=== PATIENT | female | born 1940 | race Caucasian/White ===

== ENCOUNTER → 2018-03-21 15:43 | Outpatient (CLI) | payer MEDICARE, OTHER, SELFPAY | PROVIDERS: Family Provider Internal Medicine; PCP Internal Medicine; Visit Provider Internal Medicine Gastroenterology | DX: K31.89 Other diseases of stomach and duodenum (principal) | CPT/HCPCS: 36415; 86677 ==

== ENCOUNTER → 2018-04-03 16:04 | Outpatient (CLI) | payer OTHER, MEDICARE, SELFPAY ==
[2018-04-03 16:40] LABS: Add Manual Diff / Slide Review NO; Basophils Percent Auto 0.5 % (0-2); Eosinophils Percent Auto 0.4 % (2-4); Hematocrit 34.9 % (36-46); Hemoglobin 11.8 g/dL (12.0-16.0); Lymphocytes Percent Auto 10.4 % (25-40); Mean Corpuscular HGB Conc 33.8 % (30-36); Mean Corpuscular Hemoglobin 31.4 PG (26-34); Monocytes Percent Auto 7.4 % (3-14); Neutrophils Absolute Auto 6000 /uL (3000-5900); Neutrophils Percent Auto 81.3 % (50-75); Platelet Count 219 X10^3/uL (150-400); Red Blood Cell Count 3.75 X10^6/uL (4.0-5.2); Red Cell Distribution Width 13.6 % (11.6-14.8); White Blood Cell Count 7.3 X10^3/uL (4.5-11.0)
[2018-04-03 17:42] LABS: Alanine Aminotransferase 23 IU/L (9-52); Albumin 3.6 g/dL (3.5-5.0); Albumin Globulin Ratio 0.9 (1.0-2.8); Alkaline Phosphatase 203 U/L (38-126); Aspartate Aminotransferase 36 IU/L (14-36); BUN Creatinine Ratio 15.7 (6-22); Bilirubin Total 0.3 mg/dL (0.2-1.3); Blood Urea Nitrogen 11 mg/dL (7-17); Calcium 8.5 mg/dL (8.4-10.2); Carbon Dioxide 31 mmol/L (22-32); Chloride 93 mmol/L (98-107); Estimated Glomerular Filt Rate > 60.0 mL/min (>60); Globulin 3.9 g/dL (1.7-4.1); Glucose 97 mg/dL (80-110); HEMOLYSIS < 15 (0-50); Potassium 4.7 mmol/L (3.4-5.1); Sodium 130 mmol/L (137-145); Total Protein 7.5 g/dL (6.3-8.2)
== END ==
PROVIDERS: Family Provider Internal Medicine; Visit Provider Internal Medicine Rheumatology
DX: M32.10 Systemic lupus erythematosus, organ or system involvement unspecified (principal); Z79.899 Other long term (current) drug therapy
CPT/HCPCS: 80053; 85025

== ENCOUNTER → 2018-04-26 15:05 | Outpatient (CLI) | payer MEDICARE, OTHER, SELFPAY ==
[2018-04-26 16:01] LABS: Add Manual Diff / Slide Review NO; Basophils Percent Auto 0.8 % (0-2); Eosinophils Percent Auto 0.7 % (2-4); Hematocrit 37.6 % (36-46); Hemoglobin 12.6 g/dL (12.0-16.0); Lymphocytes Percent Auto 15.5 % (25-40); Mean Corpuscular HGB Conc 33.6 % (30-36); Mean Corpuscular Hemoglobin 31.1 PG (26-34); Mean Corpuscular Volume 92.5 fL (80-100); Monocytes Percent Auto 7.9 % (3-14); Neutrophils Absolute Auto 4300 /uL (3000-5900); Neutrophils Percent Auto 75.1 % (50-75); Platelet Count 191 X10^3/uL (150-400); Red Blood Cell Count 4.06 X10^6/uL (4.0-5.2); White Blood Cell Count 5.7 X10^3/uL (4.5-11.0)
[2018-04-26 16:38] LABS: Alanine Aminotransferase 30 IU/L (9-52); Albumin 3.8 g/dL (3.5-5.0); Albumin Globulin Ratio 0.9 (1.0-2.8); Alkaline Phosphatase 172 U/L (38-126); Aspartate Aminotransferase 46 IU/L (14-36); BUN Creatinine Ratio 18.3 (6-22); Bilirubin Total 0.5 mg/dL (0.2-1.3); Blood Urea Nitrogen 11 mg/dL (7-17); Carbon Dioxide 28 mmol/L (22-32); Chloride 93 mmol/L (98-107); Estimated Glomerular Filt Rate > 60.0 mL/min (>60); Globulin 4.3 g/dL (1.7-4.1); Glucose 94 mg/dL (80-110); HEMOLYSIS < 15 (0-50); Potassium 4.6 mmol/L (3.4-5.1); Sodium 130 mmol/L (137-145); Total Protein 8.1 g/dL (6.3-8.2)
== END ==
PROVIDERS: PCP Internal Medicine; Visit Provider Internal Medicine Rheumatology
DX: M32.10 Systemic lupus erythematosus, organ or system involvement unspecified (principal); Z79.899 Other long term (current) drug therapy
CPT/HCPCS: 36415; 80053; 85025

== ENCOUNTER → 2018-05-14 15:45 | Outpatient (CLI) | payer MEDICARE, OTHER, SELFPAY | PROVIDERS: Family Provider Internal Medicine; PCP Family Medicine; Visit Provider Internal Medicine Gastroenterology | DX: A04.8 Other specified bacterial intestinal infections (principal) | CPT/HCPCS: 83013; 86677 ==

== ENCOUNTER → 2018-05-31 14:51 | Outpatient (CLI) | payer MEDICARE, OTHER, SELFPAY ==
[2018-05-31 16:14] LABS: Add Manual Diff / Slide Review NO; Basophils Percent Auto 0.4 % (0-2); Eosinophils Percent Auto 0.7 % (2-4); Hematocrit 39.1 % (36-46); Hemoglobin 12.9 g/dL (12.0-16.0); Lymphocytes Percent Auto 11.8 % (25-40); Mean Corpuscular HGB Conc 32.9 % (30-36); Mean Corpuscular Hemoglobin 30.4 PG (26-34); Mean Corpuscular Volume 92.6 fL (80-100); Monocytes Percent Auto 6.3 % (3-14); Neutrophils Absolute Auto 5400 /uL (3000-5900); Neutrophils Percent Auto 80.8 % (50-75); Platelet Count 194 X10^3/uL (150-400); Red Blood Cell Count 4.22 X10^6/uL (4.0-5.2); Red Cell Distribution Width 14.5 % (11.6-14.8); White Blood Cell Count 6.7 X10^3/uL (4.5-11.0)
[2018-05-31 16:55] LABS: Alanine Aminotransferase 22 IU/L (9-52); Albumin 3.9 g/dL (3.5-5.0); Alkaline Phosphatase 175 U/L (38-126); Aspartate Aminotransferase 38 IU/L (14-36); BUN Creatinine Ratio 16.7 (6-22); Bilirubin Total 0.4 mg/dL (0.2-1.3); Blood Urea Nitrogen 10 mg/dL (7-17); Calcium 8.8 mg/dL (8.4-10.2); Carbon Dioxide 26 mmol/L (22-32); Chloride 97 mmol/L (98-107); Estimated Glomerular Filt Rate > 60.0 mL/min (>60); Glucose 85 mg/dL (80-110); HEMOLYSIS < 15 (0-50); Potassium 4.9 mmol/L (3.4-5.1); Sodium 133 mmol/L (137-145); Total Protein 7.9 g/dL (6.3-8.2)
== END ==
PROVIDERS: Family Provider Internal Medicine; PCP Family Medicine; Visit Provider Internal Medicine Rheumatology
DX: Z79.899 Other long term (current) drug therapy (principal)
CPT/HCPCS: 36415; 80053; 85025

== ENCOUNTER 2018-06-11 14:13 | Emergency (ER) | payer MEDICARE, OTHER, SELFPAY ==
--- NOTE | 2018-06-11 14:22 | PC.NURSE ---
1400 not in wr when called
[2018-06-11 14:34] VITALS: TEMP 36.9
--- NOTE | 2018-06-11 17:09 | ED.LOWEXIN ---
HPI - Extremity Injury (Lower) <VIRAJ Vázquez - Last Filed: 06/11/18 22:27> General Chief Complaint: Extremity Injury, Lower Stated Complaint: RT LEG HURTS Time Seen by Provider: 06/11/18 17:09 Source: patient Mode of arrival: ambulatory Limitations: no limitations History of Present Illness HPI Narrative: 78-year-old female here for complaint of wound to her posterior right ankle. She reports 2 weeks ago that she received a skin tear to the area after she was accidentally collided with a shopping cart. She was seen twice once by primary care and once by walk-in clinic for the same issues. They have been doing dressings to the area along with bacitracin. She denies any new trauma to the area. She states that it has not healed as of yet. She denies any drainage from the area. No fevers no chills. She is ambulatory into the emergency room. Related Data Home Medications Medication Instructions Recorded Confirmed nadolol 20 mg PO QDAY #0 08/04/17 06/11/18 mycophenolate mofetil 1,000 mg PO BID 03/19/18 06/11/18 lactulose 10 gram/15 mL oral 10 gram PO DAILY PRN 04/25/18 06/11/18 solution trazodone 50 mg tablet 25 mg PO DAILY PRN 04/25/18 06/11/18 prednisone 1 mg tablet 3 mg PO QDAY #0 tab 05/24/18 06/11/18 Bifidobacterium infantis [Align] 1 cap PO DAILY PRN 06/11/18 06/11/18 bismuth subcit [id number] 3 cap PO ACHS 06/11/18 06/11/18 [Pylera] denosumab [Prolia] 1 dose SUB-Q [id number] 06/11/18 06/11/18 ferrous sulfate [Iron (ferrous 325 mg PO BID 06/11/18 06/11/18 sulfate)] fesoterodine [Toviaz] 4 mg PO BEDTIME 06/11/18 06/11/18 omeprazole 20 mg PO BID 06/11/18 06/11/18 oxycodone 5 mg PO Q6HP PRN 06/11/18 06/11/18 ranitidine HCl 150 mg PO DAILY 06/11/18 06/11/18 Previous Rx's Medication Instructions Recorded estradiol [Estrace] 0.01 % VAGINAL SEE INSTRUCTIONS 06/15/17 #45 gm potassium chloride 2 cap PO BID #180 cap 10/20/17 clonazepam 1 mg tablet 1 mg PO QIDP PRN #120 tab 04/03/18 duloxetine 60 mg capsule,delayed 60 mg PO DAILY #30 cap 04/03/18 release folic acid 1 mg tablet 1 mg PO BID #60 tab 04/18/18 levothyroxine 88 mcg tablet 88 mcg PO QAM #30 tab 05/15/18 Allergies Allergy/AdvReac Type Severity Reaction Status Date / Time codeine [CODEINE] Allergy Mild intolerant, Verified 06/05/18 11:16 headaches,n ightmares dicloxacillin [DICLOXACILLIN] Allergy Mild Verified 06/05/18 11:16 levofloxacin [LEVOFLOXACIN] Allergy Mild Verified 06/05/18 11:16 lorazepam [LORAZEPAM] Allergy Mild intolerant Verified 06/05/18 11:16 av thornton ciprofloxacin [CIPROFLOXACIN] Allergy Unknown Verified 06/05/18 11:16 hydroxychloroquine AdvReac Mild visual Verified 06/05/18 11:16 [From Plaquenil] disturbances Review of Systems <VIRAJ Vázquez - Last Filed: 06/11/18 22:27> Constitutional Denies chills, Denies fever(s), Denies lethargy and Denies weakness Eyes Denies change in vision, Denies eye discharge, Denies irritation and Denies loss of vision ENT Ears, Nose, Mouth, and Throat: Denies change in voice, Denies neck pain and Denies sore throat Cardiovascular Denies chest pain, Denies irregular heart rhythm, Denies lightheadedness, Denies palpitations, Denies dyspnea, Denies dyspnea on exertion and Denies orthopnea Respiratory Denies cough, Denies dyspnea, Denies dyspnea on exertion and Denies wheezing Gastrointestinal Gastrointestinal: Denies abdominal pain, Denies change in bowel habits, Denies diarrhea, Denies nausea and Denies vomiting Genitourinary Denies hematuria, Denies flank pain, Denies urinary incontinence and Denies urinary urgency Musculoskeletal Denies neck pain Integumentary/Breasts Denies pruritus, Denies erythema, Denies rash and Denies wounds Neurologic Denies confusion, Denies loss of vision and Denies weakness Psychiatric Denies anxiety, Denies confusion, Denies depression, Denies homicidal ideation and Denies suicidal ideation Endocrine Denies palpitations Hematologic/Lymphatic Denies easy bruising Allergic/Immunologic Denies wheezing Exam <VIRAJ Vázquez - Last Filed: 06/11/18 22:27> Initial Vital Signs Initial Vital Signs: Vital Signs Temperature 98.4 F 06/11/18 14:34 Const General: cooperative and well developed Nutritional Appearance: well nourished Orientation: alert, awake, oriented x3 and not confused [facility] Mouth: oral mucosae normal and moist mucous membranes Eyes Conjunctivae: conjunctivae normal Sclera: sclerae normal Pupils: PERRL EOM: EOM intact bilaterally Resp Effort & Inspection: normal respiratory effort, able to speak in complete sentences, no respiratory distress and no use of accessory muscles Auscultation: clear to auscultation bilaterally, no rales, no rhonchi and no wheezes Cardio Rate: regular rate Rhythm: regular rhythm Heart Sounds: no click, no gallops, no murmurs and no rubs Pulses: normal peripheral pulses Skin General: no rashes or lesions noted, No jaundice and No petechiae Neuro General: alert, oriented x3, gait normal and no focal motor deficits Speech: speech normal Extrem Other: Area of skin tear to the posterior right ankle over the Achilles tendon area appears to be healing well by secondary intention. No signs of infection. Distal sensation is intact. Distal pulses are intact. Distal range of motion is intact. <Natalee Alvares DO - Last Filed: 06/12/18 03:57> Initial Vital Signs Initial Vital Signs: Vital Signs Temperature 98.4 F 06/11/18 14:34 Course <VIRAJ Vázquez - Last Filed: 06/11/18 22:27> Vital Signs - 8 hr 06/11/18 14:34 06/11/18 17:18 Temperature 98.4 F Pulse Rate 68 Pulse Rate [Right Dorsalis Pedis] 68 Respiratory Rate 14 Blood Pressure [Left Arm] 157/88 H Pulse Oximetry 99 <Natalee Alvares DO - Last Filed: 06/12/18 03:57> Vital Signs - 8 hr 06/11/18 14:34 06/11/18 17:18 Temperature 98.4 F Pulse Rate 68 Pulse Rate [Right Dorsalis Pedis] 68 Respiratory Rate 14 Blood Pressure [Left Arm] 157/88 H Pulse Oximetry [address] [facility] - Extremity Injury (Lower) <VIRAJ Vázquez - Last Filed: 06/11/18 22:27> [facility] Narrative Medical decision making narrative: Wound appears to be healing well by secondary intention. Dressing applied to area with bacitracin. Follow up with primary care provider in the next few days for re-evaluation. Keep wound area clean and dry. For any worsening symptoms return to the emergency room. Discharge Plan Departure Patient Disposition: Home, Self-Care Clinical Impression: Skin tear of right lower leg without complication Discharge Date/Time: 06/11/18 18:33 Interventions: ED Discharge Assessment Last Done: 06/11/18 18:33 Instructions: Skin Wound Activity Restrictions/Additional Instructions: Wound area appears to be healing well by secondary intention no signs of infection at this time. Wound was dressed today in the emergency room. Keep dressing on clean and dry follow up with primary care provider in the next few days for re-evaluation. For any worsening symptoms return to the emergency room. Prescriptions: No Action estradiol [Estrace] 0.01 % cream 0.01 % Vaginal SEE INSTRUCTIONS Qty: 45 RF: 11 nadolol 20 MG tablet 20 mg PO QDAY Qty: 0 RF: 0 potassium chloride 8 MEQ capsule, extended release 2 cap PO BID Qty: 180 RF: 6 clonazepam 1 mg tablet 1 mg PO QIDP PRN (Reason: anxiety) Qty: 120 RF: 1 duloxetine 60 mg capsule,delayed release(DR/EC) 60 mg PO DAILY Qty: 30 RF: 5 folic acid 1 mg tablet 1 mg PO BID Qty: 60 RF: 4 levothyroxine 88 mcg tablet 88 mcg PO QAM Qty: 30 RF: 11 prednisone 1 mg tablet 3 mg PO QDAY Qty: 0 RF: 0 trazodone 50 mg tablet 25 mg PO DAILY PRN (Reason: antidepressant) RF: 0 lactulose 10 gram/15 mL solution 10 gram PO DAILY PRN (Reason: Laxative Effect) RF: 0 mycophenolate mofetil 500 mg Tablet 1,000 mg PO BID RF: 0 omeprazole 20 mg capsule,delayed release(DR/EC) 20 mg PO BID RF: 0 bismuth subcit [id number] [Pylera] 140-125-125 mg capsule 3 cap PO ACHS RF: 0 Bifidobacterium infantis [Align] 4 mg Capsule 1 cap PO DAILY PRN (Reason: Diarrhea) RF: 0 ferrous sulfate [Iron (ferrous sulfate)] 325 MG tablet 325 mg PO BID RF: 0 ranitidine HCl 150 MG tablet 150 mg PO DAILY RF: 0 oxycodone 5 MG tablet 5 mg PO Q6HP PRN (Reason: Pain, Severe) RF: 0 fesoterodine [Toviaz] 4 MG tablet extended release 24 hr 4 mg PO BEDTIME RF: 0 denosumab [Prolia] 60 mg/mL Syringe 1 dose Sub-Q [id number] RF: 0 Referrals: Rosalina Hylton DO [Primary Care Provider] - <Natalee Alvares DO - Last Filed: 06/12/18 03:57> Cosign ED Attending Donaldature Attestation: I was immediately available in the department for consultation. Documentation has been reviewed. I agree with assessment and plan.
[2018-06-11 17:18] VITALS: BP 157/88; PULSE 68; RESP 14; O2SAT 99
== END 2018-06-11 18:33 | disposition home or self-care (01) ==
PROVIDERS: Emergency Provider Nurse Practitioner Family; PCP Family Medicine
DX: S81.811A Laceration without foreign body, right lower leg, initial encounter (principal); W22.09XA Striking against other stationary object, initial encounter
CPT/HCPCS: 99282

== ENCOUNTER 2018-06-15 14:30 | Outpatient (RCR) | payer MEDICARE, OTHER, SELFPAY ==
--- NOTE | 2018-04-02 12:25 | OT.OP.EVAL ---
Visit Care Team Role Provider Type Michael Mcmahan MD Primary Care Provider Physician Specialty: Family Practice Address: [address] [place] [address], [id number] Email: [email or web address] Joe Gupta MD Family Provider Physician Specialty: Internal Medicine Address: [address] [place] [address], [id number] Email: Nery Bowers MD Attending Provider Non-Staff Specialty: Rheumatology Address: [address] [place] [address], [id number] Email: Occupational Therapy Initial Evaluation OT Outpatient Adult Evaluation Start: 03/30/18 13:43 Freq: Status: Active Protocol: Document 03/30/18 13:52 AMS (Rec: 03/30/18 14:34 AMS [id number]) General Information Referral Referring Physician Nery Bowers MD Reason for Referral [facility] OA; Lupus: may need splinting, hot wax, gentle strength, help w/ AE Visit Information Visit Number [id number] Plan of Care Dates 03/30/18-06/22/18 Insurance Information Medicare; g-codes required Identification Identification Confirmed Yes: Name/ match with paper chart Patient Patient Concerns Pain/discomfort; Maintaining functional independence Medical Information Medical History Systemic lupus--arthritis, pos [place]field, dsdna, h/o low platelets , one time w/ (+) IgG ACLs, repeat IgG ACLs in Nov 2013 mildly (+). Failed AZA due to low cell counts. Intolerant to HCQ due to macular degeneration. Started Cellcept late February 2016. Autoimmune hepatitis diagnosed in 2001. Hypothyroidism. Mild depression controlled on meds. Cirrhosis. Portal HTN. Banding of esophageal varices. Previous Therapy Previous Therapy/Therapies Yes History of Therapy h/o treatment for bilateral hand pain. (+) wearing of over -the-counter B splints w/ support of thumbs (CMC wrap). Current Therapy/Therapies Physical therapy at [facility] Therapy Pain Assessment Pain When Pain Assessed Pre Pain Present Pain Present Pain Reported Location Left Hand Intensity 2 Scale Used Numeric (1 - 10) Pain Behaviors Facial Grimacing Guarding Holding Area Pain Management Techniques Apply Heat Right Hand Scale Used Range 1-7 numeric Pain Behaviors Facial Grimacing Guarding Holding Area Pain Management Techniques Apply Heat Patient Questionnaires Quick Dash- Upper Extremity Quick Dash UE Score 59.1 Quick Dash UE Impairment 40 to 59% Impaired (Score 40- 59) ADLs Overall Ability Comments Impaired - difficulty dependent upon task being completed Feeding Skill Level Impaired Comments Intermittent need for assistance w/ cutting, using knife Dressing Upper Body Dressing Ability Dependent w/ managing buttons Able to manage jewelry - however, becoming increasingly difficult Skill Level Impaired Skill Level WFL Footware Type Tie shoe laces Skill Level WFL Oral Care Skill Level WFL Bathing Skill Level WFL Grooming Skill Level WFL Toileting Skill Level WFL IADLs Sleep Sleep Description Pt denied difficulties related to sleep due to B hand pain Meal Preparation Skill Level Impaired Comments Assistance w/ meal preparation required Local Truck Driver Skill Level Impaired Comments Assistance w/ house hold chores Energy conservation required Driving Skill Level WFL Comments Complains of pain w/ gripping steering wheel w/ R hand Vocation Vocational Ability Retired. 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 Meaningful Activities Meaningful Abilities Able to complete written tasks w/ increased time/for short periods of time Skill Level Impaired Comments As indicated on QuickDASH UE Outcome Measure Vision Vision Comments Impaired Observations Appearance/Deformities Appearance/Deformities Yes: Digits of B hands Joint Protection Joint Protection Fair Comments Decreased use and understanding of joint protection principles Prosthetic Management Type [id number] bilateral thumb splints Provided By Therapist Wearing Schedule Daily [place] Independent Signs of Skin Breakdown No Protective Posturing No Swelling Swelling Location Right thumb Severity Mild Observations Observations At time of eval, resistant to more rigid bilateral hand splints due to concerns re: loss of fxn as a result of previous experiences w/ other custom-made splints. Decreased overall understanding re: use of more rigid splints. Range of Motion Wrist Left Comments 0-70 degrees active wrist extension fingers open 0-60 degrees active wrist flexion 0-30 degrees active wrist UD 0-[address] * Pain-free AROM measurements taken in sitting Right Comments 0-70 degrees active wrist extension fingers open 0-55 degrees active wrist flexion 0-30 degrees active wrist UD 0-[address] * Pain-free AROM measurements taken in sitting Thumb Left Thumb ROM WFL No Comments 80 degrees R MCPJ flexion at rest 55 degrees L IPJ hyperextension at rest 0-20 degrees active L Thumb Abduction ROM measurements taken in sitting Right Thumb ROM WFL No MCP Flex AROM (degrees) 68 MCP Ext AROM (degrees) 0 IP Flex AROM (degrees) 70 IP Ext AROM (degrees) 0 Comments 30 degrees IPJ Radial Deviation at rest 0-30 degrees active R Thumb Abduction ROM measurements taken in sitting Muscle Testing Computer Systems Technology Instructor/Hand Strength Left Computer Systems Technology Instructor Dynamometer II averaged 23.3# of force Right Computer Systems Technology Instructor Dynamometer II averaged 8.0# of force Fine Motor Handedness Hand Preference Right Assessment/Plan Assessment Patient Response Fair Rehabilitation Potential Fair Impairments Identified ADLs Body Mechanics Coordination/Dexterity Flexibility Functional Activities Motor Function Pain Weakness Range of Motion Recreational Activities Meaningful Activities Stiffness Swelling Motor Planning Additional Impairments Identified Decreased joint protection; may benefit from different splints Treatment Assessment 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 Doctor requested therapist consider splinting options, hot wax, gentle strength, and adaptive equipment options. Evaluation findings included bilateral hand pain (R > L), decreasing functional independence, joint deformities of digits of bilateral hands, decreased joint protection awareness, and bilateral nifi-iqq-[id number] wrist/hand splints with limited thumb support. Evaluation also found pt resistant to more rigid bilateral hand splints due to concerns re: loss of fxn as a result of previous experiences w/ other custom-made splints. Outpatient OT recommended to address these impairments and maximize patient's daily functional independence, as well as to minimize/prevent further malformation of joints and/or use of hands w/ joints in positions of deformity. Home Exercise Program Reviewed use of heat and joint protection principles. Reviewed with Patient Goals Patient Understanding Good Plan Comment 8 weeks Treatment Frequency Once a Week Therapeutic Contents Active Range of Motion Adaptive Equipment Education Client Education Functional Activities Home Exercise Program Joint Protection Manual Therapy Education Self-Care Stretching/Flexibility Activities Therapeutic Activities Therapeutic Exercises Modalities Modalities As Needed As Described Additional Types of Modalities Paraffin, Ice Massage, Heat, Ultrasound, Contrast bath Patient Instruction Home Exercise Program Plan of Care Questions/Concerns Suggested Referrals Other Other Suggested Referrals Certified hand therapist for custom made splints Please Sign and Return: I have reviewed this Plan of Care and certify that the skilled therapy services above are required to meet the patient?s needs. Physician Signature Date Printed Name and Credentials Clinical Instructor Signature Printed Name and Credentials
--- NOTE | 2018-04-06 13:33 | OT.OP.TRT ---
Visit Care Team Role Provider Type Michael Mcmahan MD Primary Care Provider Physician Specialty: Family Practice Address: [address] [place] [address], [id number] Email: [email or web address] Joe Gupta MD Family Provider Physician Specialty: Internal Medicine Address: [address] [place] [address], [id number] Email: Nery Bowers MD Attending Provider Non-Staff Specialty: Rheumatology Address: [address] [place] [address], [address] Email: Occupational Therapy Treatment Note OT Outpatient Treatment Note - Adult Start: 04/05/18 15:28 Freq: Status: Active Protocol: Document 04/05/18 15:28 AMS (Rec: 04/05/18 15:30 AMS [email or web address]) OT Outpatient Adult Treatment Note Session Time Visit Start Time 02:35 Visit Stop Time 03:20 Total Visit Minutes 45 Visit Information Visit Number 12/09 Plan of Care Dates 03/30/18-06/22/18 Insurance Information Medicare; g-codes required Setting Treatment Setting Outpatient Care Visit Type Note Type Treatment Note General Information General Information Megan is a 77 year-old female referred to 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 Doctor requested therapist consider splinting options, hot wax, gentle strengthening and adaptive equipment options . - Subjective Identification Type Name Identification Reconciled With Medical Record Chief Complaint(s) Restricts Patient/Caregiver Compliance with Home Fair Exercise Program - Objective Objective Measurements Please see below in re: progress towards meeting short term and detention goals. MMT (04/05/18): 3/5 R thumb abd 3/5 R thumb add 3/5 L thumb abd 3/5 L thumb abd 3+/5 R thumb flex (MCPJ) 3+/5 R thumb flex (MCPJ) 4-/5 L thumb flex (MCPJ) 4-/5 L thumb ext (MCPJ) AROM (04/05/18) 0-68 degrees active L thumb IPJ flexion 0-97 degrees active L MCPJ flexion Short Term Goals 1. Patient will be modified independent with joint protections principles utilizing provided written and visual instructions from therapist. 04/05/18= 25% met. Shelter Goals 1. Patient will be modified independent with gentle hand strengthening home exercise program utilizing provided written and visual instructions from therapist. = 25% met. 2. Patient will be able to verbalize 100% understanding of available adaptive equipment options that will likely help maintain and/or improve upon her functional independence in the home setting. 04/05/18= 25% met. - Treatment 2 Descriptor Education re: joint protection principles Visual Cues Max Cues Verbal Cues Max Cues Tolerance Fair 1 Descriptor Compensatory strategies for functional activities Fine motor object manipulation on TT Visual Cues Max Cues Verbal Cues Max Cues Tolerance Fair Exercises 2 Descriptor Gentle thumb strengthening - Right/Left Stabilization abd/add 1 x 10 each direction B Body Position Sitting 1 Descriptor Active range of motion Right thumb 1 x 10 (functional positioning) Body Position Sitting OT Outpatient Modality Treatment Left Name of Modality paraffin Duration (Minutes) 10 Body Position Sitting Comments Left hand submerged Skin intact pre and post treatment Right Name of Modality paraffin Duration (Minutes) 10 Body Position Sitting Comments Right hand submerged Skin intact pre and post treatment Assessment Patient Response to Treatment Fair Rehab Potential Fair Impairments Identified ADLs Body Mechanics Coordination/Dexterity Flexibility Functional Activities Motor Function Pain Weakness Posture Range of Motion Recreational Activities Meaningful Activities Stiffness Swelling Motor Planning Assessment of Improvement Instructed on compensatory strategies for manipulation of small objects on TT. Recommend reviewing; max verbal and visual cues required to maximize success. Continued presentation of pain /discomfort. Continued apprehension from pt in re: more rigid bilateral splints. (+) response to use of paraffin for pain/discomfort. Recommend repeating. Decreased strength of bilateral thumbs; (+) instability against resistance R worse than left. Home Exercise Program Initiated instruction re: stabilization of right thumb to support small object manipulation on TT surface. Practiced in session and pt verbalized understanding. Reviewed with Patient/Caregiver Goals Progress Being Made Home Exercise Program Patient/Caregiver Understanding Fair - Plan Therapy Recommendations Continue with Current Program Advance per Rehabilitation Protocol Additional Therapy Recommendations Consult w/ PT; fax physician for referral to [facility] for custom -made splints Please Sign and Return: I have reviewed this Plan of Care and certify that the skilled therapy services above are required to meet the patient?s needs. Physician Signature Date Printed Name and Credentials Clinical Instructor Signature Printed Name and Credentials
--- NOTE | 2018-04-10 14:55 | OT.OP.TRT ---
Visit Care Team Role Provider Type Michael Mcmahan MD Primary Care Provider Physician Specialty: Family Practice Address: [address] [place] [address], [address] Email: [email or web address] Joe Gupta MD Family Provider Physician Specialty: Internal Medicine Address: [address] [place] [address], [phone] Email: Nery Bowers MD Attending Provider Non-Staff Specialty: Rheumatology Address: [address] [place] [address], [phone] Email: Occupational Therapy Treatment Note OT Outpatient Treatment Note - Adult Start: 04/05/18 15:28 Freq: Status: Active Protocol: Document 04/09/18 14:28 AMS (Rec: 04/09/18 14:28 AMS [id number]) OT Outpatient Adult Treatment Note Session Time Visit Start Time 12:40 Visit Stop Time 13:30 Total Visit Minutes 50 Visit Information Visit Number 01/06 Plan of Care Dates 03/30/18-06/22/18 Insurance Information Medicare; g-codes required Setting Treatment Setting Outpatient Care Visit Type Note Type Treatment Note General Information General Information Megan is a 77 year-old female referred to 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 Doctor requested therapist consider splinting options, hot wax, gentle strengthening and adaptive equipment options . - Subjective Identification Type Name Identification Reconciled With Medical Record Observations I never thought about that per Megan in re: tightness of grasp w/ managing items. They are starting me on 3 different antibiotics today or as soon as the pharmacy has the medications. It is for the infection I have in my stomach. Chief Complaint(s) Restricts Patient/Caregiver Compliance with Home Good Exercise Program - Objective Objective Measurements Please see below in re: progress towards meeting short term and detention goals. MMT (04/05/18): 3/5 R thumb abd 3/5 R thumb add 3/5 L thumb abd 3/5 L thumb abd 3+/5 R thumb flex (MCPJ) 3+/5 R thumb flex (MCPJ) 4-/5 L thumb flex (MCPJ) 4-/5 L thumb ext (MCPJ) AROM (04/05/18) 0-68 degrees active L thumb IPJ flexion 0-97 degrees active L MCPJ flexion Short Term Goals 1. Patient will be modified independent with joint protections principles utilizing provided written and visual instructions from therapist. 04/09/18= 50% met. reviewed tightness of grasp for objects/house hold chores Product Lister Goals 1. Patient will be modified independent with gentle hand strengthening home exercise program utilizing provided written and visual instructions from therapist. = 25% met. 2. Patient will be able to verbalize 100% understanding of available adaptive equipment options that will likely help maintain and/or improve upon her functional independence in the home setting. 04/05/18= 25% met. pt reported that she has a button -hook at home - Treatment 2 Descriptor Education re: joint protection principles Tightness of grasp Use of whole body w/ household management tasks Visual Cues Max Cues Verbal Cues Max Cues Tolerance Good Complexity Upgraded 1 Descriptor Compensatory strategies for functional activities Fine motor object manipulation on TT - reviewed Visual Cues Max Cues Verbal Cues Max Cues Tolerance Fair Exercises 3 Descriptor Finger abduction 2 sets of 10 reps Right hand 2nd -> 5th digit Complexity Upgraded 2 Descriptor Gentle thumb strengthening - Right/Left Stabilization abd/add 2 x 10 each direction B Body Position Sitting Complexity Upgraded 1 Descriptor Active range of motion Right thumb 2 x 10 (functional positioning) Body Position Sitting Complexity Upgraded - OT Outpatient Modality Treatment Left Name of Modality paraffin Duration (Minutes) 10 Body Position Sitting Comments Left hand submerged Skin intact pre and post treatment Right Name of Modality paraffin Duration (Minutes) 10 Body Position Sitting Comments Right hand submerged Skin intact pre and post treatment Assessment Patient Response to Treatment Fair Rehab Potential Fair Impairments Identified ADLs Body Mechanics Coordination/Dexterity Flexibility Functional Activities Motor Function Pain Weakness Posture Range of Motion Recreational Activities Meaningful Activities Stiffness Swelling Motor Planning Assessment of Improvement Instructed on compensatory strategies for manipulation of small objects on TT; min v.c. for R. No v.c. required w/ left. Continued presentation of pain/discomfort. Continued apprehension from pt in re: more rigid bilateral splints. (+) response to use of paraffin for pain/discomfort. (+) response to joint protection principles relative to tightness of grasp and modication of household tasks. Recommend reviewing these principles as needed. Pt verbalized that she has a button hook (somewhere at home ); thus, she is aware of one option for AE use with buttoning clothing items. Home Exercise Program Initiated instruction re: joint protection w/ grasping of objects and w/ completion of house hold chores. Recommend reviewing at time of next treatment session. Pt verbalized understanding. Reviewed with Patient/Caregiver Goals Progress Being Made Home Exercise Program Patient/Caregiver Understanding Fair - Plan Therapy Recommendations Continue with Current Program Advance per Rehabilitation Protocol Additional Therapy Recommendations Consult w/ PT; fax physician for referral to [facility] for custom -made splints Please Sign and Return: I have reviewed this Plan of Care and certify that the skilled therapy services above are required to meet the patient?s needs. Physician Signature Date Printed Name and Credentials Clinical Instructor Signature Printed Name and Credentials
--- NOTE | 2018-04-18 10:15 | OT.OP.TRT ---
Visit Care Team Role Provider Type Michael Mcmahan MD Primary Care Provider Physician Specialty: Family Practice Address: [address] [place] [address], [phone] Email: Joe Gupta MD Family Provider Physician Specialty: Internal Medicine Address: [address] [place] [address], [phone] Email: Nery Bowers MD Attending Provider Non-Staff Specialty: Rheumatology Address: [address] [place] [address], [phone] Email: Occupational Therapy Treatment Note OT Outpatient Treatment Note - Adult Start: 04/05/18 15:28 Freq: Status: Active Protocol: Document 04/18/18 10:14 AMS (Rec: 04/18/18 10:15 AMS [id number]) OT Outpatient Adult Treatment Note Visit Type Note Type Administrative Note - Subjective Observations Therapist faxed referring physician re: new Rx for custom-made splints for patient [facility] does not have an outpatient therapist providing custom- made splints at this time. Fax and confirmation of fax received by MD's clinic placed in paper chart. Therapist to follow-up as appropriate. - - - -
--- NOTE | 2018-04-25 08:44 | OT.OP.TRT ---
Visit Care Team Role Provider Type Michael Mcmahan MD Primary Care Provider Physician Specialty: Family Practice Address: [address] [place] [address], [id number] Email: Joe Gupta MD Family Provider Physician Specialty: Internal Medicine Address: [address] [place] [address], [id number] Email: Nery Bowers MD Attending Provider Non-Staff Specialty: Rheumatology Address: [address] [place] [address], [id number] Email: Occupational Therapy Treatment Note OT Outpatient Treatment Note - Adult Start: 04/05/18 15:28 Freq: Status: Active Protocol: Document 04/24/18 14:35 AMS (Rec: 04/25/18 08:43 AMS [id number]) OT Outpatient Adult Treatment Note Session Time Visit Start Time 12:35 Visit Stop Time 13:20 Total Visit Minutes 45 Visit Information Visit Number 4/10 Plan of Care Dates 03/30/18-06/22/18 Insurance Information Medicare; g-codes required Setting Treatment Setting Outpatient Care Visit Type Note Type Treatment Note General Information General Information Megan is a 77 year-old female referred to 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 Doctor requested therapist consider splinting options, hot wax, gentle strengthening and adaptive equipment options . - Subjective Identification Type Name Identification Reconciled With Medical Record Observations I haven't heard from Nery or [facility] per Megan. Patient/Caregiver Compliance with Home Good Exercise Program - Objective Objective Measurements Please see below in re: progress towards meeting goals . MMT (04/05/18): 3/5 R thumb abd 3/5 R thumb add 3/5 L thumb abd 3/5 L thumb abd 3+/5 R thumb flex (MCPJ) 3+/5 R thumb flex (MCPJ) 4-/5 L thumb flex (MCPJ) 4-/5 L thumb ext (MCPJ) AROM (04/05/18) 0-68 degrees active L thumb IPJ flexion 0-97 degrees active L MCPJ flexion Short Term Goals 1. Patient will be modified independent with joint protections principles utilizing provided written and visual instructions from therapist. 04/24/18= 50% met. Snf Goals 1. Patient will be modified independent with gentle hand strengthening home exercise program utilizing provided written and visual instructions from therapist. = 25% met. 2. Patient will be able to verbalize 100% understanding of available adaptive equipment options that will likely help maintain and/or improve upon her functional independence in the home setting. 04/24/18= 25% met. - Treatment 2 Descriptor Education re: joint protection principles Tightness of grasp Visual Cues Max Cues Verbal Cues Max Cues Tolerance Good Complexity No Change 1 Descriptor Compensatory strategies Education re: nail care AE options Need to review Visual Cues Max Cues Verbal Cues Max Cues Tolerance Fair Complexity Upgraded Exercises 4 Descriptor Finger Extension Side Both Body Position Sitting Sets 2 Repetitions 10 Complexity Upgraded 3 Descriptor Finger abd/add Side Both Body Position Sitting Sets 2 Repetitions 10 Resistance Theraband #1 Complexity Upgraded 2 Descriptor Gentle thumb strengthening - Right/Left Stabilization abd/add 1 x 10 each direction B hands (digits 1-5) Body Position Sitting Complexity Upgraded 1 Descriptor Active range of motion Right thumb 2 x 10 (functional positioning) Body Position Sitting Complexity No Change - Assessment Patient Response to Treatment Fair Rehab Potential Fair Impairments Identified ADLs Body Mechanics Coordination/Dexterity Flexibility Functional Activities Motor Function Pain Weakness Posture Range of Motion Recreational Activities Meaningful Activities Stiffness Swelling Motor Planning Assessment of Improvement Continued apprehension from pt in re: more rigid bilateral splints. However, willing to see [facility] to discuss options. (+ ) response to use of paraffin for pain/discomfort. Upgraded gentle strengthening exercises . Initiated theraband #1. Recommend completion in only treatment sessions due to tendency to use compensatory strategies if not supervised/ cued on proper performance. Decreased functional independence. Recommend following-up in re: options for maximizing functional independence w/ nail care. Home Exercise Program Discussion re: obtaining new Rx from referring physician to [facility]/or alt [facility] for bilateral custom-made splints. Therapist to follow-up as appropriate. Reviewed with Patient/Caregiver Goals Progress Being Made Home Exercise Program Patient/Caregiver Understanding Fair - Plan Therapy Recommendations Continue with Current Program Advance per Rehabilitation Protocol Additional Therapy Recommendations Consult w/ PT; requested patient contact PCP re: referral
--- NOTE | 2018-05-01 15:02 | OT.OP.TRT ---
Visit Care Team Role Provider Type Michael Mcmahan MD Primary Care Provider Physician Specialty: Family Practice Address: [address] [place] [address], [id number] Email: Joe Gupta MD Family Provider Physician Specialty: Internal Medicine Address: [address] [place] [address], [id number] Email: Nery Bowers MD Attending Provider Non-Staff Specialty: Rheumatology Address: [address] [place] [address], [id number] Email: Occupational Therapy Treatment Note OT Outpatient Treatment Note - Adult Start: 04/05/18 15:28 Freq: Status: Active Protocol: Document 05/01/18 14:48 AMS (Rec: 05/01/18 15:02 AMS [id number]) OT Outpatient Adult Treatment Note Session Time Visit Start Time 12:35 Visit Stop Time 13:20 Total Visit Minutes 45 Visit Information Visit Number 5/ Plan of Care Dates 03/30/18-06/22/18 Insurance Information Medicare; g-codes required Setting Treatment Setting Outpatient Care Visit Type Note Type Treatment Note General Information General Information Megan is a 77 year-old female referred to 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 Doctor requested therapist consider splinting options, hot wax, gentle strengthening and adaptive equipment options . - Subjective Identification Type Name Identification Reconciled With Medical Record Observations I talked to Nery's nurse this morning about my bloodwork. They decreased my Lupus medication. Both of hands hurt. I went shopping per Megan on Monday. I think they hurt from pushing those big carts. Patient/Caregiver Compliance with Home Good Exercise Program - Objective Objective Measurements Please see below in re: progress towards meeting goals . Increased stiffness of digits 2-5 of right hand w/ MCPJ extension. Increased stiffness of R thumb. Therapist reported decreased stiffness of digits of right hand/thumb following treatment session. Discussed therapist re-faxing request to referring physician on Monday04/27/18. Recommended pt follow-up. MMT (04/05/18): 3/5 R thumb abd 3/5 R thumb add 3/5 L thumb abd 3/5 L thumb abd 3+/5 R thumb flex (MCPJ) 3+/5 R thumb flex (MCPJ) 4-/5 L thumb flex (MCPJ) 4-/5 L thumb ext (MCPJ) AROM (04/05/18) 0-68 degrees active L thumb IPJ flexion 0-97 degrees active L MCPJ flexion Short Term Goals 1. Patient will be modified independent with joint protection principles utilizing provided written and visual instructions from therapist. 05/01/18= 50% met. Snf Goals 1. Patient will be modified independent with gentle hand strengthening home exercise program utilizing provided written and visual instructions from therapist. = 25% met. 2. Patient will be able to verbalize 100% understanding of available adaptive equipment options that will likely help maintain and/or improve upon her functional independence in the home setting. 05/01/18= 25% met. - Treatment 2 Descriptor Education re: joint protection principles Tightness of grasp Visual Cues Max Cues Verbal Cues Max Cues Tolerance Good Complexity No Change 1 Descriptor Compensatory strategies Education re: nail care AE options Need to review Visual Cues Max Cues Verbal Cues Max Cues Tolerance Fair Complexity No Change Exercises 6 Descriptor Wrist PROM Wrist ext/digit ext Complexity Upgraded 5 Descriptor Gentle PROM Digits Joint Mobs Completed by therapist Complexity Upgraded 4 Descriptor Finger Extension Side Both Body Position Sitting Sets 3 Repetitions 10 Complexity No Change 3 Descriptor Finger abd/add Side Both Body Position Sitting Sets 3 Repetitions 10 Resistance Theraband #1 Complexity Upgraded 2 Descriptor Gentle thumb strengthening - Right/Left Extension Abd/Add Opposition Body Position Sitting Sets 2 Repetitions 10 Resistance Theraband #1 Complexity Upgraded 1 Descriptor Active range of motion Right thumb 2 x 10 (functional positioning) Body Position Sitting Complexity No Change - Assessment Patient Response to Treatment Fair Rehab Potential Fair Impairments Identified ADLs Body Mechanics Coordination/Dexterity Flexibility Functional Activities Motor Function Pain Weakness Posture Range of Motion Recreational Activities Meaningful Activities Stiffness Swelling Motor Planning Assessment of Improvement Continued apprehension from pt in re: more rigid bilateral splints. (+) response to use of paraffin for pain/ discomfort. Upgraded gentle strengthening exercises. Recommend continued completion in only treatment sessions due to tendency to use compensatory strategies if not supervised/cued on proper performance. Increased stiffness of both hands; decreased stiffness reported by patient following treatment session primarily of the right hand. Decreased functional independence. Recommend following-up in re: options for maximizing functional independence in daily life and utilizing joint protection principles. Home Exercise Program Discussed therapist re-faxing request to referring physician on Monday04/27/18. Recommended pt follow-up. Reviewed with Patient/Caregiver Goals Progress Being Made Home Exercise Program Patient/Caregiver Understanding Fair - Plan Therapy Recommendations Continue with Current Program Advance per Rehabilitation Protocol Additional Therapy Recommendations Consult w/ PT
--- NOTE | 2018-05-15 11:48 | OT.OP.TRT ---
Visit Care Team Role Provider Type Michael Mcmahan MD Primary Care Provider Physician Specialty: Family Practice Address: [address] [place] [address], [id number] Email: Joe Gupta MD Family Provider Physician Specialty: Internal Medicine Address: [address] [place] [address], [address] Email: Nery Bowers MD Attending Provider Non-Staff Specialty: Rheumatology Address: [address] [place] [address], [id number] Email: Occupational Therapy Treatment Note OT Outpatient Treatment Note - Adult Start: 04/05/18 15:28 Freq: Status: Active Protocol: Document 05/14/18 03:30 AMS (Rec: 05/15/18 11:48 AMS [id number]) OT Outpatient Adult Treatment Note Session Time Visit Start Time 02:35 Visit Stop Time 03:20 Total Visit Minutes 50 Visit Information Visit Number 04/08 Plan of Care Dates 03/30/18-06/22/18 Insurance Information Medicare; g-codes required Setting Treatment Setting Outpatient Care Visit Type Note Type Treatment Note General Information General Information Megan is a 77 year-old female referred to 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 Doctor requested therapist consider splinting options, hot wax, gentle strengthening and adaptive equipment options . - Subjective Identification Type Name Identification Reconciled With Medical Record Observations My hands are hurting from playing with my grandbaby this weekend. My fingers especially of my right hand per Megan. Patient/Caregiver Compliance with Home Good Exercise Program - Objective Objective Measurements Please see below in re: progress towards meeting goals . Increased stiffness of digits 2-5 of right hand w/ MCPJ extension. Focus on decreasing stiffness, swelling , discomfort, and decreased range of motion. Patient complained of stomach discomfort; going to follow-up w/ Lab following treatment session as per recommendation of GI specialist. MMT (04/05/18): 3/5 R thumb abd 3/5 R thumb add 3/5 L thumb abd 3/5 L thumb abd 3+/5 R thumb flex (MCPJ) 3+/5 R thumb flex (MCPJ) 4-/5 L thumb flex (MCPJ) 4-/5 L thumb ext (MCPJ) AROM (04/05/18) 0-68 degrees active L thumb IPJ flexion 0-97 degrees active L MCPJ flexion Short Term Goals 1. Patient will be modified independent with joint protection principles utilizing provided written and visual instructions from therapist. 05/14/18= 50% met. Long-Term Goals 1. Patient will be modified independent with gentle hand strengthening home exercise program utilizing provided written and visual instructions from therapist. = 25% met. 2. Patient will be able to verbalize 100% understanding of available adaptive equipment options that will likely help maintain and/or improve upon her functional independence in the home setting. 05/01/18= 25% met. - Treatment 2 Descriptor Education re: joint protection principles Tightness of grasp Visual Cues Max Cues Verbal Cues Max Cues Tolerance Good Complexity No Change 1 Descriptor Compensatory strategies Review adaptive equipment Visual Cues Max Cues Verbal Cues Max Cues Tolerance Fair Complexity No Change Exercises 6 Descriptor Wrist PROM Wrist ext/digit ext Complexity No Change 5 Descriptor Gentle PROM Digits Joint Mobs Completed by therapist Complexity Upgraded 4 Descriptor Finger Extension Side Both Body Position Sitting Sets 3 Repetitions 10 Complexity No Change 3 Descriptor *Not completed 05/14/18 Finger abd/add Side Both Body Position Sitting Sets 3 Repetitions 10 Resistance Theraband #1 Complexity No Change 2 Descriptor *Not completed 05/14/18 Gentle thumb strengthening - Right/Left Extension Abd/Add Opposition Body Position Sitting Sets 2 Repetitions 10 Resistance Theraband #1 Complexity No Change 1 Descriptor Active range of motion Right thumb 2 x 10 (functional positioning) Body Position Sitting Complexity No Change - Assessment Patient Response to Treatment Fair Rehab Potential Fair Impairments Identified ADLs Body Mechanics Coordination/Dexterity Flexibility Functional Activities Motor Function Pain Weakness Posture Range of Motion Recreational Activities Meaningful Activities Stiffness Swelling Motor Planning Assessment of Improvement Continued apprehension from pt in re: more rigid bilateral splints. (+) response to use of paraffin for pain/ discomfort. Increased stiffness of both hands; decreased stiffness reported by patient following treatment session primarily of the right hand. Decreased functional independence. Strengthening exercises not completed on this date to increased stiffness, increased complaints of discomfort, and limited active ROM of digits predominantly of the right hand likely due to active playing with grand baby over the weekend. Resume gentle strengthening exercises as tolerated. Recommend following -up in re: options for maximizing functional independence in daily life and utilizing joint protection principles. Home Exercise Program No changes to HEP. Reviewed with Patient/Caregiver Goals Progress Being Made Home Exercise Program Patient/Caregiver Understanding Fair - Plan Therapy Recommendations Continue with Current Program Advance per Rehabilitation Protocol Additional Therapy Recommendations Consult w/ PT
--- NOTE | 2018-05-24 15:24 | OT.OP.TRT ---
Visit Care Team Role Provider Type Michael Mcmahan MD Primary Care Provider Physician Specialty: Family Practice Address: [address] [place] [address], [id number] Email: Joe Gupta MD Family Provider Physician Specialty: Internal Medicine Address: [address] [place] [address], [address] Email: Nery Bowers MD Attending Provider Non-Staff Specialty: Rheumatology Address: [address] [place] [address], [phone] Email: Occupational Therapy Treatment Note OT Outpatient Treatment Note - Adult Start: 04/05/18 15:28 Freq: Status: Active Protocol: Document 05/24/18 14:33 AMS (Rec: 05/24/18 15:24 AMS [id number]) OT Outpatient Adult Treatment Note Session Time Visit Start Time 10:38 Visit Stop Time 11:25 Total Visit Minutes 47 Visit Information Visit Number 05/08 Plan of Care Dates 03/30/18-06/22/18 Insurance Information Medicare; g-codes required Setting Treatment Setting Outpatient Care Visit Type Note Type Treatment Note General Information General Information Megan is a 77 year-old female referred to 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 Doctor requested therapist consider splinting options, hot wax, gentle strengthening and adaptive equipment options . - Subjective Identification Type Name Identification Reconciled With Medical Record Observations They still haven't called me per Megan in re: setting up an appt for custom-made splints. Patient/Caregiver Compliance with Home Good Exercise Program - Objective Objective Measurements Please see below in re: progress towards meeting goals . Decreased active use of joint protection principles on daily basis; education re: spring loaded scissors and different options for managing personal garden/pruning of wen. Resumed strengthening as tolerated. Increase as able w/ focus on increasing patient's independence w/ carry-over of HEP. MMT (04/05/18): 3/5 R thumb abd 3/5 R thumb add 3/5 L thumb abd 3/5 L thumb abd 3+/5 R thumb flex (MCPJ) 3+/5 R thumb flex (MCPJ) 4-/5 L thumb flex (MCPJ) 4-/5 L thumb ext (MCPJ) AROM (04/05/18) 0-68 degrees active L thumb IPJ flexion 0-97 degrees active L MCPJ flexion Short Term Goals 1. Patient will be modified independent with joint protection principles utilizing provided written and visual instructions from therapist. 05/24/18= 50% met. Zipper Joiner Goals 1. Patient will be modified independent with gentle hand strengthening home exercise program utilizing provided written and visual instructions from therapist. = 25% met. 2. Patient will be able to verbalize 100% understanding of available adaptive equipment options that will likely help maintain and/or improve upon her functional independence in the home setting. 05/24/18= 25% met. scissors/large mortgage loan computation clerk education - Treatment 2 Descriptor Education re: joint protection principles AE Visual Cues Max Cues Verbal Cues Max Cues Tolerance Good Complexity Upgraded 1 Descriptor Compensatory strategies Reviewed adaptive equipment Visual Cues Max Cues Verbal Cues Max Cues Tolerance Fair Complexity Upgraded Exercises 6 Descriptor Wrist PROM Wrist ext/digit ext By patient By therapist Complexity No Change 5 Descriptor Gentle PROM Digits Complexity Upgraded 4 Descriptor Finger Extension Side Both Body Position Sitting Sets 3 Repetitions 10 Complexity No Change 3 Descriptor Finger abd/add Side Both Body Position Sitting Sets 3 Repetitions 10 Resistance Theraband #1 Complexity No Change 2 Descriptor Gentle thumb strengthening - Right/Left Extension Abd/Add Opposition Body Position Sitting Sets 2 Repetitions 10 Resistance Theraband #1 Complexity No Change 1 Descriptor Active range of motion Right thumb 2 x 10 (functional positioning) Body Position Sitting Complexity No Change - Assessment Patient Response to Treatment Fair Rehab Potential Fair Impairments Identified ADLs Body Mechanics Coordination/Dexterity Flexibility Functional Activities Motor Function Pain Weakness Posture Range of Motion Recreational Activities Meaningful Activities Stiffness Swelling Motor Planning Assessment of Improvement Resumed gentle strengthening exercises. Decreased use of joint protection principles in daily life; decreased awareness of AE relative to gardening and cutting tasks in the home. Denied being contacted by hand specialist or physician in re: rigid splints. Home Exercise Program Discussed joint protection principles and AE options for gardening. Written and visual instructions provided. Patient denied questions. Reviewed with Patient/Caregiver Goals Progress Being Made Home Exercise Program Patient/Caregiver Understanding Fair - Plan Therapy Recommendations Continue with Current Program Advance per Rehabilitation Protocol Additional Therapy Recommendations Consult w/ PT Occupational Therapy Assessment OT Outpatient Modality Start: 03/30/18 13:43 Freq: Status: Active Protocol: Document 05/24/18 14:33 AMS (Rec: 05/24/18 15:24 AMS [email or web address]) OT Outpatient Modality Treatment Left Name of Modality paraffin Duration (Minutes) 10 Body Position Sitting Comments Left hand submerged Skin intact pre and post treatment Right Name of Modality paraffin Duration (Minutes) 10 Body Position Sitting Comments Right hand submerged Skin intact pre and post treatment
--- NOTE | 2018-06-15 16:21 | OT.OP.TRT ---
Visit Care Team Role Provider Type Michael Mcmahan MD Primary Care Provider Physician Specialty: Family Practice Address: [address] [place] [address], [id number] Email: Joe Gupta MD Family Provider Physician Specialty: Internal Medicine Address: [address] [place] [address], [id number] Email: Nery Bowers MD Attending Provider Non-Staff Specialty: Rheumatology Address: [address] [place] [address], [id number] Email: Occupational Therapy Treatment Note OT Outpatient Treatment Note - Adult Start: 04/05/18 15:28 Freq: Status: Active Protocol: Document 06/12/18 15:30 AMS (Rec: 06/15/18 16:10 AMS [email or web address]) OT Outpatient Adult Treatment Note Session Time Visit Start Time 13:30 Visit Stop Time 14:18 Total Visit Minutes 48 Visit Information Visit Number 06/08 Plan of Care Dates 03/30/18-06/22/18 Insurance Information Medicare; g-codes required Setting Treatment Setting Outpatient Care Visit Type Note Type Treatment Note General Information General Information Megan is a 77 year-old female referred to 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 Doctor requested therapist consider splinting options, hot wax, gentle strengthening and adaptive equipment options . - Subjective Identification Type Name Identification Reconciled With Medical Record Observations They were worried my leg was infected so they sent me to the ER per Megan. I had to wait for 3 hours. The doctor said it was fine. This middle finger has been acting up since I pushed the shopping cart per Megan. Chief Complaint(s) Restricts Patient/Caregiver Compliance with Home Good Exercise Program - Objective Objective Measurements Please see below in re: progress towards meeting goals . Decreased active use of joint protection principles on daily basis; decreased spotaneous carry-over of joint protection principles to different types of activities. (+) exacerbation of arthritis symptoms with use of shopping cart. Decreased bilateral wrist strength; please refer to MMT for specific details. Improving bilateral mobile homes repairer strength compared to initial evaluation. MMT (04/05/18): 3/5 R thumb abd 3/5 R thumb add 3/5 L thumb abd 3/5 L thumb abd 3+/5 R thumb flex (MCPJ) 3+/5 R thumb flex (MCPJ) 4-/5 L thumb flex (MCPJ) 4-/5 L thumb ext (MCPJ) AROM (04/05/18) 0-68 degrees active L thumb IPJ flexion 0-97 degrees active L MCPJ flexion Short Term Goals 1. Patient will be modified independent with joint protection principles utilizing provided written and visual instructions from therapist. 05/24/18= 50% met. Mcc Goals 1. Patient will be modified independent with gentle hand strengthening home exercise program utilizing provided written and visual instructions from therapist. = 25% met. 2. Patient will be able to verbalize 100% understanding of available adaptive equipment options that will likely help maintain and/or improve upon her functional independence in the home setting. 05/24/18= 25% met. scissors/large mobile homes repairer education - Treatment 2 Descriptor Education re: joint protection principles Driving Managing large items Education: position of hands/ fingers Visual Cues Max Cues Verbal Cues Max Cues Tolerance Good Complexity Upgraded 1 Descriptor Compensatory strategies Adaptive equipment Visual Cues Max Cues Verbal Cues Max Cues Tolerance Fair Complexity Upgraded Exercises [address]/UD Side Both Body Position Sitting Sets 3 Repetitions 10 Resistance #1 TB Complexity Upgraded 7 Descriptor Wrist ext Wrist flex Side Both Body Position Sitting Sets 3 Repetitions 10 Resistance #1 TB Complexity Upgraded 6 Descriptor Wrist PROM Wrist ext/digit ext By patient By therapist Complexity No Change 5 Descriptor Gentle PROM Digits Complexity Upgraded 4 Descriptor Finger Extension Side Both Body Position Sitting Sets 3 Repetitions 10 Resistance Rubberband Complexity Upgraded 3 Descriptor Finger abd/add Side Both Body Position Sitting Sets 3 Repetitions 10 Resistance Rubberband Complexity No Change 2 Descriptor Gentle thumb strengthening - Right/Left Extension Abd/Add Opposition Body Position Sitting Sets 3 Repetitions 10 Resistance Rubberband Complexity No Change 1 Descriptor Active range of motion Right thumb 2 x 10 (functional positioning) Body Position Sitting Complexity No Change - Assessment Patient Response to Treatment Fair Rehab Potential Fair Impairments Identified ADLs Body Mechanics Coordination/Dexterity Flexibility Functional Activities Motor Function Pain Weakness Posture Range of Motion Recreational Activities Meaningful Activities Stiffness Swelling Motor Planning Assessment of Improvement Decreased active use of joint protection principles on daily basis; decreased spontaneous carry-over of joint protection principles to different types of activities. (+) exacerbation of arthritis symptoms with use of shopping cart primarily of dominant right hand. Decreased bilateral wrist strength; non- dominant left wrist presenting stronger overall compared to right. Improving bilateral mobile homes repairer strength compared to initial evaluation; however, significant difference between strength of right mobile homes repairer versus left mobile homes repairer w/ dynamometer testing. Home Exercise Program Please see above for additional details. Focus on joint protection principles/ positioning of fingers. Reviewed with Patient/Caregiver Goals Progress Being Made Home Exercise Program Patient/Caregiver Understanding Fair - Plan Therapy Recommendations Continue with Current Program Advance per Rehabilitation Protocol Additional Therapy Recommendations Consult w/ PT Occupational Therapy Assessment OT Outpatient Modality Start: 03/30/18 13:43 Freq: Status: Active Protocol: Document 06/12/18 15:30 AMS (Rec: 06/15/18 16:10 AMS [email or web address]) OT Outpatient Modality Treatment Left Name of Modality paraffin Duration (Minutes) 10 Body Position Sitting Comments Left hand submerged Skin intact pre and post treatment Right Name of Modality paraffin Duration (Minutes) 10 Body Position Sitting Comments Right hand submerged Skin intact pre and post treatment Right Thumb Name of Modality Ultrasound Duration (Minutes) 10 Body Position Sitting Parameters 20% duty cycle; 1.8 w/cm2 Comments Pre: Skin intact Post: Skin intact Address swelling Decreased swelling noted s/p completion of treatment Occupational Therapy Assessment OT Outpatient Muscle Testing Start: 06/15/18 16:10 Freq: Status: Active Protocol: Document 06/12/18 15:30 AMS (Rec: 06/15/18 16:11 AMS [email or web address]) Wrist Strength Wrist Manual Muscle Testing Right Flexion (C7) 4 Good Extension (C6) 4 Good Ulnar Deviation 3+ Fair+ Radial Deviation 4- Good- Left Extension (C6) 4 Good Ulnar Deviation 3+ Fair+ Radial Deviation 4- Good- Comments 5-/5 MMT L wrist flex Hot [place]ale Worker/Hand Strength Hot [place] Worker/Hand Strength Left [place] Worker Dynamometer II 37.7 Comments Initial Eval: avg 23.3# of force Right Hot [place] Worker Dynamometer II 15.0 Comments Initial eval: avg 8.0# of force
--- NOTE | 2018-06-15 17:09 | OT.OP.REEVAL ---
Visit Care Team Role Provider Type Michael Mcmahan MD Primary Care Provider Physician Address: [address] [place] [address], [place], [address] Email: Joe Gupta MD Family Provider Physician Address: [address] [place] [address], [id number] Email: Nery Bowers MD Attending Provider Non-Staff Address: [address] [place] [address], [id number] Email: OT Outpatient OT Outpatient Adult Evaluation Start: 03/30/18 13:43 Freq: Status: Active Protocol: Document 03/30/18 13:52 AMS (Rec: 03/30/18 14:34 AMS [email or web address]) General Information Visit Information Visit Number [id number] Plan of Care Dates 03/30/18-06/22/18 Insurance Information Medicare; g-codes required Referral Referring Physician Nery Bowers MD 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 Failed AZA due to low cell counts. Intolerant to HCQ due to macular degeneration. Started Cellcept late February 2016. Autoimmune hepatitis diagnosed in 2001. Hypothyroidism. Mild depression controlled on meds. Cirrhosis. Portal HTN. Banding of esophageal varices. Previous Therapy Previous Therapy/Therapies Yes History of Therapy h/o treatment for bilateral hand pain. (+) wearing of over -the-counter B splints w/ support of thumbs (CMC wrap). Current Therapy/Therapies Physical therapy at [facility] Therapy Pain Assessment Pain When Pain Assessed Pre Pain Present Pain Present Pain Reported Location Left Hand Intensity 2 Scale Used Numeric (1 - 10) Pain Behaviors Facial Grimacing Guarding Holding Area Pain Management Techniques Apply Heat Right Hand Scale Used Range 1-7 numeric Pain Behaviors Facial Grimacing Guarding Holding Area Pain Management Techniques Apply Heat Patient Questionnaires Quick Dash- Upper Extremity Quick Dash UE Score 59.1 Quick Dash UE Impairment 40 to 59% Impaired (Score 40- 59) ADLs Overall Ability Comments Impaired - difficulty dependent upon task being completed Feeding Skill Level Impaired Comments Intermittent need for assistance w/ cutting, using knife Dressing Upper Body Dressing Ability Dependent w/ managing buttons Able to manage jewelry - however, becoming increasingly difficult Skill Level Impaired Skill Level WFL Footware Type Tie shoe laces Skill Level WFL Oral Care Skill Level WFL Bathing Skill Level WFL Grooming Skill Level WFL Toileting Skill Level WFL IADLs Sleep Sleep Description Pt denied difficulties related to sleep due to B hand pain Meal Preparation Skill Level Impaired Comments Assistance w/ 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 Meaningful Activities Meaningful Abilities Able to complete written tasks w/ increased time/for short periods of time Skill Level Impaired Comments As indicated on QuickDASH UE Outcome Measure Vision Vision Comments Impaired Observations Appearance/Deformities Appearance/Deformities Yes: Digits of B hands Joint Protection Joint Protection Fair Comments Decreased use and understanding of joint protection principles Prosthetic Management Type [id number]-[id number] bilateral thumb splints Provided By Therapist Wearing Schedule Daily [place] Independent Signs of Skin Breakdown No Protective Posturing No Swelling Swelling Location Right thumb Severity Mild Observations Observations At time of eval, resistant to more rigid bilateral hand splints due to concerns re: loss of fxn as a result of previous experiences w/ other custom-made splints. Decreased overall understanding re: use of more rigid splints. Range of Motion Wrist Left Comments 0-70 degrees active wrist extension fingers open 0-60 degrees active wrist flexion 0-30 degrees active wrist UD 0-[address] * Pain-free AROM measurements taken in sitting Right Comments 0-70 degrees active wrist extension fingers open 0-55 degrees active wrist flexion 0-30 degrees active wrist UD 0-[address] * Pain-free AROM measurements taken in sitting Thumb Left Thumb ROM WFL No Comments 80 degrees R MCPJ flexion at rest 55 degrees L IPJ hyperextension at rest 0-20 degrees active L Thumb Abduction ROM measurements taken in sitting Right Thumb ROM WFL No MCP Flex AROM (degrees) 68 MCP Ext AROM (degrees) 0 IP Flex AROM (degrees) 70 IP Ext AROM (degrees) 0 Comments 30 degrees IPJ Radial Deviation at rest 0-30 degrees active R Thumb Abduction ROM measurements taken in sitting Muscle Testing Risk Officer/Hand Strength Left Risk Officer Dynamometer II averaged 23.3# of force Right Risk Officer Dynamometer II averaged 8.0# of force Fine Motor Handedness Hand Preference Right Assessment/Plan Assessment Patient Response Fair Rehabilitation Potential Fair Impairments Identified ADLs Body Mechanics Coordination/Dexterity Flexibility Functional Activities Motor Function Pain Weakness Range of Motion Recreational Activities Meaningful Activities Stiffness Swelling Motor Planning Additional Impairments Identified Decreased joint protection; may benefit from different splints Treatment Assessment 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 Doctor requested therapist consider splinting options, hot wax, gentle strength, and adaptive equipment options. Evaluation findings included bilateral hand pain (R > L), decreasing functional independence, joint deformities of digits of bilateral hands, decreased joint protection awareness, and bilateral deyr-lep-abuhbhl wrist/hand splints with limited thumb support. Evaluation also found pt resistant to more rigid bilateral hand splints due to concerns re: loss of fxn as a result of previous experiences w/ other custom-made splints. Outpatient OT recommended to address these impairments and maximize patient's daily functional independence, as well as to minimize/prevent further malformation of joints and/or use of hands w/ joints in positions of deformity. Home Exercise Program Reviewed use of heat and joint protection principles. Reviewed with Patient Goals Patient Understanding Good Plan Comment 8 weeks Treatment Frequency Once a Week Therapeutic Contents Active Range of Motion Adaptive Equipment Education Client Education Functional Activities Home Exercise Program Joint Protection Manual Therapy Education Self-Care Stretching/Flexibility Activities Therapeutic Activities Therapeutic Exercises Modalities Modalities As Needed As Prescribed Additional Types of Modalities Paraffin, Ice Massage, Heat, Ultrasound, Contrast bath Patient Instruction Home Exercise Program Plan of Care Questions/Concerns Suggested Referrals Other Other Suggested Referrals Certified hand therapist for custom made splints Sensory Assessment Sensory Profile2 Functional Wrist/Hand Scan Hand Side OT Outpatient Muscle Testing Start: 06/15/18 16:10 Freq: Status: Active Protocol: Document 06/15/18 16:34 AMS (Rec: 06/15/18 17:06 AMS [email or web address]) Wrist Strength Wrist Manual Muscle Testing Right Flexion (C7) 4 Good Extension (C6) 4 Good Ulnar Deviation 3+ Fair+ Radial Deviation 4- Good- Left Extension (C6) 4 Good Ulnar Deviation 3+ Fair+ Radial Deviation 4- Good- Comments 5-/5 MMT L wrist flex Risk Officer/Hand Strength Risk Officer/Hand Strength Left Risk Officer Dynamometer II 37.7 Comments Initial Eval: avg 23.3# of force Right Risk Officer Dynamometer II 15.0 Comments Initial eval: avg 8.0# of force OT Outpatient Treatment Note - Adult Start: 04/05/18 15:28 Freq: Status: Active Protocol: Document 06/15/18 16:34 AMS (Rec: 06/15/18 17:06 AMS [email or web address]) OT Outpatient Adult Treatment Note Session Time Visit Start Time 14:45 Visit Stop Time 15:30 Total Visit Minutes 45 Visit Information Visit Number [id number] Plan of Care Dates 06/15/18-09/07/18 Insurance Information Medicare; g-codes required Setting Treatment Setting Outpatient Care Visit Type Note Type Re-Evaluation General Information General Information Megan is a 77 year-old female referred to 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 Doctor requested therapist consider splinting options, hot wax, gentle strengthening and adaptive equipment options . - Subjective Identification Type Name Identification Reconciled With Medical Record Observations This middle finger is still bothering me on this hand. I noticed when I was using the shopping cart yesterday. 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 I remembered what you told me not to regional dedicated truck driver too hard. I am still waiting to hear back from my doctor. Chief Complaint(s) Restricts Patient/Caregiver Compliance with Home Good Exercise Program - Objective Objective Measurements Please see below in re: progress towards meeting goals . Decreased active use of joint protection principles on daily basis; decreased spontaneous carry-over of joint protection principles to different types of activities . (+) exacerbation of arthritis symptoms with use of shopping cart. Decreased bilateral wrist strength. QuickDASH Disability/Symptom Score = 31.8 MMT (04/05/18): 3/5 R thumb abd 3/5 R thumb add 3/5 L thumb abd 3/5 L thumb abd 3+/5 R thumb flex (MCPJ) 3+/5 R thumb flex (MCPJ) 4-/5 L thumb flex (MCPJ) 4-/5 L thumb ext (MCPJ) AROM (04/05/18) 0-68 degrees active L thumb IPJ flexion 0-97 degrees active L MCPJ flexion Short Term Goals 1. Patient will be modified independent with joint protection principles utilizing provided written and visual instructions from therapist. 06/15/18= 50% met. [facility] Goals 1. Patient will be modified independent with gentle hand strengthening home exercise program utilizing provided written and visual instructions from therapist. = 50% met. 2. Patient will be able to verbalize 100% understanding of available adaptive equipment options that will likely help maintain and/or improve upon her functional independence in the home setting. 06/15/18= 50% met - Treatment 2 Descriptor Education re: joint protection principles Driving Managing large items Education: position of hands/ fingers Visual Cues Max Cues Verbal Cues Max Cues Tolerance Good Complexity Upgraded 1 Descriptor Compensatory strategies Adaptive equipment Visual Cues Max Cues Verbal Cues Max Cues Tolerance Fair Complexity Upgraded Exercises [address]/UD Side Both Body Position Sitting Sets 3 Repetitions 10 Resistance #1 TB Complexity No Change 7 Descriptor Wrist ext Wrist flex Side Both Body Position Sitting Sets 3 Repetitions 10 Resistance #1 TB Complexity No Change 6 Descriptor Wrist PROM Wrist ext/digit ext By patient By therapist Complexity No Change 5 Descriptor Gentle PROM Digits Complexity No Change 4 Descriptor Finger Extension Side Both Body Position Sitting Sets 3 Repetitions 10 Resistance Rubberband Complexity No Change 3 Descriptor Finger abd/add Side Both Body Position Sitting Sets 3 Repetitions 10 Resistance Rubberband Complexity No Change 2 Descriptor Gentle thumb strengthening - Right/Left Extension Abd/Add Opposition Body Position Sitting Sets 3 Repetitions 10 Resistance Rubberband Complexity No Change 1 Descriptor Active range of motion Right thumb 2 x 10 (functional positioning) Body Position Sitting Complexity No Change - Assessment Patient Response to Treatment Fair Rehab Potential Fair Impairments Identified ADLs Body Mechanics Coordination/Dexterity Flexibility Functional Activities Motor Function Pain Weakness Posture Range of Motion Recreational Activities Meaningful Activities Stiffness Swelling Motor Planning Assessment of Overall Progress Improving Assessment of Improvement Megan has made progress over the last certification period . 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 Megan has also demonstrated improved functional independence given results of QuickDASH UE Outcome Measure. Megan continues to require support for carry-over of joint protection principles, as well as proper execution of light hand strengthening exercises. Therapist has also introduced wrist strengthening exercises given recent increased c/o bilateral wrist weakness and results of MMT. Continued outpt OT is recommended to increase independence w/ HEP without use of compensatory strategies and strengthen wrists/fingers. Home Exercise Program Reviewed joint protection principles. Reviewed positioning of hands at rest; discussed following up and pursuing CHT consult for custom-made bilateral splints. Recommend transitioning to increasing independence w/ home strengthening program as tolerated. Reviewed with Patient/Caregiver Goals Progress Being Made Home Exercise Program Patient/Caregiver Understanding Fair - Plan Therapy Recommendations Continue with Current Program Advance per Rehabilitation Protocol Additional Therapy Recommendations Consult w/ PT Comment 12 weeks Frequency of Treatment Once a Week Therapeutic Contents Active Range of Motion Adaptive Equipment Education Client Education Cognitive Skills Development Functional Activities Home Exercise Program Manual Therapy Education Neuromuscular Re-Education Self-Care Stretching/Flexibility Activities Therapeutic Activities Therapeutic Exercises Modalities Sensory Re-education Modalities As Needed As Prescribed Types of Modalities Contrast Bath Ice Massage Ultrasound Additional Types of Modalities Heat Occupational Therapy Assessment OT Outpatient Muscle Testing Start: 06/15/18 16:10 Freq: Status: Active Protocol: Document 06/15/18 16:34 AMS (Rec: 06/15/18 17:06 AMS [email or web address]) Wrist Strength Wrist Manual Muscle Testing Right Flexion (C7) 4 Good Extension (C6) 4 Good Ulnar Deviation 3+ Fair+ Radial Deviation 4- Good- Left Extension (C6) 4 Good Ulnar Deviation 3+ Fair+ Radial Deviation 4- Good- Comments 5-/5 MMT L wrist flex Risk Officer/Hand Strength Risk Officer/Hand Strength Left Risk Officer Dynamometer II 37.7 Comments Initial Eval: avg 23.3# of force Right Risk Officer Dynamometer II 15.0 Comments Initial eval: avg 8.0# of force Occupational Therapy Assessment OT Outpatient Modality Start: 03/30/18 13:43 Freq: Status: Active Protocol: Document 06/15/18 16:34 AMS (Rec: 06/15/18 17:08 AMS [email or web address]) OT Outpatient Modality Treatment Right Middle Finger Name of Modality Ultrasound Duration (Minutes) 10 Body Position Sitting Parameters 20% duty cycle; 2.0 w/cm2 Comments Pre: Skin intact Post: Skin intact Address swelling Decreased swelling noted s/p completion of treatment distal volar surface of palm Left Name of Modality paraffin Duration (Minutes) 10 Body Position Sitting Comments Left hand submerged Skin intact pre and post treatment Right Name of Modality paraffin Duration (Minutes) 10 Body Position Sitting Comments Right hand submerged Skin intact pre and post treatment
--- NOTE | 2018-09-14 13:21 | OT.OP.DC ---
Visit Care Team Role Provider Type Michael Mcmahan MD Primary Care Provider Physician Address: [address] [place] [address], [place], [address] Email: Joe Gupta MD Family Provider Physician Address: [address] [place] [address], [id number] Email: Nery Bowers MD Attending Provider Non-Staff Address: [address] [place] [address], [id number] Email: OT Outpatient OT Outpatient Adult Evaluation Start: 03/30/18 13:43 Freq: Status: Active Protocol: Document 03/30/18 13:52 AMS (Rec: 03/30/18 14:34 AMS [id number]) General Information Visit Information Visit Number [id number] Plan of Care Dates 03/30/18-06/22/18 Insurance Information Medicare; g-codes required Referral Referring Physician Nery Bowers MD 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 Failed AZA due to low cell counts. Intolerant to HCQ due to macular degeneration. Started Cellcept late February 2016. Autoimmune hepatitis diagnosed in 2001. Hypothyroidism. Mild depression controlled on meds. Cirrhosis. Portal HTN. Banding of esophageal varices. Previous Therapy Previous Therapy/Therapies Yes History of Therapy h/o treatment for bilateral hand pain. (+) wearing of over -the-counter B splints w/ support of thumbs (CMC wrap). Current Therapy/Therapies Physical therapy at [facility] Therapy Pain Assessment Pain When Pain Assessed Pre Pain Present Pain Present Pain Reported Location Left Hand Intensity 2 Scale Used Numeric (1 - 10) Pain Behaviors Facial Grimacing Guarding Holding Area Pain Management Techniques Apply Heat Right Hand Scale Used Range 1-7 numeric Pain Behaviors Facial Grimacing Guarding Holding Area Pain Management Techniques Apply Heat Patient Questionnaires Quick Dash- Upper Extremity Quick Dash UE Score 59.1 Quick Dash UE Impairment 40 to 59% Impaired (Score 40- 59) ADLs Overall Ability Comments Impaired - difficulty dependent upon task being completed Feeding Skill Level Impaired Comments Intermittent need for assistance w/ cutting, using knife Dressing Upper Body Dressing Ability Dependent w/ managing buttons Able to manage jewelry - however, becoming increasingly difficult Skill Level Impaired Skill Level WFL Footware Type Tie shoe laces Skill Level WFL Oral Care Skill Level WFL Bathing Skill Level WFL Grooming Skill Level WFL Toileting Skill Level WFL IADLs Sleep Sleep Description Pt denied difficulties related to sleep due to B hand pain Meal Preparation Skill Level Impaired Comments Assistance w/ meal preparation required Document Analyst Skill Level Impaired Comments Assistance w/ house hold chores Energy conservation required Driving Skill Level WFL Comments Complains of pain w/ gripping steering wheel w/ R hand Vocation Vocational Ability Retired. 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 Meaningful Activities Meaningful Abilities Able to complete written tasks w/ increased time/for short periods of time Skill Level Impaired Comments As indicated on QuickDASH UE Outcome Measure Vision Vision Comments Impaired Observations Appearance/Deformities Appearance/Deformities Yes: Digits of B hands Joint Protection Joint Protection Fair Comments Decreased use and understanding of joint protection principles Prosthetic Management Type Asty-nef-hmdglyw bilateral thumb splints Provided By Therapist Wearing Schedule Daily [place] Independent Signs of Skin Breakdown No Protective Posturing No Swelling Swelling Location Right thumb Severity Mild Observations Observations At time of eval, resistant to more rigid bilateral hand splints due to concerns re: loss of fxn as a result of previous experiences w/ other custom-made splints. Decreased overall understanding re: use of more rigid splints. Range of Motion Wrist Left Comments 0-70 degrees active wrist extension fingers open 0-60 degrees active wrist flexion 0-30 degrees active wrist UD 0-[address] * Pain-free AROM measurements taken in sitting Right Comments 0-70 degrees active wrist extension fingers open 0-55 degrees active wrist flexion 0-30 degrees active wrist UD 0-[address] * Pain-free AROM measurements taken in sitting Thumb Left Thumb ROM WFL No Comments 80 degrees R MCPJ flexion at rest 55 degrees L IPJ hyperextension at rest 0-20 degrees active L Thumb Abduction ROM measurements taken in sitting Right Thumb ROM WFL No MCP Flex AROM (degrees) 68 MCP Ext AROM (degrees) 0 IP Flex AROM (degrees) 70 IP Ext AROM (degrees) 0 Comments 30 degrees IPJ Radial Deviation at rest 0-30 degrees active R Thumb Abduction ROM measurements taken in sitting Muscle Testing Hydramatic Specialist/Hand Strength Left Hydramatic Specialist Dynamometer II averaged 23.3# of force Right Hydramatic Specialist Dynamometer II averaged 8.0# of force Fine Motor Handedness Hand Preference Right Assessment/Plan Assessment Patient Response Fair Rehabilitation Potential Fair Impairments Identified ADLs Body Mechanics Coordination/Dexterity Flexibility Functional Activities Motor Function Pain Weakness Range of Motion Recreational Activities Meaningful Activities Stiffness Swelling Motor Planning Additional Impairments Identified Decreased joint protection; may benefit from different splints Treatment Assessment 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 Doctor requested therapist consider splinting options, hot wax, gentle strength, and adaptive equipment options. Evaluation findings included bilateral hand pain (R > L), decreasing functional independence, joint deformities of digits of bilateral hands, decreased joint protection awareness, and bilateral [id number] wrist/hand splints with limited thumb support. Evaluation also found pt resistant to more rigid bilateral hand splints due to concerns re: loss of fxn as a result of previous experiences w/ other custom-made splints. Outpatient OT recommended to address these impairments and maximize patient's daily functional independence, as well as to minimize/prevent further malformation of joints and/or use of hands w/ joints in positions of deformity. Home Exercise Program Reviewed use of heat and joint protection principles. Reviewed with Patient Goals Patient Understanding Good Plan Comment 8 weeks Treatment Frequency Once a Week Therapeutic Contents Active Range of Motion Adaptive Equipment Education Client Education Functional Activities Home Exercise Program Joint Protection Manual Therapy Education Self-Care Stretching/Flexibility Activities Therapeutic Activities Therapeutic Exercises Modalities Modalities As Needed As Prescribed Additional Types of Modalities Paraffin, Ice Massage, Heat, Ultrasound, Contrast bath Patient Instruction Home Exercise Program Plan of Care Questions/Concerns Suggested Referrals Other Other Suggested Referrals Certified hand therapist for custom made splints Sensory Assessment Sensory Profile2 Functional Wrist/Hand Scan Hand Side OT Outpatient Muscle Testing Start: 06/15/18 16:10 Freq: Status: Active Protocol: Document 06/15/18 16:34 AMS (Rec: 06/15/18 17:06 AMS [email or web address]) Wrist Strength Wrist Manual Muscle Testing Right Flexion (C7) 4 Good Extension (C6) 4 Good Ulnar Deviation 3+ Fair+ Radial Deviation 4- Good- Left Extension (C6) 4 Good Ulnar Deviation 3+ Fair+ Radial Deviation 4- Good- Comments 5-/5 MMT L wrist flex Hydramatic Specialist/Hand Strength Hydramatic Specialist/Hand Strength Left Hydramatic Specialist Dynamometer II 37.7 Comments Initial Eval: avg 23.3# of force Right Hydramatic Specialist Dynamometer II 15.0 Comments Initial eval: avg 8.0# of force OT Outpatient Treatment Note - Adult Start: 04/05/18 15:28 Freq: Status: Active Protocol: Document 06/15/18 16:34 AMS (Rec: 06/15/18 17:06 AMS [email or web address]) OT Outpatient Adult Treatment Note Session Time Visit Start Time 14:45 Visit Stop Time 15:30 Total Visit Minutes 45 Visit Information Visit Number [id number] Plan of Care Dates 06/15/18-09/07/18 Insurance Information Medicare; g-codes required Setting Treatment Setting Outpatient Care Visit Type Note Type Re-Evaluation General Information General Information Megan is a 77 year-old female referred to 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 Doctor requested therapist consider splinting options, hot wax, gentle strengthening and adaptive equipment options . - Subjective Identification Type Name Identification Reconciled With Medical Record Observations This middle finger is still bothering me on this hand. I noticed when I was using the shopping cart yesterday. I did loosen my insulation blower on the steering wheel. I remembered what you told me not to insulation blower too hard. I am still waiting to hear back from my doctor. Chief Complaint(s) Restricts Patient/Caregiver Compliance with Home Good Exercise Program - Objective Objective Measurements Please see below in re: progress towards meeting goals . Decreased active use of joint protection principles on daily basis; decreased spontaneous carry-over of joint protection principles to different types of activities . (+) exacerbation of arthritis symptoms with use of shopping cart. Decreased bilateral wrist strength. QuickDASH Disability/Symptom Score = 31.8 MMT (04/05/18): 3/5 R thumb abd 3/5 R thumb add 3/5 L thumb abd 3/5 L thumb abd 3+/5 R thumb flex (MCPJ) 3+/5 R thumb flex (MCPJ) 4-/5 L thumb flex (MCPJ) 4-/5 L thumb ext (MCPJ) AROM (04/05/18) 0-68 degrees active L thumb IPJ flexion 0-97 degrees active L MCPJ flexion Short Term Goals ALL GOALS DISCHARGED. 1. Patient will be modified independent with joint protection principles utilizing provided written and visual instructions from therapist. 06/15/18= 50% met. Mcc Goals ALL GOALS DISCHARGED. 1. Patient will be modified independent with gentle hand strengthening home exercise program utilizing provided written and visual instructions from therapist. = 50% met. 2. Patient will be able to verbalize 100% understanding of available adaptive equipment options that will likely help maintain and/or improve upon her functional independence in the home setting. 06/15/18= 50% met - Treatment 2 Descriptor Education re: joint protection principles Driving Managing large items Education: position of hands/ fingers Visual Cues Max Cues Verbal Cues Max Cues Tolerance Good Complexity Upgraded 1 Descriptor Compensatory strategies Adaptive equipment Visual Cues Max Cues Verbal Cues Max Cues Tolerance Fair Complexity Upgraded Exercises [address]/UD Side Both Body Position Sitting Sets 3 Repetitions 10 Resistance #1 TB Complexity No Change 7 Descriptor Wrist ext Wrist flex Side Both Body Position Sitting Sets 3 Repetitions 10 Resistance #1 TB Complexity No Change 6 Descriptor Wrist PROM Wrist ext/digit ext By patient By therapist Complexity No Change 5 Descriptor Gentle PROM Digits Complexity No Change 4 Descriptor Finger Extension Side Both Body Position Sitting Sets 3 Repetitions 10 Resistance Rubberband Complexity No Change 3 Descriptor Finger abd/add Side Both Body Position Sitting Sets 3 Repetitions 10 Resistance Rubberband Complexity No Change 2 Descriptor Gentle thumb strengthening - Right/Left Extension Abd/Add Opposition Body Position Sitting Sets 3 Repetitions 10 Resistance Rubberband Complexity No Change 1 Descriptor Active range of motion Right thumb 2 x 10 (functional positioning) Body Position Sitting Complexity No Change - Assessment Patient Response to Treatment Fair Rehab Potential Fair Impairments Identified ADLs Body Mechanics Coordination/Dexterity Flexibility Functional Activities Motor Function Pain Weakness Posture Range of Motion Recreational Activities Meaningful Activities Stiffness Swelling Motor Planning Assessment of Overall Progress Improving Assessment of Improvement Megan has made progress over the last certification period . This is evidenced by improved bilateral insulation blower hand strength (given dynamometer testing results). Megan has also demonstrated improved functional independence given results of QuickDASH UE Outcome Measure. Megan continues to require support for carry-over of joint protection principles, as well as proper execution of light hand strengthening exercises. Therapist has also introduced wrist strengthening exercises given recent increased c/o bilateral wrist weakness and results of MMT. Continued outpt OT is recommended to increase independence w/ HEP without use of compensatory strategies and strengthen wrists/fingers. Recommend discharge from outpt OT given that patient has not been seen since 06/15/2018. Home Exercise Program Reviewed joint protection principles. Reviewed positioning of hands at rest; discussed following up and pursuing CHT consult for custom-made bilateral splints. Recommend transitioning to increasing independence w/ home strengthening program as tolerated. Reviewed with Patient/Caregiver Goals Progress Being Made Home Exercise Program Patient/Caregiver Understanding Fair - Plan Therapy Recommendations Discharge from Occupational Therapy Additional Therapy Recommendations Consult w/ PT
== END 2019-04-25 12:10 | disposition home or self-care (01) ==
LOC: OT 14:30
PROVIDERS: Family Provider Internal Medicine; PCP Family Medicine; Visit Provider Internal Medicine Rheumatology
DX: M32.19 Other organ or system involvement in systemic lupus erythematosus (principal)
CPT/HCPCS: 97018; 97035; 97110; 97165; 97530

== ENCOUNTER 2018-06-22 11:15 | Outpatient (RCR) | payer MEDICARE, OTHER, SELFPAY ==
[2018-03-06 14:16] VITALS: TEMP 36.7
--- NOTE | 2018-03-23 14:44 | PT.OIE ---
Current Diagnoses Spondylosis without myelopathy or radiculopathy, thoracolumbar region (03/23/18) Pain in thoracic spine (03/23/18) Other symptoms and signs involving the musculoskeletal system (03/23/18) Weakness (03/23/18) Other reduced mobility (03/23/18) Past Surgical History History of cataract removal with insertion of prosthetic lens Status post colonoscopy Status post tubal ligation Provider Visit Care Team Role Provider Type Joe Gupta MD Family Provider Physician Specialty: Internal Medicine Address: [address] [place] [address] Email: Michael Mcmahan MD Attending Provider Physician Primary Care Provider Specialty: Family Practice Address: [address] [place] [id number] Email: [email or web address] Physical Therapy Initial Evaluation PT-OP-A Visit Information Start: 03/23/18 10:55 Freq: Status: Active Protocol: Document 03/23/18 11:09 LRN (Rec: 03/23/18 12:46 LRN [id number]) Out-Patient Physical Therapy Visit Information Visit Information Visit Type Initial Evaluation Visit Note 11/08 Visit Start Time 11:20 Visit Stop Time 12:30 Total Visit Minutes 70 Visit Number 1 Number of SUPERVISOR ORCHARD Visits 0 Evaluation Information Evaluation Date 03/23/18 PT-OP-B Current Condition Start: 03/23/18 10:55 Freq: Status: Active Protocol: Document 03/23/18 11:09 LRN (Rec: 03/23/18 12:46 LRN [id number]) Current Condition History of Current Condition Onset Date 8+ years ago History of Current Condition Pt reports ongoing problems with her back and LE weakness since being diagnosed with Lupus, but pt unable to identify the time line, just saying its been a long time. Her back and neck/shoulder rhumatoid arthritis pain has been intermittent with onset when lifting objects, and back pain worse in the evenings ( good during nighttime sleeping ). General weakness has been present for the past 2 years. Prior Treatments and Tests Physical therapy (PT) - 2012 following recent diagnosis of Lupus. PT -02/2014 following fractured pubis from fall. PT - 07/2015 for OA, Lupus, RA , Osteochondropathy, Dorsalgia & R shoulder pain. PT - 02/2016 for fx L/S and pelvis, Cervicalgia. PT - 07/2016 for OA, L ankle sprain. Future Testing and Treatments Planned Monthly Rheumatology Blood Tests. Treatment Goals Patient/Caregiver Goals Pt goal with therapy is to get better. Neck, shoulder, back improved strength so she can walk and shop in 2 stores (20' in each store) without having to stop. Pt would like to have less upper back pain (in the shoulders) in the evening. Pain currently in the evenings is 6/10. Prior Functional Status Baseline Function- ADL's Independent Baseline Function- Mobility Independent Baseline Function- Gait Independent on level and uneven ground Current Functional Impairments (Reported) Functional Limitations- ADL's Independent, except needs help tying shoes if not able to sit because bending over causes low back pain. Functional Limitations- Mobility/Gait Walking: Needs assist with walking on uneven ground. Personal Factors Other Personal Factors That May Effect Co-morbidities (Lupus, Therapy/Recovery Arthritis, CREEK), Age (over 65+ ), fragile skin, needs to be guided through activities, needs HEP with pictures and large print. 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 PT-OP-C Subjective Start: 03/23/18 10:55 Freq: Status: Active Protocol: Document 03/23/18 11:09 LRN (Rec: 03/23/18 12:46 LRN [id number]) OP-PT Subjective Patient Comments Patient Comments Tired. Naps once a day if possible due to fatigue from Lupus. See Pain assessment for pain complaints. Patient Questionnaires Oswestry Low Back Index Oswestry Score 30 Oswestry Impairment 20 to 39% Impaired (Score 20- 39) OP-PT Pain Assessment Location Bilateral Proximal Shoulder Pain Location Details Top of shoulder (R Levator Scapula, L Upper trapezius), Intensity 3 Scale Used Numeric (1 - 10) Description Aching Frequency Constant Pain Aggravating Factors Activity Pain Alleviating Factors Heat Medication Bilateral Lower Back Pain Location Details QL, Lumbar paraspinals Intensity 4 Scale Used Numeric (1 - 10) Description Aching Frequency Constant Pain Aggravating Factors Activity Bending Pain Alleviating Factors Heat Medication Patient Stated Pain Goal 0/10, pain no greater than 3/ 10 in evening. Bilateral Upper Posterior Back Pain Location Details Rhomboids, posterior scapular muscles, Transvers Processes of C/S (C3-C5) Intensity 4 Scale Used Numeric (1 - 10) Description Aching Frequency Constant Pain Aggravating Factors Position Activity Pain Alleviating Factors Heat Medication Patient Stated Pain Goal 0/10, pain no greater than 3/ 10 in evening. PT-OP-D Balance Start: 03/23/18 10:55 Freq: Status: Active Protocol: Document 03/23/18 11:09 LRN (Rec: 03/23/18 12:46 LRN [id number]) OP-PT Balance Assessment Sitting Balance Sitting Balance Comments Normal Standing Balance Device Used None Standing Balance Comments SLS - Unable to do. Baeza Balance Assessment Evaluation Unsupported Stance- Eyes Open Assist to attain, 15 secs Total Score Baeza Total Score (out of 56 points) 1 Matthews Fall Scale Copyright Permission Byron [place], Byron [place], Thomas S[place]. Development of a scale to identify the fall- prone patient. Can J Aging 1989;8;366-7. Lisa Matthews (2009). Preventing patient falls. (2nd ed). [place]: [place]. PT-OP-E Functional Tests Start: 03/23/18 10:55 Freq: Status: Active Protocol: Document 03/23/18 11:09 LRN (Rec: 03/23/18 13:38 LRN [id number]) Functional Tests Five Times Sit to Stand Test Score 15 sec's Comments Norm: Age 70-79 is 12.6 sec's. >12 sec's needs further assess of fall risk Timed Up and Go (TUG) Score 14 sec's Comments No assistive device, no use of hands. TUG Impairment Rating 40 to <60% Impaired (Score 14- 15) PT-OP-F Manual Assessment Start: 03/23/18 10:55 Freq: Status: Active Protocol: Document 03/23/18 11:09 LRN (Rec: 03/23/18 14:32 LRN [id number]) Manual Assessments Soft Tissue Assessment Soft Tissue Mobility Assessment Increased muscle tone: R Levator Scapula & Supraspinatus, L > R Upper trapezius, Bilateral Middle to Lower lumbar paraspinals, R Gluteal muscles. Tenderness: Same locations as muscles above. Bilateral proximal Sacral border. Joint Mobility Assessment Joint Mobility Assessment T5-T8 is in R rotation. PT-OP-G Mobility & Gait Start: 03/23/18 10:55 Freq: Status: Active Protocol: Document 03/23/18 11:09 LRN (Rec: 03/23/18 14:32 LRN [id number]) OP Gait Assessment Assistive Devices Assistive Device None Gait Deviations General Gait Pattern Decreased Stride Length Narrow Based Gait PT-OP-H Neuro Start: 03/23/18 10:55 Freq: Status: Active Protocol: Document 03/23/18 11:09 LRN (Rec: 03/23/18 14:32 LRN [id number]) Deep Tendon Reflex & Clonus Assessment Deep Tendon Reflex Bilateral Achilles Deep Tendon Reflex 0 Absent Bilateral Patellar Deep Tendon Reflex 2+ Normal PT-OP-J Posture/Palpation/Skin Start: 03/23/18 10:55 Freq: Status: Active Protocol: Document 03/23/18 11:09 LRN (Rec: 03/23/18 14:32 LRN [id number]) Posture Evaluation Position Standing Evaluation View Posterior Shoulder Posture (L) Rounded (R) Rounded (L) Elevated Scapula Posture (R) Depressed Pelvis Posture (R) PSIS Inferior (R) ASIS Inferior Weight Distribution Decreased Wt.Bear on (R) Knee Posture (L) Genu Varus (R) Genu Varus Ankle/Foot Posture (L) Forefoot Adducted (R) Forefoot Adducted Comments Posture Comments Sway back posturing. Skin Assessment Other Assessments Skin Assessment Comments Thin, fragile skin UE/LE's. Skin tear on R anterior lower leg that is covered with bandage. Discolored bilateral lower legs. PT-OP-K Range of Motion Start: 03/23/18 10:55 Freq: Status: Active Protocol: Document 03/23/18 11:09 LRN (Rec: 03/23/18 14:32 LRN [id number]) Cervical Spine Range of Motion Cervical Spine Active Testing Position Sitting Extension 38 Rotation Left 45 Rotation Right 45 Lateral Flexion Left 20 Lateral Flexion Right 15 ROM Limitations Pain Comments Flexion is WNL. Lumbar Spine Range of Motion Lumbar Spine Active Testing Position Standing Flexion 80 Extension 15 Rotation Left 10 Rotation Right 15 Lateral Flexion Left 8 Lateral Flexion Right 10 ROM Limitations Soft Tissue Tightness Pain Shoulder Goniometric Range of Motion Shoulder Measured in Degrees Right Active Shoulder ROM WFL Yes Left Active Shoulder ROM WFL Yes Elbow/Forearm Range of Motion Elbow/Forearm Measured in Degrees Right Active Comments WNL Left Active Comments WNL Hip Goniometric Range of Motion Hip ROM Limitations Hip ROM Limitations Soft Tissue Tightness Comments Hip Flexion is WFL but limited . Hip AB is WFL, but limited on the Left. Knee Goniometric Range of Motion Knee Measured in Degrees Right Knee ROM WFL Yes Left Knee ROM WFL Yes PT-OP-M Strength Start: 03/23/18 10:55 Freq: Status: Active Protocol: Document 03/23/18 11:09 LRN (Rec: 03/23/18 14:32 LRN [id number]) Cervical Spine Strength Cervical Spine Manual Muscle Testing Testing Position Sitting Comments Generally 5/5 Trunk Strength Trunk Manual Muscle Testing Testing Position Sitting Flexion 3+ Fair+ Extension 2+ Poor+ Comments Generally 5/5 for SB, Rotation Shoulder Strength Shoulder Manual Muscle Testing Right Reason Not Measured WFL Left Reason Not Measured WFL Elbow/Forearm Strength Elbow and Forearm Manual Muscle Testing Right Reason Not Measured WFL Left Reason Not Measured WFL Hand Plant Attendant Or Assistant Operator/Pinch Strength Hand Dominance Hand Dominance Right Hip Strength Hip Manual Muscle Testing Right External Rotation 4 Good Internal Rotation 4 Good Comments Generally 5/5 except for those listed above. Left Extension (S1) 3 Fair Internal Rotation 3 Fair Comments Generally 5/5 except for those listed above. Knee Strength Knee Manual Muscle Testing Right Comments 5/5 Left Flexion (S2) 5 Normal Extension (L3) 4 Good Ankle/Foot Strength Ankle and Foot Manual Muscle Testing Right Comments Generally 5/5 except for Ankle DF is 3/5. Left Comments Generally 3/5 except for Ankle IV is 4/5. PT-OP-Q Treatments Start: 03/23/18 10:55 Freq: Status: Active Protocol: Document 03/23/18 11:09 LRN (Rec: 03/23/18 14:32 LRN [id number]) Manual Therapy Treatment Soft Tissue Mobilization 2 Body Location Upper back: Rhomboids, T3-T8 paraspinals. Mobilization Type Strumming Intensity/Depth Moderate Body Position Sitting Comments Pt coughing, sitting more comfortable. 1 Body Location R Levator Scapula & Supraspinatus, L Upper Trapezius Mobilization Type Strumming Intensity/Depth Moderate Body Position Sitting Nerve Glides 1 Nerve Sciatic Details Bilateral Body Position Sitting Reps/Duration 1 cycle each Self-Care/Home Management Treatment Education Patient Education Home Exercise Program Other Education Pt I/S in LE neural glide ex in sitting. Reviewed proper sitting posture. PT-OP-R Modalities Start: 03/23/18 10:55 Freq: Status: Active Protocol: Document 03/23/18 11:09 LRN (Rec: 03/23/18 14:32 LRN [id number]) Hot Pack/Cold Pack Treatment Hot Pack Location Back, temporarily at neck Patient Position Hooklying Treatment Duration (minutes) 10 Patient Tolerance Fair Comments Pt removed the Cervical hot pack on own. PT-OP-T Assessment and Plan Start: 03/23/18 10:55 Freq: Status: Active Protocol: Document 03/23/18 11:09 LRN (Rec: 03/23/18 14:32 LRN [id number]) Physical Therapy Assessment Rehab Potential Rehabilitation Potential Good Evaluation Complexity Number of Personal Factors/Comorbidities 1-2 Number of Body Systems Impaired 4 or More Clinical Presentation at Evaluation Evolving Impairments Impairments Activity Tolerance Balance Pain Posture Strength Goals Three Impairment L LE weakness limiting pt's ambulatory ability. Travelift Operator Goal (LTG) Increase L LE strength by 1 grade to 4-5/10 in order to improve pt's tolerance to activities outside her home and to improve balance for safety with gait. Two Impairment Upper back, Low back, bilateral shoulder, left foot pain limiting activity Short Term Goal (STG) Pt will be able to demonstrate improved posturing with verbal cuing, to decrease pain onset. STG Duration 2 weeks. Travelift Operator Goal (LTG) Decrease upper and low back pain to no greater than 3/10 with pt able to tolerate family evening activities ( going out to dinner, etc). LTG Duration 12 weeks. One Impairment Decreased endurance and decreased L LE strength Senior Living Goal (LTG) Improve endurance and strength such that the pt will be able to tolerate 2 shopping visits of 15' duration without fatigue. LTG Duration 8 weeks Assessment Summary Assessment Pt presents with general weakness and neural tension of her L LE, decreased mobility of the neck/hips, back/neck pain due to postural deviations and muscle imbalances, decreased endurance, and L foot pain probably arthritic related. The pt will benefit from skilled physical therapy for strengthening, ROM, aerobic conditioning, postural training, self care instructions and education on home exercises. Physical Therapy Plan Frequency and Duration Frequency of Treatment 2x/Week Duration of Treatment 2-3 months Plan of Care Start Date 03/23/18 Plan of Care End Date 03/26/21 Therapeutic Interventions Therapeutic Interventions Balance Training Home Exercise Program Joint Mobilizations Manual Therapy Neuromuscular Re-education Patient/Caregiver Education Self-Care/Home Management Soft Tissue Mobilization Therapeutic Exercises Modalities Cold Pack/Ice Massage Electric Stimulation Hot Packs Ultrasound Next Visit Focus/Plan Next Visit Plan Aerobic exercise, initiate flexibility HEP of C/S AROM, KTC, ankle DF/IV/EV, LE strengthening (functional sit to stands), STM, end MH/IFES > Back. Please Sign and Return: I have reviewed this Plan of Care and certify that the skilled therapy services above are required to meet the patient???s needs. Physician Signature Date Printed Name and Credentials Clinical Instructor Signature Printed Name and Credentials
--- NOTE | 2018-03-23 14:49 | PT.OIE ---
Current Diagnoses Spondylosis without myelopathy or radiculopathy, thoracolumbar region (03/23/18) Pain in thoracic spine (03/23/18) Other symptoms and signs involving the musculoskeletal system (03/23/18) Weakness (03/23/18) Other reduced mobility (03/23/18) Past Surgical History History of cataract removal with insertion of prosthetic lens Status post colonoscopy Status post tubal ligation Provider Visit Care Team Role Provider Type Joe Gupta MD Family Provider Physician Specialty: Internal Medicine Address: [address] [place] [address] Email: Michael Mcmahan MD Attending Provider Physician Primary Care Provider Specialty: Family Practice Address: [address] [place] [id number] Email: [email or web address] Physical Therapy Initial Evaluation PT-OP-A Visit Information Start: 03/23/18 10:55 Freq: Status: Active Protocol: Document 03/23/18 11:09 LRN (Rec: 03/23/18 12:46 LRN [id number]) Out-Patient Physical Therapy Visit Information Visit Information Visit Type Initial Evaluation Visit Note 11/08 Visit Start Time 11:20 Visit Stop Time 12:30 Total Visit Minutes 70 Visit Number 1 Number of NEWS ASSISTANT Visits 0 Evaluation Information Evaluation Date 03/23/18 PT-OP-B Current Condition Start: 03/23/18 10:55 Freq: Status: Active Protocol: Document 03/23/18 11:09 LRN (Rec: 03/23/18 12:46 LRN [id number]) Current Condition History of Current Condition Onset Date 8+ years ago History of Current Condition Pt reports ongoing problems with her back and LE weakness since being diagnosed with Lupus, but pt unable to identify the time line, just saying its been a long time. Her back and neck/shoulder rhumatoid arthritis pain has been intermittent with onset when lifting objects, and back pain worse in the evenings ( good during nighttime sleeping ). General weakness has been present for the past 2 years. Prior Treatments and Tests Physical therapy (PT) - 2012 following recent diagnosis of Lupus. PT -02/2014 following fractured pubis from fall. PT - 07/2015 for OA, Lupus, RA , Osteochondropathy, Dorsalgia & R shoulder pain. PT - 02/2016 for fx L/S and pelvis, Cervicalgia. PT - 07/2016 for OA, L ankle sprain. Future Testing and Treatments Planned Monthly Rheumatology Blood Tests. Treatment Goals Patient/Caregiver Goals Pt goal with therapy is to get better. Neck, shoulder, back improved strength so she can walk and shop in 2 stores (20' in each store) without having to stop. Pt would like to have less upper back pain (in the shoulders) in the evening. Pain currently in the evenings is 6/10. Prior Functional Status Baseline Function- ADL's Independent Baseline Function- Mobility Independent Baseline Function- Gait Independent on level and uneven ground Current Functional Impairments (Reported) Functional Limitations- ADL's Independent, except needs help tying shoes if not able to sit because bending over causes low back pain. Functional Limitations- Mobility/Gait Walking: Needs assist with walking on uneven ground. Personal Factors Other Personal Factors That May Effect Co-morbidities (Lupus, Therapy/Recovery Arthritis, [place]), Age (over 65+ ), fragile skin, needs to be guided through activities, needs HEP with pictures and large print. 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 PT-OP-C Subjective Start: 03/23/18 10:55 Freq: Status: Active Protocol: Document 03/23/18 11:09 LRN (Rec: 03/23/18 12:46 LRN [id number]) OP-PT Subjective Patient Comments Patient Comments Tired. Naps once a day if possible due to fatigue from Lupus. See Pain assessment for pain complaints. Patient Questionnaires Oswestry Low Back Index Oswestry Score 30 Oswestry Impairment 20 to 39% Impaired (Score 20- 39) OP-PT Pain Assessment Location Bilateral Proximal Shoulder Pain Location Details Top of shoulder (R Levator Scapula, L Upper trapezius), Intensity 3 Scale Used Numeric (1 - 10) Description Aching Frequency Constant Pain Aggravating Factors Activity Pain Alleviating Factors Heat Medication Bilateral Lower Back Pain Location Details QL, Lumbar paraspinals Intensity 4 Scale Used Numeric (1 - 10) Description Aching Frequency Constant Pain Aggravating Factors Activity Bending Pain Alleviating Factors Heat Medication Patient Stated Pain Goal 0/10, pain no greater than 3/ 10 in evening. Bilateral Upper Posterior Back Pain Location Details Rhomboids, posterior scapular muscles, Transvers Processes of C/S (C3-C5) Intensity 4 Scale Used Numeric (1 - 10) Description Aching Frequency Constant Pain Aggravating Factors Position Activity Pain Alleviating Factors Heat Medication Patient Stated Pain Goal 0/10, pain no greater than 3/ 10 in evening. PT-OP-D Balance Start: 03/23/18 10:55 Freq: Status: Active Protocol: Document 03/23/18 11:09 LRN (Rec: 03/23/18 12:46 LRN [id number]) OP-PT Balance Assessment Sitting Balance Sitting Balance Comments Normal Standing Balance Device Used None Standing Balance Comments SLS - Unable to do. Baeza Balance Assessment Evaluation Unsupported Stance- Eyes Open Assist to attain, 15 secs Total Score Baeza Total Score (out of 56 points) 1 Matthews Fall Scale Copyright Permission Byron [place], Byron RM, Thomas SJ. Development of a scale to identify the fall- prone patient. Can J Aging 1989;8;366-7. Lisa Matthews (2009). Preventing patient falls. (2nd ed). [place]: [place]. PT-OP-E Functional Tests Start: 03/23/18 10:55 Freq: Status: Active Protocol: Document 03/23/18 11:09 LRN (Rec: 03/23/18 13:38 LRN [id number]) Functional Tests Five Times Sit to Stand Test Score 15 sec's Comments Norm: Age 70-79 is 12.6 sec's. >12 sec's needs further assess of fall risk Timed Up and Go (TUG) Score 14 sec's Comments No assistive device, no use of hands. TUG Impairment Rating 40 to <60% Impaired (Score 14- 15) PT-OP-F Manual Assessment Start: 03/23/18 10:55 Freq: Status: Active Protocol: Document 03/23/18 11:09 LRN (Rec: 03/23/18 14:32 LRN [id number]) Manual Assessments Soft Tissue Assessment Soft Tissue Mobility Assessment Increased muscle tone: R Levator Scapula & Supraspinatus, L > R Upper trapezius, Bilateral Middle to Lower lumbar paraspinals, R Gluteal muscles. Tenderness: Same locations as muscles above. Bilateral proximal Sacral border. Joint Mobility Assessment Joint Mobility Assessment T5-T8 is in R rotation. PT-OP-G Mobility & Gait Start: 03/23/18 10:55 Freq: Status: Active Protocol: Document 03/23/18 11:09 LRN (Rec: 03/23/18 14:32 LRN [id number]) OP Gait Assessment Assistive Devices Assistive Device None Gait Deviations General Gait Pattern Decreased Stride Length Narrow Based Gait PT-OP-H Neuro Start: 03/23/18 10:55 Freq: Status: Active Protocol: Document 03/23/18 11:09 LRN (Rec: 03/23/18 14:32 LRN [id number]) Deep Tendon Reflex & Clonus Assessment Deep Tendon Reflex Bilateral Achilles Deep Tendon Reflex 0 Absent Bilateral Patellar Deep Tendon Reflex 2+ Normal PT-OP-J Posture/Palpation/Skin Start: 03/23/18 10:55 Freq: Status: Active Protocol: Document 03/23/18 11:09 LRN (Rec: 03/23/18 14:32 LRN [id number]) Posture Evaluation Position Standing Evaluation View Posterior Shoulder Posture (L) Rounded (R) Rounded (L) Elevated Scapula Posture (R) Depressed Pelvis Posture (R) PSIS Inferior (R) ASIS Inferior Weight Distribution Decreased Wt.Bear on (R) Knee Posture (L) Genu Varus (R) Genu Varus Ankle/Foot Posture (L) Forefoot Adducted (R) Forefoot Adducted Comments Posture Comments Sway back posturing. Skin Assessment Other Assessments Skin Assessment Comments Thin, fragile skin UE/LE's. Skin tear on R anterior lower leg that is covered with bandage. Discolored bilateral lower legs. PT-OP-K Range of Motion Start: 03/23/18 10:55 Freq: Status: Active Protocol: Document 03/23/18 11:09 LRN (Rec: 03/23/18 14:32 LRN [id number]) Cervical Spine Range of Motion Cervical Spine Active Testing Position Sitting Extension 38 Rotation Left 45 Rotation Right 45 Lateral Flexion Left 20 Lateral Flexion Right 15 ROM Limitations Pain Comments Flexion is WNL. Lumbar Spine Range of Motion Lumbar Spine Active Testing Position Standing Flexion 80 Extension 15 Rotation Left 10 Rotation Right 15 Lateral Flexion Left 8 Lateral Flexion Right 10 ROM Limitations Soft Tissue Tightness Pain Shoulder Goniometric Range of Motion Shoulder Measured in Degrees Right Active Shoulder ROM WFL Yes Left Active Shoulder ROM WFL Yes Elbow/Forearm Range of Motion Elbow/Forearm Measured in Degrees Right Active Comments WNL Left Active Comments WNL Hip Goniometric Range of Motion Hip ROM Limitations Hip ROM Limitations Soft Tissue Tightness Comments Hip Flexion is WFL but limited . Hip AB is WFL, but limited on the Left. Knee Goniometric Range of Motion Knee Measured in Degrees Right Knee ROM WFL Yes Left Knee ROM WFL Yes PT-OP-M Strength Start: 03/23/18 10:55 Freq: Status: Active Protocol: Document 03/23/18 11:09 LRN (Rec: 03/23/18 14:32 LRN [id number]) Cervical Spine Strength Cervical Spine Manual Muscle Testing Testing Position Sitting Comments Generally 5/5 Trunk Strength Trunk Manual Muscle Testing Testing Position Sitting Flexion 3+ Fair+ Extension 2+ Poor+ Comments Generally 5/5 for SB, Rotation Shoulder Strength Shoulder Manual Muscle Testing Right Reason Not Measured WFL Left Reason Not Measured WFL Elbow/Forearm Strength Elbow and Forearm Manual Muscle Testing Right Reason Not Measured WFL Left Reason Not Measured WFL Hand Yarn Examiner Skeins/Pinch Strength Hand Dominance Hand Dominance Right Hip Strength Hip Manual Muscle Testing Right External Rotation 4 Good Internal Rotation 4 Good Comments Generally 5/5 except for those listed above. Left Extension (S1) 3 Fair Internal Rotation 3 Fair Comments Generally 5/5 except for those listed above. Knee Strength Knee Manual Muscle Testing Right Comments 5/5 Left Flexion (S2) 5 Normal Extension (L3) 4 Good Ankle/Foot Strength Ankle and Foot Manual Muscle Testing Right Comments Generally 5/5 except for Ankle DF is 3/5. Left Comments Generally 3/5 except for Ankle IV is 4/5. PT-OP-Q Treatments Start: 03/23/18 10:55 Freq: Status: Active Protocol: Document 03/23/18 11:09 LRN (Rec: 03/23/18 14:32 LRN [id number]) Manual Therapy Treatment Soft Tissue Mobilization 2 Body Location Upper back: Rhomboids, T3-T8 paraspinals. Mobilization Type Strumming Intensity/Depth Moderate Body Position Sitting Comments Pt coughing, sitting more comfortable. 1 Body Location R Levator Scapula & Supraspinatus, L Upper trapezius Mobilization Type Strumming Intensity/Depth Moderate Body Position Sitting Nerve Glides 1 Nerve Sciatic Details Bilateral Body Position Sitting Reps/Duration 1 cycle each Self-Care/Home Management Treatment Education Patient Education Home Exercise Program Other Education Pt I/S in LE neural glide ex in sitting. Reviewed proper sitting posture. PT-OP-R Modalities Start: 03/23/18 10:55 Freq: Status: Active Protocol: Document 03/23/18 11:09 LRN (Rec: 03/23/18 14:32 LRN [id number]) Hot Pack/Cold Pack Treatment Hot Pack Location Back, temporarily at neck Patient Position Hooklying Treatment Duration (minutes) 10 Patient Tolerance Fair Comments Pt removed the Cervical hot pack on own. PT-OP-T Assessment and Plan Start: 03/23/18 10:55 Freq: Status: Active Protocol: Document 03/23/18 11:09 LRN (Rec: 03/23/18 14:32 LRN [id number]) Physical Therapy Assessment Rehab Potential Rehabilitation Potential Good Evaluation Complexity Number of Personal Factors/Comorbidities 1-2 Number of Body Systems Impaired 4 or More Clinical Presentation at Evaluation Evolving Impairments Impairments Activity Tolerance Balance Pain Posture Strength Goals Three Impairment L LE weakness limiting pt's ambulatory ability. Head Sawyer Goal (LTG) Increase L LE strength by 1 grade to 4-5/10 in order to improve pt's tolerance to activities outside her home and to improve balance for safety with gait. Two Impairment Upper back, Low back, bilateral shoulder, left foot pain limiting activity Short Term Goal (STG) Pt will be able to demonstrate improved posturing with verbal cuing, to decrease pain onset. STG Duration 2 weeks. Head Sawyer Goal (LTG) Decrease upper and low back pain to no greater than 3/10 with pt able to tolerate family evening activities ( going out to dinner, etc). LTG Duration 12 weeks. One Impairment Decreased endurance and decreased L LE strength Half-Way Goal (LTG) Improve endurance and strength such that the pt will be able to tolerate 2 shopping visits of 15' duration without fatigue. LTG Duration 8 weeks Assessment Summary Assessment Pt presents with general weakness and neural tension of her L LE, decreased mobility of the neck/hips, back/neck pain due to postural deviations and muscle imbalances, decreased endurance, and L foot pain probably arthritic related. The pt will benefit from skilled physical therapy for strengthening, ROM, aerobic conditioning, postural training, self care instructions and education on home exercises. Physical Therapy Plan Frequency and Duration Frequency of Treatment 2x/Week Duration of Treatment 2-3 months Plan of Care Start Date 03/23/18 Plan of Care End Date 06/22/18 Therapeutic Interventions Therapeutic Interventions Balance Training Home Exercise Program Joint Mobilizations Manual Therapy Neuromuscular Re-education Patient/Caregiver Education Self-Care/Home Management Soft Tissue Mobilization Therapeutic Exercises Modalities Cold Pack/Ice Massage Electric Stimulation Hot Packs Ultrasound Next Visit Focus/Plan Next Visit Plan Aerobic exercise, initiate flexibility HEP of C/S AROM, KTC, ankle DF/IV/EV, LE strengthening (functional sit to stands), STM, end MH/IFES > Back. Please Sign and Return: I have reviewed this Plan of Care and certify that the skilled therapy services above are required to meet the patient???s needs. Physician Signature Date Printed Name and Credentials Clinical Instructor Signature Printed Name and Credentials
--- NOTE | 2018-03-23 14:50 | PT.OPPOC ---
Current Diagnoses Spondylosis without myelopathy or radiculopathy, thoracolumbar region (03/23/18) Pain in thoracic spine (03/23/18) Other symptoms and signs involving the musculoskeletal system (03/23/18) Weakness (03/23/18) Other reduced mobility (03/23/18) Provider Visit Care Team Role Provider Type Joe Gupta MD Family Provider Physician Specialty: Internal Medicine Address: [address] [place] [address] Email: Michael Mcmahan MD Attending Provider Physician Primary Care Provider Specialty: Family Practice Address: [address] [place] [address], [phone] Email: [email or web address] Plan Of Care PT-OP-T Assessment and Plan Start: 03/23/18 10:55 Freq: Status: Active Protocol: Document 03/23/18 11:09 LRN (Rec: 03/23/18 14:32 LRN [id number]) Physical Therapy Assessment Rehab Potential Rehabilitation Potential Good Evaluation Complexity Number of Personal Factors/Comorbidities 1-2 Number of Body Systems Impaired 4 or More Clinical Presentation at Evaluation Evolving Impairments Impairments Activity Tolerance Balance Pain Posture Strength Goals Three Impairment L LE weakness limiting pt's ambulatory ability. Manager Of Medical Goal (LTG) Increase L LE strength by 1 grade to 4-5/10 in order to improve pt's tolerance to activities outside her home and to improve balance for safety with gait. Two Impairment Upper back, Low back, bilateral shoulder, left foot pain limiting activity Short Term Goal (STG) Pt will be able to demonstrate improved posturing with verbal cuing, to decrease pain onset. STG Duration 2 weeks. Mcfp Goal (LTG) Decrease upper and low back pain to no greater than 3/10 with pt able to tolerate family evening activities ( going out to dinner, etc). LTG Duration 12 weeks. One Impairment Decreased endurance and decreased L LE strength Manager Of Medical Goal (LTG) Improve endurance and strength such that the pt will be able to tolerate 2 shopping visits of 15' duration without fatigue. LTG Duration 8 weeks Assessment Summary Assessment Pt presents with general weakness and neural tension of her L LE, decreased mobility of the neck/hips, back/neck pain due to postural deviations and muscle imbalances, decreased endurance, and L foot pain probably arthritic related. The pt will benefit from skilled physical therapy for strengthening, ROM, aerobic conditioning, postural training, self care instructions and education on home exercises. Physical Therapy Plan Frequency and Duration Frequency of Treatment 2x/Week Duration of Treatment 2-3 months Plan of Care Start Date 03/23/18 Plan of Care End Date 06/22/18 Therapeutic Interventions Therapeutic Interventions Balance Training Home Exercise Program Joint Mobilizations Manual Therapy Neuromuscular Re-education Patient/Caregiver Education Self-Care/Home Management Soft Tissue Mobilization Therapeutic Exercises Modalities Cold Pack/Ice Massage Electric Stimulation Hot Packs Ultrasound Next Visit Focus/Plan Next Visit Plan Aerobic exercise, initiate flexibility HEP of C/S AROM, KTC, ankle DF/IV/EV, LE strengthening (functional sit to stands), STM, end MH/IFES > Back. Plan of Care Dates Plan of Care Start Date 03/23/18 Plan of Care End Date 06/22/18 Please Sign and Return: I have reviewed this Plan of Care and certify that the skilled therapy services above are required to meet the patient???s needs. Physician Signature Date Printed Name and Credentials Clinical Instructor Signature Printed Name and Credentials
--- NOTE | 2018-04-05 15:01 | PT.OTN ---
Current Diagnoses Spondylosis without myelopathy or radiculopathy, thoracolumbar region (04/05/18) Pain in thoracic spine (04/05/18) Weakness (04/05/18) Physical Therapy Treatment Note PT-OP-A Visit Information Start: 03/23/18 10:55 Freq: Status: Active Protocol: Document 04/05/18 13:33 LRN (Rec: 04/05/18 13:54 LRN [id number]) Out-Patient Physical Therapy Visit Information Visit Information Visit Note 12/09 Visit Start Time 13:33 Visit Stop Time 14:20 Total Visit Minutes 47 Visit Number 2 Number of HEALTHCARE RECRUITER Visits 0 Evaluation Information Evaluation Date 03/23/18 PT-OP-B Current Condition Start: 03/23/18 10:55 Freq: Status: Active Protocol: Document 03/23/18 11:09 LRN (Rec: 03/23/18 12:46 LRN [id number]) Current Condition History of Current Condition Onset Date 8+ years ago History of Current Condition Pt reports ongoing problems with her back and LE weakness since being diagnosed with Lupus, but pt unable to identify the time line, just saying its been a long time. Her back and neck/shoulder rhumatoid arthritis pain has been intermittent with onset when lifting objects, and back pain worse in the evenings ( good during nighttime sleeping ). General weakness has been present for the past 2 years. Prior Treatments and Tests Physical therapy (PT) - 2012 following recent diagnosis of Lupus. PT -02/2014 following fractured pubis from fall. PT - 07/2015 for OA, Lupus, RA , Osteochondropathy, Dorsalgia & R shoulder pain. PT - 02/2016 for fx L/S and pelvis, Cervicalgia. PT - 07/2016 for OA, L ankle sprain. Future Testing and Treatments Planned Monthly Rheumatology Blood Tests. Treatment Goals Patient/Caregiver Goals Pt goal with therapy is to get better. Neck, shoulder, back improved strength so she can walk and shop in 2 stores (20' in each store) without having to stop. Pt would like to have less upper back pain (in the shoulders) in the evening. Pain currently in the evenings is 6/10. Prior Functional Status Baseline Function- ADL's Independent Baseline Function- Mobility Independent Baseline Function- Gait Independent on level and uneven ground Current Functional Impairments (Reported) Functional Limitations- ADL's Independent, except needs help tying shoes if not able to sit because bending over causes low back pain. Functional Limitations- Mobility/Gait Walking: Needs assist with walking on uneven ground. Personal Factors Other Personal Factors That May Effect Co-morbidities (Lupus, Therapy/Recovery Arthritis, OMAHA), Age (over 65+ ), fragile skin, needs to be guided through activities, needs HEP with pictures and large print. 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 PT-OP-C Subjective Start: 03/23/18 10:55 Freq: Status: Active Protocol: Document 04/05/18 13:33 LRN (Rec: 04/05/18 13:54 LRN [id number]) OP-PT Subjective Patient Comments Patient Comments Back is worse, overall neck/ back is the worst. Lifted something that was too heavy. PT-OP-D Balance Start: 03/23/18 10:55 Freq: Status: Active Protocol: Document 03/23/18 11:09 LRN (Rec: 03/23/18 12:46 LRN [id number]) OP-PT Balance Assessment Sitting Balance Sitting Balance Comments Normal Standing Balance Device Used None Standing Balance Comments SLS - Unable to do. Baeza Balance Assessment Evaluation Unsupported Stance- Eyes Open Assist to attain, 15 secs Total Score Baeza Total Score (out of 56 points) 1 Matthews Fall Scale Copyright Permission Byron [place], Byron RM, Thomas SJ. Development of a scale to identify the fall- prone patient. Can J Aging 1989;8;366-7. Lisa Matthews (2009). Preventing patient falls. (2nd ed). [place]: [place]. PT-OP-E Functional Tests Start: 03/23/18 10:55 Freq: Status: Active Protocol: Document 03/23/18 11:09 LRN (Rec: 03/23/18 13:38 LRN [id number]) Functional Tests Five Times Sit to Stand Test Score 15 sec's Comments Norm: Age 70-79 is 12.6 sec's. >12 sec's needs further assess of fall risk Timed Up and Go (TUG) Score 14 sec's Comments No assistive device, no use of hands. TUG Impairment Rating 40 to <60% Impaired (Score 14- 15) PT-OP-F Manual Assessment Start: 03/23/18 10:55 Freq: Status: Active Protocol: Document 03/23/18 11:09 LRN (Rec: 03/23/18 14:32 LRN [id number]) Manual Assessments Soft Tissue Assessment Soft Tissue Mobility Assessment Increased muscle tone: R Levator Scapula & Supraspinatus, L > R Upper trapezius, Bilateral Middle to Lower lumbar paraspinals, R Gluteal muscles. Tenderness: Same locations as muscles above. Bilateral proximal Sacral border. Joint Mobility Assessment Joint Mobility Assessment T5-T8 is in R rotation. PT-OP-G Mobility & Gait Start: 03/23/18 10:55 Freq: Status: Active Protocol: Document 03/23/18 11:09 LRN (Rec: 03/23/18 14:32 LRN [id number]) OP Gait Assessment Assistive Devices Assistive Device None Gait Deviations General Gait Pattern Decreased Stride Length Narrow Based Gait PT-OP-H Neuro Start: 03/23/18 10:55 Freq: Status: Active Protocol: Document 03/23/18 11:09 LRN (Rec: 03/23/18 14:32 LRN [id number]) Deep Tendon Reflex & Clonus Assessment Deep Tendon Reflex Bilateral Achilles Deep Tendon Reflex 0 Absent Bilateral Patellar Deep Tendon Reflex 2+ Normal PT-OP-J Posture/Palpation/Skin Start: 03/23/18 10:55 Freq: Status: Active Protocol: Document 03/23/18 11:09 LRN (Rec: 03/23/18 14:32 LRN [id number]) Posture Evaluation Position Standing Evaluation View Posterior Shoulder Posture (L) Rounded (R) Rounded (L) Elevated Scapula Posture (R) Depressed Pelvis Posture (R) PSIS Inferior (R) ASIS Inferior Weight Distribution Decreased Wt.Bear on (R) Knee Posture (L) Genu Varus (R) Genu Varus Ankle/Foot Posture (L) Forefoot Adducted (R) Forefoot Adducted Comments Posture Comments Sway back posturing. Skin Assessment Other Assessments Skin Assessment Comments Thin, fragile skin UE/LE's. Skin tear on R anterior lower leg that is covered with bandage. Discolored bilateral lower legs. PT-OP-K Range of Motion Start: 03/23/18 10:55 Freq: Status: Active Protocol: Document 03/23/18 11:09 LRN (Rec: 03/23/18 14:32 LRN [id number]) Cervical Spine Range of Motion Cervical Spine Active Testing Position Sitting Extension 38 Rotation Left 45 Rotation Right 45 Lateral Flexion Left 20 Lateral Flexion Right 15 ROM Limitations Pain Comments Flexion is WNL. Lumbar Spine Range of Motion Lumbar Spine Active Testing Position Standing Flexion 80 Extension 15 Rotation Left 10 Rotation Right 15 Lateral Flexion Left 8 Lateral Flexion Right 10 ROM Limitations Soft Tissue Tightness Pain Shoulder Goniometric Range of Motion Shoulder Measured in Degrees Right Active Shoulder ROM WFL Yes Left Active Shoulder ROM WFL Yes Elbow/Forearm Range of Motion Elbow/Forearm Measured in Degrees Right Active Comments WNL Left Active Comments WNL Hip Goniometric Range of Motion Hip ROM Limitations Hip ROM Limitations Soft Tissue Tightness Comments Hip Flexion is WFL but limited . Hip AB is WFL, but limited on the Left. Knee Goniometric Range of Motion Knee Measured in Degrees Right Knee ROM WFL Yes Left Knee ROM WFL Yes PT-OP-M Strength Start: 03/23/18 10:55 Freq: Status: Active Protocol: Document 03/23/18 11:09 LRN (Rec: 03/23/18 14:32 LRN [id number]) Cervical Spine Strength Cervical Spine Manual Muscle Testing Testing Position Sitting Comments Generally 5/5 Trunk Strength Trunk Manual Muscle Testing Testing Position Sitting Flexion 3+ Fair+ Extension 2+ Poor+ Comments Generally 5/5 for SB, Rotation Shoulder Strength Shoulder Manual Muscle Testing Right Reason Not Measured WFL Left Reason Not Measured WFL Elbow/Forearm Strength Elbow and Forearm Manual Muscle Testing Right Reason Not Measured WFL Left Reason Not Measured WFL Hand Elevators Inspector/Pinch Strength Hand Dominance Hand Dominance Right Hip Strength Hip Manual Muscle Testing Right External Rotation 4 Good Internal Rotation 4 Good Comments Generally 5/5 except for those listed above. Left Extension (S1) 3 Fair Internal Rotation 3 Fair Comments Generally 5/5 except for those listed above. Knee Strength Knee Manual Muscle Testing Right Comments 5/5 Left Flexion (S2) 5 Normal Extension (L3) 4 Good Ankle/Foot Strength Ankle and Foot Manual Muscle Testing Right Comments Generally 5/5 except for Ankle DF is 3/5. Left Comments Generally 3/5 except for Ankle IV is 4/5. PT-OP-Q Treatments Start: 03/23/18 10:55 Freq: Status: Active Protocol: Document 04/05/18 14:33 LRN (Rec: 04/05/18 14:48 LRN [id number]) Therapeutic Exercises Supine Exercises 2 Supine Exercise Name Single Leg Hip Flexor stretch Side bilateral Reps/Minutes 1'x2 hold each 1 Supine Exercise Name Anterior Pelvic Tilt with Hip flexors Side bilateral Reps/Minutes 3' Comments Extra time needed for training Sitting Exercises 2 Sitting Exercise Name LE neural stretch with pelvis in anterior tilt Reps/Minutes 10 sec hold f/b 10 ankle pumps x 3 1 Sitting Exercise Name Anterior Pelvic Tilt with Hip flexors Side bilateral Reps/Minutes 10x2 Comments Extra time taken for training Standing Exercises 1 Standing Exercise Name Postural training with anterior tilt of pelvis using hip flexors Side bilateral Comments Pt unable to use her hip flexors to initiate anterior tilt of the pelvis Manual Therapy Treatment Soft Tissue Mobilization 2 Body Location Upper back: Rhomboids, T3-T8. Mobilization Type Strumming Intensity/Depth Moderate Body Position Prone 1 Body Location R Levator Scapula and L Upper trapzius Mobilization Type Strumming Intensity/Depth Moderate Body Position Prone Self-Care/Home Management Treatment Education Other Education I/S pt in proper hip hinge for lifting objects low or off the floor. PT-OP-R Modalities Start: 03/23/18 10:55 Freq: Status: Active Protocol: Document 03/23/18 11:09 LRN (Rec: 03/23/18 14:32 LRN [id number]) Hot Pack/Cold Pack Treatment Hot Pack Location Back, temporarily at neck Patient Position Hooklying Treatment Duration (minutes) 10 Patient Tolerance Fair Comments Pt removed the Cervical hot pack on own. PT-OP-T Assessment and Plan Start: 03/23/18 10:55 Freq: Status: Active Protocol: Document 04/05/18 14:33 LRN (Rec: 04/05/18 14:48 LRN [id number]) Physical Therapy Assessment Goals Three Impairment L LE weakness limiting pt's ambulatory ability. Real Estate Assessor Goal (LTG) Increase L LE strength by 1 grade to 4-5/10 in order to improve pt's tolerance to activities outside her home and to improve balance for safety with gait. Two Impairment Upper back, Low back, bilateral shoulder, left foot pain limiting activity Short Term Goal (STG) Pt will be able to demonstrate improved posturing with verbal cuing, to decrease pain onset. STG Duration 2 weeks. Real Estate Assessor Goal (LTG) Decrease upper and low back pain to no greater than 3/10 with pt able to tolerate family evening activities ( going out to dinner, etc). LTG Duration 12 weeks. One Impairment Decreased endurance and decreased L LE strength Real Estate Assessor Goal (LTG) Improve endurance and strength such that the pt will be able to tolerate 2 shopping visits of 15' duration without fatigue. LTG Duration 8 weeks Assessment Summary Assessment Relief of pain on L upper back after therapy. Pt still uncomfortable and tight at the R Levator Scapula. Primary pain complaints was in the low back and neck/shoulders. Pt demonstrates hip weakness in stabilization of the core, especially with hip flexors. Physical Therapy Plan Frequency and Duration Frequency of Treatment 2x/Week Duration of Treatment 2-3 months Plan of Care Start Date 03/23/18 Plan of Care End Date 06/22/18 Next Visit Focus/Plan Next Visit Plan Aerobic exercise for hip flexion strengthening, flexibility HEP of C/S AROM, KTC, ankle DF/IV/EV, LE strengthening (functional sit to stands), STM, end MH/IFES > Back. Please Sign and Return: I have reviewed this Plan of Care and certify that the skilled therapy services above are required to meet the patient?s needs. Physician Signature Date Printed Name and Credentials Clinical Instructor Signature Printed Name and Credentials
--- NOTE | 2018-04-20 14:53 | PT.OTN ---
Current Diagnoses Spondylosis without myelopathy or radiculopathy, thoracolumbar region (04/20/18) Pain in thoracic spine (04/20/18) Weakness (04/20/18) Physical Therapy Treatment Note PT-OP-A Visit Information Start: 03/23/18 10:55 Freq: Status: Active Protocol: Document 04/20/18 13:40 LRN (Rec: 04/20/18 14:22 LRN [id number]) Out-Patient Physical Therapy Visit Information Visit Information Visit Note 01/06 Visit Start Time 13:40 Visit Stop Time 14:20 Total Visit Minutes 40 Visit Number 3 Number of THRESHING OPERATOR Visits 0 Evaluation Information Evaluation Date 03/23/18 PT-OP-B Current Condition Start: 03/23/18 10:55 Freq: Status: Active Protocol: Document 03/23/18 11:09 LRN (Rec: 03/23/18 12:46 LRN [id number]) Current Condition History of Current Condition Onset Date 8+ years ago History of Current Condition Pt reports ongoing problems with her back and LE weakness since being diagnosed with Lupus, but pt unable to identify the time line, just saying its been a long time. Her back and neck/shoulder rhumatoid arthritis pain has been intermittent with onset when lifting objects, and back pain worse in the evenings ( good during nighttime sleeping ). General weakness has been present for the past 2 years. Prior Treatments and Tests Physical therapy (PT) - 2012 following recent diagnosis of Lupus. PT -02/2014 following fractured pubis from fall. PT - 07/2015 for OA, Lupus, RA , Osteochondropathy, Dorsalgia & R shoulder pain. PT - 02/2016 for fx L/S and pelvis, Cervicalgia. PT - 07/2016 for OA, L ankle sprain. Future Testing and Treatments Planned Monthly Rheumatology Blood Tests. Treatment Goals Patient/Caregiver Goals Pt goal with therapy is to get better. Neck, shoulder, back improved strength so she can walk and shop in 2 stores (20' in each store) without having to stop. Pt would like to have less upper back pain (in the shoulders) in the evening. Pain currently in the evenings is 6/10. Prior Functional Status Baseline Function- ADL's Independent Baseline Function- Mobility Independent Baseline Function- Gait Independent on level and uneven ground Current Functional Impairments (Reported) Functional Limitations- ADL's Independent, except needs help tying shoes if not able to sit because bending over causes low back pain. Functional Limitations- Mobility/Gait Walking: Needs assist with walking on uneven ground. Personal Factors Other Personal Factors That May Effect Co-morbidities (Lupus, Therapy/Recovery Arthritis, [place]), Age (over 65+ ), fragile skin, needs to be guided through activities, needs HEP with pictures and large print. 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 PT-OP-C Subjective Start: 03/23/18 10:55 Freq: Status: Active Protocol: Document 04/20/18 13:40 LRN (Rec: 04/20/18 14:22 LRN [id number]) OP-PT Subjective Patient Comments Patient Comments Neck pain is 4/10, no back pain today. OP-PT Pain Assessment Location Bilateral Proximal Shoulder Pain Location Details Neck Intensity 4 Scale Used Numeric (1 - 10) Bilateral Lower Back Pain Location Details Low back Intensity 0 Scale Used Numeric (1 - 10) PT-OP-D Balance Start: 03/23/18 10:55 Freq: Status: Active Protocol: Document 03/23/18 11:09 LRN (Rec: 03/23/18 12:46 LRN [id number]) OP-PT Balance Assessment Sitting Balance Sitting Balance Comments Normal Standing Balance Device Used None Standing Balance Comments SLS - Unable to do. Baeza Balance Assessment Evaluation Unsupported Stance- Eyes Open Assist to attain, 15 secs Total Score Baeza Total Score (out of 56 points) 1 Matthews Fall Scale Copyright Permission Byron [place], Byron RM, Thomas SJ. Development of a scale to identify the fall- prone patient. Can J Aging 1989;8;366-7. Lisa Matthews (2009). Preventing patient falls. (2nd ed). Stevens: [place]. PT-OP-E Functional Tests Start: 03/23/18 10:55 Freq: Status: Active Protocol: Document 03/23/18 11:09 LRN (Rec: 03/23/18 13:38 LRN [id number]) Functional Tests Five Times Sit to Stand Test Score 15 sec's Comments Norm: Age 70-79 is 12.6 sec's. >12 sec's needs further assess of fall risk Timed Up and Go (TUG) Score 14 sec's Comments No assistive device, no use of hands. TUG Impairment Rating 40 to <60% Impaired (Score 14- 15) PT-OP-F Manual Assessment Start: 03/23/18 10:55 Freq: Status: Active Protocol: Document 03/23/18 11:09 LRN (Rec: 03/23/18 14:32 LRN [id number]) Manual Assessments Soft Tissue Assessment Soft Tissue Mobility Assessment Increased muscle tone: R Levator Scapula & Supraspinatus, L > R Upper trapezius, Bilateral Middle to Lower lumbar paraspinals, R Gluteal muscles. Tenderness: Same locations as muscles above. Bilateral proximal Sacral border. Joint Mobility Assessment Joint Mobility Assessment T5-T8 is in R rotation. PT-OP-G Mobility & Gait Start: 03/23/18 10:55 Freq: Status: Active Protocol: Document 03/23/18 11:09 LRN (Rec: 03/23/18 14:32 LRN [id number]) OP Gait Assessment Assistive Devices Assistive Device None Gait Deviations General Gait Pattern Decreased Stride Length Narrow Based Gait PT-OP-H Neuro Start: 03/23/18 10:55 Freq: Status: Active Protocol: Document 03/23/18 11:09 LRN (Rec: 03/23/18 14:32 LRN [id number]) Deep Tendon Reflex & Clonus Assessment Deep Tendon Reflex Bilateral Achilles Deep Tendon Reflex 0 Absent Bilateral Patellar Deep Tendon Reflex 2+ Normal PT-OP-J Posture/Palpation/Skin Start: 03/23/18 10:55 Freq: Status: Active Protocol: Document 03/23/18 11:09 LRN (Rec: 03/23/18 14:32 LRN [id number]) Posture Evaluation Position Standing Evaluation View Posterior Shoulder Posture (L) Rounded (R) Rounded (L) Elevated Scapula Posture (R) Depressed Pelvis Posture (R) PSIS Inferior (R) ASIS Inferior Weight Distribution Decreased Wt.Bear on (R) Knee Posture (L) Genu Varus (R) Genu Varus Ankle/Foot Posture (L) Forefoot Adducted (R) Forefoot Adducted Comments Posture Comments Sway back posturing. Skin Assessment Other Assessments Skin Assessment Comments Thin, fragile skin UE/LE's. Skin tear on R anterior lower leg that is covered with bandage. Discolored bilateral lower legs. PT-OP-K Range of Motion Start: 03/23/18 10:55 Freq: Status: Active Protocol: Document 03/23/18 11:09 LRN (Rec: 03/23/18 14:32 LRN [id number]) Cervical Spine Range of Motion Cervical Spine Active Testing Position Sitting Extension 38 Rotation Left 45 Rotation Right 45 Lateral Flexion Left 20 Lateral Flexion Right 15 ROM Limitations Pain Comments Flexion is WNL. Lumbar Spine Range of Motion Lumbar Spine Active Testing Position Standing Flexion 80 Extension 15 Rotation Left 10 Rotation Right 15 Lateral Flexion Left 8 Lateral Flexion Right 10 ROM Limitations Soft Tissue Tightness Pain Shoulder Goniometric Range of Motion Shoulder Measured in Degrees Right Active Shoulder ROM WFL Yes Left Active Shoulder ROM WFL Yes Elbow/Forearm Range of Motion Elbow/Forearm Measured in Degrees Right Active Comments WNL Left Active Comments WNL Hip Goniometric Range of Motion Hip ROM Limitations Hip ROM Limitations Soft Tissue Tightness Comments Hip Flexion is WFL but limited . Hip AB is WFL, but limited on the Left. Knee Goniometric Range of Motion Knee Measured in Degrees Right Knee ROM WFL Yes Left Knee ROM WFL Yes PT-OP-M Strength Start: 03/23/18 10:55 Freq: Status: Active Protocol: Document 03/23/18 11:09 LRN (Rec: 03/23/18 14:32 LRN [id number]) Cervical Spine Strength Cervical Spine Manual Muscle Testing Testing Position Sitting Comments Generally 5/5 Trunk Strength Trunk Manual Muscle Testing Testing Position Sitting Flexion 3+ Fair+ Extension 2+ Poor+ Comments Generally 5/5 for SB, Rotation Shoulder Strength Shoulder Manual Muscle Testing Right Reason Not Measured WFL Left Reason Not Measured WFL Elbow/Forearm Strength Elbow and Forearm Manual Muscle Testing Right Reason Not Measured WFL Left Reason Not Measured WFL Hand Analyst Competitive Intelligence/Pinch Strength Hand Dominance Hand Dominance Right Hip Strength Hip Manual Muscle Testing Right External Rotation 4 Good Internal Rotation 4 Good Comments Generally 5/5 except for those listed above. Left Extension (S1) 3 Fair Internal Rotation 3 Fair Comments Generally 5/5 except for those listed above. Knee Strength Knee Manual Muscle Testing Right Comments 5/5 Left Flexion (S2) 5 Normal Extension (L3) 4 Good Ankle/Foot Strength Ankle and Foot Manual Muscle Testing Right Comments Generally 5/5 except for Ankle DF is 3/5. Left Comments Generally 3/5 except for Ankle IV is 4/5. PT-OP-Q Treatments Start: 03/23/18 10:55 Freq: Status: Active Protocol: Document 04/20/18 13:40 LRN (Rec: 04/20/18 14:22 LRN [id number]) Cardio Equipment Recumbent Stepper (Sci-Fit) Duration (Minutes) 10 Resistance 1 Seat Position 8 Therapeutic Exercises Sitting Exercises 4 Sitting Exercise Name Active ankle PF/DF/EV/IV Side bilateral Reps/Minutes 10-15 each 3 Sitting Exercise Name C. AROM stretches Side bilateral Reps/Minutes 10x6 Comments 10 sec holds 2 Sitting Exercise Name LE neural stretch with pelvis in anterior tilt Reps/Minutes 10 sec hold f/b 10 ankle pumps x 3 Therapeutic Activity Therapeutic Activity 1 Name Stand to sit Reps/Minutes 15x Comments Pt to activate hip flexion with sitting. Manual Therapy Treatment Nerve Glides 1 Nerve Sciatic Details Bilateral Body Position Supine Reps/Duration 1 cycle each Self-Care/Home Management Treatment Education Patient Education Home Exercise Program Other Education I/S pt in ankle AROM and cervical SB/rot stretches. PT-OP-R Modalities Start: 03/23/18 10:55 Freq: Status: Active Protocol: Document 03/23/18 11:09 LRN (Rec: 03/23/18 14:32 LRN [id number]) Hot Pack/Cold Pack Treatment Hot Pack Location Back, temporarily at neck Patient Position Hooklying Treatment Duration (minutes) 10 Patient Tolerance Fair Comments Pt removed the Cervical hot pack on own. PT-OP-T Assessment and Plan Start: 03/23/18 10:55 Freq: Status: Active Protocol: Document 04/20/18 13:40 LRN (Rec: 04/20/18 14:22 LRN [id number]) Physical Therapy Assessment Impairments Impairments Activity Tolerance Balance Pain Posture Strength Goals Three Impairment L LE weakness limiting pt's ambulatory ability. Pumping Station Supervisor Goal (LTG) Increase L LE strength by 1 grade to 4-5/10 in order to improve pt's tolerance to activities outside her home and to improve balance for safety with gait. Two Impairment Upper back, Low back, bilateral shoulder, left foot pain limiting activity Short Term Goal (STG) Pt will be able to demonstrate improved posturing with verbal cuing, to decrease pain onset. STG Duration 2 weeks. Halfway Goal (LTG) Decrease upper and low back pain to no greater than 3/10 with pt able to tolerate family evening activities ( going out to dinner, etc). LTG Duration 12 weeks. One Impairment Decreased endurance and decreased L LE strength Halfway Goal (LTG) Improve endurance and strength such that the pt will be able to tolerate 2 shopping visits of 15' duration without fatigue. LTG Duration 8 weeks Assessment Summary Assessment Pt able to control LBP with stand>sit if she contracts her hip flexors first to create and anterior pelvic tilt. Treatment focus now for neck/ shoulder pain. Physical Therapy Plan Frequency and Duration Frequency of Treatment 2x/Week Duration of Treatment 2-3 months Plan of Care Start Date 03/23/18 Plan of Care End Date 06/22/18 Next Visit Focus/Plan Next Note Type Treatment Note Next Visit Plan Aerobic exercise for hip flexion strengthening, flexibility HEP of C/S AROM, ankle DF/IV/EV, LE strengthening (functional sit to stands), STM, add KTC stretch, if needed end MH/IFES > Back.
--- NOTE | 2018-04-24 14:45 | PT.OTN ---
Current Diagnoses Spondylosis without myelopathy or radiculopathy, thoracolumbar region (04/24/18) Pain in thoracic spine (04/24/18) Weakness (04/24/18) Physical Therapy Treatment Note PT-OP-A Visit Information Start: 03/23/18 10:55 Freq: Status: Active Protocol: Document 04/24/18 13:36 LRN (Rec: 04/24/18 14:41 LRN [id number]) Out-Patient Physical Therapy Visit Information Visit Information Visit Type Treatment Note Visit Note 02/06 Visit Start Time 13:36 Visit Stop Time 14:25 Total Visit Minutes 49 Visit Number 4 Number of PASTRYCOOK'S ASSISTANT Visits 0 Evaluation Information Evaluation Date 03/23/18 PT-OP-B Current Condition Start: 03/23/18 10:55 Freq: Status: Active Protocol: Document 03/23/18 11:09 LRN (Rec: 03/23/18 12:46 LRN [id number]) Current Condition History of Current Condition Onset Date 8+ years ago History of Current Condition Pt reports ongoing problems with her back and LE weakness since being diagnosed with Lupus, but pt unable to identify the time line, just saying its been a long time. Her back and neck/shoulder rhumatoid arthritis pain has been intermittent with onset when lifting objects, and back pain worse in the evenings ( good during nighttime sleeping ). General weakness has been present for the past 2 years. Prior Treatments and Tests Physical therapy (PT) - 2012 following recent diagnosis of Lupus. PT -02/2014 following fractured pubis from fall. PT - 07/2015 for OA, Lupus, RA , Osteochondropathy, Dorsalgia & R shoulder pain. PT - 02/2016 for fx L/S and pelvis, Cervicalgia. PT - 07/2016 for OA, L ankle sprain. Future Testing and Treatments Planned Monthly Rheumatology Blood Tests. Treatment Goals Patient/Caregiver Goals Pt goal with therapy is to get better. Neck, shoulder, back improved strength so she can walk and shop in 2 stores (20' in each store) without having to stop. Pt would like to have less upper back pain (in the shoulders) in the evening. Pain currently in the evenings is 6/10. Prior Functional Status Baseline Function- ADL's Independent Baseline Function- Mobility Independent Baseline Function- Gait Independent on level and uneven ground Current Functional Impairments (Reported) Functional Limitations- ADL's Independent, except needs help tying shoes if not able to sit because bending over causes low back pain. Functional Limitations- Mobility/Gait Walking: Needs assist with walking on uneven ground. Personal Factors Other Personal Factors That May Effect Co-morbidities (Lupus, Therapy/Recovery Arthritis, [place]), Age (over 65+ ), fragile skin, needs to be guided through activities, needs HEP with pictures and large print. 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 PT-OP-C Subjective Start: 03/23/18 10:55 Freq: Status: Active Protocol: Document 04/24/18 13:36 LRN (Rec: 04/24/18 14:41 LRN [id number]) OP-PT Subjective Patient Comments Patient Comments Back is hurting more because she was trying on lots of shoes and was leaning over a lot. Low back is worse than upper back. PT-OP-D Balance Start: 03/23/18 10:55 Freq: Status: Active Protocol: Document 03/23/18 11:09 LRN (Rec: 03/23/18 12:46 LRN [id number]) OP-PT Balance Assessment Sitting Balance Sitting Balance Comments Normal Standing Balance Device Used None Standing Balance Comments SLS - Unable to do. Baeza Balance Assessment Evaluation Unsupported Stance- Eyes Open Assist to attain, 15 secs Total Score Baeza Total Score (out of 56 points) 1 Matthews Fall Scale Copyright Permission Byron [place], Byron RM, Thomas SJ. Development of a scale to identify the fall- prone patient. Can J Aging 1989;8;366-7. Lisa Matthews (2009). Preventing patient falls. (2nd ed). [place]clenn[place]: [place]. PT-OP-E Functional Tests Start: 03/23/18 10:55 Freq: Status: Active Protocol: Document 03/23/18 11:09 LRN (Rec: 03/23/18 13:38 LRN [id number]) Functional Tests Five Times Sit to Stand Test Score 15 sec's Comments Norm: Age 70-79 is 12.6 sec's. >12 sec's needs further assess of fall risk Timed Up and Go (TUG) Score 14 sec's Comments No assistive device, no use of hands. TUG Impairment Rating 40 to <60% Impaired (Score 14- 15) PT-OP-F Manual Assessment Start: 03/23/18 10:55 Freq: Status: Active Protocol: Document 03/23/18 11:09 LRN (Rec: 03/23/18 14:32 LRN [id number]) Manual Assessments Soft Tissue Assessment Soft Tissue Mobility Assessment Increased muscle tone: R Levator Scapula & Supraspinatus, L > R Upper trapezius, Bilateral Middle to Lower lumbar paraspinals, R Gluteal muscles. Tenderness: Same locations as muscles above. Bilateral proximal Sacral border. Joint Mobility Assessment Joint Mobility Assessment T5-T8 is in R rotation. PT-OP-G Mobility & Gait Start: 03/23/18 10:55 Freq: Status: Active Protocol: Document 03/23/18 11:09 LRN (Rec: 03/23/18 14:32 LRN [id number]) OP Gait Assessment Assistive Devices Assistive Device None Gait Deviations General Gait Pattern Decreased Stride Length Narrow Based Gait PT-OP-H Neuro Start: 03/23/18 10:55 Freq: Status: Active Protocol: Document 03/23/18 11:09 LRN (Rec: 03/23/18 14:32 LRN [id number]) Deep Tendon Reflex & Clonus Assessment Deep Tendon Reflex Bilateral Achilles Deep Tendon Reflex 0 Absent Bilateral Patellar Deep Tendon Reflex 2+ Normal PT-OP-J Posture/Palpation/Skin Start: 03/23/18 10:55 Freq: Status: Active Protocol: Document 03/23/18 11:09 LRN (Rec: 03/23/18 14:32 LRN [id number]) Posture Evaluation Position Standing Evaluation View Posterior Shoulder Posture (L) Rounded (R) Rounded (L) Elevated Scapula Posture (R) Depressed Pelvis Posture (R) PSIS Inferior (R) ASIS Inferior Weight Distribution Decreased Wt.Bear on (R) Knee Posture (L) Genu Varus (R) Genu Varus Ankle/Foot Posture (L) Forefoot Adducted (R) Forefoot Adducted Comments Posture Comments Sway back posturing. Skin Assessment Other Assessments Skin Assessment Comments Thin, fragile skin UE/LE's. Skin tear on R anterior lower leg that is covered with bandage. Discolored bilateral lower legs. PT-OP-K Range of Motion Start: 03/23/18 10:55 Freq: Status: Active Protocol: Document 03/23/18 11:09 LRN (Rec: 03/23/18 14:32 LRN [id number]) Cervical Spine Range of Motion Cervical Spine Active Testing Position Sitting Extension 38 Rotation Left 45 Rotation Right 45 Lateral Flexion Left 20 Lateral Flexion Right 15 ROM Limitations Pain Comments Flexion is WNL. Lumbar Spine Range of Motion Lumbar Spine Active Testing Position Standing Flexion 80 Extension 15 Rotation Left 10 Rotation Right 15 Lateral Flexion Left 8 Lateral Flexion Right 10 ROM Limitations Soft Tissue Tightness Pain Shoulder Goniometric Range of Motion Shoulder Measured in Degrees Right Active Shoulder ROM WFL Yes Left Active Shoulder ROM WFL Yes Elbow/Forearm Range of Motion Elbow/Forearm Measured in Degrees Right Active Comments WNL Left Active Comments WNL Hip Goniometric Range of Motion Hip ROM Limitations Hip ROM Limitations Soft Tissue Tightness Comments Hip Flexion is WFL but limited . Hip AB is WFL, but limited on the Left. Knee Goniometric Range of Motion Knee Measured in Degrees Right Knee ROM WFL Yes Left Knee ROM WFL Yes PT-OP-M Strength Start: 03/23/18 10:55 Freq: Status: Active Protocol: Document 03/23/18 11:09 LRN (Rec: 03/23/18 14:32 N [id number]) Cervical Spine Strength Cervical Spine Manual Muscle Testing Testing Position Sitting Comments Generally 5/5 Trunk Strength Trunk Manual Muscle Testing Testing Position Sitting Flexion 3+ Fair+ Extension 2+ Poor+ Comments Generally 5/5 for SB, Rotation Shoulder Strength Shoulder Manual Muscle Testing Right Reason Not Measured WFL Left Reason Not Measured WFL Elbow/Forearm Strength Elbow and Forearm Manual Muscle Testing Right Reason Not Measured WFL Left Reason Not Measured WFL Hand Director Sales Training/Pinch Strength Hand Dominance Hand Dominance Right Hip Strength Hip Manual Muscle Testing Right External Rotation 4 Good Internal Rotation 4 Good Comments Generally 5/5 except for those listed above. Left Extension (S1) 3 Fair Internal Rotation 3 Fair Comments Generally 5/5 except for those listed above. Knee Strength Knee Manual Muscle Testing Right Comments 5/5 Left Flexion (S2) 5 Normal Extension (L3) 4 Good Ankle/Foot Strength Ankle and Foot Manual Muscle Testing Right Comments Generally 5/5 except for Ankle DF is 3/5. Left Comments Generally 3/5 except for Ankle IV is 4/5. PT-OP-Q Treatments Start: 03/23/18 10:55 Freq: Status: Active Protocol: Document 04/24/18 13:36 LRN (Rec: 04/24/18 14:41 LRN [id number]) Cardio Equipment Recumbent Stepper (Sci-Fit) Duration (Minutes) 10 Resistance 2 Seat Position 10 Therapeutic Exercises Sitting Exercises 4 Sitting Exercise Name Active ankle PF/DF/EV/IV Side bilateral Reps/Minutes 30 each 3 Sitting Exercise Name C. AROM stretches Side bilateral Reps/Minutes 10x6 Comments 10 sec holds 2 Sitting Exercise Name LE neural stretch with pelvis in anterior tilt Reps/Minutes 10 sec hold f/b 10 ankle pumps x 3 1 Sitting Exercise Name Anterior Pelvic Tilt with Hip flexors Side bilateral Comments Reviewed Standing Exercises 1 Standing Exercise Name Postural training for ext of T /S. Side bilateral Comments Pt unable to use her hip flexors to initiate anterior tilt of the pelvis Manual Therapy Treatment Soft Tissue Mobilization 2 Body Location Upper back: Rhomboids, T3-T8. Mobilization Type Strumming Intensity/Depth Moderate Body Position Prone 1 Body Location R Levator Scapula and L Upper trapezius Mobilization Type Strumming Intensity/Depth Moderate Body Position Prone PT-OP-R Modalities Start: 03/23/18 10:55 Freq: Status: Active Protocol: Document 03/23/18 11:09 LRN (Rec: 03/23/18 14:32 LRN [id number]) Hot Pack/Cold Pack Treatment Hot Pack Location Back, temporarily at neck Patient Position Hooklying Treatment Duration (minutes) 10 Patient Tolerance Fair Comments Pt removed the Cervical hot pack on own. PT-OP-T Assessment and Plan Start: 03/23/18 10:55 Freq: Status: Active Protocol: Document 04/24/18 13:36 LRN (Rec: 04/24/18 14:41 LRN [id number]) Physical Therapy Assessment Goals Three Impairment L LE weakness limiting pt's ambulatory ability. Egg Trayer Goal (LTG) Increase L LE strength by 1 grade to 4-5/10 in order to improve pt's tolerance to activities outside her home and to improve balance for safety with gait. Two Impairment Upper back, Low back, bilateral shoulder, left foot pain limiting activity Short Term Goal (STG) Pt will be able to demonstrate improved posturing with verbal cuing, to decrease pain onset. STG Duration 2 weeks. Egg Trayer Goal (LTG) Decrease upper and low back pain to no greater than 3/10 with pt able to tolerate family evening activities ( going out to dinner, etc). LTG Duration 12 weeks. One Impairment Decreased endurance and decreased L LE strength Egg Trayer Goal (LTG) Improve endurance and strength such that the pt will be able to tolerate 2 shopping visits of 15' duration without fatigue. LTG Duration 8 weeks Assessment Summary Assessment Pt back pain is musculature in nature (partly due to posturing), worse on the L. She is tender along paraspinals. Low tolerance to ex of L foot. Posture in UB is kyphotic, LB mildly lordotic. Physical Therapy Plan Frequency and Duration Frequency of Treatment 2x/Week Duration of Treatment 2-3 months Plan of Care Start Date 03/23/18 Plan of Care End Date 06/22/18 Next Visit Focus/Plan Next Note Type Treatment Note Next Visit Plan Aerobic exercise for hip flexion strengthening, flexibility HEP of C/S AROM, ankle DF/IV/EV, LE strengthening-start sit to stands, STM, add KTC stretch, if needed end MH/IFES > Back.
--- NOTE | 2018-04-27 14:43 | PT.OTN ---
Current Diagnoses Spondylosis without myelopathy or radiculopathy, thoracolumbar region (04/27/18) Pain in thoracic spine (04/27/18) Weakness (04/27/18) Physical Therapy Treatment Note PT-OP-A Visit Information Start: 03/23/18 10:55 Freq: Status: Active Protocol: Document 04/27/18 13:30 LRN (Rec: 04/27/18 13:57 LRN [id number]) Out-Patient Physical Therapy Visit Information Visit Information Visit Type Treatment Note Visit Note 03/08 Visit Start Time 13:30 Visit Stop Time 14:26 Total Visit Minutes 56 Visit Number 5 Number of ASSOCIATE DIRECTOR OF DEVELOPMENT Visits 0 Evaluation Information Evaluation Date 03/23/18 PT-OP-B Current Condition Start: 03/23/18 10:55 Freq: Status: Active Protocol: Document 03/23/18 11:09 LRN (Rec: 03/23/18 12:46 LRN [id number]) Current Condition History of Current Condition Onset Date 8+ years ago History of Current Condition Pt reports ongoing problems with her back and LE weakness since being diagnosed with Lupus, but pt unable to identify the time line, just saying its been a long time. Her back and neck/shoulder rhumatoid arthritis pain has been intermittent with onset when lifting objects, and back pain worse in the evenings ( good during nighttime sleeping ). General weakness has been present for the past 2 years. Prior Treatments and Tests Physical therapy (PT) - 2012 following recent diagnosis of Lupus. PT -02/2014 following fractured pubis from fall. PT - 07/2015 for OA, Lupus, RA , Osteochondropathy, Dorsalgia & R shoulder pain. PT - 02/2016 for fx L/S and pelvis, Cervicalgia. PT - 07/2016 for OA, L ankle sprain. Future Testing and Treatments Planned Monthly Rheumatology Blood Tests. Treatment Goals Patient/Caregiver Goals Pt goal with therapy is to get better. Neck, shoulder, back improved strength so she can walk and shop in 2 stores (20' in each store) without having to stop. Pt would like to have less upper back pain (in the shoulders) in the evening. Pain currently in the evenings is 6/10. Prior Functional Status Baseline Function- ADL's Independent Baseline Function- Mobility Independent Baseline Function- Gait Independent on level and uneven ground Current Functional Impairments (Reported) Functional Limitations- ADL's Independent, except needs help tying shoes if not able to sit because bending over causes low back pain. Functional Limitations- Mobility/Gait Walking: Needs assist with walking on uneven ground. Personal Factors Other Personal Factors That May Effect Co-morbidities (Lupus, Therapy/Recovery Arthritis, [place]), Age (over 65+ ), fragile skin, needs to be guided through activities, needs HEP with pictures and large print. 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 PT-OP-C Subjective Start: 03/23/18 10:55 Freq: Status: Active Protocol: Document 04/27/18 13:30 LRN (Rec: 04/27/18 13:57 LRN [id number]) OP-PT Subjective Patient Comments Patient Comments Back pain is off and on. Some discomfort, probably the way I slept PT-OP-D Balance Start: 03/23/18 10:55 Freq: Status: Active Protocol: Document 03/23/18 11:09 LRN (Rec: 03/23/18 12:46 LRN [id number]) OP-PT Balance Assessment Sitting Balance Sitting Balance Comments Normal Standing Balance Device Used None Standing Balance Comments SLS - Unable to do. Baeza Balance Assessment Evaluation Unsupported Stance- Eyes Open Assist to attain, 15 secs Total Score Baeza Total Score (out of 56 points) 1 Matthews Fall Scale Copyright Permission Byron [place], Byron [place], Thomas S[place]. Development of a scale to identify the fall- prone patient. Can J Aging 1989;8;366-7. Lisa Matthews (2009). Preventing patient falls. (2nd ed). [place]: [place]. PT-OP-E Functional Tests Start: 03/23/18 10:55 Freq: Status: Active Protocol: Document 03/23/18 11:09 LRN (Rec: 03/23/18 13:38 LRN [id number]) Functional Tests Five Times Sit to Stand Test Score 15 sec's Comments Norm: Age 70-79 is 12.6 sec's. >12 sec's needs further assess of fall risk Timed Up and Go (TUG) Score 14 sec's Comments No assistive device, no use of hands. TUG Impairment Rating 40 to <60% Impaired (Score 14- 15) PT-OP-F Manual Assessment Start: 03/23/18 10:55 Freq: Status: Active Protocol: Document 03/23/18 11:09 LRN (Rec: 03/23/18 14:32 LRN [id number]) Manual Assessments Soft Tissue Assessment Soft Tissue Mobility Assessment Increased muscle tone: R Levator Scapula & Supraspinatus, L > R Upper trapezius, Bilateral Middle to Lower lumbar paraspinals, R Gluteal muscles. Tenderness: Same locations as muscles above. Bilateral proximal Sacral border. Joint Mobility Assessment Joint Mobility Assessment T5-T8 is in R rotation. PT-OP-G Mobility & Gait Start: 03/23/18 10:55 Freq: Status: Active Protocol: Document 03/23/18 11:09 LRN (Rec: 03/23/18 14:32 LRN [id number]) OP Gait Assessment Assistive Devices Assistive Device None Gait Deviations General Gait Pattern Decreased Stride Length Narrow Based Gait PT-OP-H Neuro Start: 03/23/18 10:55 Freq: Status: Active Protocol: Document 03/23/18 11:09 LRN (Rec: 03/23/18 14:32 LRN [id number]) Deep Tendon Reflex & Clonus Assessment Deep Tendon Reflex Bilateral Achilles Deep Tendon Reflex 0 Absent Bilateral Patellar Deep Tendon Reflex 2+ Normal PT-OP-J Posture/Palpation/Skin Start: 03/23/18 10:55 Freq: Status: Active Protocol: Document 03/23/18 11:09 LRN (Rec: 03/23/18 14:32 LRN [id number]) Posture Evaluation Position Standing Evaluation View Posterior Shoulder Posture (L) Rounded (R) Rounded (L) Elevated Scapula Posture (R) Depressed Pelvis Posture (R) PSIS Inferior (R) ASIS Inferior Weight Distribution Decreased Wt.Bear on (R) Knee Posture (L) Genu Varus (R) Genu Varus Ankle/Foot Posture (L) Forefoot Adducted (R) Forefoot Adducted Comments Posture Comments Sway back posturing. Skin Assessment Other Assessments Skin Assessment Comments Thin, fragile skin UE/LE's. Skin tear on R anterior lower leg that is covered with bandage. Discolored bilateral lower legs. PT-OP-K Range of Motion Start: 03/23/18 10:55 Freq: Status: Active Protocol: Document 03/23/18 11:09 LRN (Rec: 03/23/18 14:32 LRN [id number]) Cervical Spine Range of Motion Cervical Spine Active Testing Position Sitting Extension 38 Rotation Left 45 Rotation Right 45 Lateral Flexion Left 20 Lateral Flexion Right 15 ROM Limitations Pain Comments Flexion is WNL. Lumbar Spine Range of Motion Lumbar Spine Active Testing Position Standing Flexion 80 Extension 15 Rotation Left 10 Rotation Right 15 Lateral Flexion Left 8 Lateral Flexion Right 10 ROM Limitations Soft Tissue Tightness Pain Shoulder Goniometric Range of Motion Shoulder Measured in Degrees Right Active Shoulder ROM WFL Yes Left Active Shoulder ROM WFL Yes Elbow/Forearm Range of Motion Elbow/Forearm Measured in Degrees Right Active Comments WNL Left Active Comments WNL Hip Goniometric Range of Motion Hip ROM Limitations Hip ROM Limitations Soft Tissue Tightness Comments Hip Flexion is WFL but limited . Hip AB is WFL, but limited on the Left. Knee Goniometric Range of Motion Knee Measured in Degrees Right Knee ROM WFL Yes Left Knee ROM WFL Yes PT-OP-M Strength Start: 03/23/18 10:55 Freq: Status: Active Protocol: Document 03/23/18 11:09 LRN (Rec: 03/23/18 14:32 LRN [id number]) Cervical Spine Strength Cervical Spine Manual Muscle Testing Testing Position Sitting Comments Generally 5/5 Trunk Strength Trunk Manual Muscle Testing Testing Position Sitting Flexion 3+ Fair+ Extension 2+ Poor+ Comments Generally 5/5 for SB, Rotation Shoulder Strength Shoulder Manual Muscle Testing Right Reason Not Measured WFL Left Reason Not Measured WFL Elbow/Forearm Strength Elbow and Forearm Manual Muscle Testing Right Reason Not Measured WFL Left Reason Not Measured WFL Hand Activities Attendant/Pinch Strength Hand Dominance Hand Dominance Right Hip Strength Hip Manual Muscle Testing Right External Rotation 4 Good Internal Rotation 4 Good Comments Generally 5/5 except for those listed above. Left Extension (S1) 3 Fair Internal Rotation 3 Fair Comments Generally 5/5 except for those listed above. Knee Strength Knee Manual Muscle Testing Right Comments 5/5 Left Flexion (S2) 5 Normal Extension (L3) 4 Good Ankle/Foot Strength Ankle and Foot Manual Muscle Testing Right Comments Generally 5/5 except for Ankle DF is 3/5. Left Comments Generally 3/5 except for Ankle IV is 4/5. PT-OP-Q Treatments Start: 03/23/18 10:55 Freq: Status: Active Protocol: Document 04/27/18 13:30 LRN (Rec: 04/27/18 13:57 LRN [id number]) Cardio Equipment Recumbent Stepper (Sci-Fit) Duration (Minutes) 10 Resistance 2 Seat Position 10 Therapeutic Exercises Sitting Exercises 3 Sitting Exercise Name C. AROM stretches Side bilateral Reps/Minutes 10x Comments 10 sec holds 2 Sitting Exercise Name LE neural stretch with pelvis in anterior tilt Reps/Minutes 10 sec hold f/b 10 ankle pumps x 3 Manual Therapy Treatment Soft Tissue Mobilization 2 Body Location Upper trapezius Mobilization Type Strumming Intensity/Depth Moderate Body Position Supine PT-OP-R Modalities Start: 03/23/18 10:55 Freq: Status: Active Protocol: Document 03/23/18 11:09 LRN (Rec: 03/23/18 14:32 LRN [id number]) Hot Pack/Cold Pack Treatment Hot Pack Location Back, temporarily at neck Patient Position Hooklying Treatment Duration (minutes) 10 Patient Tolerance Fair Comments Pt removed the Cervical hot pack on own. PT-OP-T Assessment and Plan Start: 03/23/18 10:55 Freq: Status: Active Protocol: Document 04/27/18 13:30 LRN (Rec: 04/27/18 13:57 LRN [id number]) Physical Therapy Assessment Impairments Impairments Activity Tolerance Balance Pain Posture Strength Goals Three Impairment L LE weakness limiting pt's ambulatory ability. Printed Circuit Boards Beveler Goal (LTG) Increase L LE strength by 1 grade to 4-5/10 in order to improve pt's tolerance to activities outside her home and to improve balance for safety with gait. Two Impairment Upper back, Low back, bilateral shoulder, left foot pain limiting activity Short Term Goal (STG) Pt will be able to demonstrate improved posturing with verbal cuing, to decrease pain onset. STG Duration 2 weeks. Printed Circuit Boards Beveler Goal (LTG) Decrease upper and low back pain to no greater than 3/10 with pt able to tolerate family evening activities ( going out to dinner, etc). LTG Duration 12 weeks. One Impairment Decreased endurance and decreased L LE strength [facility] Goal (LTG) Improve endurance and strength such that the pt will be able to tolerate 2 shopping visits of 15' duration without fatigue. LTG Duration 8 weeks Assessment Summary Assessment + response to E-Stim. Progress in strengthening is slow due to pt's Lupus and arthritis. Physical Therapy Plan Frequency and Duration Frequency of Treatment 2x/Week Duration of Treatment 2-3 months Plan of Care Start Date 03/23/18 Plan of Care End Date 06/22/18 Next Visit Focus/Plan Next Note Type Treatment Note Next Visit Plan Aerobic exercise for hip flexion strengthening, restart sit to stands, STM, add KTC stretch, if needed, end flexibility HEP of C/S AROM, ankle DF/IV/EV, LE strengthening. MH/IFES > Back .
--- NOTE | 2018-04-27 15:39 | PT.OTN ---
Current Diagnoses Spondylosis without myelopathy or radiculopathy, thoracolumbar region (04/27/18) Pain in thoracic spine (04/27/18) Weakness (04/27/18) Physical Therapy Treatment Note PT-OP-A Visit Information Start: 03/23/18 10:55 Freq: Status: Active Protocol: Document 04/27/18 13:30 LRN (Rec: 04/27/18 13:57 LRN [id number]) Out-Patient Physical Therapy Visit Information Visit Information Visit Type Treatment Note Visit Note 03/08 Visit Start Time 13:30 Visit Stop Time 14:26 Total Visit Minutes 56 Visit Number 5 Number of TREASURY DIRECTOR Visits 0 Evaluation Information Evaluation Date 03/23/18 PT-OP-B Current Condition Start: 03/23/18 10:55 Freq: Status: Active Protocol: Document 03/23/18 11:09 LRN (Rec: 03/23/18 12:46 LRN [id number]) Current Condition History of Current Condition Onset Date 8+ years ago History of Current Condition Pt reports ongoing problems with her back and LE weakness since being diagnosed with Lupus, but pt unable to identify the time line, just saying its been a long time. Her back and neck/shoulder rhumatoid arthritis pain has been intermittent with onset when lifting objects, and back pain worse in the evenings ( good during nighttime sleeping ). General weakness has been present for the past 2 years. Prior Treatments and Tests Physical therapy (PT) - 2012 following recent diagnosis of Lupus. PT -02/2014 following fractured pubis from fall. PT - 07/2015 for OA, Lupus, RA , Osteochondropathy, Dorsalgia & R shoulder pain. PT - 02/2016 for fx L/S and pelvis, Cervicalgia. PT - 07/2016 for OA, L ankle sprain. Future Testing and Treatments Planned Monthly Rheumatology Blood Tests. Treatment Goals Patient/Caregiver Goals Pt goal with therapy is to get better. Neck, shoulder, back improved strength so she can walk and shop in 2 stores (20' in each store) without having to stop. Pt would like to have less upper back pain (in the shoulders) in the evening. Pain currently in the evenings is 6/10. Prior Functional Status Baseline Function- ADL's Independent Baseline Function- Mobility Independent Baseline Function- Gait Independent on level and uneven ground Current Functional Impairments (Reported) Functional Limitations- ADL's Independent, except needs help tying shoes if not able to sit because bending over causes low back pain. Functional Limitations- Mobility/Gait Walking: Needs assist with walking on uneven ground. Personal Factors Other Personal Factors That May Effect Co-morbidities (Lupus, Therapy/Recovery Arthritis, [place]), Age (over 65+ ), fragile skin, needs to be guided through activities, needs HEP with pictures and large print. 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 PT-OP-C Subjective Start: 03/23/18 10:55 Freq: Status: Active Protocol: Document 04/27/18 13:30 LRN (Rec: 04/27/18 13:57 LRN [id number]) OP-PT Subjective Patient Comments Patient Comments Back pain is off and on. Some discomfort, probably the way I slept PT-OP-D Balance Start: 03/23/18 10:55 Freq: Status: Active Protocol: Document 03/23/18 11:09 LRN (Rec: 03/23/18 12:46 LRN [id number]) OP-PT Balance Assessment Sitting Balance Sitting Balance Comments Normal Standing Balance Device Used None Standing Balance Comments SLS - Unable to do. Baeza Balance Assessment Evaluation Unsupported Stance- Eyes Open Assist to attain, 15 secs Total Score Baeza Total Score (out of 56 points) 1 Matthews Fall Scale Copyright Permission [place], Byron [place], Thomas S[place]. Development of a scale to identify the fall- prone patient. Can J Aging 1989;8;366-7. Lisa Matthews (2009). Preventing patient falls. (2nd ed). [place]: [place]. PT-OP-E Functional Tests Start: 03/23/18 10:55 Freq: Status: Active Protocol: Document 03/23/18 11:09 LRN (Rec: 03/23/18 13:38 LRN [id number]) Functional Tests Five Times Sit to Stand Test Score 15 sec's Comments Norm: Age 70-79 is 12.6 sec's. >12 sec's needs further assess of fall risk Timed Up and Go (TUG) Score 14 sec's Comments No assistive device, no use of hands. TUG Impairment Rating 40 to <60% Impaired (Score 14- 15) PT-OP-F Manual Assessment Start: 03/23/18 10:55 Freq: Status: Active Protocol: Document 03/23/18 11:09 LRN (Rec: 03/23/18 14:32 LRN [id number]) Manual Assessments Soft Tissue Assessment Soft Tissue Mobility Assessment Increased muscle tone: R Levator Scapula & Supraspinatus, L > R Upper trapezius, Bilateral Middle to Lower lumbar paraspinals, R Gluteal muscles. Tenderness: Same locations as muscles above. Bilateral proximal Sacral border. Joint Mobility Assessment Joint Mobility Assessment T5-T8 is in R rotation. PT-OP-G Mobility & Gait Start: 03/23/18 10:55 Freq: Status: Active Protocol: Document 03/23/18 11:09 LRN (Rec: 03/23/18 14:32 LRN [id number]) OP Gait Assessment Assistive Devices Assistive Device None Gait Deviations General Gait Pattern Decreased Stride Length Narrow Based Gait PT-OP-H Neuro Start: 03/23/18 10:55 Freq: Status: Active Protocol: Document 03/23/18 11:09 LRN (Rec: 03/23/18 14:32 LRN [id number]) Deep Tendon Reflex & Clonus Assessment Deep Tendon Reflex Bilateral Achilles Deep Tendon Reflex 0 Absent Bilateral Patellar Deep Tendon Reflex 2+ Normal PT-OP-J Posture/Palpation/Skin Start: 03/23/18 10:55 Freq: Status: Active Protocol: Document 03/23/18 11:09 LRN (Rec: 03/23/18 14:32 LRN [id number]) Posture Evaluation Position Standing Evaluation View Posterior Shoulder Posture (L) Rounded (R) Rounded (L) Elevated Scapula Posture (R) Depressed Pelvis Posture (R) PSIS Inferior (R) ASIS Inferior Weight Distribution Decreased Wt.Bear on (R) Knee Posture (L) Genu Varus (R) Genu Varus Ankle/Foot Posture (L) Forefoot Adducted (R) Forefoot Adducted Comments Posture Comments Sway back posturing. Skin Assessment Other Assessments Skin Assessment Comments Thin, fragile skin UE/LE's. Skin tear on R anterior lower leg that is covered with bandage. Discolored bilateral lower legs. PT-OP-K Range of Motion Start: 03/23/18 10:55 Freq: Status: Active Protocol: Document 03/23/18 11:09 LRN (Rec: 03/23/18 14:32 LRN [id number]) Cervical Spine Range of Motion Cervical Spine Active Testing Position Sitting Extension 38 Rotation Left 45 Rotation Right 45 Lateral Flexion Left 20 Lateral Flexion Right 15 ROM Limitations Pain Comments Flexion is WNL. Lumbar Spine Range of Motion Lumbar Spine Active Testing Position Standing Flexion 80 Extension 15 Rotation Left 10 Rotation Right 15 Lateral Flexion Left 8 Lateral Flexion Right 10 ROM Limitations Soft Tissue Tightness Pain Shoulder Goniometric Range of Motion Shoulder Measured in Degrees Right Active Shoulder ROM WFL Yes Left Active Shoulder ROM WFL Yes Elbow/Forearm Range of Motion Elbow/Forearm Measured in Degrees Right Active Comments WNL Left Active Comments WNL Hip Goniometric Range of Motion Hip ROM Limitations Hip ROM Limitations Soft Tissue Tightness Comments Hip Flexion is WFL but limited . Hip AB is WFL, but limited on the Left. Knee Goniometric Range of Motion Knee Measured in Degrees Right Knee ROM WFL Yes Left Knee ROM WFL Yes PT-OP-M Strength Start: 03/23/18 10:55 Freq: Status: Active Protocol: Document 03/23/18 11:09 LRN (Rec: 03/23/18 14:32 LRN [id number]) Cervical Spine Strength Cervical Spine Manual Muscle Testing Testing Position Sitting Comments Generally 5/5 Trunk Strength Trunk Manual Muscle Testing Testing Position Sitting Flexion 3+ Fair+ Extension 2+ Poor+ Comments Generally 5/5 for SB, Rotation Shoulder Strength Shoulder Manual Muscle Testing Right Reason Not Measured WFL Left Reason Not Measured WFL Elbow/Forearm Strength Elbow and Forearm Manual Muscle Testing Right Reason Not Measured WFL Left Reason Not Measured WFL Hand Layout Worker/Pinch Strength Hand Dominance Hand Dominance Right Hip Strength Hip Manual Muscle Testing Right External Rotation 4 Good Internal Rotation 4 Good Comments Generally 5/5 except for those listed above. Left Extension (S1) 3 Fair Internal Rotation 3 Fair Comments Generally 5/5 except for those listed above. Knee Strength Knee Manual Muscle Testing Right Comments 5/5 Left Flexion (S2) 5 Normal Extension (L3) 4 Good Ankle/Foot Strength Ankle and Foot Manual Muscle Testing Right Comments Generally 5/5 except for Ankle DF is 3/5. Left Comments Generally 3/5 except for Ankle IV is 4/5. PT-OP-Q Treatments Start: 03/23/18 10:55 Freq: Status: Active Protocol: Document 04/27/18 13:30 LRN (Rec: 04/27/18 13:57 LRN [id number]) Cardio Equipment Recumbent Stepper (Sci-Fit) Duration (Minutes) 10 Resistance 2 Seat Position 10 Therapeutic Exercises Sitting Exercises 3 Sitting Exercise Name C. AROM stretches Side bilateral Reps/Minutes 10x Comments 10 sec holds 2 Sitting Exercise Name LE neural stretch with pelvis in anterior tilt Reps/Minutes 10 sec hold f/b 10 ankle pumps x 3 Manual Therapy Treatment Soft Tissue Mobilization 2 Body Location Upper trapezius Mobilization Type Strumming Intensity/Depth Moderate Body Position Supine PT-OP-R Modalities Start: 03/23/18 10:55 Freq: Status: Active Protocol: Document 04/27/18 13:30 LRN (Rec: 04/27/18 15:38 LRN [id number]) Electric Stimulation Electric Stimulation Pre-Modulated Body Location Upper trap > Low Back Duration (Minutes) 10 Intensity 15 left, 16 right Frequency 60 Patient Position Hooklying Combined With Heat/Cold Hot Pack Hot Pack/Cold Pack Treatment Hot Pack Location Back Patient Position Hooklying Treatment Duration (minutes) 10 Patient Tolerance Fair PT-OP-T Assessment and Plan Start: 03/23/18 10:55 Freq: Status: Active Protocol: Document 04/27/18 13:30 LRN (Rec: 04/27/18 13:57 LRN [id number]) Physical Therapy Assessment Impairments Impairments Activity Tolerance Balance Pain Posture Strength Goals Three Impairment L LE weakness limiting pt's ambulatory ability. [facility] Goal (LTG) Increase L LE strength by 1 grade to 4-5/10 in order to improve pt's tolerance to activities outside her home and to improve balance for safety with gait. Two Impairment Upper back, Low back, bilateral shoulder, left foot pain limiting activity Short Term Goal (STG) Pt will be able to demonstrate improved posturing with verbal cuing, to decrease pain onset. STG Duration 2 weeks. Plastering Contractor Goal (LTG) Decrease upper and low back pain to no greater than 3/10 with pt able to tolerate family evening activities ( going out to dinner, etc). LTG Duration 12 weeks. One Impairment Decreased endurance and decreased L LE strength Plastering Contractor Goal (LTG) Improve endurance and strength such that the pt will be able to tolerate 2 shopping visits of 15' duration without fatigue. LTG Duration 8 weeks Assessment Summary Assessment + response to E-Stim. Progress in strengthening is slow due to pt's Lupus and arthritis. Physical Therapy Plan Frequency and Duration Frequency of Treatment 2x/Week Duration of Treatment 2-3 months Plan of Care Start Date 03/23/18 Plan of Care End Date 06/22/18 Next Visit Focus/Plan Next Note Type Treatment Note Next Visit Plan Aerobic exercise for hip flexion strengthening, restart sit to stands, STM, add KTC stretch, if needed, end flexibility HEP of C/S AROM, ankle DF/IV/EV, LE strengthening. MH/IFES > Back .
--- NOTE | 2018-05-01 14:45 | PT.OTN ---
Current Diagnoses Spondylosis without myelopathy or radiculopathy, thoracolumbar region (05/01/18) Pain in thoracic spine (05/01/18) Weakness (05/01/18) Physical Therapy Treatment Note PT-OP-A Visit Information Start: 03/23/18 10:55 Freq: Status: Active Protocol: Document 05/01/18 13:31 LRN (Rec: 05/01/18 14:33 LRN [id number]) Out-Patient Physical Therapy Visit Information Visit Information Visit Type Treatment Note Visit Note 04/08 Visit Start Time 13:31 Visit Stop Time 14:28 Total Visit Minutes 57 Visit Number 6 Number of CARBONIZER Visits 0 Evaluation Information Evaluation Date 03/23/18 PT-OP-B Current Condition Start: 03/23/18 10:55 Freq: Status: Active Protocol: Document 03/23/18 11:09 LRN (Rec: 03/23/18 12:46 LRN [id number]) Current Condition History of Current Condition Onset Date 8+ years ago History of Current Condition Pt reports ongoing problems with her back and LE weakness since being diagnosed with Lupus, but pt unable to identify the time line, just saying its been a long time. Her back and neck/shoulder rhumatoid arthritis pain has been intermittent with onset when lifting objects, and back pain worse in the evenings ( good during nighttime sleeping ). General weakness has been present for the past 2 years. Prior Treatments and Tests Physical therapy (PT) - 2012 following recent diagnosis of Lupus. PT -02/2014 following fractured pubis from fall. PT - 07/2015 for OA, Lupus, RA , Osteochondropathy, Dorsalgia & R shoulder pain. PT - 02/2016 for fx L/S and pelvis, Cervicalgia. PT - 07/2016 for OA, L ankle sprain. Future Testing and Treatments Planned Monthly Rheumatology Blood Tests. Treatment Goals Patient/Caregiver Goals Pt goal with therapy is to get better. Neck, shoulder, back improved strength so she can walk and shop in 2 stores (20' in each store) without having to stop. Pt would like to have less upper back pain (in the shoulders) in the evening. Pain currently in the evenings is 6/10. Prior Functional Status Baseline Function- ADL's Independent Baseline Function- Mobility Independent Baseline Function- Gait Independent on level and uneven ground Current Functional Impairments (Reported) Functional Limitations- ADL's Independent, except needs help tying shoes if not able to sit because bending over causes low back pain. Functional Limitations- Mobility/Gait Walking: Needs assist with walking on uneven ground. Personal Factors Other Personal Factors That May Effect Co-morbidities (Lupus, Therapy/Recovery Arthritis, [place]), Age (over 65+ ), fragile skin, needs to be guided through activities, needs HEP with pictures and large print. 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 PT-OP-C Subjective Start: 03/23/18 10:55 Freq: Status: Active Protocol: Document 05/01/18 13:31 LRN (Rec: 05/01/18 14:33 LRN [id number]) OP-PT Subjective Patient Comments Patient Comments Starting today she is to decr her Lupus med by 50% due to high liver test numbers. Her back pain is constant at 5/10. The legs are better, limited in walking due to L foot pain , not leg weakness. Upper L side of neck hurts at nighttime. OP-PT Pain Assessment Location Bilateral Lower Back Intensity 5 Description- Other Constant ache. Bilateral Upper Posterior Back Pain Location Details [place] region Intensity 5 PT-OP-D Balance Start: 03/23/18 10:55 Freq: Status: Active Protocol: Document 03/23/18 11:09 LRN (Rec: 03/23/18 12:46 LRN [id number]) OP-PT Balance Assessment Sitting Balance Sitting Balance Comments Normal Standing Balance Device Used None Standing Balance Comments SLS - Unable to do. Baeza Balance Assessment Evaluation Unsupported Stance- Eyes Open Assist to attain, 15 secs Total Score Baeza Total Score (out of 56 points) 1 Matthews Fall Scale Copyright Permission Byron JM, Byron RM, Thomas SJ. Development of a scale to identify the fall- prone patient. Can J Aging 1989;8;366-7. Lisa Matthews (2009). Preventing patient falls. (2nd ed). [place]: [place]. PT-OP-E Functional Tests Start: 03/23/18 10:55 Freq: Status: Active Protocol: Document 03/23/18 11:09 LRN (Rec: 03/23/18 13:38 LRN [id number]) Functional Tests Five Times Sit to Stand Test Score 15 sec's Comments Norm: Age 70-79 is 12.6 sec's. >12 sec's needs further assess of fall risk Timed Up and Go (TUG) Score 14 sec's Comments No assistive device, no use of hands. TUG Impairment Rating 40 to <60% Impaired (Score 14- 15) PT-OP-F Manual Assessment Start: 03/23/18 10:55 Freq: Status: Active Protocol: Document 03/23/18 11:09 LRN (Rec: 03/23/18 14:32 LRN [id number]) Manual Assessments Soft Tissue Assessment Soft Tissue Mobility Assessment Increased muscle tone: R Levator Scapula & Supraspinatus, L > R Upper trapezius, Bilateral Middle to Lower lumbar paraspinals, R Gluteal muscles. Tenderness: Same locations as muscles above. Bilateral proximal Sacral border. Joint Mobility Assessment Joint Mobility Assessment T5-T8 is in R rotation. PT-OP-G Mobility & Gait Start: 03/23/18 10:55 Freq: Status: Active Protocol: Document 03/23/18 11:09 LRN (Rec: 03/23/18 14:32 LRN [id number]) OP Gait Assessment Assistive Devices Assistive Device None Gait Deviations General Gait Pattern Decreased Stride Length Narrow Based Gait PT-OP-H Neuro Start: 03/23/18 10:55 Freq: Status: Active Protocol: Document 03/23/18 11:09 LRN (Rec: 03/23/18 14:32 LRN [id number]) Deep Tendon Reflex & Clonus Assessment Deep Tendon Reflex Bilateral Achilles Deep Tendon Reflex 0 Absent Bilateral Patellar Deep Tendon Reflex 2+ Normal PT-OP-J Posture/Palpation/Skin Start: 03/23/18 10:55 Freq: Status: Active Protocol: Document 03/23/18 11:09 LRN (Rec: 03/23/18 14:32 LRN [id number]) Posture Evaluation Position Standing Evaluation View Posterior Shoulder Posture (L) Rounded (R) Rounded (L) Elevated Scapula Posture (R) Depressed Pelvis Posture (R) PSIS Inferior (R) ASIS Inferior Weight Distribution Decreased Wt.Bear on (R) Knee Posture (L) Genu Varus (R) Genu Varus Ankle/Foot Posture (L) Forefoot Adducted (R) Forefoot Adducted Comments Posture Comments Sway back posturing. Skin Assessment Other Assessments Skin Assessment Comments Thin, fragile skin UE/LE's. Skin tear on R anterior lower leg that is covered with bandage. Discolored bilateral lower legs. PT-OP-K Range of Motion Start: 03/23/18 10:55 Freq: Status: Active Protocol: Document 03/23/18 11:09 LRN (Rec: 03/23/18 14:32 LRN [id number]) Cervical Spine Range of Motion Cervical Spine Active Testing Position Sitting Extension 38 Rotation Left 45 Rotation Right 45 Lateral Flexion Left 20 Lateral Flexion Right 15 ROM Limitations Pain Comments Flexion is WNL. Lumbar Spine Range of Motion Lumbar Spine Active Testing Position Standing Flexion 80 Extension 15 Rotation Left 10 Rotation Right 15 Lateral Flexion Left 8 Lateral Flexion Right 10 ROM Limitations Soft Tissue Tightness Pain Shoulder Goniometric Range of Motion Shoulder Measured in Degrees Right Active Shoulder ROM WFL Yes Left Active Shoulder ROM WFL Yes Elbow/Forearm Range of Motion Elbow/Forearm Measured in Degrees Right Active Comments WNL Left Active Comments WNL Hip Goniometric Range of Motion Hip ROM Limitations Hip ROM Limitations Soft Tissue Tightness Comments Hip Flexion is WFL but limited . Hip AB is WFL, but limited on the Left. Knee Goniometric Range of Motion Knee Measured in Degrees Right Knee ROM WFL Yes Left Knee ROM WFL Yes PT-OP-M Strength Start: 03/23/18 10:55 Freq: Status: Active Protocol: Document 03/23/18 11:09 LRN (Rec: 03/23/18 14:32 [facility] [id number]) Cervical Spine Strength Cervical Spine Manual Muscle Testing Testing Position Sitting Comments Generally 5/5 Trunk Strength Trunk Manual Muscle Testing Testing Position Sitting Flexion 3+ Fair+ Extension 2+ Poor+ Comments Generally 5/5 for SB, Rotation Shoulder Strength Shoulder Manual Muscle Testing Right Reason Not Measured WFL Left Reason Not Measured WFL Elbow/Forearm Strength Elbow and Forearm Manual Muscle Testing Right Reason Not Measured WFL Left Reason Not Measured WFL Hand Dandy Tender/Pinch Strength Hand Dominance Hand Dominance Right Hip Strength Hip Manual Muscle Testing Right External Rotation 4 Good Internal Rotation 4 Good Comments Generally 5/5 except for those listed above. Left Extension (S1) 3 Fair Internal Rotation 3 Fair Comments Generally 5/5 except for those listed above. Knee Strength Knee Manual Muscle Testing Right Comments 5/5 Left Flexion (S2) 5 Normal Extension (L3) 4 Good Ankle/Foot Strength Ankle and Foot Manual Muscle Testing Right Comments Generally 5/5 except for Ankle DF is 3/5. Left Comments Generally 3/5 except for Ankle IV is 4/5. PT-OP-Q Treatments Start: 03/23/18 10:55 Freq: Status: Active Protocol: Document 05/01/18 13:31 LRN (Rec: 05/01/18 14:33 LRN [id number]) Cardio Equipment Recumbent Elliptical (Biodex) Duration (Minutes) 10 Resistance 1 Seat Position 9 Therapeutic Exercises Sitting Exercises 4 Sitting Exercise Name Active ankle PF/DF/EV/IV Side bilateral Reps/Minutes 30 each Standing Exercises 5 Standing Exercise Name Stand trunk ext in upper thoracic with abdominal tightening Reps/Minutes 10x3 4 Standing Exercise Name Trunk Wood chop Side bilateral Resistance L 1 T-Band Reps/Minutes 10 x 3 Standing Exercise Name Alternate arm lifts Side bilateral Reps/Minutes 10 x 3 2 Standing Exercise Name Reverse fly Side bilateral Resistance 1# Reps/Minutes 10x3 Self-Care/Home Management Treatment Education Patient Education Posture Activities Self-Care/Home Management Activities I/S pt in use of towel roll around head to minimize SB of head during sleeping for pain control of L upper shoulder. PT-OP-R Modalities Start: 03/23/18 10:55 Freq: Status: Active Protocol: Document 05/01/18 13:31 LRN (Rec: 05/01/18 14:33 LRN [id number]) Electric Stimulation Electric Stimulation Interferential Current (IFC) Body Location LB Duration (Minutes) 15 Intensity 16 Target/Sweep Sweep Hot Pack/Cold Pack Treatment Hot Pack Location Back Patient Position Hooklying Treatment Duration (minutes) 15 Patient Tolerance Fair PT-OP-T Assessment and Plan Start: 03/23/18 10:55 Freq: Status: Active Protocol: Document 05/01/18 13:31 LRN (Rec: 05/01/18 14:33 LRN [id number]) Physical Therapy Assessment Goals Three Impairment L LE weakness limiting pt's ambulatory ability. Nursing Home Goal (LTG) Increase L LE strength by 1 grade to 4-5/10 in order to improve pt's tolerance to activities outside her home and to improve balance for safety with gait. Two Impairment Upper back, Low back, bilateral shoulder, left foot pain limiting activity Short Term Goal (STG) Pt will be able to demonstrate improved posturing with verbal cuing, to decrease pain onset. STG Duration 2 weeks. Nursing Home Goal (LTG) Decrease upper and low back pain to no greater than 3/10 with pt able to tolerate family evening activities ( going out to dinner, etc). LTG Duration 12 weeks. One Impairment Decreased endurance and decreased L LE strength Nursing Home Goal (LTG) Improve endurance and strength such that the pt will be able to tolerate 2 shopping visits of 15' duration without fatigue. LTG Duration 8 weeks Assessment Summary Assessment Pt upper back pain onset is worse at nighttime, probably positional in nature. Endurance limited by L foot pain. Pt doesn't feel her LE' s problems are due to weakness , but foot pain. Physical Therapy Plan Frequency and Duration Frequency of Treatment 2x/Week Duration of Treatment 2-3 months Plan of Care Start Date 03/23/18 Plan of Care End Date 06/22/18 Next Visit Focus/Plan Next Note Type Treatment Note Next Visit Plan Recheck LE strength. Restart sit to stands, STM, flexibility HEP for C/S A ROM, ankle DF/IV/EV & LE strengthening. Assess response to MH/IFES with extra double layer for use of MH.
--- NOTE | 2018-05-11 15:20 | PT.OTN ---
Current Diagnoses Spondylosis without myelopathy or radiculopathy, thoracolumbar region (05/11/18) Pain in thoracic spine (05/11/18) Weakness (05/11/18) Physical Therapy Treatment Note PT-OP-A Visit Information Start: 03/23/18 10:55 Freq: Status: Active Protocol: Document 05/11/18 13:45 LRN (Rec: 05/11/18 15:08 LRN [id number]) Out-Patient Physical Therapy Visit Information Visit Information Visit Type Treatment Note Visit Note 05/08 Visit Start Time 13:45 Visit Stop Time 14:40 Total Visit Minutes 55 Visit Number 7 Number of SEED SERVICE ADVISOR Visits 0 Evaluation Information Evaluation Date 03/23/18 PT-OP-B Current Condition Start: 03/23/18 10:55 Freq: Status: Active Protocol: Document 03/23/18 11:09 LRN (Rec: 03/23/18 12:46 LRN [id number]) Current Condition History of Current Condition Onset Date 8+ years ago History of Current Condition Pt reports ongoing problems with her back and LE weakness since being diagnosed with Lupus, but pt unable to identify the time line, just saying its been a long time. Her back and neck/shoulder rhumatoid arthritis pain has been intermittent with onset when lifting objects, and back pain worse in the evenings ( good during nighttime sleeping ). General weakness has been present for the past 2 years. Prior Treatments and Tests Physical therapy (PT) - 2012 following recent diagnosis of Lupus. PT -02/2014 following fractured pubis from fall. PT - 07/2015 for OA, Lupus, RA , Osteochondropathy, Dorsalgia & R shoulder pain. PT - 02/2016 for fx L/S and pelvis, Cervicalgia. PT - 07/2016 for OA, L ankle sprain. Future Testing and Treatments Planned Monthly Rheumatology Blood Tests. Treatment Goals Patient/Caregiver Goals Pt goal with therapy is to get better. Neck, shoulder, back improved strength so she can walk and shop in 2 stores (20' in each store) without having to stop. Pt would like to have less upper back pain (in the shoulders) in the evening. Pain currently in the evenings is 6/10. Prior Functional Status Baseline Function- ADL's Independent Baseline Function- Mobility Independent Baseline Function- Gait Independent on level and uneven ground Current Functional Impairments (Reported) Functional Limitations- ADL's Independent, except needs help tying shoes if not able to sit because bending over causes low back pain. Functional Limitations- Mobility/Gait Walking: Needs assist with walking on uneven ground. Personal Factors Other Personal Factors That May Effect Co-morbidities (Lupus, Therapy/Recovery Arthritis, WAINWRIGHT), Age (over 65+ ), fragile skin, needs to be guided through activities, needs HEP with pictures and large print. 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 PT-OP-C Subjective Start: 03/23/18 10:55 Freq: Status: Active Protocol: Document 05/11/18 13:45 LRN (Rec: 05/11/18 15:08 LRN [id number]) OP-PT Subjective Patient Comments Patient Comments A little worse because she got on the ground to play with her 3 yr old great-grandson. Night time back pain is 5/10, daytime back pain is 4/10. OP-PT Pain Assessment Location Bilateral Proximal Shoulder Pain Location Details Neck Intensity 4 Scale Used Numeric (1 - 10) Bilateral Lower Back Intensity 5 Description- Other Constant ache. Bilateral Upper Posterior Back Pain Location Details [place] region Intensity 5 PT-OP-D Balance Start: 03/23/18 10:55 Freq: Status: Active Protocol: Document 03/23/18 11:09 LRN (Rec: 03/23/18 12:46 LRN [id number]) OP-PT Balance Assessment Sitting Balance Sitting Balance Comments Normal Standing Balance Device Used None Standing Balance Comments SLS - Unable to do. Baeza Balance Assessment Evaluation Unsupported Stance- Eyes Open Assist to attain, 15 secs Total Score Baeza Total Score (out of 56 points) 1 Matthews Fall Scale Copyright Permission Byron JM, Byron RM, Thomas SJ. Development of a scale to identify the fall- prone patient. Can J Aging 1989;8;366-7. Lisa Matthews (2009). Preventing patient falls. (2nd ed). [place]: [place]. PT-OP-E Functional Tests Start: 03/23/18 10:55 Freq: Status: Active Protocol: Document 03/23/18 11:09 LRN (Rec: 03/23/18 13:38 LRN [id number]) Functional Tests Five Times Sit to Stand Test Score 15 sec's Comments Norm: Age 70-79 is 12.6 sec's. >12 sec's needs further assess of fall risk Timed Up and Go (TUG) Score 14 sec's Comments No assistive device, no use of hands. TUG Impairment Rating 40 to <60% Impaired (Score 14- 15) PT-OP-F Manual Assessment Start: 03/23/18 10:55 Freq: Status: Active Protocol: Document 03/23/18 11:09 LRN (Rec: 03/23/18 14:32 LRN [id number]) Manual Assessments Soft Tissue Assessment Soft Tissue Mobility Assessment Increased muscle tone: R Levator Scapula & Supraspinatus, L > R Upper trapezius, Bilateral Middle to Lower lumbar paraspinals, R Gluteal muscles. Tenderness: Same locations as muscles above. Bilateral proximal Sacral border. Joint Mobility Assessment Joint Mobility Assessment T5-T8 is in R rotation. PT-OP-G Mobility & Gait Start: 03/23/18 10:55 Freq: Status: Active Protocol: Document 03/23/18 11:09 LRN (Rec: 03/23/18 14:32 LRN [id number]) OP Gait Assessment Assistive Devices Assistive Device None Gait Deviations General Gait Pattern Decreased Stride Length Narrow Based Gait PT-OP-H Neuro Start: 03/23/18 10:55 Freq: Status: Active Protocol: Document 03/23/18 11:09 LRN (Rec: 03/23/18 14:32 LRN [id number]) Deep Tendon Reflex & Clonus Assessment Deep Tendon Reflex Bilateral Achilles Deep Tendon Reflex 0 Absent Bilateral Patellar Deep Tendon Reflex 2+ Normal PT-OP-J Posture/Palpation/Skin Start: 03/23/18 10:55 Freq: Status: Active Protocol: Document 03/23/18 11:09 LRN (Rec: 03/23/18 14:32 LRN [id number]) Posture Evaluation Position Standing Evaluation View Posterior Shoulder Posture (L) Rounded (R) Rounded (L) Elevated Scapula Posture (R) Depressed Pelvis Posture (R) PSIS Inferior (R) ASIS Inferior Weight Distribution Decreased Wt.Bear on (R) Knee Posture (L) Genu Varus (R) Genu Varus Ankle/Foot Posture (L) Forefoot Adducted (R) Forefoot Adducted Comments Posture Comments Sway back posturing. Skin Assessment Other Assessments Skin Assessment Comments Thin, fragile skin UE/LE's. Skin tear on R anterior lower leg that is covered with bandage. Discolored bilateral lower legs. PT-OP-K Range of Motion Start: 03/23/18 10:55 Freq: Status: Active Protocol: Document 03/23/18 11:09 LRN (Rec: 03/23/18 14:32 LRN [id number]) Cervical Spine Range of Motion Cervical Spine Active Testing Position Sitting Extension 38 Rotation Left 45 Rotation Right 45 Lateral Flexion Left 20 Lateral Flexion Right 15 ROM Limitations Pain Comments Flexion is WNL. Lumbar Spine Range of Motion Lumbar Spine Active Testing Position Standing Flexion 80 Extension 15 Rotation Left 10 Rotation Right 15 Lateral Flexion Left 8 Lateral Flexion Right 10 ROM Limitations Soft Tissue Tightness Pain Shoulder Goniometric Range of Motion Shoulder Measured in Degrees Right Active Shoulder ROM WFL Yes Left Active Shoulder ROM WFL Yes Elbow/Forearm Range of Motion Elbow/Forearm Measured in Degrees Right Active Comments WNL Left Active Comments WNL Hip Goniometric Range of Motion Hip ROM Limitations Hip ROM Limitations Soft Tissue Tightness Comments Hip Flexion is WFL but limited . Hip AB is WFL, but limited on the Left. Knee Goniometric Range of Motion Knee Measured in Degrees Right Knee ROM WFL Yes Left Knee ROM WFL Yes PT-OP-M Strength Start: 03/23/18 10:55 Freq: Status: Active Protocol: Document 03/23/18 11:09 LRN (Rec: 03/23/18 14:32 [facility] [id number]) Cervical Spine Strength Cervical Spine Manual Muscle Testing Testing Position Sitting Comments Generally 5/5 Trunk Strength Trunk Manual Muscle Testing Testing Position Sitting Flexion 3+ Fair+ Extension 2+ Poor+ Comments Generally 5/5 for SB, Rotation Shoulder Strength Shoulder Manual Muscle Testing Right Reason Not Measured WFL Left Reason Not Measured WFL Elbow/Forearm Strength Elbow and Forearm Manual Muscle Testing Right Reason Not Measured WFL Left Reason Not Measured WFL Hand Owner/Photographer/Pinch Strength Hand Dominance Hand Dominance Right Hip Strength Hip Manual Muscle Testing Right External Rotation 4 Good Internal Rotation 4 Good Comments Generally 5/5 except for those listed above. Left Extension (S1) 3 Fair Internal Rotation 3 Fair Comments Generally 5/5 except for those listed above. Knee Strength Knee Manual Muscle Testing Right Comments 5/5 Left Flexion (S2) 5 Normal Extension (L3) 4 Good Ankle/Foot Strength Ankle and Foot Manual Muscle Testing Right Comments Generally 5/5 except for Ankle DF is 3/5. Left Comments Generally 3/5 except for Ankle IV is 4/5. PT-OP-Q Treatments Start: 03/23/18 10:55 Freq: Status: Active Protocol: Document 05/11/18 13:45 LRN (Rec: 05/11/18 15:08 LRN [id number]) Cardio Equipment Recumbent Elliptical (Biodex) Duration (Minutes) 10 Resistance 1 Seat Position 9 Therapeutic Exercises Sitting Exercises 5 Sitting Exercise Name Active trunk ext Reps/Minutes 10x Comments Isometric hold 5 sec' 4 Sitting Exercise Name Active ankle PF/DF/EV/IV Side bilateral Reps/Minutes 30 each Standing Exercises 6 Standing Exercise Name Sit to stands Reps/Minutes 10 Comments Had to stop due to back pain 5 Standing Exercise Name Stand trunk ext in upper thoracic with abdominal tightening Reps/Minutes 10x3 4 Standing Exercise Name Trunk Wood chop Side bilateral Resistance L 1 T-Band Reps/Minutes 10 x each 2 Standing Exercise Name Reverse fly Side bilateral Resistance 1# Reps/Minutes 10x3 1 Standing Exercise Name Standing trunk rotation Side bilateral Resistance L 2 T-Band Reps/Minutes 6' Comments Band with towel around Biceps Therapeutic Activity Therapeutic Activity 1 Name Stand to sit Reps/Minutes 15x Comments Pt to activate hip flexion with sitting. PT-OP-R Modalities Start: 03/23/18 10:55 Freq: Status: Active Protocol: Document 05/11/18 13:45 LRN (Rec: 05/11/18 15:11 LRN [id number]) Electric Stimulation Electric Stimulation Interferential Current (IFC) Body Location Low Back Duration (Minutes) 12 Intensity 22 Target/Sweep Sweep Patient Position Hooklying Combined With Heat/Cold Cold Pack Hot Pack/Cold Pack Treatment Cold Pack Location Back Patient Position Hooklying Treatment Duration (minutes) 12 Patient Tolerance Good PT-OP-T Assessment and Plan Start: 03/23/18 10:55 Freq: Status: Active Protocol: Document 05/11/18 13:45 LRN (Rec: 05/11/18 15:08 LRN [id number]) Physical Therapy Assessment Goals Three Impairment L LE weakness limiting pt's ambulatory ability. Chief Operator Hydroformer Goal (LTG) Increase L LE strength by 1 grade to 4-5/10 in order to improve pt's tolerance to activities outside her home and to improve balance for safety with gait. LTG Duration 7/20/18 Two Impairment Upper back, Low back, bilateral shoulder, left foot pain limiting activity Short Term Goal (STG) Pt will be able to demonstrate improved posturing with verbal cuing, to decrease pain onset. STG Duration 2 weeks. Goal Not Met Chief Operator Hydroformer Goal (LTG) Decrease upper and low back pain to no greater than 3/10 with pt able to tolerate family evening activities ( going out to dinner, etc). LTG Duration 06/22/18 One Impairment Decreased endurance and decreased L LE strength Usp Goal (LTG) Improve endurance and strength such that the pt will be able to tolerate 2 shopping visits of 15' duration without fatigue. LTG Duration 06/22/18 Progress Towards Goals Progress Towards Goals Slow Progress due to Medical Issues Progress Comments LE strength improved per pt. She feels more confident with her walking. No significant change with back pain. Endurance remains limited due to feet pain. Assessment Summary Assessment No significant change. Back pain worse at night and rated 5/10, daytime is 4/10. Lacking endurance primarily due to foot pain. Overall LE strength pt feels has improved . Physical Therapy Plan Frequency and Duration Frequency of Treatment 1-2x/Week Duration of Treatment 1-2 weeks. If no improvement DC to HEP Plan of Care Start Date 03/23/18 Plan of Care End Date 06/22/18 Next Visit Focus/Plan Next Note Type Treatment Note Next Visit Plan Recheck LE strength. Restart STM, Issue flexibility HEP for C/S AROM, continue to progress ankle DF/IV/EV & LE strengthening. Assess response to MH/IFES with use of coldpack. Reassess for continuation of therapy. DC to HEP in 1-2 visits.
--- NOTE | 2018-06-22 14:52 | PT.OTN ---
Current Diagnoses Spondylosis without myelopathy or radiculopathy, thoracolumbar region (06/22/18) Pain in thoracic spine (06/22/18) Weakness (06/22/18) Physical Therapy Treatment Note PT-OP-A Visit Information Start: 03/23/18 10:55 Freq: Status: Active Protocol: Document 06/22/18 11:19 LRN (Rec: 06/22/18 12:31 LRN [id number]) Out-Patient Physical Therapy Visit Information Visit Information Visit Type Treatment Note Visit Note 06/08 Visit Start Time 11:19 Visit Stop Time 11:44 Total Visit Minutes 25 Visit Number 8 Number of MACHINE PLUG SHAPER Visits 0 Evaluation Information Evaluation Date 03/23/18 PT-OP-B Current Condition Start: 03/23/18 10:55 Freq: Status: Active Protocol: Document 03/23/18 11:09 LRN (Rec: 03/23/18 12:46 LRN [id number]) Current Condition History of Current Condition Onset Date 8+ years ago History of Current Condition Pt reports ongoing problems with her back and LE weakness since being diagnosed with Lupus, but pt unable to identify the time line, just saying its been a long time. Her back and neck/shoulder rhumatoid arthritis pain has been intermittent with onset when lifting objects, and back pain worse in the evenings ( good during nighttime sleeping ). General weakness has been present for the past 2 years. Prior Treatments and Tests Physical therapy (PT) - 2012 following recent diagnosis of Lupus. PT -02/2014 following fractured pubis from fall. PT - 07/2015 for OA, Lupus, RA , Osteochondropathy, Dorsalgia & R shoulder pain. PT - 02/2016 for fx L/S and pelvis, Cervicalgia. PT - 07/2016 for OA, L ankle sprain. Future Testing and Treatments Planned Monthly Rheumatology Blood Tests. Treatment Goals Patient/Caregiver Goals Pt goal with therapy is to get better. Neck, shoulder, back improved strength so she can walk and shop in 2 stores (20' in each store) without having to stop. Pt would like to have less upper back pain (in the shoulders) in the evening. Pain currently in the evenings is 6/10. Prior Functional Status Baseline Function- ADL's Independent Baseline Function- Mobility Independent Baseline Function- Gait Independent on level and uneven ground Current Functional Impairments (Reported) Functional Limitations- ADL's Independent, except needs help tying shoes if not able to sit because bending over causes low back pain. Functional Limitations- Mobility/Gait Walking: Needs assist with walking on uneven ground. Personal Factors Other Personal Factors That May Effect Co-morbidities (Lupus, Therapy/Recovery Arthritis, [place]), Age (over 65+ ), fragile skin, needs to be guided through activities, needs HEP with pictures and large print. 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 PT-OP-C Subjective Start: 03/23/18 10:55 Freq: Status: Active Protocol: Document 06/22/18 11:19 LRN (Rec: 06/22/18 12:31 LRN [id number]) OP-PT Subjective Patient Comments Patient Comments Pt being sent to wound care for a R lower leg sore. Back pain is better. At times back pain when not sitting. Upper back pain comes and goes. Endurance is low and R shoulder hurts. Would like to continue therapy but she is afraid ex would hurt her leg, so she thinks she should hold therapy until her leg sore is healed. Patient Questionnaires ABC- Activity Specific Balance Confidence Scale ABC Score 46.875 ABC Functional Impairment 40 to <60% Impaired (Score 41- 60) Oswestry Low Back Index Oswestry Score 13 Oswestry Impairment 1 to 19% Impaired (Score 1-19) OP-PT Pain Assessment Location Bilateral Proximal Shoulder Pain Location Details Neck Intensity 4 Scale Used Numeric (1 - 10) Bilateral Lower Back Intensity 6 Description- Other Ache. Bilateral Upper Posterior Back Pain Location Details [place] region Intensity 4 PT-OP-D Balance Start: 03/23/18 10:55 Freq: Status: Active Protocol: Document 03/23/18 11:09 LRN (Rec: 03/23/18 12:46 LRN [id number]) OP-PT Balance Assessment Sitting Balance Sitting Balance Comments Normal Standing Balance Device Used None Standing Balance Comments SLS - Unable to do. Baeza Balance Assessment Evaluation Unsupported Stance- Eyes Open Assist to attain, 15 secs Total Score Baeza Total Score (out of 56 points) 1 Matthews Fall Scale Copyright Permission Byron [place], Byron RM, Thomas SJ. Development of a scale to identify the fall- prone patient. Can J Aging 1989;8;366-7. Lisa Matthews (2009). Preventing patient falls. (2nd ed). Edgar: [place]. PT-OP-E Functional Tests Start: 03/23/18 10:55 Freq: Status: Active Protocol: Document 03/23/18 11:09 LRN (Rec: 03/23/18 13:38 LRN [id number]) Functional Tests Five Times Sit to Stand Test Score 15 sec's Comments Norm: Age 70-79 is 12.6 sec's. >12 sec's needs further assess of fall risk Timed Up and Go (TUG) Score 14 sec's Comments No assistive device, no use of hands. TUG Impairment Rating 40 to <60% Impaired (Score 14- 15) PT-OP-F Manual Assessment Start: 03/23/18 10:55 Freq: Status: Active Protocol: Document 03/23/18 11:09 LRN (Rec: 03/23/18 14:32 LRN [id number]) Manual Assessments Soft Tissue Assessment Soft Tissue Mobility Assessment Increased muscle tone: R Levator Scapula & Supraspinatus, L > R Upper trapezius, Bilateral Middle to Lower lumbar paraspinals, R Gluteal muscles. Tenderness: Same locations as muscles above. Bilateral proximal Sacral border. Joint Mobility Assessment Joint Mobility Assessment T5-T8 is in R rotation. PT-OP-G Mobility & Gait Start: 03/23/18 10:55 Freq: Status: Active Protocol: Document 03/23/18 11:09 LRN (Rec: 03/23/18 14:32 LRN [id number]) OP Gait Assessment Assistive Devices Assistive Device None Gait Deviations General Gait Pattern Decreased Stride Length Narrow Based Gait PT-OP-H Neuro Start: 03/23/18 10:55 Freq: Status: Active Protocol: Document 03/23/18 11:09 LRN (Rec: 03/23/18 14:32 LRN [id number]) Deep Tendon Reflex & Clonus Assessment Deep Tendon Reflex Bilateral Achilles Deep Tendon Reflex 0 Absent Bilateral Patellar Deep Tendon Reflex 2+ Normal PT-OP-J Posture/Palpation/Skin Start: 03/23/18 10:55 Freq: Status: Active Protocol: Document 03/23/18 11:09 LRN (Rec: 03/23/18 14:32 LRN [id number]) Posture Evaluation Position Standing Evaluation View Posterior Shoulder Posture (L) Rounded (R) Rounded (L) Elevated Scapula Posture (R) Depressed Pelvis Posture (R) PSIS Inferior (R) ASIS Inferior Weight Distribution Decreased Wt.Bear on (R) Knee Posture (L) Genu Varus (R) Genu Varus Ankle/Foot Posture (L) Forefoot Adducted (R) Forefoot Adducted Comments Posture Comments Sway back posturing. Skin Assessment Other Assessments Skin Assessment Comments Thin, fragile skin UE/LE's. Skin tear on R anterior lower leg that is covered with bandage. Discolored bilateral lower legs. PT-OP-K Range of Motion Start: 03/23/18 10:55 Freq: Status: Active Protocol: Document 03/23/18 11:09 LRN (Rec: 03/23/18 14:32 LRN [id number]) Cervical Spine Range of Motion Cervical Spine Active Testing Position Sitting Extension 38 Rotation Left 45 Rotation Right 45 Lateral Flexion Left 20 Lateral Flexion Right 15 ROM Limitations Pain Comments Flexion is WNL. Lumbar Spine Range of Motion Lumbar Spine Active Testing Position Standing Flexion 80 Extension 15 Rotation Left 10 Rotation Right 15 Lateral Flexion Left 8 Lateral Flexion Right 10 ROM Limitations Soft Tissue Tightness Pain Shoulder Goniometric Range of Motion Shoulder Measured in Degrees Right Active Shoulder ROM WFL Yes Left Active Shoulder ROM WFL Yes Elbow/Forearm Range of Motion Elbow/Forearm Measured in Degrees Right Active Comments WNL Left Active Comments WNL Hip Goniometric Range of Motion Hip ROM Limitations Hip ROM Limitations Soft Tissue Tightness Comments Hip Flexion is WFL but limited . Hip AB is WFL, but limited on the Left. Knee Goniometric Range of Motion Knee Measured in Degrees Right Knee ROM WFL Yes Left Knee ROM WFL Yes PT-OP-M Strength Start: 03/23/18 10:55 Freq: Status: Active Protocol: Document 06/22/18 11:19 LRN (Rec: 06/22/18 14:25 LRN [id number]) Shoulder Strength Shoulder Manual Muscle Testing Right Adduction 3+ Fair+ Comments Generally 5/5 except as noted above. Left Comments Generally 5/5. Knee Strength Knee Manual Muscle Testing Right Comments 5/5 Left Flexion (S2) 5 Normal Extension (L3) 5 Normal PT-OP-Q Treatments Start: 03/23/18 10:55 Freq: Status: Active Protocol: Document 06/22/18 11:19 LRN (Rec: 06/22/18 12:31 LRN [id number]) Cardio Equipment Upper Body Ergometer (UBE) Duration (Minutes) 10 RPM 70 Height 3 Other Focus on Rhomboid strengthening Self-Care/Home Management Treatment Education Patient Education Home Exercise Program Activities Self-Care/Home Management Activities Reviewed and instructed pt in her HEP. PT-OP-R Modalities Start: 03/23/18 10:55 Freq: Status: Active Protocol: Document 05/11/18 13:45 LRN (Rec: 05/11/18 15:11 LRN [id number]) Electric Stimulation Electric Stimulation Interferential Current (IFC) Body Location Low Back Duration (Minutes) 12 Intensity 22 Target/Sweep Sweep Patient Position Hooklying Combined With Heat/Cold Cold Pack Hot Pack/Cold Pack Treatment Cold Pack Location Back Patient Position Hooklying Treatment Duration (minutes) 12 Patient Tolerance Good PT-OP-T Assessment and Plan Start: 03/23/18 10:55 Freq: Status: Active Protocol: Document 06/22/18 11:19 LRN (Rec: 06/22/18 12:31 LRN [id number]) Physical Therapy Assessment Impairments Impairments Activity Tolerance Balance Pain Posture Strength Goals Three Impairment L LE weakness limiting pt's ambulatory ability. Fdc Goal (LTG) Increase L LE strength by 1 grade to 4-5/10 in order to improve pt's tolerance to activities outside her home and to improve balance for safety with gait. LTG Duration Goal Partially Met. Strength improved. Two Impairment Upper back, Low back, bilateral shoulder, left foot pain limiting activity Short Term Goal (STG) Pt will be able to demonstrate improved posturing with verbal cuing, to decrease pain onset. STG Duration 2 weeks. Goal NOT Met Commission Associate Goal (LTG) Decrease upper and low back pain to no greater than 3/10 with pt able to tolerate family evening activities ( going out to dinner, etc). (: Pt reports able to go out to dinner without difficulty depending on the chair she sits on). LTG Duration Goal PARTIALLY Met One Impairment Decreased endurance and decreased L LE strength Commission Associate Goal (LTG) Improve endurance and strength such that the pt will be able to tolerate 2 shopping visits of 15' duration without fatigue. (06/22/18:Pt reports being able to shop 1/2 hr at a time). LTG Duration Goal MET. Assessment Summary Assessment Patient's LE strength has improved but functionally the pt is worse per ABC Questionnaire, possibly due to the sore on her lower leg. She tends to have a habit of poor trunk posturing, but her back pain is now intermittent with an increase in LBP reported. Her overall endurance has improved. The pt could benefit from further LE and core strengthening to improve her gait stability and reduce her risk of falling. Per ABC Scale score the pt is at risk for falling with a score < 67%. When the pt has healed her lower leg sore further therapy would be appropriate. Physical Therapy Plan Discharge Physical Therapy Discharge Reasons Change in Medical Status Discharge Comments Pt is agreeable to DC from PT at this time. She would like to return for more therapy when her leg sore has healed. Next Visit Focus/Plan Next Note Type Discharge Summary Next Visit Plan DC from PT today.
== END 2018-06-23 11:13 ==
LOC: PHYS 11:15
PROVIDERS: Family Provider Internal Medicine; PCP Family Medicine; Visit Provider Family Medicine
DX: M54.6 Pain in thoracic spine (principal); M47.815 Spondylosis without myelopathy or radiculopathy, thoracolumbar region; R53.1 Weakness
CPT/HCPCS: 97010; 97014; 97110; 97140; 97162; 97535; G0283

== ENCOUNTER → 2018-06-27 13:37 | Outpatient (CLI) | payer MEDICARE, OTHER, SELFPAY ==
--- NOTE | 2018-06-27 | OV.WND_ITS ---
Progress Note Details Patient Name: Megan Pham Patient Number: [id number] PatientPatientDate: 06/27/2018 Clinician: Noelle Elmore Clinician Cosigner: Debo Zuleta Physician / Product Builder: Felice Burrell SUBJECTIVE Chief Complaint This information was obtained from the patient Got hit by a grocery cart in the store. Allergies dicloxacillin (Severity: Mild), ciprofloxacin (Reaction: Unkown), levofloxacin ( Severity: Mild), codeine (Severity: Mild, Reaction: Headaches, nightmares), hydroxychloroquine ( Severity: Mild, Reaction: unknown) HPI This information was obtained from the patient 06/27/18. Seen by Dr. Burrell. The patient is new to our clinic and presents with a chronic right posterior lower leg wound that started when she hit the leg on a shopping cart about a month ago. She reports pain at the site and takes prednisone for systemic lupus erythematosis and has not been on antibiotic recently for this issue. She also does not report a history of PAD or diabetes but does have a remote history of smoking. Family History This information was obtained from the patient Unknown History - Father, Paternal Grandparents, Cancer - Mother, Diabetes - No History, Heart Disease - Sibling, Hereditary Spherocytosis - No History, Hypertension - Sibling, Kidney Disease - No History, Lung Disease - No History, Mental Illness - No History, Non-contributory - No History, None - No History, Other - No History, Seizures - No History, Stroke - Sibling, Thyroid Problems - No History, Tuberculosis - No History Social History This information was obtained from the patient Current every day smoker - 1/2 pack a day, Caffeine Use - 3-4 cups, Children - 3 sons, Lives in - , Retired - [employer], Self Care and Mobility - Yes Past Medical History This information was obtained from the patient Patient has a medical history of: Lupus Arthritis Osteopenia Autoimmune Hepatitis Helicobacter Pylori Esophageal Varices Wound Right Achilles Complaints and Symptoms This information was obtained from the patient Patient complains of: General Notes: I have reviewed and concur with the Review of Systems and Past Family Social History documents completed by the clinician, I have reviewed and concur with the Wound Assessment document completed by the clinician Integumentary (Hair/Skin/Nails): Hemosiderin Staining, Open Sore, Prone to Skin Tears Prior Wound History: Drainage, Erythema, Pain Patient denies complaints or symptoms related to: Cardiovascular (Central): Irregular heart beat Cardiovascular (Central/Peripheral): Intermittent Claudication, Lower extremity (leg) resting pain, Lower extremity (leg) swelling Constitutional Symptoms (General Health): Chills, Fever Ear/Nose/Mouth/Throat: Hearing Loss / Aid Hematologic/Lymphatic: Bleeding / Clotting Disorders, Bleeding Tendency Musculoskeletal: Assistive Devices Neurological: Loss of Protective Sensation Psychiatric: Memory Loss Respiratory: Shortness of Breath General Notes: Up to date. Additional Information Does patient have a history of Cancer? Yes? Complete all questions.: No Medications oxycodone 5 mg tablet oral 1 1 tablet oral every 6 hours as needed clonazepam 1 mg tablet oral 1 1 tablet oral 4 times a day Bifidobacterium infantis 1.5 billion cell capsule oral capsule oral once daily nadolol 20 mg tablet oral 1 1 tablet oral twice daily denosumab 120 mg/1.7 mL (70 mg/mL) subcutaneous solution subcutaneous solution subcutaneous Every 6 months folic acid 1 mg tablet oral 1 1 tablet oral twice daily prednisone 1 mg tablet oral 4 4 tablet oral once daily ranitidine 150 mg tablet oral 1 1 tablet oral twice daily mycophenolate mofetil 500 mg tablet oral 2 2 tablet oral twice daily ferrous sulfate 325 mg (65 mg iron) tablet oral 1 1 tablet oral twice daily lactulose 10 gram/15 mL (15 mL) oral solution oral 1 1 solution oral once daily potassium 99 mg tablet oral 2 2 tablet oral twice daily omeprazole 20 mg capsule,delayed release oral 1 1 capsule,delayed release(DR/EC ) oral twice daily trazodone 50 mg tablet oral 1 1 tablet oral Prn once a day duloxetine 60 mg capsule,delayed release oral 1 1 capsule,delayed release(DR/EC ) oral once daily levothyroxine 75 mcg tablet oral 1 1 tablet oral once daily fesoterodine ER 4 mg tablet,extended release 24 hr oral 1 1 tablet extended release 24 hr oral take at bedtime estradiol 0.01% (0.1 mg/gram) vaginal cream vaginal 45 gm 45 gm cream vaginal gentamicin 0.1 % topical ointment topical ointment topical once daily for 7 days for infected wound OBJECTIVE Constitutional BP elevated; Afebrile; Alert and in no distress. Frail appearing. Height/Length : 66 in (167.64 cm), Weight: 114 lbs (51.82 kgs), BMI: 18.4, Temperature: 98.2 ?F (36.78 ?C), Pulse: 62 bpm, Respiratory Rate: 18 breaths/min, Blood Pressure: 160/71 mmHg, Pulse Oximetry: 98 %. Ears, Nose, Mouth, and Throat: No clinically significant hearing loss on informal examination. Respiratory: No respiratory distress. Even respirations and without use of accessory muscles.. Cardiovascular: Pedal pulses 2+ on affected limb. Affected extremity exhibits no peripheral edema or cyanosis, is warm, and is well perfused. Capillary refill is less than 2 seconds. Integumentary (Hair, Skin) Mild periwound erythema with warmth. Refer to appropriate clinician wound documentation for this visit; right lower leg wound extends to subcut with base partially covered with pink granulation, remainder fibrin and slough. Wound #1 Right Achilles is a chronic Partial Thickness Abrasion and has received a status of Not Healed. Initial wound encounter measurements are 0.3cm length x 0.4cm width x 0.1cm depth, with an area of 0.12 sq cm and a volume of 0.012 cubic cm. No tunneling has been noted. No sinus tract has been noted. No undermining has been noted. There is a moderate amount of sanguineous drainage noted which has no odor. The patient reports a wound pain of level 1/10. The wound margin is irregular. Wound bed has No epithelialization, No eschar, Yes slough, No granulation. The periwound skin texture is normal. The periwound skin moisture is normal. The periwound skin color is normal. The temperature of the periwound skin is WNL. Periwound skin presents with s/s of infection. Confirmation Description and Treatment Plan is: Signs and Symptoms Present. Local Pulse is Doppler. Neurological: Cranial nerves grossly intact with symmetric function normal by informal observation.. ASSESSMENT Active Problems ICD-10 (Encounter Diagnosis) S81.801D - Unspecified open wound, right lower leg, subsequent encounter (Encounter Diagnosis) L08.9 - Local infection of the skin and subcutaneous tissue, unspecified (Encounter Diagnosis) Z79.52 - FDC (current) use of systemic steroids PROCEDURES Wound #1 Wound #1 (Abrasion) is located on the right achilles. A non-selective mechanical debridement with a total area debrided of 0.12 sq cm was performed by Felice Burrell MD. Non-viable tissue was removed.The procedure was tolerated well with a pain level of 0 throughout and a pain level of 0 following the procedure. Post Debridement Measurements: 0.3cm length x 0.4cm width x 0.1cm depth; with an area of 0.12 sq cm and a volume of 0.012 cubic cm; PLAN Wound Orders: Wound #1 Right Achilles Cleanser Cleanse Wound: - With Distilled Water May Shower. - IF you wear a shower Boot/ CAST BOOT PROTECTOR. Topical Treatments Antibiotic/Antimicrobial Ointment/Cream. - Gentamicin ointment. Dressings Primary dressing: - Border Foam. Change Dressing: - Every other day. Follow-Up Appointments Return Appointment: - - IN one WEEK. Scribing Attestation I attest, as the nurse, that I scribed these orders for the physician. Laboratory: Culture Wound Medications prescribed: gentamicin - topical 0.1 % ointment once daily for 7 days for infected wound starting 06/27/2018 General Notes: Wound Culture taken. I've reviewed the clinician's documentation and agree with the evaluation and plan as written. Also, I've cultured the wound and will start to treat the superficial infection with topical gentamicin ointment. Pending the culture results I'll consider treating with an oral antibiotic noting her healing and ability to fight infection is diminished considerably by her use of prednisone. Electronic Signature(s) Signed By: Date: Felice Burrell MD 06/28/2018 09:38:18 Entered By: Felice Burrell on 06/28/2018 09:01:17
== END ==
PROVIDERS: PCP Family Medicine; Visit Provider Internal Medicine
DX: S81.801D Unspecified open wound, right lower leg, subsequent encounter (principal); L08.9 Local infection of the skin and subcutaneous tissue, unspecified; Z79.52 Long term (current) use of systemic steroids
CPT/HCPCS: 87070; 87075; 87077; 87186; 87205; 99213

== ENCOUNTER → 2018-06-28 16:41 | Outpatient (CLI) | payer MEDICARE, OTHER, SELFPAY ==
[2018-06-28 17:47] LABS: Alanine Aminotransferase 27 IU/L (9-52); Albumin 3.9 g/dL (3.5-5.0); Alkaline Phosphatase 162 U/L (38-126); Aspartate Aminotransferase 44 IU/L (14-36); BUN Creatinine Ratio 17.1 (6-22); Bilirubin Total 0.4 mg/dL (0.2-1.3); Blood Urea Nitrogen 12 mg/dL (7-17); Carbon Dioxide 31 mmol/L (22-32); Chloride 97 mmol/L (98-107); Estimated Glomerular Filt Rate > 60.0 mL/min (>60); Globulin 4.1 g/dL (1.7-4.1); Glucose 104 mg/dL (80-110); HEMOLYSIS < 15 (0-50); Potassium 4.3 mmol/L (3.4-5.1); Sodium 136 mmol/L (137-145)
[2018-06-28 18:08] LABS: Add Manual Diff / Slide Review NO; Basophils Percent Auto 0.4 % (0-2); Eosinophils Percent Auto 0.9 % (2-4); Hematocrit 37.4 % (36-46); Hemoglobin 12.5 g/dL (12.0-16.0); Lymphocytes Percent Auto 18.5 % (25-40); Mean Corpuscular HGB Conc 33.4 % (30-36); Mean Corpuscular Hemoglobin 30.8 PG (26-34); Mean Corpuscular Volume 92.2 fL (80-100); Monocytes Percent Auto 8.4 % (3-14); Neutrophils Absolute Auto 4000 /uL (3000-5900); Neutrophils Percent Auto 71.8 % (50-75); Platelet Count 153 X10^3/uL (150-400); Red Blood Cell Count 4.05 X10^6/uL (4.0-5.2); Red Cell Distribution Width 14.1 % (11.6-14.8); White Blood Cell Count 5.5 X10^3/uL (4.5-11.0)
== END ==
PROVIDERS: PCP Family Medicine; Visit Provider Internal Medicine Rheumatology
DX: M32.10 Systemic lupus erythematosus, organ or system involvement unspecified (principal); Z79.899 Other long term (current) drug therapy; I10 Essential (primary) hypertension
CPT/HCPCS: 36415; 80053; 85025

== ENCOUNTER → 2018-07-04 15:33 | Outpatient (CLI) | payer MEDICARE, OTHER, SELFPAY ==
--- NOTE | 2018-07-04 | OV.WND_ITS ---
Progress Note Details Patient Name: Megan Pham Patient Number: [id number] PatientPatientDate: 07/04/2018 Clinician: Noelle Elmore Clinician Cosigner: Debo Zuleta Physician / Meal Cooker: Felice Burrell SUBJECTIVE Chief Complaint This information was obtained from the patient Got hit by a grocery cart in the store. Allergies dicloxacillin (Severity: Mild), ciprofloxacin (Reaction: Unkown), levofloxacin ( Severity: Mild), codeine (Severity: Mild, Reaction: Headaches, nightmares), hydroxychloroquine ( Severity: Mild, Reaction: unknown) HPI This information was obtained from the patient 07/04/18. Seen by Dr. Burrell. The patient does not report pain or drainage associated with the right lower leg wound since her last visit and she's now on Bactrim without reporting adverse side effects for the Serratia and Klebsiella positive wound culture taken at her last visit. 06/27/18. Seen by Dr. Burrell. The patient is new to our clinic and presents with a chronic right posterior lower leg wound that started when she hit the leg on a shopping cart about a month ago. She reports pain at the site and takes prednisone for systemic lupus erythematosis and has not been on antibiotic recently for this issue. She also does not report a history of PAD or diabetes but does have a remote history of smoking. Past Medical History This information was obtained from the patient Patient has a medical history of: Lupus Arthritis Osteopenia Autoimmune Hepatitis Helicobacter Pylori Esophageal Varices Wound Right Achilles Complaints and Symptoms This information was obtained from the patient Patient complains of: General Notes: I have reviewed and concur with the Review of Systems and Past Family Social History documents completed by the clinician, I have reviewed and concur with the Wound Assessment document completed by the clinician Integumentary (Hair/Skin/Nails): Hemosiderin Staining, Open Sore, Prone to Skin Tears Prior Wound History: Drainage, Erythema, Pain Patient denies complaints or symptoms related to: Cardiovascular (Central): Irregular heart beat Cardiovascular (Central/Peripheral): Intermittent Claudication, Lower extremity (leg) resting pain, Lower extremity (leg) swelling Constitutional Symptoms (General Health): Chills, Fever Ear/Nose/Mouth/Throat: Hearing Loss / Aid Hematologic/Lymphatic: Bleeding / Clotting Disorders, Bleeding Tendency Musculoskeletal: Assistive Devices Neurological: Loss of Protective Sensation Psychiatric: Memory Loss Respiratory: Shortness of Breath Additional Information Does patient have a history of Cancer? Yes? Complete all questions.: No OBJECTIVE Constitutional BP elevated; Afebrile; Alert and in no distress. Well developed. Alert. Clean appearing.. Height/Length: 66 in (167.64 cm), Weight: 114 lbs (51.82 kgs), BMI: 18.4, Temperature: 97.9 ?F (36.61 ?C), Pulse: 58 bpm, Respiratory Rate: 18 breaths/min, Blood Pressure: 164/78 mmHg, Pulse Oximetry: 98 %. Ears, Nose, Mouth, and Throat: No clinically significant hearing loss on informal examination. Integumentary (Hair, Skin) Refer to appropriate clinician wound documentation for this visit.. Wound #1 Right Achilles is a chronic Partial Thickness Abrasion and has received an outcome of Healed - no new wound(s). Initial wound encounter measurements are 0cm length x 0cm width with no measurable depth, with an area of 0 sq cm . No tunneling has been noted. No sinus tract has been noted. No undermining has been noted. There is a scant amount of sanguineous drainage noted which has no odor. The patient reports a wound pain of level 1/10. The wound margin is regular. Wound bed has Yes epithelialization, No eschar, No slough, No granulation. The periwound skin texture is normal. The periwound skin moisture is normal. The periwound skin color is normal. The temperature of the periwound skin is WNL. Periwound skin does not exhibit signs or symptoms of infection. Local Pulse is Doppler. Neurological: Cranial nerves grossly intact with symmetric function normal by informal observation.. ASSESSMENT Active Problems ICD-10 (Encounter Diagnosis) S81.801D - Unspecified open wound, right lower leg, subsequent encounter (Encounter Diagnosis) L08.9 - Local infection of the skin and subcutaneous tissue, unspecified PLAN Additional Orders: Dressings Primary dressing: - Border foam for another week, to keep the new skin protected. Change the dressing once this week. Then you do not need keep a dressing on. Change Dressing: - Once this week. Follow-Up Appointments Return for Nurse visit: Scribing Attestation I attest, as the nurse, that I scribed these orders for the physician. - Finish antibiotics. I've reviewed the clinician's documentation and agree with the evaluation and plan as written. In addition the patient's last remiaining complex wound is now healed. The patient is invited to return to our clinic for treatment of any future complex wounds. Post wound care and strategies to avoid recurrences were discussed. Electronic Signature(s) Signed By: Date: Feilce Burrell MD 07/05/2018 14:31:14 Felice Burrell MD 07/05/2018 14:31:14 Entered By: Felice Burrell on 07/05/2018 12:01:28
== END ==
PROVIDERS: PCP Family Medicine; Visit Provider Internal Medicine
DX: Z48.817 Encounter for surgical aftercare following surgery on the skin and subcutaneous tissue (principal)
CPT/HCPCS: 99211

== ENCOUNTER → 2018-07-09 11:56 | Outpatient (CLI) | payer MEDICARE, OTHER, SELFPAY ==
[2018-07-09 18:01] LABS: Alanine Aminotransferase 31 IU/L (9-52); Albumin 3.9 g/dL (3.5-5.0); Alkaline Phosphatase 168 U/L (38-126); Aspartate Aminotransferase 45 IU/L (14-36); Bilirubin Total 0.4 mg/dL (0.2-1.3); Bilirubin Unconjugated 0.2 mg/dL (0.0-1.1); Globulin 3.8 g/dL (1.7-4.1); HEMOLYSIS < 15 (0-50); Total Protein 7.7 g/dL (6.3-8.2)
[2018-07-12 14:27] LABS: Alpha Fetoprotein 2.9 ng/mL (< 6.1)
== END ==
PROVIDERS: PCP Family Medicine; Visit Provider Internal Medicine Gastroenterology
DX: A04.8 Other specified bacterial intestinal infections (principal); K74.60 Unspecified cirrhosis of liver
CPT/HCPCS: 36415; 80076; 82105; 83013

== ENCOUNTER → 2018-07-27 08:24 | Outpatient (CLI) | payer MEDICARE, OTHER, SELFPAY ==
--- NOTE | 2018-07-27 | OV.WND_ITS ---
Progress Note Details Patient Name: Megan Pham Patient Number: [id number] PatientPatientDate: 07/27/2018 Clinician: Anitha Hayden Clinician Cosigner: Debo Zuleta Physician / Client Service Representative: Felice Burrell SUBJECTIVE Chief Complaint This information was obtained from the patient Trauma wound to left leg Allergies dicloxacillin (Severity: Mild), ciprofloxacin (Reaction: Unkown), levofloxacin ( Severity: Mild), codeine (Severity: Mild, Reaction: Headaches, nightmares), hydroxychloroquine ( Severity: Mild, Reaction: unknown) HPI This information was obtained from the patient 07/27/18. Seen by Dr. Burrell. The patient returns with a new wound that occurred over the anterior left lower leg when she hit her leg off of a lawn ornament earlier this week. She does not report pain or significant drainage at the site however reports her prednisone dosing was increased which is treating her rheumatoid arthritis. 07/04/18. Seen by Dr. Burrell. The patient does not report pain or drainage associated with the right lower leg wound since her last visit and she's now on Bactrim without reporting adverse side effects for the Serratia and Klebsiella positive wound culture taken at her last visit. 06/27/18. Seen by Dr. Burrell. The patient is new to our clinic and presents with a chronic right posterior lower leg wound that started when she hit the leg on a shopping cart about a month ago. She reports pain at the site and takes prednisone for systemic lupus erythematosis and has not been on antibiotic recently for this issue. She also does not report a history of PAD or diabetes but does have a remote history of smoking. Past Medical History This information was obtained from the patient Patient has a medical history of: Lupus Arthritis Osteopenia Autoimmune Hepatitis Helicobacter Pylori Esophageal Varices Wound Right Achilles Complaints and Symptoms This information was obtained from the patient Patient complains of: General Notes: I have reviewed and concur with the Review of Systems and Past Family Social History documents completed by the clinician, I have reviewed and concur with the Wound Assessment document completed by the clinician Integumentary (Hair/Skin/Nails): Hemosiderin Staining, Open Sore, Prone to Skin Tears Prior Wound History: Drainage, Erythema, Pain Patient denies complaints or symptoms related to: Cardiovascular (Central): Irregular heart beat Cardiovascular (Central/Peripheral): Intermittent Claudication, Lower extremity (leg) resting pain, Lower extremity (leg) swelling Constitutional Symptoms (General Health): Chills, Fever Ear/Nose/Mouth/Throat: Hearing Loss / Aid Hematologic/Lymphatic: Bleeding / Clotting Disorders, Bleeding Tendency Musculoskeletal: Assistive Devices Neurological: Loss of Protective Sensation Psychiatric: Memory Loss Respiratory: Shortness of Breath Additional Information Does patient have a history of Cancer? Yes? Complete all questions.: No OBJECTIVE Constitutional BP elevated; Afebrile; Alert and in no distress. Well developed. Alert. Clean appearing.. Height/Length: 66 in (167.64 cm), Weight: 116.7 lbs (53.05 kgs), BMI: 18.8, Temperature: 98.1 ?F (36.72 ?C), Pulse: 62 bpm, Respiratory Rate: 18 breaths/min, Blood Pressure: 197/76 mmHg, Pulse Oximetry: 100 %. Ears, Nose, Mouth, and Throat: No clinically significant hearing loss on informal examination. Cardiovascular: Affected extremity exhibits no peripheral edema or cyanosis, is warm, and is well perfused. Capillary refill is less than 2 seconds. Integumentary (Hair, Skin) Hemosiderin staining noted over left lower leg. Refer to appropriate clinician wound documentation for this visit; left lower leg wound extends to subcut with base partially covered with pink granulation, remainder fibrin and slough. Wound #2 Left Leg is an acute Partial Thickness Skin Tear and has received a status of Not Healed. Initial wound encounter measurements are 3.5cm length x 2.5cm width x 0.1cm depth, with an area of 8.75 sq cm and a volume of 0.875 cubic cm. No tunneling has been noted. No sinus tract has been noted. No undermining has been noted. There is a moderate amount of serosanguineous drainage noted which has no odor. The patient reports a wound pain of level 0/10. The wound margin is unable to assess. Wound bed has No epithelialization, No eschar, Yes slough, Yes bright red, firm granulation. The periwound skin texture is normal. The periwound skin moisture is normal. The periwound skin color is normal. The temperature of the periwound skin is WNL. Periwound skin does not exhibit signs or symptoms of infection. Local Pulse is Palpable. Neurological: Cranial nerves grossly intact with symmetric function normal by informal observation.. ASSESSMENT Active Problems ICD-10 (Encounter Diagnosis) S81.801D - Unspecified open wound, right lower leg, subsequent encounter (Encounter Diagnosis) L08.9 - Local infection of the skin and subcutaneous tissue, unspecified PROCEDURES Wound #2 Wound #2 (Skin Tear) is located on the left leg. A skin/subcutaneous tissue level surgical debridement with a total area debrided of 8.75 sq cm was performed by Felice Burrell MD. Dermis, Epidermis, and Subcutaneous were removed. The following instrument(s) were used: forceps and scissors. Pain control was achieved using 4% Lido. A time out was conducted prior to the start of the procedure. A minimal amount of bleeding was controlled with n/a. The procedure was tolerated well with a pain level of 0 throughout and a pain level of 0 following the procedure. Post Debridement Measurements: 3.5cm length x 2.5cm width x 0.1cm depth; with an area of 8.75 sq cm and a volume of 0.875 cubic cm; Additional Information Muscle fascia or bone removed and sent to pathology?: No PLAN Wound Orders: Wound #2 Left Leg Anesthetic Topical Xylocaine to wound bed. - In clinic only Cleanser Cleanse Wound: - Normal saline in clinic. May use distilled water at home May Shower. - Please avoid getting tap water on dressing or in wound. Cover while in shower. Cover while in shower. May use cast protector purchased from the pharmacy. Topical Treatments Antibiotic/Antimicrobial Ointment/Cream. - Triple antibiotic ointment. Dressings Primary dressing: - Bordered foam Change Dressing: - Every other day or if soiled Additional Orders: Follow-Up Appointments Return Appointment: - Other information: If you develop fever, chills, increased pain, drainage, redness or swelling please call our office. If after hours, respond to the ER. Should you experience any significant changes in your wound(s) or have any questions regarding your home care instructions please contact the wound center @ [phone]. If after hours, contact your primary care physician or go to the hospital emergency room. I've reviewed the clinician's documentation and agree with the evaluation and plan as written. In addition the patient's wound demonstrates evidence of non-viable devitalized tissue which will continue to benefit from sharp debridement to help promote granulation and expedite healing. Electronic Signature(s) Signed By: Date: Felice Burrell MD 07/30/2018 07:01:57 Entered By: Felice Burrell on 07/29/2018 10:46:58
== END ==
PROVIDERS: PCP Family Medicine; Visit Provider Internal Medicine
DX: S81.802A Unspecified open wound, left lower leg, initial encounter (principal); Z79.52 Long term (current) use of systemic steroids
CPT/HCPCS: 11042; 99212

== ENCOUNTER → 2018-07-30 15:47 | Outpatient (CLI) | payer MEDICARE, OTHER, SELFPAY ==
[2018-07-31 10:24] LABS: Add Manual Diff / Slide Review NO; Basophils Percent Auto 0.4 % (0-2); Eosinophils Percent Auto 0.7 % (2-4); Hematocrit 37.8 % (36-46); Hemoglobin 12.7 g/dL (12.0-16.0); Lymphocytes Percent Auto 17.4 % (25-40); Mean Corpuscular HGB Conc 33.7 % (30-36); Mean Corpuscular Hemoglobin 30.8 PG (26-34); Mean Corpuscular Volume 91.2 fL (80-100); Monocytes Percent Auto 9.2 % (3-14); Neutrophils Percent Auto 72.3 % (50-75); Platelet Count 151 X10^3/uL (150-400); Red Blood Cell Count 4.14 X10^6/uL (4.0-5.2); Red Cell Distribution Width 14.1 % (11.6-14.8)
[2018-07-31 10:26] LABS: Carbon Dioxide 32 mmol/L (22-32); Chloride 93 mmol/L (98-107); Neutrophils Absolute Auto 4338 /uL (3000-5900); Potassium 4.4 mmol/L (3.4-5.1); Sodium 133 mmol/L (137-145)
[2018-07-31 10:27] LABS: Alanine Aminotransferase 35 IU/L (9-52); Alkaline Phosphatase 183 U/L (38-126); Aspartate Aminotransferase 47 IU/L (14-36); BUN Creatinine Ratio 12.9 (6-22); Bilirubin Total 0.4 mg/dL (0.2-1.3); Blood Urea Nitrogen 9 mg/dL (7-17); Calcium 9.3 mg/dL (8.4-10.2); Estimated Glomerular Filt Rate > 60.0 mL/min (>60); Globulin 4.1 g/dL (1.7-4.1); Glucose 72 mg/dL (80-110); HEMOLYSIS < 15 (0-50); Total Protein 8.1 g/dL (6.3-8.2)
== END ==
PROVIDERS: Internal Medicine Rheumatology; PCP Family Medicine; Visit Provider Internal Medicine Gastroenterology
DX: K74.60 Unspecified cirrhosis of liver (principal)
CPT/HCPCS: 80053; 85025

== ENCOUNTER 2018-08-01 14:08 | Emergency (ER) | payer MEDICARE, OTHER, SELFPAY ==
[2018-08-01 14:26] VITALS: BP 188/79; PULSE 64; RESP 14; TEMP 36.4; O2SAT 99
--- NOTE | 2018-08-01 14:33 | DI.RAD.S_ITS ---
PROCEDURE: XR CHEST 2V INDICATIONS: hypertension TECHNIQUE: 2 views of the chest were acquired. COMPARISON: [facility], CT, ABDOMEN/PELVIS WITH CONTRAST, 04/16/2015, 10:17. [facility], CR, CHEST 1 VIEW, 07/26/2017, 11:46. FINDINGS: Surgical changes and devices: None. Lungs and pleura: Diffuse reticular opacities throughout the lungs suggest underlying fibrotic change. Mild patchy opacities are present at the bilateral lung bases. Mediastinum: Mediastinal contours are normal. Heart size is normal. Bones and chest wall: No suspicious bony abnormalities. Soft tissues appear unremarkable. IMPRESSION: Subtle bibasilar pulmonary radiopacities suspicious for aspiration/infection. Short interval followup recommended to resolution. Probable underlying fibrotic change. Dictated by: Ashley Ramachandran M.D. on 08/01/2018 at 14:53 Approved by: Ashley Ramachandran M.D. on 08/01/2018 at 14:54
[2018-08-01 15:11] LABS: Add Manual Diff / Slide Review NO; Basophils Percent Auto 0.6 % (0-2); Eosinophils Percent Auto 0.5 % (2-4); Hematocrit 39.1 % (36-46); Hemoglobin 13.1 g/dL (12.0-16.0); Lymphocytes Percent Auto 14.3 % (25-40); Mean Corpuscular HGB Conc 33.6 % (30-36); Mean Corpuscular Hemoglobin 30.8 PG (26-34); Mean Corpuscular Volume 91.7 fL (80-100); Monocytes Percent Auto 6.3 % (3-14); Neutrophils Absolute Auto 4500 /uL (3000-5900); Neutrophils Percent Auto 78.3 % (50-75); Platelet Count 160 X10^3/uL (150-400); Red Blood Cell Count 4.26 X10^6/uL (4.0-5.2); Red Cell Distribution Width 14.6 % (11.6-14.8); White Blood Cell Count 5.7 X10^3/uL (4.5-11.0)
[2018-08-01 15:17] LABS: INR 1.1 (0.9-1.3); Prothrombin Time 12.3 SECONDS (10.1-12.7)
[2018-08-01 15:20] LABS: Alanine Aminotransferase 43 IU/L (9-52); Albumin 4.1 g/dL (3.5-5.0); Alkaline Phosphatase 201 U/L (38-126); Aspartate Aminotransferase 51 IU/L (14-36); BUN Creatinine Ratio 11.3 (6-22); Bilirubin Total 0.4 mg/dL (0.2-1.3); Blood Urea Nitrogen 9 mg/dL (7-17); Calcium 8.9 mg/dL (8.4-10.2); Carbon Dioxide 31 mmol/L (22-32); Chloride 97 mmol/L (98-107); Creatine Kinase 65 U/L (30-135); Estimated Glomerular Filt Rate > 60.0 mL/min (>60); Globulin 4.1 g/dL (1.7-4.1); Glucose 104 mg/dL (80-110); HEMOLYSIS < 15 (0-50); Potassium 4.3 mmol/L (3.4-5.1); Sodium 136 mmol/L (137-145); Total Protein 8.2 g/dL (6.3-8.2)
[2018-08-01 15:33] LABS: Troponin I < 0.012 ng/mL (0.01-0.034)
[2018-08-01 16:17] VITALS: BP 136/54; PULSE 60; RESP 13; O2SAT 99
--- NOTE | 2018-08-01 17:37 | PC.NURSE ---
INSURANCE MANAGER at to discuss disposition
--- NOTE | 2018-08-01 17:40 | PC.NURSE ---
Pt. refuses visual acuity
--- NOTE | 2018-08-01 17:42 | ED.GENADULT ---
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 She states that hypertension was noticed at her wound care appointment last week. She came in and had her blood pressure checked today and was noted to have blood pressure in the 170s. She denies any chest pain, denies any headache, denies any neurological changes. She states that she is dizzy in the mornings, that is normal for her. She states she has some fuzzy vision at times, but states she has a history of macular degeneration and is not feeling that way at this point time. She denies any palpitations, swelling of the limbs, current lightheadedness or dizziness. She states she has a primary care appointment tomorrow. She denies any shortness of breath, chest pain, fever, aches, chills. She would like an explanation for why her blood pressure was high at her wound care appointment last week. Related Data Home Medications Medication Instructions Recorded Confirmed nadolol 20 mg PO QDAY #0 08/04/17 08/02/18 mycophenolate mofetil 1,000 mg PO BID 03/19/18 08/02/18 lactulose 10 gram/15 mL oral 10 gram PO DAILY PRN 04/25/18 08/02/18 solution Bifidobacterium infantis [Align] 1 cap PO DAILY PRN 06/11/18 08/02/18 denosumab [Prolia] 1 dose SUB-Q [id number] 06/11/18 08/02/18 ferrous sulfate [Iron (ferrous 325 mg PO BID 06/11/18 08/02/18 sulfate)] fesoterodine [Toviaz] 4 mg PO BEDTIME 06/11/18 08/02/18 ranitidine HCl 150 mg PO BID 06/11/18 08/02/18 prednisone 1 mg tablet 5 mg PO QDAY #0 tab 06/21/18 08/02/18 Previous Rx's Medication Instructions Recorded estradiol [Estrace] 0.01 % VAGINAL SEE INSTRUCTIONS 06/15/17 #45 gm potassium chloride 2 cap PO BID #180 cap 10/20/17 duloxetine 60 mg capsule,delayed 60 mg PO DAILY #30 cap 04/03/18 release folic acid 1 mg tablet 1 mg PO BID #60 tab 04/18/18 levothyroxine 88 mcg tablet 88 mcg PO QAM #30 tab 05/15/18 oxycodone 5 mg tablet 5 mg PO Q6HP PRN #30 tab 07/06/18 clonazepam 1 mg tablet 1 mg PO QIDP PRN #120 tab 07/16/18 metronidazole 1 % topical cream 1 applictn TOP DAILY #60 gram 08/02/18 Allergies Allergy/AdvReac Type Severity Reaction Status Date / Time codeine [CODEINE] Allergy Mild intolerant, Verified 08/02/18 11:03 headaches,n ightmares dicloxacillin [DICLOXACILLIN] Allergy Mild Verified 08/02/18 11:03 levofloxacin [LEVOFLOXACIN] Allergy Mild Verified 08/02/18 11:03 lorazepam [LORAZEPAM] Allergy Mild intolerant Verified 08/02/18 11:03 shaav hassan ciprofloxacin [CIPROFLOXACIN] Allergy Unknown Verified 08/02/18 11:03 hydroxychloroquine AdvReac Mild visual Verified 08/02/18 11:03 [From Plaquenil] disturbances Review of Systems <RASHAD Francis - Last Filed: 08/01/18 21:50> Review of Systems GENERAL: Denies chills, fatigue, malaise, fever, sweats. HEENT: Denies sinus pain, ear pain, sore throat, difficulty swallowing, dizziness. RESPIRATORY: Denies dyspnea, cough, wheezing, hemoptysis, sputum. CARDIOVASCULAR: See HPI GASTROINTESTINAL: Denies nausea, vomiting, abdominal pain, diarrhea, constipation, melena. : Denies dysuria, frequency, incontinence, hematuria, urinary retention. MUSCULOSKELETAL: denies weakness, joint pain, or bony pain SKIN: Denies rash, skin lesions, or other NEUROLOGIC: See HPI PSYCHIATRIC: No concerning psychosocial issues. 12 point review of systems is negative except for those stated above Exam <RASHAD Francis - Last Filed: 08/01/18 21:50> Narrative Exam Narrative: GENERAL: This is a well-nourished, well-developed patient, sitting in no acute distress HEAD: Atraumatic. Normocephalic. No temporal or scalp tenderness. EYES: Pupils equal round and reactive. Extraocular motions intact. No scleral icterus. No injection or drainage. ENT: Nose without bleeding, purulent drainage or septal hematoma. Throat without erythema, tonsillar hypertrophy or exudate. Uvula midline. Airway patent. NECK: Trachea midline. No JVD or lymphadenopathy. Supple, nontender, no meningeal signs. CARDIOVASCULAR: Regular rate and rhythm without murmurs, gallops, or rubs. RESPIRATORY: Clear to auscultation. Breath sounds equal bilaterally. No wheezes, rales, or rhonchi. GASTROINTESTINAL: Abdomen soft, non-tender, nondistended. No hepato-splenomegaly, or palpable masses. No guarding. Active bowel sounds all 4 quadrants. EXTREMITIES: No clubbing, cyanosis, or edema. No joint tenderness, effusion, or edema noted. BACK: Nontender without deformity or crepitance. No flank tenderness. NEURO: AOx3. No slurred speech. Stable gait. Using extremities equally bilaterally. Cranial nerves grossly intact. Finger-nose test intact. Heel-oh test intact. Achilles and radial reflex was intact bilaterally. SKIN: No rash or erythema. Initial Vital Signs Initial Vital Signs: Vital Signs Temperature 97.6 F 08/01/18 14:26 Pulse Rate 64 08/01/18 14:26 Respiratory Rate 14 08/01/18 14:26 Blood Pressure 188/79 H 08/01/18 14:26 Pulse Oximetry 99 08/01/18 14:26 <Anita Wilson MD - Last Filed: 08/03/18 12:00> Initial Vital Signs Initial Vital Signs: Vital Signs Temperature 97.6 F 08/01/18 14:26 Pulse Rate 64 08/01/18 14:26 Respiratory Rate 14 08/01/18 14:26 Blood Pressure 188/79 H 08/01/18 14:26 Pulse Oximetry 99 08/01/18 14:26 Course <RASHAD Francis - Last Filed: 08/01/18 21:50> Orders Ordered: ED Orders 08/01/18 14:33 XR chest 2V Stat EKG-12 Lead Stat 08/01/18 15:00 Complete Blood Count AUTO DIFF Stat Comprehensive Metabolic Panel Stat Prothrombin Time INR Stat Troponin & CK Cardiac Panel Stat Vital Signs - 8 hr 08/01/18 14:26 08/01/18 16:17 Temperature 97.6 F Pulse Rate 64 60 Respiratory Rate 14 13 Blood Pressure 188/79 H Blood Pressure [Left Arm] 136/54 L Pulse Oximetry 99 99 <Anita Wilson MD - Last Filed: 08/03/18 12:00> Orders Ordered: ED Orders 08/01/18 14:33 XR chest 2V Stat EKG-12 Lead Stat 08/01/18 15:00 Complete Blood Count AUTO DIFF Stat Comprehensive Metabolic Panel Stat Prothrombin Time INR Stat Troponin & CK Cardiac Panel Stat Vital Signs - 8 hr 08/01/18 14:26 08/01/18 16:17 Temperature 97.6 F Pulse Rate 64 60 Respiratory Rate 14 13 Blood Pressure 188/79 H Blood Pressure [Left Arm] 136/54 L Pulse Oximetry 99 99 Medical Decision Making <BHAVIN Francis - Last Filed: 08/01/18 21:50> Lab Data Result diagrams: 08/01/18 15:00 08/01/18 15:00 Lab Results 08/01/18 08/01/18 08/01/18 Range/Units 15:00 15:00 15:00 WBC 5.7 (4.5-11.0) X10^3/uL RBC 4.26 (4.0-5.2) X10^6/uL Hgb 13.1 (12.0-16.0) g/dL Hct 39.1 (36-46) % MCV 91.7 (80-100) fL MCH 30.8 (26-34) PG MCHC 33.6 (30-36) % RDW 14.6 (11.6-14.8) % Plt Count 160 (150-400) X10^3/uL Neut % (Auto) 78.3 H (50-75) % Lymph % (Auto) 14.3 L (25-40) % [place] % (Auto) 6.3 (3-14) % Eos % (Auto) 0.5 L (2-4) % Baso % (Auto) 0.6 (0-2) % Neut # (Auto) 4500 (7888-5588) /uL PT 12.3 (10.1-12.7) SECONDS INR 1.1 (0.9-1.3) Sodium 136 L (137-145) mmol/L Potassium 4.3 (3.4-5.1) mmol/L Chloride 97 L (98-107) mmol/L Carbon Dioxide 31 (22-32) mmol/L BUN 9 (7-17) mg/dL Creatinine 0.80 (0.52-1.04) mg/dL Estimated GFR > 60.0 (>60) mL/min BUN/Creatinine Ratio 11.3 (6-22) Glucose 104 (80-110) mg/dL Calcium 8.9 (8.4-10.2) mg/dL Total Bilirubin 0.4 (0.2-1.3) mg/dL AST 51 H (14-36) IU/L ALT 43 (9-52) IU/L Alkaline Phosphatase 201 H (38-126) U/L Total Creatine Kinase 65 (30-135) U/L CK-MB (CK-2) TNP CK-MB (CK-2) Rel Index TNP Troponin I < 0.012 (0.01-0.034) ng/mL Total Protein 8.2 (6.3-8.2) g/dL Albumin 4.1 (3.5-5.0) g/dL Globulin 4.1 (1.7-4.1) g/dL Albumin/Globulin Ratio 1.0 (1.0-2.8) Imaging Data Chest x-ray: Radiologist's impression: [address] [address] XRay Report Signed Patient: Megan Pham [facility]#: [id number] : 1940Acct:[id number] Age/Sex: 78 / FDate of Service: 08/01/18 Loc: ED Accession Number: [id number] Procedure: XR chest 2V Ordering Provider: Juliet McclainP- PROCEDURE: XR CHEST 2V INDICATIONS: hypertension TECHNIQUE: 2 views of the chest were acquired. COMPARISON: [facility], CT, ABDOMEN/PELVIS WITH CONTRAST, 04/16/2015, 10:17. [facility], CR, CHEST 1 VIEW, 07/26/2017, 11:46. FINDINGS: Surgical changes and devices: None. Lungs and pleura: Diffuse reticular opacities throughout the lungs suggest underlying fibrotic change. Mild patchy opacities are present at the bilateral lung bases. Mediastinum: Mediastinal contours are normal. Heart size is normal. Bones and chest wall: No suspicious bony abnormalities. Soft tissues appear unremarkable. IMPRESSION: Subtle bibasilar pulmonary radiopacities suspicious for aspiration/infection. Short interval followup recommended to resolution. Probable underlying fibrotic change. Dictated by: Ashley Ramachandran M.D. on 08/01/2018 at 14:53 Approved by: Ashley Ramachandran M.D. on 08/01/2018 at 14:54 ECG Data Attestation: I personally reviewed and interpreted this ECG as follows: Interpretation: Ventricular rate 59. Sinus bradycardia. No ST elevation or depression. No ectopy noted. EKG also viewed by Dr. Wilson. MDM Narrative Medical decision making narrative: Patient presents with chief complaint of hypertension. However upon my exam she is not hypertensive. Given her vague symptoms, a see the, CMP and troponin were completed in came back grossly normal. She had a normal EKG and chest x-ray that showed subtle radial opacities. I discussed this with her and encouraged her to follow the primary care provider for recommended short interval follow-up. She does not have any symptoms of respiratory compromise, elevated white blood cell respiratory or distress at this point time. Patient declined visual acuity testing, she declined a rectal exam for Hemoccult, she declined a head CT and declined a urinalysis. She appeared frustrated as to what could not explain why she was hypertensive at her wound care appointment last week. I encouraged her to follow up with her primary care physician. She again declined any further testing in the emergency department. I discussed return precautions including concern for chest pain or stroke. <Anita Wilson MD - Last Filed: 08/03/18 12:00> Lab Data Lab Results 08/01/18 08/01/18 08/01/18 Range/Units 15:00 15:00 15:00 WBC 5.7 (4.5-11.0) X10^3/uL RBC 4.26 (4.0-5.2) X10^6/uL Hgb 13.1 (12.0-16.0) g/dL Hct 39.1 (36-46) % MCV 91.7 (80-100) fL MCH 30.8 (26-34) PG MCHC 33.6 (30-36) % RDW 14.6 (11.6-14.8) % Plt Count 160 (150-400) X10^3/uL Neut % (Auto) 78.3 H (50-75) % Lymph % (Auto) 14.3 L (25-40) % [place] % (Auto) 6.3 (3-14) % Eos % (Auto) 0.5 L (2-4) % Baso % (Auto) 0.6 (0-2) % Neut # (Auto) 4500 (5131-5807) /uL PT 12.3 (10.1-12.7) SECONDS INR 1.1 (0.9-1.3) Sodium 136 L (137-145) mmol/L Potassium 4.3 (3.4-5.1) mmol/L Chloride 97 L (98-107) mmol/L Carbon Dioxide 31 (22-32) mmol/L BUN 9 (7-17) mg/dL Creatinine 0.80 (0.52-1.04) mg/dL Estimated GFR > 60.0 (>60) mL/min BUN/Creatinine Ratio 11.3 (6-22) Glucose 104 (80-110) mg/dL Calcium 8.9 (8.4-10.2) mg/dL Total Bilirubin 0.4 (0.2-1.3) mg/dL AST 51 H (14-36) IU/L ALT 43 (9-52) IU/L Alkaline Phosphatase 201 H (38-126) U/L Total Creatine Kinase 65 (30-135) U/L CK-MB (CK-2) TNP CK-MB (CK-2) Rel Index TNP Troponin I < 0.012 (0.01-0.034) ng/mL Total Protein 8.2 (6.3-8.2) g/dL Albumin 4.1 (3.5-5.0) g/dL Globulin 4.1 (1.7-4.1) g/dL Albumin/Globulin Ratio 1.0 (1.0-2.8) Discharge Plan Departure Patient Disposition: Home Clinical Impression: Hypertension Discharge Date/Time: 08/01/18 18:08 Interventions: ED Discharge Assessment Last Done: 08/01/18 18:07 Instructions: DI for High Blood Pressure Activity Restrictions/Additional Instructions: Today you EKG, chest x-ray and lab work came back normal. We did a lab test to check your, which came back normal. Your blood pressure has been within normal limits in the emergency department. We discussed further testing including urine, stool and a head CT which she declined today. Please follow-up with her primary care provider regarding her blood pressure concerns but come back to the emergency department for any acute needs. Prescriptions: No Action estradiol [Estrace] 0.01 % cream 0.01 % Vaginal SEE INSTRUCTIONS Qty: 45 RF: 11 nadolol 20 MG tablet 20 mg PO QDAY Qty: 0 RF: 0 potassium chloride 8 MEQ capsule, extended release 2 cap PO BID Qty: 180 RF: 6 duloxetine 60 mg capsule,delayed release(DR/EC) 60 mg PO DAILY Qty: 30 RF: 5 folic acid 1 mg tablet 1 mg PO BID Qty: 60 RF: 4 levothyroxine 88 mcg tablet 88 mcg PO QAM Qty: 30 RF: 11 prednisone 1 mg tablet 5 mg PO QDAY Qty: 0 RF: 0 oxycodone 5 mg tablet 5 mg PO Q6HP PRN (Reason: Pain, Severe) Qty: 30 RF: 0 clonazepam 1 mg tablet 1 mg PO QIDP PRN (Reason: anxiety) Qty: 120 RF: 1 lactulose 10 gram/15 mL solution 10 gram PO DAILY PRN (Reason: Laxative Effect) RF: 0 metronidazole 1 % cream 1 applictn TOP DAILY Qty: 60 RF: 0 mycophenolate mofetil 500 mg Tablet 1,000 mg PO BID RF: 0 Bifidobacterium infantis [Align] 4 mg Capsule 1 cap PO DAILY PRN (Reason: Diarrhea) RF: 0 ferrous sulfate [Iron (ferrous sulfate)] 325 MG tablet 325 mg PO BID RF: 0 ranitidine HCl 150 MG tablet 150 mg PO BID RF: 0 fesoterodine [Toviaz] 4 MG tablet extended release 24 hr 4 mg PO BEDTIME RF: 0 denosumab [Prolia] 60 mg/mL Syringe 1 dose Sub-Q [id number] RF: 0 Referrals: Rosalina Hylton DO [Primary Care Provider] -
--- NOTE | 2018-08-01 17:45 | ED_ITS ---
HPI - General Adult <Juliet Mcclain, CRM MARKETING MANAGER-BC - Last Filed: 08/01/18 21:50> General Chief complaint: Hypertension Stated complaint: elevated blood pressure Time Seen by Provider: 08/01/18 16:42 Source: patient Mode of arrival: ambulatory Limitations: no limitations History of Present Illness HPI narrative: Patient presents with chief complaint of hypertension. She states that hypertension was noticed at her wound care appointment last week. She came in and had her blood pressure checked today and was noted to have blood pressure in the 170s. She denies any chest pain, denies any headache, denies any neurological changes. She states that she is dizzy in the mornings, that is normal for her. She states she has some fuzzy vision at times, but states she has a history of macular degeneration and is not feeling that way at this point time. She denies any palpitations, swelling of the limbs, current lightheadedness or dizziness. She states she has a primary care appointment tomorrow. She denies any shortness of breath, chest pain, fever, aches, chills. She would like an explanation for why her blood pressure was high at her wound care appointment last week. Related Data Home Medications Medication Instructions Recorded Confirmed nadolol 20 mg PO QDAY #0 08/04/17 08/02/18 mycophenolate mofetil 1,000 mg PO BID 03/19/18 08/02/18 lactulose 10 gram/15 mL oral 10 gram PO DAILY PRN 04/25/18 08/02/18 solution Bifidobacterium infantis [Align] 1 cap PO DAILY PRN 06/11/18 08/02/18 denosumab [Prolia] 1 dose SUB-Q [id number] 06/11/18 08/02/18 ferrous sulfate [Iron (ferrous 325 mg PO BID 06/11/18 08/02/18 sulfate)] fesoterodine [Toviaz] 4 mg PO BEDTIME 06/11/18 08/02/18 ranitidine HCl 150 mg PO BID 06/11/18 08/02/18 prednisone 1 mg tablet 5 mg PO QDAY #0 tab 06/21/18 08/02/18 Previous Rx's Medication Instructions Recorded estradiol [Estrace] 0.01 % VAGINAL SEE INSTRUCTIONS 06/15/17 #45 gm potassium chloride 2 cap PO BID #180 cap 10/20/17 duloxetine 60 mg capsule,delayed 60 mg PO DAILY #30 cap 04/03/18 release folic acid 1 mg tablet 1 mg PO BID #60 tab 04/18/18 levothyroxine 88 mcg tablet 88 mcg PO QAM #30 tab 05/15/18 oxycodone 5 mg tablet 5 mg PO Q6HP PRN #30 tab 07/06/18 clonazepam 1 mg tablet 1 mg PO QIDP PRN #120 tab 07/16/18 metronidazole 1 % topical cream 1 applictn TOP DAILY #60 gram 08/02/18 Allergies Allergy/AdvReac Type Severity Reaction Status Date / Time codeine [CODEINE] Allergy Mild intolerant, Verified 08/02/18 11:03 headaches,n ightmares dicloxacillin [DICLOXACILLIN] Allergy Mild Verified 08/02/18 11:03 levofloxacin [LEVOFLOXACIN] Allergy Mild Verified 08/02/18 11:03 lorazepam [LORAZEPAM] Allergy Mild intolerant Verified 08/02/18 11:03 shaav hassan ciprofloxacin [CIPROFLOXACIN] Allergy Unknown Verified 08/02/18 11:03 hydroxychloroquine AdvReac Mild visual Verified 08/02/18 11:03 [From Plaquenil] disturbances Review of Systems <RASHAD Francis - Last Filed: 08/01/18 21:50> Review of Systems GENERAL: Denies chills, fatigue, malaise, fever, sweats. HEENT: Denies sinus pain, ear pain, sore throat, difficulty swallowing, dizziness. RESPIRATORY: Denies dyspnea, cough, wheezing, hemoptysis, sputum. CARDIOVASCULAR: See HPI GASTROINTESTINAL: Denies nausea, vomiting, abdominal pain, diarrhea, constipation, melena. : Denies dysuria, frequency, incontinence, hematuria, urinary retention. MUSCULOSKELETAL: denies weakness, joint pain, or bony pain SKIN: Denies rash, skin lesions, or other NEUROLOGIC: See HPI PSYCHIATRIC: No concerning psychosocial issues. 12 point review of systems is negative except for those stated above Exam <RASHAD Francis - Last Filed: 08/01/18 21:50> Narrative Exam Narrative: GENERAL: This is a well-nourished, well-developed patient, sitting in no acute distress HEAD: Atraumatic. Normocephalic. No temporal or scalp tenderness. EYES: Pupils equal round and reactive. Extraocular motions intact. No scleral icterus. No injection or drainage. ENT: Nose without bleeding, purulent drainage or septal hematoma. Throat without erythema, tonsillar hypertrophy or exudate. Uvula midline. Airway patent. NECK: Trachea midline. No JVD or lymphadenopathy. Supple, nontender, no meningeal signs. CARDIOVASCULAR: Regular rate and rhythm without murmurs, gallops, or rubs. RESPIRATORY: Clear to auscultation. Breath sounds equal bilaterally. No wheezes , rales, or rhonchi. GASTROINTESTINAL: Abdomen soft, non-tender, nondistended. No hepato-splenomegaly , or palpable masses. No guarding. Active bowel sounds all 4 quadrants. EXTREMITIES: No clubbing, cyanosis, or edema. No joint tenderness, effusion, or edema noted. BACK: Nontender without deformity or crepitance. No flank tenderness. NEURO: AOx3. No slurred speech. Stable gait. Using extremities equally bilaterally. Cranial nerves grossly intact. Finger-nose test intact. Heel-oh test intact. Achilles and radial reflex was intact bilaterally. SKIN: No rash or erythema. Initial Vital Signs Initial Vital Signs: Vital Signs Temperature 97.6 F 08/01/18 14:26 Pulse Rate 64 08/01/18 14:26 Respiratory Rate 14 08/01/18 14:26 Blood Pressure 188/79 H 08/01/18 14:26 Pulse Oximetry 99 08/01/18 14:26 <Anita Wilson MD - Last Filed: 08/03/18 12:00> Initial Vital Signs Initial Vital Signs: Vital Signs Temperature 97.6 F 08/01/18 14:26 Pulse Rate 64 08/01/18 14:26 Respiratory Rate 14 08/01/18 14:26 Blood Pressure 188/79 H 08/01/18 14:26 Pulse Oximetry 99 08/01/18 14:26 Course <RASHAD Francis - Last Filed: 08/01/18 21:50> Orders Ordered: ED Orders 08/01/18 14:33 XR chest 2V Stat EKG-12 Lead Stat 08/01/18 15:00 Complete Blood Count AUTO DIFF Stat Comprehensive Metabolic Panel Stat Prothrombin Time INR Stat Troponin & CK Cardiac Panel Stat Vital Signs - 8 hr 08/01/18 14:26 08/01/18 16:17 Temperature 97.6 F Pulse Rate 64 60 Respiratory Rate 14 13 Blood Pressure 188/79 H Blood Pressure [Left Arm] 136/54 L Pulse Oximetry 99 99 <Anita Wilson MD - Last Filed: 08/03/18 12:00> Orders Ordered: ED Orders 08/01/18 14:33 XR chest 2V Stat EKG-12 Lead Stat 08/01/18 15:00 Complete Blood Count AUTO DIFF Stat Comprehensive Metabolic Panel Stat Prothrombin Time INR Stat Troponin & CK Cardiac Panel Stat Vital Signs - 8 hr 08/01/18 14:26 08/01/18 16:17 Temperature 97.6 F Pulse Rate 64 60 Respiratory Rate 14 13 Blood Pressure 188/79 H Blood Pressure [Left Arm] 136/54 L Pulse Oximetry 99 99 Medical Decision Making <BHAVIN Francis - Last Filed: 08/01/18 21:50> Lab Data Result diagrams: 08/01/18 15:00 08/01/18 15:00 Lab Results 08/01/18 08/01/18 08/01/18 Range/Units 15:00 15:00 15:00 WBC 5.7 (4.5-11.0) X10^3/uL RBC 4.26 (4.0-5.2) X10^6/uL Hgb 13.1 (12.0-16.0) g/dL Hct 39.1 (36-46) % MCV 91.7 (80-100) fL MCH 30.8 (26-34) PG MCHC 33.6 (30-36) % RDW 14.6 (11.6-14.8) % Plt Count 160 (150-400) X10^3/uL Neut % (Auto) 78.3 H (50-75) % Lymph % (Auto) 14.3 L (25-40) % [place] % (Auto) 6.3 (3-14) % Eos % (Auto) 0.5 L (2-4) % Baso % (Auto) 0.6 (0-2) % Neut # (Auto) 4500 (5469-0501) /uL PT 12.3 (10.1-12.7) SECONDS INR 1.1 (0.9-1.3) Sodium 136 L (137-145) mmol/L Potassium 4.3 (3.4-5.1) mmol/L Chloride 97 L (98-107) mmol/L Carbon Dioxide 31 (22-32) mmol/L BUN 9 (7-17) mg/dL Creatinine 0.80 (0.52-1.04) mg/dL Estimated GFR > 60.0 (>60) mL/min BUN/Creatinine Ratio 11.3 (6-22) Glucose 104 (80-110) mg/dL Calcium 8.9 (8.4-10.2) mg/dL Total Bilirubin 0.4 (0.2-1.3) mg/dL AST 51 H (14-36) IU/L ALT 43 (9-52) IU/L Alkaline Phosphatase 201 H (38-126) U/L Total Creatine Kinase 65 (30-135) U/L CK-MB (CK-2) TNP CK-MB (CK-2) Rel Index TNP Troponin I < 0.012 (0.01-0.034) ng/mL Total Protein 8.2 (6.3-8.2) g/dL Albumin 4.1 (3.5-5.0) g/dL Globulin 4.1 (1.7-4.1) g/dL Albumin/Globulin Ratio 1.0 (1.0-2.8) Imaging Data Chest x-ray: Radiologist's impression: [address] [id number] XRay Report Signed Patient: Megan Pham [facility]#: [id number] : 1940Acct:[id number] Age/Sex: 78 / FDate of Service: 08/01/18 Loc: ED Accession Number: [id number] Procedure: XR chest 2V Ordering Provider: Juliet McclainP- PROCEDURE: XR CHEST 2V INDICATIONS: hypertension TECHNIQUE: 2 views of the chest were acquired. COMPARISON: [facility], CT, ABDOMEN/PELVIS WITH CONTRAST, 04/16/2015, 10: 17. [facility], CR, CHEST 1 VIEW, 07/26/2017, 11:46. FINDINGS: Surgical changes and devices: None. Lungs and pleura: Diffuse reticular opacities throughout the lungs suggest underlying fibrotic change. Mild patchy opacities are present at the bilateral lung bases. Mediastinum: Mediastinal contours are normal. Heart size is normal. Bones and chest wall: No suspicious bony abnormalities. Soft tissues appear unremarkable. IMPRESSION: Subtle bibasilar pulmonary radiopacities suspicious for aspiration/ infection. Short interval followup recommended to resolution. Probable underlying fibrotic change. Dictated by: Ashley Ramachandran M.D. on 08/01/2018 at 14:53 Approved by: Ashley Ramachandran M.D. on 08/01/2018 at 14:54 ECG Data Attestation: I personally reviewed and interpreted this ECG as follows: Interpretation: Ventricular rate 59. Sinus bradycardia. No ST elevation or depression. No ectopy noted. EKG also viewed by Dr. Wilson. MDM Narrative Medical decision making narrative: Patient presents with chief complaint of hypertension. However upon my exam she is not hypertensive. Given her vague symptoms, a see the, CMP and troponin were completed in came back grossly normal. She had a normal EKG and chest x-ray that showed subtle radial opacities. I discussed this with her and encouraged her to follow the primary care provider for recommended short interval follow-up. She does not have any symptoms of respiratory compromise, elevated white blood cell respiratory or distress at this point time. Patient declined visual acuity testing, she declined a rectal exam for Hemoccult, she declined a head CT and declined a urinalysis. She appeared frustrated as to what could not explain why she was hypertensive at her wound care appointment last week. I encouraged her to follow up with her primary care physician. She again declined any further testing in the emergency department. I discussed return precautions including concern for chest pain or stroke. <Anita Wilson MD - Last Filed: 08/03/18 12:00> Lab Data Lab Results 08/01/18 08/01/18 08/01/18 Range/Units 15:00 15:00 15:00 WBC 5.7 (4.5-11.0) X10^3/uL RBC 4.26 (4.0-5.2) X10^6/uL Hgb 13.1 (12.0-16.0) g/dL Hct 39.1 (36-46) % MCV 91.7 (80-100) fL MCH 30.8 (26-34) PG MCHC 33.6 (30-36) % RDW 14.6 (11.6-14.8) % Plt Count 160 (150-400) X10^3/uL Neut % (Auto) 78.3 H (50-75) % Lymph % (Auto) 14.3 L (25-40) % [place] % (Auto) 6.3 (3-14) % Eos % (Auto) 0.5 L (2-4) % Baso % (Auto) 0.6 (0-2) % Neut # (Auto) 4500 (3101-0532) /uL PT 12.3 (10.1-12.7) SECONDS INR 1.1 (0.9-1.3) Sodium 136 L (137-145) mmol/L Potassium 4.3 (3.4-5.1) mmol/L Chloride 97 L (98-107) mmol/L Carbon Dioxide 31 (22-32) mmol/L BUN 9 (7-17) mg/dL Creatinine 0.80 (0.52-1.04) mg/dL Estimated GFR > 60.0 (>60) mL/min BUN/Creatinine Ratio 11.3 (6-22) Glucose 104 (80-110) mg/dL Calcium 8.9 (8.4-10.2) mg/dL Total Bilirubin 0.4 (0.2-1.3) mg/dL AST 51 H (14-36) IU/L ALT 43 (9-52) IU/L Alkaline Phosphatase 201 H (38-126) U/L Total Creatine Kinase 65 (30-135) U/L CK-MB (CK-2) TNP CK-MB (CK-2) Rel Index TNP Troponin I < 0.012 (0.01-0.034) ng/mL Total Protein 8.2 (6.3-8.2) g/dL Albumin 4.1 (3.5-5.0) g/dL Globulin 4.1 (1.7-4.1) g/dL Albumin/Globulin Ratio 1.0 (1.0-2.8) Discharge Plan Departure Patient Disposition: Home Clinical Impression: Hypertension Discharge Date/Time: 08/01/18 18:08 Interventions: ED Discharge Assessment Last Done: 08/01/18 18:07 Instructions: DI for High Blood Pressure Activity Restrictions/Additional Instructions: Today you EKG, chest x-ray and lab work came back normal. We did a lab test to check your, which came back normal. Your blood pressure has been within normal limits in the emergency department. We discussed further testing including urine, stool and a head CT which she declined today. Please follow-up with her primary care provider regarding her blood pressure concerns but come back to the emergency department for any acute needs. Prescriptions: No Action estradiol [Estrace] 0.01 % cream 0.01 % Vaginal SEE INSTRUCTIONS Qty: 45 RF: 11 nadolol 20 MG tablet 20 mg PO QDAY Qty: 0 RF: 0 potassium chloride 8 MEQ capsule, extended release 2 cap PO BID Qty: 180 RF: 6 duloxetine 60 mg capsule,delayed release(DR/EC) 60 mg PO DAILY Qty: 30 RF: 5 folic acid 1 mg tablet 1 mg PO BID Qty: 60 RF: 4 levothyroxine 88 mcg tablet 88 mcg PO QAM Qty: 30 RF: 11 prednisone 1 mg tablet 5 mg PO QDAY Qty: 0 RF: 0 oxycodone 5 mg tablet 5 mg PO Q6HP PRN (Reason: Pain, Severe) Qty: 30 RF: 0 clonazepam 1 mg tablet 1 mg PO QIDP PRN (Reason: anxiety) Qty: 120 RF: 1 lactulose 10 gram/15 mL solution 10 gram PO DAILY PRN (Reason: Laxative Effect) RF: 0 metronidazole 1 % cream 1 applictn TOP DAILY Qty: 60 RF: 0 mycophenolate mofetil 500 mg Tablet 1,000 mg PO BID RF: 0 Bifidobacterium infantis [Align] 4 mg Capsule 1 cap PO DAILY PRN (Reason: Diarrhea) RF: 0 ferrous sulfate [Iron (ferrous sulfate)] 325 MG tablet 325 mg PO BID RF: 0 ranitidine HCl 150 MG tablet 150 mg PO BID RF: 0 fesoterodine [Toviaz] 4 MG tablet extended release 24 hr 4 mg PO BEDTIME RF: 0 denosumab [Prolia] 60 mg/mL Syringe 1 dose Sub-Q [id number] RF: 0 Referrals: Rosalina Hylton DO [Primary Care Provider] -
== END 2018-08-01 18:08 | disposition home or self-care (01) ==
PROVIDERS: Emergency Provider Nurse Practitioner Family; PCP Family Medicine
DX: I10 Essential (primary) hypertension (principal)
CPT/HCPCS: 36415; 71046; 80053; 82550; 84484; 85025; 85610; 93005; 99282; 99285

== ENCOUNTER → 2018-08-02 13:59 | Outpatient (CLI) | payer MEDICARE, OTHER, SELFPAY ==
--- NOTE | 2018-08-02 | OV.WND_ITS ---
Progress Note Details Patient Name: Megan Pham Patient Number: [id number] PatientPatientDate: 08/02/2018 Clinician: Anitha Hayden Physician / Social Media Campaign Manager: Felice Burrell SUBJECTIVE Chief Complaint This information was obtained from the patient Trauma wound to left leg Allergies dicloxacillin (Severity: Mild), ciprofloxacin (Reaction: Unkown), levofloxacin ( Severity: Mild), codeine (Severity: Mild, Reaction: Headaches, nightmares), hydroxychloroquine ( Severity: Mild, Reaction: unknown) HPI This information was obtained from the patient 08/02/18. Seen by Dr. Burrell. The patient does not report pain or drainage associated with the right lower leg wound since her last visit. 07/27/18. Seen by Dr. Burrell. The patient returns with a new wound that occurred over the anterior left lower leg when she hit her leg off of a lawn ornament earlier this week. She does not report pain or significant drainage at the site however reports her prednisone dosing was increased which is treating her rheumatoid arthritis. 07/04/18. Seen by Dr. Burrell. The patient does not report pain or drainage associated with the right lower leg wound since her last visit and she's now on Bactrim without reporting adverse side effects for the Serratia and Klebsiella positive wound culture taken at her last visit. 06/27/18. Seen by Dr. Burrell. The patient is new to our clinic and presents with a chronic right posterior lower leg wound that started when she hit the leg on a shopping cart about a month ago. She reports pain at the site and takes prednisone for systemic lupus erythematosis and has not been on antibiotic recently for this issue. She also does not report a history of PAD or diabetes but does have a remote history of smoking. Past Medical History This information was obtained from the patient Patient has a medical history of: Lupus Arthritis Osteopenia Autoimmune Hepatitis Helicobacter Pylori Esophageal Varices Wound Right Achilles Complaints and Symptoms This information was obtained from the patient Patient complains of: General Notes: I have reviewed and concur with the Review of Systems and Past Family Social History documents completed by the clinician, I have reviewed and concur with the Wound Assessment document completed by the clinician Integumentary (Hair/Skin/Nails): Hemosiderin Staining, Open Sore, Prone to Skin Tears Prior Wound History: Drainage, Erythema, Pain Patient denies complaints or symptoms related to: Cardiovascular (Central): Irregular heart beat Cardiovascular (Central/Peripheral): Intermittent Claudication, Lower extremity (leg) resting pain, Lower extremity (leg) swelling Constitutional Symptoms (General Health): Chills, Fever Ear/Nose/Mouth/Throat: Hearing Loss / Aid Hematologic/Lymphatic: Bleeding / Clotting Disorders, Bleeding Tendency Musculoskeletal: Assistive Devices Neurological: Loss of Protective Sensation Psychiatric: Memory Loss Respiratory: Shortness of Breath Additional Information Does patient have a history of Cancer? Yes? Complete all questions.: No OBJECTIVE Constitutional BP elevated; Afebrile; Alert and in no distress. Well developed. Alert. Clean appearing.. Height/Length: 66 in (167.64 cm), Weight: 117.3 lbs (53.32 kgs), BMI: 18.9, Temperature: 97.9 ?F (36.61 ?C), Pulse: 62 bpm, Respiratory Rate: 18 breaths/min, Blood Pressure: 155/69 mmHg, Pulse Oximetry: 98 %. Ears, Nose, Mouth, and Throat: No clinically significant hearing loss on informal examination. Integumentary (Hair, Skin) No periwound erythema, warmth, or significant drainage. No periwound rashes appreciated or noted otherwise.. Refer to appropriate clinician wound documentation for this visit; left lower leg wound extends to subcut with base partially covered with pink granulation, remainder fibrin and slough. Wound #2 Left Leg is an acute Partial Thickness Skin Tear and has received a status of Not Healed. Subsequent wound encounter measurements are 3.5cm length x 1.9cm width x 0.1cm depth, with an area of 6.65 sq cm and a volume of 0.665 cubic cm. No tunneling has been noted. No sinus tract has been noted. No undermining has been noted. There is a moderate amount of serous drainage noted which has no odor. The patient reports a wound pain of level 0/10. The wound margin is unable to assess. Wound bed has No epithelialization, No eschar, Yes slough, Yes bright red, firm granulation. The periwound skin texture is normal. The periwound skin moisture is normal. The periwound skin color is normal. The temperature of the periwound skin is WNL. Periwound skin does not exhibit signs or symptoms of infection. Local Pulse is Palpable. Neurological: Cranial nerves grossly intact with symmetric function normal by informal observation.. ASSESSMENT Active Problems ICD-10 (Encounter Diagnosis) S81.801D - Unspecified open wound, right lower leg, subsequent encounter PROCEDURES Wound #2 Wound #2 (Skin Tear) is located on the left leg. A skin/subcutaneous tissue level surgical debridement with a total area debrided of 6.65 sq cm was performed by Felice Burrell MD. Subcutaneous was removed along with devitalized tissue: slough. The following instrument(s) were used: curette. Pain control was achieved using 4% [place]. A time out was conducted prior to the start of the procedure. A minimal amount of bleeding was controlled with n/a. The procedure was tolerated well with a pain level of 0 throughout and a pain level of 0 following the procedure. Post Debridement Measurements: 3.5cm length x 1.9cm width x 0.2cm depth; with an area of 6.65 sq cm and a volume of 1.33 cubic cm; Additional Information Muscle fascia or bone removed and sent to pathology?: No PLAN Wound Orders: Wound #2 Left Leg Anesthetic Topical Xylocaine to wound bed. - In clinic only Cleanser Cleanse Wound: - Normal saline in clinic. May use distilled water at home May Shower. - Please avoid getting tap water on dressing or in wound. Cover while in shower. Cover while in shower. May use cast protector purchased from the pharmacy. Topical Treatments Antibiotic/Antimicrobial Ointment/Cream. - Triple antibiotic ointment. Dressings Primary dressing: - Bordered foam Change Dressing: - Every other day or if soiled Additional Orders: Follow-Up Appointments Return Appointment: - Other information: If you develop fever, chills, increased pain, drainage, redness or swelling please call our office. If after hours, respond to the ER. Should you experience any significant changes in your wound(s) or have any questions regarding your home care instructions please contact the wound center @ [phone]. If after hours, contact your primary care physician or go to the hospital emergency room. I've reviewed the clinician's documentation and agree with the evaluation and plan as written. In addition the patient's wound demonstrates evidence of non-viable devitalized tissue which will continue to benefit from sharp debridement to help promote granulation and expedite healing. Electronic Signature(s) Signed By: Date: Felice Burrell MD 08/03/2018 09:38:07 Entered By: Felice Burrell on 08/03/2018 06:51:46 Addendum at 08/07/2018 12:44:39 Wound is actually left lower leg, not right as documented in HPI. Addendum Signed By: Felice Burrell on 08/07/2018 12:44:39 Addendum at 08/24/2018 10:32:04 HPI should reference left lower leg wound instead of right. Addendum Signed By: Felice Burrell on 08/24/2018 10:32:04
== END ==
PROVIDERS: PCP Family Medicine; Visit Provider Internal Medicine
DX: S81.802A Unspecified open wound, left lower leg, initial encounter (principal)
CPT/HCPCS: 11042; 99212

== ENCOUNTER → 2018-08-10 13:02 | Outpatient (CLI) | payer MEDICARE, OTHER, SELFPAY ==
--- NOTE | 2018-08-10 | OV.WND_ITS ---
Progress Note Details Patient Name: Megan Pham Patient Number: [id number] PatientPatientDate: 08/10/2018 Clinician: Anitha Hayden Physician / Billing Services Manager: Felice Burrell SUBJECTIVE Chief Complaint This information was obtained from the patient Trauma wound to left leg Allergies dicloxacillin (Severity: Mild), ciprofloxacin (Reaction: Unkown), levofloxacin ( Severity: Mild), codeine (Severity: Mild, Reaction: Headaches, nightmares), hydroxychloroquine ( Severity: Mild, Reaction: unknown) HPI This information was obtained from the patient 08/10/18. Seen by Dr. Burrell. The patient does not report pain or drainage associated with the right lower leg wound since her last visit. 08/02/18. Seen by Dr. Burrell. The patient does not report pain or drainage associated with the right lower leg wound since her last visit. 07/27/18. Seen by Dr. Burrell. The patient returns with a new wound that occurred over the anterior left lower leg when she hit her leg off of a lawn ornament earlier this week. She does not report pain or significant drainage at the site however reports her prednisone dosing was increased which is treating her rheumatoid arthritis. 07/04/18. Seen by Dr. Burrell. The patient does not report pain or drainage associated with the right lower leg wound since her last visit and she's now on Bactrim without reporting adverse side effects for the Serratia and Klebsiella positive wound culture taken at her last visit. 06/27/18. Seen by Dr. Burrell. The patient is new to our clinic and presents with a chronic right posterior lower leg wound that started when she hit the leg on a shopping cart about a month ago. She reports pain at the site and takes prednisone for systemic lupus erythematosis and has not been on antibiotic recently for this issue. She also does not report a history of PAD or diabetes but does have a remote history of smoking. Past Medical History This information was obtained from the patient Patient has a medical history of: Lupus Arthritis Osteopenia Autoimmune Hepatitis Helicobacter Pylori Esophageal Varices Wound Right Achilles Complaints and Symptoms This information was obtained from the patient Patient complains of: General Notes: I have reviewed and concur with the Review of Systems and Past Family Social History documents completed by the clinician, I have reviewed and concur with the Wound Assessment document completed by the clinician Integumentary (Hair/Skin/Nails): Hemosiderin Staining, Open Sore, Prone to Skin Tears Prior Wound History: Drainage, Erythema, Pain Patient denies complaints or symptoms related to: Cardiovascular (Central): Irregular heart beat Cardiovascular (Central/Peripheral): Intermittent Claudication, Lower extremity (leg) resting pain, Lower extremity (leg) swelling Constitutional Symptoms (General Health): Chills, Fever Ear/Nose/Mouth/Throat: Hearing Loss / Aid Hematologic/Lymphatic: Bleeding / Clotting Disorders, Bleeding Tendency Musculoskeletal: Assistive Devices Neurological: Loss of Protective Sensation Psychiatric: Memory Loss Respiratory: Shortness of Breath Additional Information Does patient have a history of Cancer? Yes? Complete all questions.: No OBJECTIVE Constitutional BP elevated; Afebrile; Alert and in no distress. Frail appearing. Height/Length : 66 in (167.64 cm), Weight: 117.3 lbs (53.32 kgs), BMI: 18.9, Temperature: 97.7 ?F (36.5 ?C), Pulse: 63 bpm, Respiratory Rate: 18 breaths/min, Blood Pressure: 162/76 mmHg, Pulse Oximetry: 98 %. Cardiovascular: Affected extremity exhibits no peripheral edema or cyanosis, is warm, and is well perfused. Capillary refill is less than 2 seconds. Integumentary (Hair, Skin) No periwound erythema, warmth, or significant drainage. No periwound rashes appreciated or noted otherwise.. Refer to appropriate clinician wound documentation for this visit; left lower leg wound extends to subcut with base partially covered with pink granulation, remainder fibrin and slough. Wound #2 Left Leg is an acute Partial Thickness Skin Tear and has received a status of Not Healed. Subsequent wound encounter measurements are 1cm length x 0.7cm width x 0.1cm depth, with an area of 0.7 sq cm and a volume of 0.07 cubic cm. No tunneling has been noted. No sinus tract has been noted. No undermining has been noted. There is a moderate amount of serous drainage noted which has no odor. The patient reports a wound pain of level 0/10. The wound margin is unable to assess. Wound bed has Yes epithelialization, No eschar, Yes slough, Yes bright red, firm granulation. The periwound skin texture is normal. The periwound skin moisture is normal. The periwound skin color is normal. The temperature of the periwound skin is WNL. Periwound skin does not exhibit signs or symptoms of infection. Local Pulse is Palpable. Neurological: Cranial nerves grossly intact with symmetric function normal by informal observation.. ASSESSMENT Active Problems ICD-10 (Encounter Diagnosis) S81.801D - Unspecified open wound, right lower leg, subsequent encounter PROCEDURES Wound #2 Wound #2 (Skin Tear) is located on the left leg. A skin/subcutaneous tissue level surgical debridement with a total area debrided of 0.7 sq cm was performed by Felice Burrell MD. Subcutaneous was removed along with devitalized tissue: slough. The following instrument(s) were used: curette. Pain control was achieved using 4% Lido. A time out was conducted prior to the start of the procedure. A minimal amount of bleeding was controlled with n/a. The procedure was tolerated well with a pain level of 0 throughout and a pain level of 0 following the procedure. Post Debridement Measurements: 1cm length x 0.7cm width x 0.2cm depth; with an area of 0.7 sq cm and a volume of 0.14 cubic cm; Additional Information Muscle fascia or bone removed and sent to pathology?: No PLAN Wound Orders: Wound #2 Left Leg Anesthetic Topical Xylocaine to wound bed. - In clinic only Cleanser Cleanse Wound: - Normal saline in clinic. May use distilled water at home May Shower. - Please avoid getting tap water on dressing or in wound. Cover while in shower. Cover while in shower. May use cast protector purchased from the pharmacy. Dressings Primary dressing: - Bordered foam Change Dressing: - Every other day or if soiled Additional Orders: Follow-Up Appointments Return Appointment: - - Two weeks Other information: If you develop fever, chills, increased pain, drainage, redness or swelling please call our office. If after hours, respond to the ER. Should you experience any significant changes in your wound(s) or have any questions regarding your home care instructions please contact the wound center @ [phone]. If after hours, contact your primary care physician or go to the hospital emergency room. Scribing Attestation I attest, as the nurse, that I scribed these orders for the physician. General Notes: BP- 156/78 today I've reviewed the clinician's documentation and agree with the evaluation and plan as written. In addition the patient's wound demonstrates evidence of non-viable devitalized tissue which will continue to benefit from sharp debridement to help promote granulation and expedite healing. Electronic Signature(s) Signed By: Date: Felice Burrell MD 08/13/2018 13:28:46 Entered By: Felice Burrell on 08/13/2018 07:38:25
== END ==
PROVIDERS: PCP Family Medicine; Visit Provider Internal Medicine
DX: S81.802A Unspecified open wound, left lower leg, initial encounter (principal)
CPT/HCPCS: 11042

== ENCOUNTER → 2018-08-21 13:17 | Outpatient (CLI) | payer MEDICARE, OTHER, SELFPAY ==
--- NOTE | 2018-08-21 | OV.WND_ITS ---
Progress Note Details Patient Name: Megan Pham Patient Number: [id number] PatientPatientDate: 08/21/2018 Clinician: Dafne Castillo Clinician Cosigner: Debo Zuleta Physician / Erector Operator: Felice Burrell SUBJECTIVE Chief Complaint This information was obtained from the patient Trauma wound to left leg Allergies dicloxacillin (Severity: Mild), ciprofloxacin (Reaction: Unkown), levofloxacin ( Severity: Mild), codeine (Severity: Mild, Reaction: Headaches, nightmares), hydroxychloroquine ( Severity: Mild, Reaction: unknown) HPI This information was obtained from the patient 08/21/18. Seen by Dr. Burrell. The patient does not report pain or drainage associated with the right lower leg wound since her last visit. 08/10/18. Seen by Dr. Burrell. The patient does not report pain or drainage associated with the right lower leg wound since her last visit. 08/02/18. Seen by Dr. Burrell. The patient does not report pain or drainage associated with the right lower leg wound since her last visit. 07/27/18. Seen by Dr. Burrell. The patient returns with a new wound that occurred over the anterior left lower leg when she hit her leg off of a lawn ornament earlier this week. She does not report pain or significant drainage at the site however reports her prednisone dosing was increased which is treating her rheumatoid arthritis. 07/04/18. Seen by Dr. Burrell. The patient does not report pain or drainage associated with the right lower leg wound since her last visit and she's now on Bactrim without reporting adverse side effects for the Serratia and Klebsiella positive wound culture taken at her last visit. 06/27/18. Seen by Dr. Burrell. The patient is new to our clinic and presents with a chronic right posterior lower leg wound that started when she hit the leg on a shopping cart about a month ago. She reports pain at the site and takes prednisone for systemic lupus erythematosis and has not been on antibiotic recently for this issue. She also does not report a history of PAD or diabetes but does have a remote history of smoking. Past Medical History This information was obtained from the patient Patient has a medical history of: Lupus Arthritis Osteopenia Autoimmune Hepatitis Helicobacter Pylori Esophageal Varices Wound Right Achilles Complaints and Symptoms This information was obtained from the patient Patient complains of: General Notes: I have reviewed and concur with the Review of Systems and Past Family Social History documents completed by the clinician, I have reviewed and concur with the Wound Assessment document completed by the clinician Integumentary (Hair/Skin/Nails): Hemosiderin Staining, Open Sore, Prone to Skin Tears Prior Wound History: Drainage, Erythema, Pain Patient denies complaints or symptoms related to: Cardiovascular (Central): Irregular heart beat Cardiovascular (Central/Peripheral): Intermittent Claudication, Lower extremity (leg) resting pain, Lower extremity (leg) swelling Constitutional Symptoms (General Health): Chills, Fever Ear/Nose/Mouth/Throat: Hearing Loss / Aid Hematologic/Lymphatic: Bleeding / Clotting Disorders, Bleeding Tendency Musculoskeletal: Assistive Devices Neurological: Loss of Protective Sensation Psychiatric: Memory Loss Respiratory: Shortness of Breath Additional Information Does patient have a history of Cancer? Yes? Complete all questions.: No OBJECTIVE Constitutional BP elevated; Afebrile; Alert and in no distress. Frail appearing. Height/Length : 66 in (167.64 cm), Weight: 117.3 lbs (53.32 kgs), BMI: 18.9, Temperature: 98.2 ?F (36.78 ?C), Pulse: 65 bpm, Respiratory Rate: 18 breaths/min, Blood Pressure: 164/80 mmHg, Pulse Oximetry: 100 %. Cardiovascular: Affected extremity exhibits no peripheral edema or cyanosis, is warm, and is well perfused. Capillary refill is less than 2 seconds. Integumentary (Hair, Skin) Refer to appropriate clinician wound documentation for this visit.. Wound #2 Left Leg is an acute Partial Thickness Skin Tear and has received an outcome of Healed - no new wound(s). Subsequent wound encounter measurements are 0cm length x 0cm width with no measurable depth, with an area of 0 sq cm . No tunneling has been noted. No sinus tract has been noted. No undermining has been noted. There was no drainage noted. The patient reports a wound pain of level 0/10. The wound margin is unable to assess. Wound bed has Yes epithelialization, No eschar, No slough, No granulation. The periwound skin texture is normal. The periwound skin moisture is normal. The periwound skin color is normal. The temperature of the periwound skin is WNL. Periwound skin does not exhibit signs or symptoms of infection. Local Pulse is Palpable. General Notes: Covered in dried drainage Neurological: Cranial nerves grossly intact with symmetric function normal by informal observation.. ASSESSMENT Active Problems ICD-10 (Encounter Diagnosis) S81.801D - Unspecified open wound, right lower leg, subsequent encounter PLAN Wound Orders: Wound #2 Left Leg Anesthetic Topical Xylocaine to wound bed. - In clinic only Cleanser Cleanse Wound: - Normal saline in clinic. May use distilled water at home May Shower. - Please avoid getting tap water on dressing or in wound. Cover while in shower. Cover while in shower. May use cast protector purchased from the pharmacy. Additional Orders: Dressings Primary dressing: - border foam Change Dressing: - Change dressing every three days just for one week. Then leave it open Off-Loading Keep weight off: Follow-Up Appointments Other information: If you develop fever, chills, increased pain, drainage, redness or swelling please call our office. If after hours, respond to the ER. Should you experience any significant changes in your wound(s) or have any questions regarding your home care instructions please contact the wound center @ [phone]. If after hours, contact your primary care physician or go to the hospital emergency room. Discharge from Outpatient Services. - Wound healed. Scribing Attestation I attest, as the nurse, that I scribed these orders for the physician. I've reviewed the clinician's documentation and agree with the evaluation and plan as written. In addition the patient's last remiaining complex wound is now healed. The patient is invited to return to our clinic for treatment of any future complex wounds. Post wound care and strategies to avoid recurrences were discussed. Electronic Signature(s) Signed By: Date: Felice Burrell MD 08/24/2018 07:29:40 Entered By: Felice Burrell on 08/24/2018 07:17:57
== END ==
PROVIDERS: PCP Family Medicine; Visit Provider Internal Medicine
DX: Z48.817 Encounter for surgical aftercare following surgery on the skin and subcutaneous tissue (principal)
CPT/HCPCS: 99213

== ENCOUNTER → 2018-08-30 13:55 | Outpatient (CLI) | payer MEDICARE, OTHER, SELFPAY ==
[2018-08-30 14:19] LABS: Add Manual Diff / Slide Review NO; Basophils Percent Auto 0.5 % (0-2); Eosinophils Percent Auto 0.5 % (2-4); Hematocrit 39.6 % (36-46); Lymphocytes Percent Auto 10.3 % (25-40); Mean Corpuscular HGB Conc 32.8 % (30-36); Mean Corpuscular Hemoglobin 30.4 PG (26-34); Mean Corpuscular Volume 92.6 fL (80-100); Monocytes Percent Auto 5.3 % (3-14); Neutrophils Absolute Auto 5900 /uL (3000-5900); Neutrophils Percent Auto 83.4 % (50-75); Platelet Count 148 X10^3/uL (150-400); Red Blood Cell Count 4.27 X10^6/uL (4.0-5.2); Red Cell Distribution Width 15.2 % (11.6-14.8)
[2018-08-30 14:34] LABS: Alanine Aminotransferase 29 IU/L (9-52); Albumin 4.2 g/dL (3.5-5.0); Alkaline Phosphatase 150 U/L (38-126); Aspartate Aminotransferase 44 IU/L (14-36); BUN Creatinine Ratio 12.9 (6-22); Bilirubin Total 0.5 mg/dL (0.2-1.3); Blood Urea Nitrogen 9 mg/dL (7-17); Calcium 8.7 mg/dL (8.4-10.2); Carbon Dioxide 31 mmol/L (22-32); Chloride 98 mmol/L (98-107); Erythrocyte Sedimentation Rate 20 MM/HR (0-20); Estimated Glomerular Filt Rate > 60.0 mL/min (>60); Globulin 4.1 g/dL (1.7-4.1); Glucose 118 mg/dL (80-110); HEMOLYSIS < 15 (0-50); Potassium 4.7 mmol/L (3.4-5.1); Sodium 137 mmol/L (137-145); Total Protein 8.3 g/dL (6.3-8.2)
[2018-08-30 14:45] LABS: C-Reactive Protein Quant < 0.5 mg/dL (<1.0)
== END ==
PROVIDERS: Family Provider Family Medicine; PCP Family Medicine; Visit Provider Internal Medicine Rheumatology
DX: M32.19 Other organ or system involvement in systemic lupus erythematosus (principal); Z79.899 Other long term (current) drug therapy
CPT/HCPCS: 36415; 80053; 85025; 85651; 86140

== ENCOUNTER → 2018-09-03 12:48 | Outpatient (CLI) | payer MEDICARE, OTHER, SELFPAY | PROVIDERS: Family Provider Family Medicine; PCP Family Medicine; Visit Provider Internal Medicine | DX: N89.8 Other specified noninflammatory disorders of vagina (principal) | CPT/HCPCS: 87070; 87077; 87205 ==

== ENCOUNTER → 2018-09-18 13:49 | Outpatient (CLI) | payer MEDICARE, OTHER, SELFPAY ==
--- NOTE | 2018-09-18 13:54 | DI.ECHO.S_ITS ---
[facility] +---------+ : : [address] : : : : [id number] : : : : Phone: [phone] Echocardiogram Report + + :Name: CHIVO WHITTINGTON Study Date: 09/18/2018 Height: 66 in : :[facility] Exam Location: [facility] Weight: 115 lb : : Gender: Female BSA: 1.6 m2 : :: 1940 Age: 78 yrs BP: 138/68 mmHg: :Reason For Study: MURMUR : : Performed By: Heri Rushing : :Referring: DEON HENDRICKSON : + + Interpretation Summary The left ventricle is normal in size. There is mild concentric left ventricular hypertrophy. The ejection fraction is estimated to be 65-70%. The aortic valve is trileaflet. There is moderate aortic valve sclerosis. There is no hemodynamically significant valvular aortic stenosis. There is mild aortic regurgitation. No other echocardiographic abnormalities seen. Procedure: A two-dimensional transthoracic echocardiogram with color flow and Doppler was performed. The study quality was technically good. Comparison is made with the echocardiogram of 02/02/06. The patient was in normal sinus rhythm during the exam. Left Ventricle: The left ventricle is normal in size. There is mild concentric left ventricular hypertrophy. The ejection fraction is estimated to be 65-70%. There are no focal wall motion abnormalities. Diastolic parameters suggest probable normal left ventricular diastolic function and normal filling pressures. Right Ventricle: The right ventricle is normal in size and function. Atria: Both atria are mildly dilated. The interatrial septum is intact with no evidence for an atrial septal defect. Mitral Valve: The mitral valve is normal in structure and function. There is trace mitral regurgitation. Aortic Valve: The aortic valve is trileaflet. The aortic valve is mildly calcified. Leaflet mobility is minimally reduced. There is moderate aortic valve sclerosis. There is no hemodynamically significant valvular aortic stenosis. There is mild aortic regurgitation. Tricuspid Valve: The tricuspid valve is normal in structure and function. There is mild tricuspid regurgitation. The right ventricular systolic pressure is estimated to be at least 27 mmHg based on an estimated right atrial pressure of 3 mm Hg. Pulmonic Valve: The pulmonic valve is not well seen, but is grossly normal. There is moderate pulmonic regurgitation. Great Vessels: The aortic root is normal size. The dimensions of the ascending aorta are normal. The pulmonary artery is normal size. The IVC is of normal diameter and collapses greater than 50% with a sniff. This suggests a low right atrial pressure of 3 mm Hg. Pericardium/ Pleura There is no pericardial effusion. There is no pleural effusion. MMode/2D Measurements & Calculations LVIDd: 4.1 cm LVOT diam: 2.1 cm LVIDs: 2.1 cm Ao root diam: 2.8 cm FS: 49.7 % Aortic Jxn: 2.3 cm EPSS: 0.37 cm asc Aorta Diam: 3.2 cm IVSd: 0.90 cm Ao Arch Diam (Prox Trans): 2.2 cm LVPWd: 0.84 cm LV morse. diameter/BSA (cm/m^2): 2.6 LV sys. diameter/BSA (cm/m^2): 1.3 LA dimension: 3.4 cm RA long axis: 4.4 cm LA A2 area: 20.2 cm2 RA area: 16.3 cm2 LA A4 area: 19.5 cm2 RA vol: 51.2 ml LA length (vol): 5.6 cm RA : 32.4 ml/m2 LA vol: 59.4 ml IVC diam: 1.4 cm LA vol index: 37.6 ml/m2 RVD1 (basal): 3.4 cm RVD2 (mid): 3.5 cm Doppler Measurements & Calculations Ao V2 max: 166.8 cm/sec LVOT Max Karthik: 83.7 cm/sec Ao V2 mean: 117.9 cm/sec LV V1 max P.8 mmHg Ao max P.1 mmHg LV V1 VTI: 20.7 cm Ao mean P.1 mmHg BRIGHT(I,D): 2.1 cm2 Ao V2 VTI: 35.3 cm BRIGHT(V,D): 1.8 cm2 sev ratio: 0.59 BRIGHT indexed to BSA (cm^2/m^2): 1.3 AI P1/2t: 616.5 msec AI dec slope: 224.2 cm/sec2 MV E max karthik: 54.4 cm/sec TR max karthik: 262.7 cm/sec MV A max karthik: 72.3 cm/sec TR max P.6 mmHg MV E/A: 0.75 PA V2 max: 77.4 cm/sec Med Peak E' Karthik: 16.2 cm/sec PA V2 mean: 59.5 cm/sec E/E' med: 3.4 PA mean P.5 mmHg Lat Peak E' Karthik: 5.9 cm/sec PA pr(Accel): 54.0 mmHg E/E' lat: 9.2 PA Accel Time: 0.05 sec E/e' average: 6.3 MV dec time: 0.22 sec Reading Physician:05:11 PM
== END ==
PROVIDERS: PCP Family Medicine; Visit Provider Internal Medicine
DX: I08.2 Rheumatic disorders of both aortic and tricuspid valves (principal); R01.1 Cardiac murmur, unspecified
CPT/HCPCS: 93306

== ENCOUNTER → 2018-10-01 15:42 | Outpatient (CLI) | payer MEDICARE, OTHER, SELFPAY ==
[2018-10-01 18:07] LABS: Add Manual Diff / Slide Review NO; Basophils Percent Auto 0.3 % (0-2); Eosinophils Percent Auto 0.6 % (2-4); Hematocrit 38.9 % (36-46); Hemoglobin 12.9 g/dL (12.0-16.0); Lymphocytes Percent Auto 13.2 % (25-40); Mean Corpuscular HGB Conc 33.2 % (30-36); Mean Corpuscular Hemoglobin 31.3 PG (26-34); Mean Corpuscular Volume 94.6 fL (80-100); Monocytes Percent Auto 8.5 % (3-14); Neutrophils Absolute Auto 5400 /uL (3000-5900); Neutrophils Percent Auto 77.4 % (50-75); Platelet Count 152 X10^3/uL (150-400); Red Blood Cell Count 4.12 X10^6/uL (4.0-5.2); Red Cell Distribution Width 14.7 % (11.6-14.8)
[2018-10-01 18:12] LABS: Alanine Aminotransferase 43 IU/L (9-52); Albumin 4.1 g/dL (3.5-5.0); Alkaline Phosphatase 160 U/L (38-126); Aspartate Aminotransferase 45 IU/L (14-36); BUN Creatinine Ratio 17.1 (6-22); Bilirubin Total 0.4 mg/dL (0.2-1.3); Blood Urea Nitrogen 12 mg/dL (7-17); Calcium 9.3 mg/dL (8.4-10.2); Carbon Dioxide 29 mmol/L (22-32); Chloride 94 mmol/L (98-107); Estimated Glomerular Filt Rate > 60.0 mL/min (>60); Globulin 4.1 g/dL (1.7-4.1); Glucose 101 mg/dL (80-110); HEMOLYSIS < 15 (0-50); Potassium 4.6 mmol/L (3.4-5.1); Sodium 134 mmol/L (137-145); Total Protein 8.2 g/dL (6.3-8.2)
[2018-10-01 18:31] LABS: C-Reactive Protein Quant < 0.5 mg/dL (<1.0)
[2018-10-01 18:41] LABS: Erythrocyte Sedimentation Rate 26 MM/HR (0-20)
== END ==
PROVIDERS: PCP Family Medicine; Visit Provider Internal Medicine Rheumatology
DX: M32.19 Other organ or system involvement in systemic lupus erythematosus (principal); Z79.899 Other long term (current) drug therapy
CPT/HCPCS: 36415; 80053; 85025; 85651; 86140

== ENCOUNTER → 2018-10-25 13:23 | Outpatient (CLI) | payer MEDICARE, OTHER, SELFPAY ==
[2018-10-25 14:14] LABS: Add Manual Diff / Slide Review NO; Basophils Percent Auto 0.6 % (0-2); Eosinophils Percent Auto 0.3 % (2-4); Hematocrit 36.9 % (36-46); Hemoglobin 12.6 g/dL (12.0-16.0); Lymphocytes Percent Auto 8.8 % (25-40); Mean Corpuscular HGB Conc 34.3 % (30-36); Mean Corpuscular Hemoglobin 32.1 PG (26-34); Mean Corpuscular Volume 93.6 fL (80-100); Monocytes Percent Auto 6.2 % (3-14); Neutrophils Absolute Auto 5400 /uL (1500-7000); Neutrophils Percent Auto 84.1 % (50-75); Platelet Count 212 X10^3/uL (150-400); Red Blood Cell Count 3.94 X10^6/uL (4.0-5.2); White Blood Cell Count 6.5 X10^3/uL (4.5-11.0)
[2018-10-25 14:28] LABS: Alanine Aminotransferase 28 IU/L (9-52); Albumin 3.8 g/dL (3.5-5.0); Alkaline Phosphatase 171 U/L (38-126); Aspartate Aminotransferase 40 IU/L (14-36); BUN Creatinine Ratio 11.4 (6-22); Bilirubin Total 0.5 mg/dL (0.2-1.3); Blood Urea Nitrogen 8 mg/dL (7-17); Calcium 8.9 mg/dL (8.4-10.2); Carbon Dioxide 29 mmol/L (22-32); Chloride 94 mmol/L (98-107); Estimated Glomerular Filt Rate > 60.0 mL/min (>60); Glucose 116 mg/dL (80-110); HEMOLYSIS < 15 (0-50); Potassium 4.1 mmol/L (3.4-5.1); Sodium 134 mmol/L (137-145); Total Protein 7.8 g/dL (6.3-8.2)
== END ==
PROVIDERS: Family Provider Family Medicine; PCP Family Medicine; Visit Provider Internal Medicine Rheumatology
DX: Z79.899 Other long term (current) drug therapy (principal); I10 Essential (primary) hypertension
CPT/HCPCS: 36415; 80053; 85025

== ENCOUNTER → 2018-10-27 07:59 | Outpatient (CLI) | payer MEDICARE, OTHER, SELFPAY ==
--- NOTE | 2018-10-27 | DI.MG.S_ITS ---
BILATERAL DIGITAL SCREENING MAMMOGRAM 3D/2D WITH CAD: 10/27/2018 CLINICAL: Routine screening. Comparison is made to exams dated: 10/12/2017 mammogram, 05/06/2016 mammogram, and 10/25/2013 mammogram - [facility]. The tissue of both breasts is heterogeneously dense. This may lower the sensitivity of mammography. Current study was also evaluated with a Computer Aided Detection (CAD) system. There are benign calcifications in both breasts. There also is a benign biopsy clip in the right breast. No significant masses, calcifications, or other findings are seen in either breast. There has been no significant interval change. IMPRESSION: There is no mammographic evidence of malignancy. A 1 year screening mammogram is recommended. This exam was interpreted at Station ID: [id number]. NOTE: For mammograms, a report in lay terms will be sent to the patient. Approximately 15% of breast malignancies will not be visualized mammographically. In the management of a palpable breast mass, a negative mammogram must not discourage biopsy of a clinically suspicious lesion. Electronically Signed By: Ashley garcia/juju:10/29/2018 16:41:38 letter sent: Normal Exam ACR BI-RADS Category 2: Benign Finding(s) 3342F
== END ==
PROVIDERS: Family Provider Family Medicine; PCP Family Medicine; Visit Provider Family Medicine
DX: Z12.31 Encounter for screening mammogram for malignant neoplasm of breast (principal)
CPT/HCPCS: 77063; 77067

== ENCOUNTER → 2019-02-26 16:57 | Outpatient (CLI) | payer MEDICARE, OTHER, SELFPAY ==
[2019-02-26 17:48] LABS: Add Manual Diff / Slide Review NO; Basophils Absolute Auto 0 /uL (0-100); Basophils Percent Auto 0.3 % (0-2); Eosinophils Absolute Auto 100 /uL (0-450); Eosinophils Percent Auto 0.7 % (2-4); Hematocrit 36.8 % (36-46); Lymphocytes Absolute Auto 1100 /uL (1100-4500); Lymphocytes Percent Auto 14.5 % (25-40); Mean Corpuscular HGB Conc 32.6 % (30-36); Mean Corpuscular Hemoglobin 29.5 PG (26-34); Mean Corpuscular Volume 90.6 fL (80-100); Monocytes Absolute Auto 600 /uL (0-900); Monocytes Percent Auto 8.3 % (3-14); Neutrophils Absolute Auto 5800 /uL (1500-7000); Neutrophils Percent Auto 76.2 % (50-75); Platelet Count 201 X10^3/uL (150-400); Red Blood Cell Count 4.07 X10^6/uL (4.0-5.2); Red Cell Distribution Width 14.2 % (11.6-14.8); White Blood Cell Count 7.7 X10^3/uL (4.5-11.0)
[2019-02-26 18:54] LABS: Alanine Aminotransferase 31 IU/L (9-52); Albumin 3.6 g/dL (3.5-5.0); Albumin Globulin Ratio 0.9 (1.0-2.8); Alkaline Phosphatase 263 U/L (38-126); Aspartate Aminotransferase 46 IU/L (14-36); Bilirubin Total 0.3 mg/dL (0.2-1.3); Blood Urea Nitrogen 8 mg/dL (7-17); Calcium 8.3 mg/dL (8.4-10.2); Carbon Dioxide 24 mmol/L (22-32); Chloride 97 mmol/L (98-107); Estimated Glomerular Filt Rate > 60.0 mL/min (>60); Globulin 4.2 g/dL (1.7-4.1); Glucose 91 mg/dL (80-110); HEMOLYSIS < 15 (0-50); Potassium 4.3 mmol/L (3.4-5.1); Sodium 130 mmol/L (137-145); Total Protein 7.8 g/dL (6.3-8.2)
== END ==
PROVIDERS: Family Provider Family Medicine; PCP Family Medicine; Visit Provider Internal Medicine Rheumatology
DX: Z79.899 Other long term (current) drug therapy (principal)
CPT/HCPCS: 36415; 80053; 85025

== ENCOUNTER → 2019-03-06 11:57 | Outpatient (CLI) | payer OTHER, MEDICARE, SELFPAY ==
--- NOTE | 2019-03-06 12:01 | DI.RAD.S_ITS ---
PROCEDURE: XR CHEST 2V INDICATIONS: cough TECHNIQUE: 2 views of the chest were acquired. COMPARISON: [facility], CR, XR CHEST 2V, 08/01/2018, 14:09. FINDINGS: Surgical changes and devices: None. Lungs and pleura: Diffuse scarring and atelectasis as before. Lungs appear hyperinflated given of chronic obstructive physiology. Interval development of ill-defined nodular opacities project in the right upper lobe. No pleural effusions or pneumothorax. Mediastinum: Mildly increased right perihilar opacities. Heart size is normal. Bones and chest wall: Scoliosis and diffuse spondylosis IMPRESSION: Ill-defined nodular opacities projecting in the right upper lobe, which could represent bronchopneumonia however recommend close attention to this area on short interval followup one month PA and lateral chest radiographs to document resolution after treatment and if these persist, recommend noncontrast chest CT to exclude metastatic/malignant nodules. Alternatively based on level of clinical suspicion, immediate evaluation with noncontrast chest CT could be performed. Background scarring/atelectasis. Dictated by: Jonathan Tai M.D. on 03/06/2019 at 13:59 Approved by: Jonathan Tai M.D. on 03/06/2019 at 14:04
[2019-03-06 12:41] LABS: Add Manual Diff / Slide Review NO; Basophils Absolute Auto 0 /uL (0-100); Basophils Percent Auto 0.3 % (0-2); Eosinophils Absolute Auto 100 /uL (0-450); Eosinophils Percent Auto 0.6 % (2-4); Hemoglobin 12.7 g/dL (12.0-16.0); Lymphocytes Absolute Auto 1100 /uL (1100-4500); Lymphocytes Percent Auto 12.1 % (25-40); Mean Corpuscular HGB Conc 32.5 % (30-36); Mean Corpuscular Hemoglobin 29.5 PG (26-34); Mean Corpuscular Volume 90.8 fL (80-100); Monocytes Absolute Auto 600 /uL (0-900); Monocytes Percent Auto 6.6 % (3-14); Neutrophils Absolute Auto 7100 /uL (1500-7000); Neutrophils Percent Auto 80.4 % (50-75); Platelet Count 232 X10^3/uL (150-400); Red Cell Distribution Width 14.4 % (11.6-14.8); White Blood Cell Count 8.8 X10^3/uL (4.5-11.0)
== END ==
PROVIDERS: Hospitalist; Family Provider Family Medicine; PCP Family Medicine; Visit Provider Nurse Practitioner
DX: J40 Bronchitis, not specified as acute or chronic (principal); R05 Cough
CPT/HCPCS: 36415; 71046; 85025

== ENCOUNTER → 2019-03-19 13:21 | Outpatient (CLI) | payer OTHER, MEDICARE, SELFPAY ==
--- NOTE | 2019-03-19 13:23 | DI.RAD.S_ITS ---
PROCEDURE: XR CHEST 2V INDICATIONS: 1 month follow up pneumonia TECHNIQUE: 2 views of the chest were acquired. COMPARISON: [facility], , CHEST 1 VIEW, 07/26/2017, 11:46. [facility], , CHEST 2 VIEW, 05/05/2017, 16:12. [facility], CR, XR CHEST 2V, 08/01/2018, 14:09. [facility], CR, XR CHEST 2V, 03/06/2019, 12:14. FINDINGS: Surgical changes and devices: None. Lungs and pleura: The previously described nodular appearance involving the right midlung is less conspicuous although there are persistent patchy opacities. There is also persistent right hilar opacity, which is unchanged. Recommend continued radiographic surveillance. Depending on level of clinical suspicion, noncontrast chest CT could be considered Background widespread bilateral scarring/atelectasis. No new consolidation. No pleural effusions or pneumothorax. Mediastinum: Mediastinal contours are normal. Heart size is normal. Bones and chest wall: No suspicious bony abnormalities. Soft tissues appear unremarkable. IMPRESSION: Slightly less conspicuous appearance of the previous ill-defined nodular opacities involving the right upper lobe, although ill-defined patchy opacities persist in this region. There is also right hilar nodular opacity which is unchanged. Recommend contrast-enhanced chest CT for more definitive evaluation of hilar nodule or lymphadenopathy. Alternatively, at clinical discretion, continued surveillance with short interval serial PA and lateral chest radiographs could be performed. Dictated by: Jonathan Tai M.D. on 03/19/2019 at 14:14 Approved by: Jonathan Tai M.D. on 03/19/2019 at 14:20
== END ==
PROVIDERS: Family Provider Family Medicine; PCP Family Medicine; Visit Provider Hospitalist
DX: J18.9 Pneumonia, unspecified organism (principal)
CPT/HCPCS: 71046

== ENCOUNTER → 2019-03-27 11:29 | Outpatient (CLI) | payer OTHER, MEDICARE, SELFPAY ==
[2019-03-27 12:24] LABS: Blood Urea Nitrogen 9 mg/dL (7-17); Calcium 8.8 mg/dL (8.4-10.2); Carbon Dioxide 31 mmol/L (22-32); Chloride 93 mmol/L (98-107); Estimated Glomerular Filt Rate > 60.0 mL/min (>60); Glucose 85 mg/dL (80-110); HEMOLYSIS < 15 (0-50); Potassium 4.5 mmol/L (3.4-5.1); Sodium 130 mmol/L (137-145)
== END ==
PROVIDERS: Family Provider Family Medicine; PCP Family Medicine; Visit Provider Hospitalist
DX: K74.60 Unspecified cirrhosis of liver (principal); R68.89 Other general symptoms and signs
CPT/HCPCS: 36415; 80048

== ENCOUNTER → 2019-03-28 10:24 | Outpatient (CLI) | payer OTHER, MEDICARE, SELFPAY ==
--- NOTE | 2019-03-28 10:34 | DI.CT.S_ITS ---
PROCEDURE: CT CHEST W CON INDICATIONS: Aspirations, chronic cough TECHNIQUE: After the administration of intravenous contrast, 5 mm thick sections acquired from the pulmonary apices to the posterior costophrenic angles. 7 mm thick coronal and sagittal MIP reformats were acquired. For radiation dose reduction, the following was used: automated exposure control, adjustment of mA and/or kV according to patient size. COMPARISON: [facility], , CHEST 2 VIEW, 05/05/2017, 16:12. [facility], CR, XR CHEST 2V, 08/01/2018, 14:09. [facility], CR, XR CHEST 2V, 03/19/2019, 13:25. FINDINGS: Image quality: Excellent. Lungs and pleura: No acute air space opacities, but there is a set of findings correlated with the two-view chest abnormal plain film findings from 03/19/19. Within the anterior left upper lobe bronchiectasis and chronic inflammatory consolidation is present, accounting for the anterior increased radiodensity seen on the lateral view in that area. There is, however, also a malignant appearing posterior paraspinous mass at almost the same axial level which is superimposed on the radiodensity of the spine on the lateral view of the chest from 03/19/19, difficult to accurately detect. This is located within the superior segment right lower lobe. This mass has thick camarena, contains central gas, and overall has a maximal AP and transverse dimension of 4.7 x 3.0 cm. Its maximal craniocaudad dimension is estimated at 4.9 cm. This mass is not associated with enlarged mediastinal or hilar lymph nodes. It does not clearly invade the adjacent chest wall. At the right lung base laterally there also is a small degree of alveolar airspace disease without mass, but with slight bronchiectasis centered on series 2 image 47. Centrilobular emphysema and pulmonary hyperexpansion is again noted. No pleural effusions or pneumothorax. Central and peripheral airways are patent and normal in caliber. Mediastinum: Heart size is normal. No pericardial effusion. No mediastinal or hilar adenopathy by size criteria. Thoracic aorta and central pulmonary arteries are normal in size. Esophagus is normal in caliber. No hiatal hernia. Bones and chest wall: No suspicious bony lesions. No vertebral body compression fractures. No axillary or supraclavicular adenopathy by size criteria. Thyroid gland appears normal where well visualized. Abdomen: Visualized upper abdominal solid organs appear normal except for nodular margination of the liver which appears cirrhotic in the small portion fully visualized by this study. The liver enhancement is mildly heterogeneous but without evidence of a discrete mass within.. Upper abdominal bowel loops are normal in caliber. IMPRESSION: 1. Severe COPD. Pulmonary hyperexpansion, centrilobular emphysema, presumed long-standing smoking history. 2. Malignant appearing centrally cavitary mass posterior medial right lower lobe, measuring up to 4.7 x 3.0 x 4.9 cm. Morphologically this statistically is more likely to represent a cavitary malignancy then a cavitary pneumonia. 3. Chronic infection is the likely cause for focal chronic appearing bronchiectasis and alveolar consolidation anterior right upper lobe. 4. Through the chest and visualized upper abdomen no metastatic disease is seen. Cirrhotic change appears present at the liver in a small portion visualized at the upper abdomen. 5. Nuclear medicine PET CT scanning is recommended to assist in establishing likelihood of malignancy and for staging purposes given the cavitary mass seen in the superior segment region of the right lower lobe. Dictated by: Jed Brandon M.D. on 03/28/2019 at 11:13 Approved by: Jed Brandon M.D. on 03/28/2019 at 11:20
== END ==
PROVIDERS: Family Provider Family Medicine; PCP Family Medicine; Visit Provider Hospitalist
DX: R05 Cough (principal); J43.2 Centrilobular emphysema; J47.9 Bronchiectasis, uncomplicated; R91.8 Other nonspecific abnormal finding of lung field; R93.89 Abnormal findings on diagnostic imaging of other specified body structures
CPT/HCPCS: 71260; Q9967

== ENCOUNTER → 2019-04-01 16:49 | Outpatient (CLI) | payer MEDICARE, OTHER, SELFPAY ==
[2019-04-01 18:51] LABS: Alanine Aminotransferase 26 IU/L (9-52); Albumin 3.5 g/dL (3.5-5.0); Albumin Globulin Ratio 0.9 (1.0-2.8); Alkaline Phosphatase 256 U/L (38-126); Aspartate Aminotransferase 48 IU/L (14-36); BUN Creatinine Ratio 16.7 (6-22); Bilirubin Total 0.4 mg/dL (0.2-1.3); Blood Urea Nitrogen 10 mg/dL (7-17); Calcium 8.6 mg/dL (8.4-10.2); Carbon Dioxide 29 mmol/L (22-32); Chloride 96 mmol/L (98-107); Estimated Glomerular Filt Rate > 60.0 mL/min (>60); Globulin 4.1 g/dL (1.7-4.1); Glucose 92 mg/dL (80-110); HEMOLYSIS < 15 (0-50); Potassium 4.5 mmol/L (3.4-5.1); Sodium 131 mmol/L (137-145); Total Protein 7.6 g/dL (6.3-8.2)
[2019-04-01 19:04] LABS: Add Manual Diff / Slide Review NO; Basophils Absolute Auto 0 /uL (0-100); Basophils Percent Auto 0.3 % (0-2); Eosinophils Absolute Auto 100 /uL (0-450); Eosinophils Percent Auto 1.1 % (2-4); Hematocrit 36.5 % (36-46); Hemoglobin 11.9 g/dL (12.0-16.0); Lymphocytes Absolute Auto 1000 /uL (1100-4500); Lymphocytes Percent Auto 14.1 % (25-40); Mean Corpuscular HGB Conc 32.5 % (30-36); Mean Corpuscular Hemoglobin 29.5 PG (26-34); Mean Corpuscular Volume 90.6 fL (80-100); Monocytes Absolute Auto 700 /uL (0-900); Monocytes Percent Auto 9.9 % (3-14); Neutrophils Absolute Auto 5100 /uL (1500-7000); Neutrophils Percent Auto 74.6 % (50-75); Platelet Count 174 X10^3/uL (150-400); Red Blood Cell Count 4.03 X10^6/uL (4.0-5.2); Red Cell Distribution Width 14.7 % (11.6-14.8); White Blood Cell Count 6.8 X10^3/uL (4.5-11.0)
== END ==
PROVIDERS: Family Provider Family Medicine; PCP Family Medicine; Visit Provider Internal Medicine Rheumatology
DX: M32.19 Other organ or system involvement in systemic lupus erythematosus (principal); Z79.899 Other long term (current) drug therapy
CPT/HCPCS: 36415; 80053; 85025

== ENCOUNTER → 2019-04-29 15:28 | Outpatient (CLI) | payer MEDICARE, OTHER, SELFPAY ==
[2019-04-29 17:12] LABS: Add Manual Diff / Slide Review NO; Basophils Absolute Auto 0 /uL (0-100); Basophils Percent Auto 0.3 % (0-2); Eosinophils Absolute Auto 0 /uL (0-450); Eosinophils Percent Auto 0.6 % (2-4); Hemoglobin 11.7 g/dL (12.0-16.0); Lymphocytes Absolute Auto 900 /uL (1100-4500); Mean Corpuscular HGB Conc 31.8 % (30-36); Mean Corpuscular Hemoglobin 29.1 PG (26-34); Mean Corpuscular Volume 91.5 fL (80-100); Monocytes Absolute Auto 500 /uL (0-900); Monocytes Percent Auto 8.4 % (3-14); Neutrophils Absolute Auto 4500 /uL (1500-7000); Neutrophils Percent Auto 75.7 % (50-75); Platelet Count 153 X10^3/uL (150-400); Red Blood Cell Count 4.04 X10^6/uL (4.0-5.2); Red Cell Distribution Width 14.8 % (11.6-14.8); White Blood Cell Count 5.9 X10^3/uL (4.5-11.0)
[2019-04-29 17:23] LABS: Alanine Aminotransferase 27 IU/L (9-52); Albumin 3.5 g/dL (3.5-5.0); Albumin Globulin Ratio 0.8 (1.0-2.8); Alkaline Phosphatase 208 U/L (38-126); Aspartate Aminotransferase 50 IU/L (14-36); BUN Creatinine Ratio 13.3 (6-22); Bilirubin Total 0.3 mg/dL (0.2-1.3); Blood Urea Nitrogen 8 mg/dL (7-17); Calcium 8.5 mg/dL (8.4-10.2); Carbon Dioxide 29 mmol/L (22-32); Chloride 100 mmol/L (98-107); Estimated Glomerular Filt Rate > 60.0 mL/min (>60); Globulin 4.2 g/dL (1.7-4.1); Glucose 96 mg/dL (80-110); HEMOLYSIS < 15 (0-50); Potassium 4.1 mmol/L (3.4-5.1); Sodium 135 mmol/L (137-145); Total Protein 7.7 g/dL (6.3-8.2)
== END ==
PROVIDERS: PCP Family Medicine; Visit Provider Internal Medicine Rheumatology
DX: M32.19 Other organ or system involvement in systemic lupus erythematosus (principal); Z79.899 Other long term (current) drug therapy
CPT/HCPCS: 36415; 80053; 85025

== ENCOUNTER → 2019-05-02 14:01 | Outpatient (CLI) | payer MEDICARE, OTHER, SELFPAY ==
--- NOTE | 2019-05-02 14:08 | DI.RAD.S_ITS ---
PROCEDURE: XR LUMBAR SPINE MIN 4V INDICATIONS: Fall, back pain TECHNIQUE: 5 views of the lumbar spine acquired. COMPARISON: [facility], CT, CT CHEST W CON, 03/28/2019, 10:39. FINDINGS: Bones: 5 nonrib-bearing vertebrae are present. There is mild levoscoliosis centered at L2-3 level. Chronic appearing mild anterior wedge compression deformity at L1 level is again seen, unchanged from prior studies. There is no acute vertebral body compression fractures. Degenerative endplate changes throughout lumbar spine is seen. No suspicious bony lesions. Soft tissues: Overlying bowel gas pattern is normal. No suspicious soft tissue calcifications. Flexion/extension: There is decreased range of motion, with preserved lumbar spine alignment. IMPRESSION: Degenerative disc disease throughout lumbar spine. No gross acute compression fracture or traumatic spondylolisthesis. Decreased range of motion with preserved lumbar spine alignment. Dictated by: Luis Fernando Grace M.D. on 05/02/2019 at 13:56 Approved by: Luis Fernando Grace M.D. on 05/02/2019 at 13:58
--- NOTE | 2019-05-02 14:08 | DI.RAD.S_ITS ---
PROCEDURE: XR WRIST LT MIN 3V INDICATIONS: Fall, wrist pain TECHNIQUE: 4 views of the wrist were acquired. COMPARISON: None. FINDINGS: Bones: Congenital ulnar negative variance is seen. Osteoarthritic changes are noted throughout wrist joints. No gross acute wrist fractures or dislocations. No suspicious bony lesions. Scaphoid view: Scaphoid is intact. Soft tissues: Chondrocalcinosis in the region of triangular fibrocartilage is seen. IMPRESSION: Osteoarthritis throughout left wrist. Negative ulnar variance. No gross acute wrist fracture or dislocation. Dictated by: Luis Fernando Grace M.D. on 05/02/2019 at 13:58 Approved by: Luis Fernando Grace M.D. on 05/02/2019 at 14:00
== END ==
PROVIDERS: PCP Family Medicine; Visit Provider Physician Assistant
DX: S39.92XA Unspecified injury of lower back, initial encounter (principal); M25.532 Pain in left wrist; M51.36 Other intervertebral disc degeneration, lumbar region; M19.032 Primary osteoarthritis, left wrist; W19.XXXA Unspecified fall, initial encounter
CPT/HCPCS: 72110; 73110

== ENCOUNTER → 2019-05-03 16:05 | Outpatient (CLI) | payer MEDICARE, OTHER, SELFPAY ==
--- NOTE | 2019-05-03 16:07 | DI.RAD.S_ITS ---
PROCEDURE: XR CHEST 2V INDICATIONS: f/u pneumonia TECHNIQUE: 2 views of the chest were acquired. COMPARISON: [facility], [place], [place] PET CT FUSION SKULL 2 THIGH, 04/10/2019, 13:41. [facility], CT, CT CHEST W CON, 03/28/2019, 10:39. [facility], CR, XR CHEST 2V, 03/19/2019, 13:25. FINDINGS: Surgical changes and devices: None. Lungs and pleura: Lungs are hyperinflated consistent with COPD. Right upper lobe and perihilar opacities are unchanged. No pleural effusions or pneumothorax. Mediastinum: Mediastinal contours are normal. Heart size is normal. Right hilar fullness. Bones and chest wall: No suspicious bony abnormalities. Soft tissues appear unremarkable. IMPRESSION: Unchanged right upper lobe and perihilar opacities. Dictated by: Patricia Salter M.D. on 05/03/2019 at 16:45 Approved by: Patricia Salter M.D. on 05/03/2019 at 16:49
== END ==
PROVIDERS: PCP Family Medicine; Visit Provider Hospitalist
DX: J18.9 Pneumonia, unspecified organism (principal)
CPT/HCPCS: 71046

== ENCOUNTER → 2019-05-13 11:45 | Outpatient (CLI) | payer MEDICARE, OTHER, SELFPAY | PROVIDERS: PCP Family Medicine; Visit Provider Podiatrist Primary Podiatric Medicine | DX: S81.802D Unspecified open wound, left lower leg, subsequent encounter (principal) | CPT/HCPCS: 99203; 99213 ==

== ENCOUNTER → 2019-05-20 09:53 | Outpatient (CLI) | payer MEDICARE, OTHER, SELFPAY | PROVIDERS: PCP Family Medicine; Visit Provider Family Medicine | DX: S81.802A Unspecified open wound, left lower leg, initial encounter (principal); I87.2 Venous insufficiency (chronic) (peripheral); M79.662 Pain in left lower leg | CPT/HCPCS: 29581; 99212; 99214 ==

== ENCOUNTER 2019-05-26 15:17 | Emergency (ER) | payer MEDICARE, OTHER, SELFPAY ==
[2019-05-26 15:23] VITALS: BP 160/67; PULSE 75; RESP 20; TEMP 36.9; O2SAT 97
--- NOTE | 2019-05-26 15:33 | PC.NURSE ---
Hematoma/blister on left anterior oh from hitting a coffee table a week ago. Came in today related to it's increased redness around the old blood hematoma. Pt reports it's painful walking on it.
--- NOTE | 2019-05-26 15:49 | ED.LOWEXIN ---
HPI - Extremity Injury (Lower) General Chief Complaint: Extremity Injury, Lower Stated Complaint: Wound on lower lft leg Time Seen by Provider: 05/26/19 15:28 Source: patient Mode of arrival: ambulatory Limitations: no limitations History of Present Illness HPI Narrative: Patient presents emergency department complaining of redness around a hematoma that has been on her left lower leg for the last week. Patient states she bumped her leg against a metal table at home, and ended up with a ?blood blister?. Patient states that she has already seen [facility] other wounds, and they have been following her hematoma, as well. The patient states that it has not grown in volume, but has seemed to have spread out over the last several days this. Patient states that she began to notice a rim of redness surrounding the area 2 days ago, and that this has grown larger. She has not experiencing any fevers, and has not noticed any streaking or swelling. No other complaints at this time. The patient denies feeling ill. She states she has an appointment with wound care clinic tomorrow morning at 10:00. Related Data Home Medications Medication Instructions Recorded Confirmed mycophenolate mofetil 1,000 mg PO BID 03/19/18 05/16/19 lactulose 10 gram/15 mL oral 10 gram PO DAILY PRN 04/25/18 05/16/19 solution Bifidobacterium infantis [Align] 1 cap PO DAILY PRN 06/11/18 05/16/19 denosumab [Prolia] 1 dose SUB-Q [id number] 06/11/18 05/16/19 calcium carb 300 mg-D3 800 1 tab PO DAILY 08/30/18 05/16/19 unit-mag ox 25 mg-classified copy control clerk 0.5 mg-warren-Zn tablet diphenhydramine 25 mg capsule 25 mg PO BEDTIME PRN 08/30/18 05/16/19 prednisone 1 mg tablet 3 mg PO QDAY #0 tab 03/06/19 05/16/19 Previous Rx's Medication Instructions Recorded levothyroxine 88 mcg tablet 88 mcg PO QAM #30 tab 05/15/18 metronidazole 1 % topical cream 1 applictn TOP DAILY #60 gram 08/02/18 estradiol 0.01% (0.1 mg/gram) 0.01 % VAGINAL SEE INSTRUCTIONS 08/15/18 vaginal cream #45 gm ketoconazole 2 % topical cream 1 applictn TOP BID #30 gram 09/25/18 duloxetine 60 mg capsule,delayed 60 mg PO DAILY #30 cap 10/03/18 release folic acid 1 mg tablet 1 mg PO BID #60 tab 10/31/18 clonazepam 1 mg tablet 1 mg PO QIDP PRN #120 tab 11/01/18 oxycodone 5 mg tablet 5 mg PO Q6HP PRN #30 tab 11/01/18 potassium chloride ER 8 mEq 16 meq PO BID #180 cap 11/16/18 capsule,extended release ferrous sulfate 325 mg (65 mg 325 mg PO BID #60 tab 02/04/19 iron) tablet albuterol sulfate HFA 90 2 puff INHALATION Q4-6H PRN #8.5 03/08/19 mcg/actuation aerosol inhaler gram ranitidine 150 mg tablet 150 mg PO BID #60 tab 03/08/19 fesoterodine ER 4 mg 4 mg PO BEDTIME #90 tab 05/07/19 tablet,extended release 24 hr diclofenac 1 % topical gel 2 gram TOP QID #100 gram 05/09/19 doxycycline monohydrate 100 mg 100 mg PO BID #10 cap 05/09/19 capsule mupirocin 2 % topical ointment 1 applictn TOP TID #30 gram 05/09/19 lidocaine 5 % topical patch 1 patch TOP DAILY #15 each 05/16/19 sulfamethoxazole-trimethoprim 1 tab PO BID #14 tab 05/26/19 [Bactrim DS] Allergies Allergy/AdvReac Type Severity Reaction Status Date / Time codeine [CODEINE] Allergy Mild intolerant, Verified 05/26/19 16:12 headaches,n ightmares dicloxacillin [DICLOXACILLIN] Allergy Mild Verified 05/26/19 16:12 levofloxacin [LEVOFLOXACIN] Allergy Mild Verified 05/26/19 16:12 lorazepam [LORAZEPAM] Allergy Mild intolerant Verified 05/26/19 16:12 av thornton ciprofloxacin [CIPROFLOXACIN] Allergy Unknown Verified 05/26/19 16:12 hydroxychloroquine AdvReac Mild visual Verified 05/26/19 16:12 [From Plaquenil] disturbances Review of Systems Constitutional Denies chills, Denies fever(s), Denies lethargy and Denies weakness Eyes Denies change in vision, Denies eye discharge, Denies irritation and Denies loss of vision ENT Ears, Nose, Mouth, and Throat: Denies change in voice, Denies neck pain and Denies sore throat Cardiovascular Denies chest pain, Denies irregular heart rhythm, Denies lightheadedness, Denies palpitations, Denies dyspnea, Denies dyspnea on exertion and Denies orthopnea Respiratory Denies cough, Denies dyspnea, Denies dyspnea on exertion and Denies wheezing Gastrointestinal Gastrointestinal: Denies abdominal pain, Denies change in bowel habits, Denies diarrhea, Denies nausea and Denies vomiting Genitourinary Denies hematuria, Denies flank pain, Denies urinary incontinence and Denies urinary urgency Musculoskeletal Denies neck pain Integumentary/Breasts Denies pruritus, Reports erythema, Denies rash and Denies wounds Comments: Hematoma left lower leg Neurologic Denies confusion, Denies loss of vision and Denies weakness Psychiatric Denies anxiety, Denies confusion, Denies depression, Denies homicidal ideation and Denies suicidal ideation Endocrine Denies palpitations Hematologic/Lymphatic Denies easy bruising Allergic/Immunologic Denies wheezing [facility] Medical History 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) Underweight (Chronic) Osteoporosis (Chronic) Compression fracture of L4 vertebra (Acute ~11/2018) Heart murmur (Chronic) 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) Osteopenia (Chronic) Diverticulitis large intestine (Resolved 06/01/11) Irritable bowel syndrome (Acute 06/01/11) Hematuria, unspecified (Acute 06/01/11) Atrophic vaginitis (Chronic) Autoimmune hepatitis (Chronic 08/13/15) Stage 3 chronic kidney disease (Chronic 08/13/15) Acquired hypothyroidism (Chronic 08/13/15) Systemic lupus erythematosus (Chronic 08/13/15) Autoimmune pancytopenia (Chronic) Hepatitis, autoimmune (Chronic 2001) Hypertension (Chronic) Hypothyroidism (Chronic) Lupus (Chronic) Sinusitis (Chronic) Surgical History History of breast biopsy (Acute) History of esophagogastroduodenoscopy (EGD) (Acute ~02/2018) History of liver biopsy (Acute) Fracture of pelvis (Resolved 2013) History of cataract removal with insertion of prosthetic lens (Resolved 2005) Status post colonoscopy (Resolved 2008) Status post tubal ligation (Resolved) Family History Mother Cancer Brother Stroke Social History marital status: Smoking Status: Former smoker alcohol intake: never substance use type: does not use Family History Mother Cancer Brother Stroke Social History marital status: Smoking Status: Former smoker alcohol intake: never substance use type: does not use Exam Initial Vital Signs Initial Vital Signs: Vital Signs Temperature 98.4 F 05/26/19 15:23 Pulse Rate 75 05/26/19 15:23 Respiratory Rate 20 05/26/19 15:23 Blood Pressure 160/67 H 05/26/19 15:23 Pulse Oximetry 97 05/26/19 15:23 Const General: cooperative and well developed Nutritional Appearance: well nourished Orientation: alert, awake, oriented x3 and not confused HENUT Head: normocephalic and atraumatic Ears: external ears normal and TM's normal bilaterally Nose: external nose normal and No nasal discharge Face and sinus: sinuses nontender, face symmetric, no sinus tenderness and No dry mucous membranes Mouth: oral mucosae normal and moist mucous membranes Teeth and gingiva: dentition normal Throat: tonsils normal and uvula midline Eyes General: appearance normal, both eyes and all related structures Eyelids: eyelids normal Conjunctivae: conjunctivae normal Sclera: sclerae normal Pupils: PERRL EOM: EOM intact bilaterally Neck Neck: normal visual inspection, trachea midline, No lymphadenopathy, No midline deformity and No JVD Lymphatic: No lymphedema Chest Chest: normal inspection of the chest Resp Effort & Inspection: normal respiratory effort, able to speak in complete sentences, no respiratory distress and no use of accessory muscles Auscultation: clear to auscultation bilaterally, no rales, no rhonchi and no wheezes Cardio Rate: regular rate Rhythm: regular rhythm Heart Sounds: no click, no gallops, no murmurs and no rubs Pulses: normal peripheral pulses Back/Spine/Pelvis Back: No CVA tenderness Cervical Spine: cervical ROM normal and No pain with cervical ROM Thoracic/Lumbar Spine: thoracic and lumbar spine normal to inspection Skin General: no rashes or lesions noted, No jaundice and No petechiae Other: Patient has a superficial hematoma/hemorrhagic bulla which is approximately 4 cm by 2.5 cm in diameter. There is mild fluctuance. Skin is intact overlying the area. Patient has an approximately 1.5 cm diameter rim of intense erythema surrounding the hematoma. No streaking. No induration of the tissue. There is mild tenderness. No fluctuance of the tissue was self. Neuro General: alert, oriented x3, gait normal and no focal motor deficits Speech: speech normal Extrem General: full ROM, no clubbing, cyanosis or edema, no pedal edema and no calf tenderness Psych Appearance: well kempt Mental Status: mental status grossly normal Attitude: cooperative Thought Content: normal and suicidality Judgment: judgment good Course Course Narrative: I discussed with the patient that it is possible that the erythema is due simply to reaction from the pressure exerted from the hematoma and it is dissection of the skin. However, it is possible that there is an early cellulitis, and given the patient's multiple underlying autoimmune conditions, I do feel that the patient should be started on antibiotics. Patient was given a dose of Bactrim here in the emergency department. She is instructed to follow up for her wound care appointment tomorrow morning, as planned. We have discussed the usual indications for return. Orders Ordered: Discontinued Medications Trimethoprim/Sulfamethoxazole (Bactrim Ds) 1 tab PO NOW ONE Stop: 05/26/19 16:04 Vital Signs - 8 hr 05/26/19 15:23 Temperature 98.4 F Pulse Rate 75 Respiratory Rate 20 Blood Pressure 160/67 H Pulse Oximetry 97 MDM - Extremity Injury (Lower) Medical Records Attestation: I reviewed the patient's medical records. Discharge Plan Departure Patient Disposition: Home Clinical Impression: Superficial hematoma Cellulitis Qualifiers: Site of cellulitis: extremity Site of cellulitis of extremity: lower extremity Laterality: left Qualified Code(s): L03.116 - Cellulitis of left lower limb Instructions: DI for Cellulitis -- Adult Activity Restrictions/Additional Instructions: Please keep your appointment with wound care tomorrow morning. Prescriptions: New sulfamethoxazole-trimethoprim [Bactrim DS] 800-160 mg tablet 1 tab PO BID Qty: 14 RF: 0 No Action Ca carb-D3-mag [id number] [Caltrate + D3 Plus Minerals] 300 mg-800 unit -25 mg-0.5 mg tablet 1 tab PO DAILY RF: 0 diphenhydramine HCl [Benadryl] 25 mg capsule 25 mg PO BEDTIME PRNRF: 0 levothyroxine 88 mcg tablet 88 mcg PO QAM Qty: 30 RF: 11 estradiol [Estrace] 0.01 % (0.1 mg/gram) cream 0.01 % Vaginal SEE INSTRUCTIONS Qty: 45 RF: 11 duloxetine 60 mg capsule,delayed release(DR/EC) 60 mg PO DAILY Qty: 30 RF: 5 folic acid 1 mg tablet 1 mg PO BID Qty: 60 RF: 4 oxycodone 5 mg tablet 5 mg PO Q6HP PRN (Reason: Pain, Severe) Qty: 30 RF: 0 clonazepam 1 mg tablet 1 mg PO QIDP PRN (Reason: anxiety) Qty: 120 RF: 1 potassium chloride 8 mEq capsule, extended release 16 meq PO BID Qty: 180 RF: 6 ferrous sulfate [Iron (ferrous sulfate)] 325 mg (65 mg iron) tablet 325 mg PO BID Qty: 60 RF: 1 prednisone 1 mg tablet 3 mg PO QDAY Qty: 0 RF: 0 albuterol sulfate [ProAir HFA] 90 mcg/actuation HFA aerosol inhaler 2 puff INHALATION Q4-6H PRN (Reason: shortness of breath) Qty: 8.5 RF: 0 ranitidine HCl 150 mg tablet 150 mg PO BID Qty: 60 RF: 0 Toviaz 4 mg tablet extended release 24 hr 4 mg PO BEDTIME Qty: 90 RF: 0 lidocaine 5 % adhesive patch,medicated 1 patch TOP DAILY Qty: 15 RF: 5 lactulose 10 gram/15 mL solution 10 gram PO DAILY PRN (Reason: Laxative Effect) RF: 0 metronidazole 1 % cream 1 applictn TOP DAILY Qty: 60 RF: 0 ketoconazole 2 % cream 1 applictn TOP BID Qty: 30 RF: 0 diclofenac sodium 1 % gel 2 gram TOP QID Qty: 100 RF: 0 doxycycline monohydrate 100 mg capsule 100 mg PO BID Qty: 10 RF: 0 mupirocin 2 % ointment 1 applictn TOP TID Qty: 30 RF: 0 mycophenolate mofetil 500 mg Tablet 1,000 mg PO BID RF: 0 Bifidobacterium infantis [Align] 4 mg Capsule 1 cap PO DAILY PRN (Reason: Diarrhea) RF: 0 denosumab [Prolia] 60 mg/mL Syringe 1 dose Sub-Q [id number] RF: 0 Referrals: Rosalina Hylton DO [Primary Care Provider] -
[2019-05-26] MEDS: TRIMETH/SULFA 160/800 (DS) TABLET 1 TAB PO (16:11)
[2019-05-26 16:33] VITALS: BP 130/72; PULSE 68; RESP 16; O2SAT 99
== END 2019-05-26 16:35 | disposition home or self-care (01) ==
PROVIDERS: Emergency Provider Emergency Medicine; PCP Family Medicine
DX: S80.12XA Contusion of left lower leg, initial encounter (principal); L03.116 Cellulitis of left lower limb; W22.8XXA Striking against or struck by other objects, initial encounter
CPT/HCPCS: 99282; 99283

== ENCOUNTER → 2019-05-27 14:30 | Outpatient (CLI) | payer MEDICARE, OTHER, SELFPAY | PROVIDERS: PCP Family Medicine; Visit Provider Podiatrist Primary Podiatric Medicine | DX: S81.802D Unspecified open wound, left lower leg, subsequent encounter (principal) | CPT/HCPCS: 99213; 99214 ==

== ENCOUNTER → 2019-05-27 15:38 | Outpatient (CLI) | payer MEDICARE, OTHER, SELFPAY ==
[2019-05-27 16:05] LABS: Add Manual Diff / Slide Review NO; Basophils Absolute Auto 100 /uL (0-100); Basophils Percent Auto 0.9 % (0-2); Eosinophils Absolute Auto 0 /uL (0-450); Eosinophils Percent Auto 0.6 % (2-4); Hematocrit 37.5 % (36-46); Hemoglobin 12.4 g/dL (12.0-16.0); Lymphocytes Absolute Auto 900 /uL (1100-4500); Lymphocytes Percent Auto 12.8 % (25-40); Mean Corpuscular HGB Conc 32.9 % (30-36); Mean Corpuscular Volume 91.1 fL (80-100); Monocytes Absolute Auto 500 /uL (0-900); Monocytes Percent Auto 7.4 % (3-14); Neutrophils Absolute Auto 5400 /uL (1500-7000); Neutrophils Percent Auto 78.3 % (50-75); Platelet Count 184 X10^3/uL (150-400); Red Blood Cell Count 4.12 X10^6/uL (4.0-5.2); Red Cell Distribution Width 14.5 % (11.6-14.8); White Blood Cell Count 6.9 X10^3/uL (4.5-11.0)
[2019-05-27 16:44] LABS: Alanine Aminotransferase 20 IU/L (9-52); Albumin 3.7 g/dL (3.5-5.0); Albumin Globulin Ratio 0.9 (1.0-2.8); Alkaline Phosphatase 195 U/L (38-126); Aspartate Aminotransferase 42 IU/L (14-36); BUN Creatinine Ratio 18.6 (6-22); Bilirubin Total 0.5 mg/dL (0.2-1.3); Blood Urea Nitrogen 13 mg/dL (7-17); Calcium 9.1 mg/dL (8.4-10.2); Carbon Dioxide 26 mmol/L (22-32); Chloride 96 mmol/L (98-107); Estimated Glomerular Filt Rate > 60.0 mL/min (>60); Globulin 4.1 g/dL (1.7-4.1); Glucose 97 mg/dL (80-110); HEMOLYSIS < 15 (0-50); Potassium 4.7 mmol/L (3.4-5.1); Sodium 131 mmol/L (137-145); Total Protein 7.8 g/dL (6.3-8.2)
== END ==
PROVIDERS: PCP Family Medicine; Visit Provider Internal Medicine Rheumatology
DX: M32.19 Other organ or system involvement in systemic lupus erythematosus (principal); Z79.899 Other long term (current) drug therapy
CPT/HCPCS: 36415; 80053; 85025

== ENCOUNTER → 2019-06-10 10:11 | Outpatient (CLI) | payer MEDICARE, OTHER, SELFPAY | PROVIDERS: PCP Hospitalist; Visit Provider Podiatrist Primary Podiatric Medicine | DX: S81.802D Unspecified open wound, left lower leg, subsequent encounter (principal); M79.662 Pain in left lower leg; B35.1 Tinea unguium | CPT/HCPCS: 99213 ==

== ENCOUNTER 2019-06-12 15:07 | Emergency (ER) | payer MEDICARE, OTHER, SELFPAY ==
[2019-06-12 15:18] VITALS: BP 128/67; PULSE 68; RESP 18; TEMP 36.8; O2SAT 99; BMI 18.3
[2019-06-12 19:21] VITALS: BP 166/76; PULSE 61; RESP 14; O2SAT 99
--- NOTE | 2019-06-12 19:59 | ED.LOWEXIN ---
HPI - Extremity Injury (Lower) General Chief Complaint: Extremity Injury, Lower Stated Complaint: SWOLLEN LEFT LOWER LEG Time Seen by Provider: 06/12/19 18:53 Source: patient Mode of arrival: ambulatory Limitations: no limitations History of Present Illness HPI Narrative: Patient presents emergency department complaining of a swollen, red left ankle and foot. The patient has been treated for multiple chronic lower extremity wounds, and is followed in wound Care Clinic for this. She was placed on antibiotics a couple of weeks ago for a hematoma which appeared to be in the early stages of cellulitis formation of the surrounding tissue. Patient states she completed her course of antibiotics and has been doing fine, but for the last couple of days, she has noticed increasing erythema and edema around her left ankle and foot. Patient denies any new injuries. She is not currently on any antibiotics. No new drainage out of any of her wounds. Patient states she is scheduled to go to wound Care Clinic again tomorrow. No fevers or chills. No other complaints at this time. Related Data Home Medications Medication Instructions Recorded Confirmed mycophenolate mofetil 1,000 mg PO BID 03/19/18 06/16/19 lactulose 10 gram/15 mL oral 10 gram PO DAILY PRN 04/25/18 06/16/19 solution Bifidobacterium infantis [Align] 1 cap PO DAILY PRN 06/11/18 06/16/19 denosumab [Prolia] 1 dose SUB-Q [id number] 06/11/18 06/16/19 calcium carb 300 mg-D3 800 1 tab PO DAILY 08/30/18 06/16/19 unit-mag ox 25 mg-advertising copywriter 0.5 mg-warren-Zn tablet diphenhydramine 25 mg capsule 25 mg PO BEDTIME PRN 08/30/18 06/16/19 amoxicillin-pot clavulanate 1 tab PO BID 06/12/19 06/16/19 diclofenac sodium 2 g TOPICAL QID 06/12/19 06/16/19 fesoterodine [Toviaz] 4 mg PO DAILY 06/12/19 06/16/19 prednisone 1 dose PO DAILY 06/12/19 06/16/19 Previous Rx's Medication Instructions Recorded metronidazole 1 % topical cream 1 applictn TOP DAILY #60 gram 08/02/18 estradiol 0.01% (0.1 mg/gram) 0.01 % VAGINAL SEE INSTRUCTIONS 08/15/18 vaginal cream #45 gm ketoconazole 2 % topical cream 1 applictn TOP BID #30 gram 09/25/18 duloxetine 60 mg capsule,delayed 60 mg PO DAILY #30 cap 10/03/18 release folic acid 1 mg tablet 1 mg PO BID #60 tab 10/31/18 oxycodone 5 mg tablet 5 mg PO Q6HP PRN #30 tab 11/01/18 potassium chloride ER 8 mEq 16 meq PO BID #180 cap 11/16/18 capsule,extended release ferrous sulfate 325 mg (65 mg 325 mg PO BID #60 tab 02/04/19 iron) tablet albuterol sulfate HFA 90 2 puff INHALATION Q4-6H PRN #8.5 03/08/19 mcg/actuation aerosol inhaler gram ranitidine 150 mg tablet 150 mg PO BID #60 tab 03/08/19 mupirocin 2 % topical ointment 1 applictn TOP TID #30 gram 05/09/19 lidocaine 5 % topical patch 1 patch TOP DAILY #15 each 05/16/19 sulfamethoxazole-trimethoprim 1 tab PO BID #14 tab 05/26/19 [Bactrim DS] cyclobenzaprine 5 mg tablet 5 mg PO BEDTIME PRN #10 tab 06/06/19 clonazepam 1 mg tablet 1 mg PO BID PRN #60 tab 06/12/19 sulfamethoxazole-trimethoprim 1 tab PO BID #14 tab 06/12/19 [Bactrim DS] levothyroxine 88 mcg tablet 88 mcg PO QAM #30 tab 06/14/19 mupirocin 2 % topical ointment 1 applic TOP TID #30 gram 06/16/19 Allergies Allergy/AdvReac Type Severity Reaction Status Date / Time codeine [CODEINE] Allergy Mild intolerant, Verified 06/16/19 14:56 headaches,n ightmares dicloxacillin [DICLOXACILLIN] Allergy Mild Verified 06/16/19 14:56 levofloxacin [LEVOFLOXACIN] Allergy Mild Verified 06/16/19 14:56 lorazepam [LORAZEPAM] Allergy Mild intolerant Verified 06/16/19 14:56 av thornton ciprofloxacin [CIPROFLOXACIN] Allergy Unknown Verified 06/16/19 14:56 hydroxychloroquine AdvReac Mild visual Verified 06/16/19 14:56 [From Plaquenil] disturbances Review of Systems Constitutional Denies chills, Denies fever(s), Denies lethargy and Denies weakness Eyes Denies change in vision, Denies eye discharge, Denies irritation and Denies loss of vision ENT Ears, Nose, Mouth, and Throat: Denies change in voice, Denies neck pain and Denies sore throat Cardiovascular Denies chest pain, Denies irregular heart rhythm, Denies lightheadedness, Denies palpitations, Denies dyspnea, Denies dyspnea on exertion and Denies orthopnea Respiratory Denies cough, Denies dyspnea, Denies dyspnea on exertion and Denies wheezing Gastrointestinal Gastrointestinal: Denies abdominal pain, Denies change in bowel habits, Denies diarrhea, Denies nausea and Denies vomiting Genitourinary Denies hematuria, Denies flank pain, Denies urinary incontinence and Denies urinary urgency Musculoskeletal Denies neck pain Integumentary/Breasts Denies pruritus, Reports erythema, Denies rash and Reports wounds Neurologic Denies confusion, Denies loss of vision and Denies weakness Psychiatric Denies anxiety, Denies confusion, Denies depression, Denies homicidal ideation and Denies suicidal ideation Endocrine Denies palpitations Hematologic/Lymphatic Denies easy bruising Allergic/Immunologic Denies wheezing [facility] Medical History 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) Underweight (Chronic) Osteoporosis (Chronic) Compression fracture of L4 vertebra (Acute ~11/2018) Heart murmur (Chronic) 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) Osteopenia (Chronic) Diverticulitis large intestine (Resolved 06/01/11) Irritable bowel syndrome (Acute 06/01/11) Hematuria, unspecified (Acute 06/01/11) Atrophic vaginitis (Chronic) Autoimmune hepatitis (Chronic 08/13/15) Stage 3 chronic kidney disease (Chronic 08/13/15) Acquired hypothyroidism (Chronic 08/13/15) Systemic lupus erythematosus (Chronic 08/13/15) Autoimmune pancytopenia (Chronic) Hepatitis, autoimmune (Chronic 2001) Hypertension (Chronic) Hypothyroidism (Chronic) Lupus (Chronic) Sinusitis (Chronic) Surgical History History of breast biopsy (Acute) History of esophagogastroduodenoscopy (EGD) (Acute ~02/2018) History of liver biopsy (Acute) Fracture of pelvis (Resolved 2013) History of cataract removal with insertion of prosthetic lens (Resolved 2005) Status post colonoscopy (Resolved 2008) Status post tubal ligation (Resolved) Family History Mother Cancer Brother Stroke Social History marital status: Smoking Status: Former smoker alcohol intake: never substance use type: does not use Family History Mother Cancer Brother Stroke Social History marital status: Smoking Status: Former smoker alcohol intake: never substance use type: does not use Exam Initial Vital Signs Initial Vital Signs: Vital Signs Temperature 98.2 F 06/12/19 15:18 Pulse Rate 68 06/12/19 15:18 Respiratory Rate 18 06/12/19 15:18 Blood Pressure 128/67 06/12/19 15:18 Pulse Oximetry 99 06/12/19 15:18 Const General: cooperative and well developed Nutritional Appearance: well nourished Orientation: alert, awake, oriented x3 and not confused HENVA Head: normocephalic and atraumatic Ears: external ears normal and TM's normal bilaterally Nose: external nose normal and No nasal discharge Face and sinus: sinuses nontender, face symmetric, no sinus tenderness and No dry mucous membranes Mouth: oral mucosae normal and moist mucous membranes Teeth and gingiva: dentition normal Throat: tonsils normal and uvula midline Eyes General: appearance normal, both eyes and all related structures Eyelids: eyelids normal Conjunctivae: conjunctivae normal Sclera: sclerae normal Pupils: PERRL EOM: EOM intact bilaterally Neck Neck: normal visual inspection, trachea midline, No lymphadenopathy, No midline deformity and No JVD Lymphatic: No lymphedema Chest Chest: normal inspection of the chest Resp Effort & Inspection: normal respiratory effort, able to speak in complete sentences, no respiratory distress and no use of accessory muscles Auscultation: clear to auscultation bilaterally, no rales, no rhonchi and no wheezes Cardio Rate: regular rate Rhythm: regular rhythm Heart Sounds: no click, no gallops, no murmurs and no rubs Pulses: normal peripheral pulses GI Inspection: non-distended Palpation: soft, no hepatosplenomegaly, No guarding, No pulsatile mass and No tender Auscultation: normal bowel sounds Back/Spine/Pelvis Back: No CVA tenderness Cervical Spine: cervical ROM normal and No pain with cervical ROM Thoracic/Lumbar Spine: thoracic and lumbar spine normal to inspection Skin General: No jaundice and No petechiae Other: Patient is noted to have several superficial wounds on her left lower leg. She is noted to have moderate edema and erythema involving the anterior aspect of her left ankle as well as the dorsum of her left foot. Wounds are moist, but no obvious purulence drainage is noted. No fluctuance or induration. No exudate is expressible from the wounds. Neuro General: alert, oriented x3, gait normal and no focal motor deficits Speech: speech normal Extrem General: full ROM, no clubbing, cyanosis or edema, no pedal edema and no calf tenderness Psych Appearance: well kempt Mental Status: mental status grossly normal Attitude: cooperative Thought Content: normal and suicidality Judgment: judgment good Course Course Narrative: Patient was restarted on Bactrim in the emergency department. I have discussed with her that it will likely take a couple of days for this to really start making a noticeable difference, although the bacteria saddle action will start immediately. I have discussed with the patient that if the area of redness seems to be rapidly spreading, or if after couple days, there is not noticeable shrinkage of the area of erythema, then she should have the wound rechecked. The patient may run fevers on and off for the next couple of days, but that should be expected to pass within that time as the antibiotics really start to take effect. I have discussed with her once again that anyone evidence of worsening infection should prompt her immediate re-evaluation. Wounds have been re-dressed in the emergency department. We have discussed the usual indications for return. Orders Ordered: Discontinued Medications Lidocaine/Sodium Bicarbonate (Buffered Lidocaine 10 Ml Syr) 10 ml INJ NOW ONE Stop: 06/12/19 19:53 Trimethoprim/Sulfamethoxazole (Bactrim Ds) 1 tab PO NOW ONE Stop: 06/12/19 19:56 Last Admin: 06/12/19 20:15 Dose: 1 tab Vital Signs - 8 hr 06/12/19 15:18 06/12/19 19:21 Temperature 98.2 F Pulse Rate 68 61 Respiratory Rate 18 14 Blood Pressure 128/67 Blood Pressure [Right Arm] 166/76 H Pulse Oximetry 99 99 MDM - Extremity Injury (Lower) Medical Records Attestation: I reviewed the patient's medical records. Discharge Plan Departure Patient Disposition: Home Clinical Impression: Cellulitis Qualifiers: Site of cellulitis: extremity Site of cellulitis of extremity: lower extremity Laterality: left Qualified Code(s): L03.116 - Cellulitis of left lower limb Discharge Date/Time: 06/12/19 20:25 Interventions: ED Discharge Assessment Last Done: 06/12/19 20:24 Instructions: DI for Cellulitis -- Adult Activity Restrictions/Additional Instructions: Please take the Bactrim in addition to the Augmentin you are already taking. It is very important that you take both antibiotics, as each antibiotic is treating a separate condition. Please follow up with wound Care Clinic as scheduled. If in the next few days you notice that your redness is still spreading, please be re-evaluated by your primary doctor. Your prescription has been electronically submitted to the [facility] in [place]. Prescriptions: New sulfamethoxazole-trimethoprim [Bactrim DS] 800-160 mg tablet 1 tab PO BID Qty: 14 RF: 0 No Action Ca carb-D3-mag [id number] [Caltrate + D3 Plus Minerals] 300 mg-800 unit -25 mg-0.5 mg tablet 1 tab PO DAILY RF: 0 diphenhydramine HCl [Benadryl] 25 mg capsule 25 mg PO BEDTIME PRN (Reason: Insomnia) RF: 0 mupirocin 2 % ointment 1 applic TOP TID Qty: 30 RF: 0 estradiol [Estrace] 0.01 % (0.1 mg/gram) cream 0.01 % Vaginal SEE INSTRUCTIONS Qty: 45 RF: 11 duloxetine 60 mg capsule,delayed release(DR/EC) 60 mg PO DAILY Qty: 30 RF: 5 folic acid 1 mg tablet 1 mg PO BID Qty: 60 RF: 4 oxycodone 5 mg tablet 5 mg PO Q6HP PRN (Reason: Pain, Severe) Qty: 30 RF: 0 potassium chloride 8 mEq capsule, extended release 16 meq PO BID Qty: 180 RF: 6 ferrous sulfate [Iron (ferrous sulfate)] 325 mg (65 mg iron) tablet 325 mg PO BID Qty: 60 RF: 1 albuterol sulfate [ProAir HFA] 90 mcg/actuation HFA aerosol inhaler 2 puff INHALATION Q4-6H PRN (Reason: shortness of breath) Qty: 8.5 RF: 0 ranitidine HCl 150 mg tablet 150 mg PO BID Qty: 60 RF: 0 lidocaine 5 % adhesive patch,medicated 1 patch TOP DAILY Qty: 15 RF: 5 clonazepam 1 mg tablet 1 mg PO BID PRN (Reason: anxiety) Qty: 60 RF: 1 levothyroxine 88 mcg tablet 88 mcg PO QAM Qty: 30 RF: 2 lactulose 10 gram/15 mL solution 10 gram PO DAILY PRN (Reason: Laxative Effect) RF: 0 metronidazole 1 % cream 1 applictn TOP DAILY Qty: 60 RF: 0 ketoconazole 2 % cream 1 applictn TOP BID Qty: 30 RF: 0 mupirocin 2 % ointment 1 applictn TOP TID Qty: 30 RF: 0 cyclobenzaprine 5 mg tablet 5 mg PO BEDTIME PRN (Reason: muscle spasm) Qty: 10 RF: 0 sulfamethoxazole-trimethoprim [Bactrim DS] 800-160 mg tablet 1 tab PO BID Qty: 14 RF: 0 amoxicillin-pot clavulanate 875-125 mg tablet 1 tab PO BID RF: 0 diclofenac sodium 1 % gel 2 g topical QID RF: 0 prednisone 1 mg tablet 1 dose PO DAILY RF: 0 Toviaz 4 mg tablet extended release 24 hr 4 mg PO DAILY RF: 0 mycophenolate mofetil 500 mg Tablet 1,000 mg PO BID RF: 0 Align 4 mg Capsule 1 cap PO DAILY PRN (Reason: Diarrhea) RF: 0 Prolia 60 mg/mL Syringe 1 dose Sub-Q [id number] RF: 0 Referrals: Rosalina Hylton DO [Primary Care Provider] -
[2019-06-12] MEDS: TRIMETH/SULFA 160/800 (DS) TABLET 1 TAB PO (20:15)
[2019-06-12 20:22] VITALS: BP 177/79; PULSE 64; RESP 18; O2SAT 98
--- NOTE | 2019-06-16 16:33 | ED_ITS ---
HPI - Extremity Injury (Lower) General Chief Complaint: Extremity Injury, Lower Stated Complaint: SWOLLEN LEFT LOWER LEG Time Seen by Provider: 06/12/19 18:53 Source: patient Mode of arrival: ambulatory Limitations: no limitations History of Present Illness HPI Narrative: Patient presents emergency department complaining of a swollen, red left ankle and foot. The patient has been treated for multiple chronic lowe r extremity wounds, and is followed in wound Care Clinic for this. She was placed on antibiotics a couple of weeks ago for a hematoma which appeared to be in the early stages of cellulitis formation of the surrounding tissue. Patient states she completed her course of antibiotics and has been doing fine, but for the last couple of days, she has noticed increasing erythema and edema around her left ankle and foot. Patient denies any new injuries. She is not currently on any antibiotics. No new drainage out of any of her wounds. Patient states she is scheduled to go to wound Care Clinic again tomorrow. No fevers or chills. No other complaints at this time. Related Data Home Medications Medication Instructions Recorded Confirmed mycophenolate mofetil 1,000 mg PO BID 03/19/18 06/16/19 lactulose 10 gram/15 mL oral 10 gram PO DAILY PRN 04/25/18 06/16/19 solution Bifidobacterium infantis [Align] 1 cap PO DAILY PRN 06/11/18 06/16/19 denosumab [Prolia] 1 dose SUB-Q [id number] 06/11/18 06/16/19 calcium carb 300 mg-D3 800 1 tab PO DAILY 08/30/18 06/16/19 unit-mag ox 25 mg-pipe fitter soft copper 0.5 mg-warren-Zn tablet diphenhydramine 25 mg capsule 25 mg PO BEDTIME PRN 08/30/18 06/16/19 amoxicillin-pot clavulanate 1 tab PO BID 06/12/19 06/16/19 diclofenac sodium 2 g TOPICAL QID 06/12/19 06/16/19 fesoterodine [Toviaz] 4 mg PO DAILY 06/12/19 06/16/19 prednisone 1 dose PO DAILY 06/12/19 06/16/19 Previous Rx's Medication Instructions Recorded metronidazole 1 % topical cream 1 applictn TOP DAILY #60 gram 08/02/18 estradiol 0.01% (0.1 mg/gram) 0.01 % VAGINAL SEE INSTRUCTIONS 08/15/18 vaginal cream #45 gm ketoconazole 2 % topical cream 1 applictn TOP BID #30 gram 09/25/18 duloxetine 60 mg capsule,delayed 60 mg PO DAILY #30 cap 10/03/18 release folic acid 1 mg tablet 1 mg PO BID #60 tab 10/31/18 oxycodone 5 mg tablet 5 mg PO Q6HP PRN #30 tab 11/01/18 potassium chloride ER 8 mEq 16 meq PO BID #180 cap 11/16/18 capsule,extended release ferrous sulfate 325 mg (65 mg 325 mg PO BID #60 tab 02/04/19 iron) tablet albuterol sulfate HFA 90 2 puff INHALATION Q4-6H PRN #8.5 03/08/19 mcg/actuation aerosol inhaler gram ranitidine 150 mg tablet 150 mg PO BID #60 tab 03/08/19 mupirocin 2 % topical ointment 1 applictn TOP TID #30 gram 05/09/19 lidocaine 5 % topical patch 1 patch TOP DAILY #15 each 05/16/19 sulfamethoxazole-trimethoprim 1 tab PO BID #14 tab 05/26/19 [Bactrim DS] cyclobenzaprine 5 mg tablet 5 mg PO BEDTIME PRN #10 tab 06/06/19 clonazepam 1 mg tablet 1 mg PO BID PRN #60 tab 06/12/19 sulfamethoxazole-trimethoprim 1 tab PO BID #14 tab 06/12/19 [Bactrim DS] levothyroxine 88 mcg tablet 88 mcg PO QAM #30 tab 06/14/19 mupirocin 2 % topical ointment 1 applic TOP TID #30 gram 06/16/19 Allergies Allergy/AdvReac Type Severity Reaction Status Date / Time codeine [CODEINE] Allergy Mild intolerant, Verified 06/16/19 14:56 headaches,n ightmares dicloxacillin [DICLOXACILLIN] Allergy Mild Verified 06/16/19 14:56 levofloxacin [LEVOFLOXACIN] Allergy Mild Verified 06/16/19 14:56 lorazepam [LORAZEPAM] Allergy Mild intolerant Verified 06/16/19 14:56 av thornton ciprofloxacin [CIPROFLOXACIN] Allergy Unknown Verified 06/16/19 14:56 hydroxychloroquine AdvReac Mild visual Verified 06/16/19 14:56 [From Plaquenil] disturbances Review of Systems Constitutional Denies chills, Denies fever(s), Denies lethargy and Denies weakness Eyes Denies change in vision, Denies eye discharge, Denies irritation and Denies loss of vision ENT Ears, Nose, Mouth, and Throat: Denies change in voice, Denies neck pain and Denies sore throat Cardiovascular Denies chest pain, Denies irregular heart rhythm, Denies lightheadedness, Denies palpitations, Denies dyspnea, Denies dyspnea on exertion and Denies orthopnea Respiratory Denies cough, Denies dyspnea, Denies dyspnea on exertion and Denies wheezing Gastrointestinal Gastrointestinal: Denies abdominal pain, Denies change in bowel habits, Denies diarrhea, Denies nausea and Denies vomiting Genitourinary Denies hematuria, Denies flank pain, Denies urinary incontinence and Denies urinary urgency Musculoskeletal Denies neck pain Integumentary/Breasts Denies pruritus, Reports erythema, Denies rash and Reports wounds Neurologic Denies confusion, Denies loss of vision and Denies weakness Psychiatric Denies anxiety, Denies confusion, Denies depression, Denies homicidal ideation and Denies suicidal ideation Endocrine Denies palpitations Hematologic/Lymphatic Denies easy bruising Allergic/Immunologic Denies wheezing [facility] Medical History 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) Underweight (Chronic) Osteoporosis (Chronic) Compression fracture of L4 vertebra (Acute ~11/2018) Heart murmur (Chronic) 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) Osteopenia (Chronic) Diverticulitis large intestine (Resolved 06/01/11) Irritable bowel syndrome (Acute 06/01/11) Hematuria, unspecified (Acute 06/01/11) Atrophic vaginitis (Chronic) Autoimmune hepatitis (Chronic 08/13/15) Stage 3 chronic kidney disease (Chronic 08/13/15) Acquired hypothyroidism (Chronic 08/13/15) Systemic lupus erythematosus (Chronic 08/13/15) Autoimmune pancytopenia (Chronic) Hepatitis, autoimmune (Chronic 2001) Hypertension (Chronic) Hypothyroidism (Chronic) Lupus (Chronic) Sinusitis (Chronic) Surgical History History of breast biopsy (Acute) History of esophagogastroduodenoscopy (EGD) (Acute ~02/2018) History of liver biopsy (Acute) Fracture of pelvis (Resolved 2013) History of cataract removal with insertion of prosthetic lens (Resolved 2005) Status post colonoscopy (Resolved 2008) Status post tubal ligation (Resolved) Family History Mother Cancer Brother Stroke Social History marital status: Smoking Status: Former smoker alcohol intake: never substance use type: does not use Family History Mother Cancer Brother Stroke Social History marital status: Smoking Status: Former smoker alcohol intake: never substance use type: does not use Exam Initial Vital Signs Initial Vital Signs: Vital Signs Temperature 98.2 F 06/12/19 15:18 Pulse Rate 68 06/12/19 15:18 Respiratory Rate 18 06/12/19 15:18 Blood Pressure 128/67 06/12/19 15:18 Pulse Oximetry 99 06/12/19 15:18 Const General: cooperative and well developed Nutritional Appearance: well nourished Orientation: alert, awake, oriented x3 and not confused HENKS Head: normocephalic and atraumatic Ears: external ears normal and TM's normal bilaterally Nose: external nose normal and No nasal discharge Face and sinus: sinuses nontender, face symmetric, no sinus tenderness and No dry mucous membranes Mouth: oral mucosae normal and moist mucous membranes Teeth and gingiva: dentition normal Throat: tonsils normal and uvula midline Eyes General: appearance normal, both eyes and all related structures Eyelids: eyelids normal Conjunctivae: conjunctivae normal Sclera: sclerae normal Pupils: PERRL EOM: EOM intact bilaterally Neck Neck: normal visual inspection, trachea midline, No lymphadenopathy, No midline deformity and No JVD Lymphatic: No lymphedema Chest Chest: normal inspection of the chest Resp Effort & Inspection: normal respiratory effort, able to speak in complete sentences, no respiratory distress and no use of accessory muscles Auscultation: clear to auscultation bilaterally, no rales, no rhonchi and no wheezes Cardio Rate: regular rate Rhythm: regular rhythm Heart Sounds: no click, no gallops, no murmurs and no rubs Pulses: normal peripheral pulses GI Inspection: non-distended Palpation: soft, no hepatosplenomegaly, No guarding, No pulsatile mass and No tender Auscultation: normal bowel sounds Back/Spine/Pelvis Back: No CVA tenderness Cervical Spine: cervical ROM normal and No pain with cervical ROM Thoracic/Lumbar Spine: thoracic and lumbar spine normal to inspection Skin General: No jaundice and No petechiae Other: Patient is noted to have several superficial wounds on her left lower leg. She is noted to have moderate edema and erythema involving the anterior aspect of her left ankle as well as the dorsum of her left foot. Wounds are moist, but no obvious purulence drainage is noted. No fluctuance or induration. No exudate is expressible from the wounds. Neuro General: alert, oriented x3, gait normal and no focal motor deficits Speech: speech normal Extrem General: full ROM, no clubbing, cyanosis or edema, no pedal edema and no calf tenderness Psych Appearance: well kempt Mental Status: mental status grossly normal Attitude: cooperative Thought Content: normal and suicidality Judgment: judgment good Course Course Narrative: Patient was restarted on Bactrim in the emergency department. I have discussed with her that it will likely take a couple of days for this to really start making a noticeable difference, although the bacteria saddle action will start immediately. I have discussed with the patient that if the area of redness seems to be rapidly spreading, or if after couple days, there is not noticeable shrinkage of the area of erythema, then she should have the wound rechecked. The patient may run fevers on and off for the next couple of days, b ut that should be expected to pass within that time as the antibiotics really start to take effect. I have discussed with her once again that anyone evidence of worsening infection should prompt her immediate re-evaluation. Wounds have been re-dressed in the emergency department. We have discussed the usual indications for return. Orders Ordered: Discontinued Medications Lidocaine/Sodium Bicarbonate (Buffered Lidocaine 10 Ml Syr) 10 ml INJ NOW ONE Stop: 06/12/19 19:53 Trimethoprim/Sulfamethoxazole (Bactrim Ds) 1 tab PO NOW ONE Stop: 06/12/19 19:56 Last Admin: 06/12/19 20:15 Dose: 1 tab Vital Signs - 8 hr 06/12/19 15:18 06/12/19 19:21 Temperature 98.2 F Pulse Rate 68 61 Respiratory Rate 18 14 Blood Pressure 128/67 Blood Pressure [Right Arm] 166/76 H Pulse Oximetry 99 99 MDM - Extremity Injury (Lower) Medical Records Attestation: I reviewed the patient's medical records. Discharge Plan Departure Patient Disposition: Home Clinical Impression: Cellulitis Qualifiers: Site of cellulitis: extremity Site of cellulitis of extremity: lower extremity Laterality: left Qualified Code(s): L03.116 - Cellulitis of left lower limb Discharge Date/Time: 06/12/19 20:25 Interventions: ED Discharge Assessment Last Done: 06/12/19 20:24 Instructions: DI for Cellulitis -- Adult Activity Restrictions/Additional Instructions: Please take the Bactrim in addition to the Augmentin you are already taking. It is very important that you take both antibiotics, as each antibiotic is treating a separate condition. Please follow up with wound Care Clinic as scheduled. If in the next few days you notice that your redness is still spreading, please be re-evaluated by your primary doctor. Your prescription has been electronically submitted to the [facility] in [place]. Prescriptions: New sulfamethoxazole-trimethoprim [Bactrim DS] 800-160 mg tablet 1 tab PO BID Qty: 14 RF: 0 No Action Ca carb-D3-mag [id number] [Caltrate + D3 Plus Minerals] 300 mg-800 unit - 25 mg-0.5 mg tablet 1 tab PO DAILY RF: 0 diphenhydramine HCl [Benadryl] 25 mg capsule 25 mg PO BEDTIME PRN (Reason: Insomnia) RF: 0 mupirocin 2 % ointment 1 applic TOP TID Qty: 30 RF: 0 estradiol [Estrace] 0.01 % (0.1 mg/gram) cream 0.01 % Vaginal SEE INSTRUCTIONS Qty: 45 RF: 11 duloxetine 60 mg capsule,delayed release(DR/EC) 60 mg PO DAILY Qty: 30 RF: 5 folic acid 1 mg tablet 1 mg PO BID Qty: 60 RF: 4 oxycodone 5 mg tablet 5 mg PO Q6HP PRN (Reason: Pain, Severe) Qty: 30 RF: 0 potassium chloride 8 mEq capsule, extended release 16 meq PO BID Qty: 180 RF: 6 ferrous sulfate [Iron (ferrous sulfate)] 325 mg (65 mg iron) tablet 325 mg PO BID Qty: 60 RF: 1 albuterol sulfate [ProAir HFA] 90 mcg/actuation HFA aerosol inhaler 2 puff INHALATION Q4-6H PRN (Reason: shortness of breath) Qty: 8.5 RF: 0 ranitidine HCl 150 mg tablet 150 mg PO BID Qty: 60 RF: 0 lidocaine 5 % adhesive patch,medicated 1 patch TOP DAILY Qty: 15 RF: 5 clonazepam 1 mg tablet 1 mg PO BID PRN (Reason: anxiety) Qty: 60 RF: 1 levothyroxine 88 mcg tablet 88 mcg PO QAM Qty: 30 RF: 2 lactulose 10 gram/15 mL solution 10 gram PO DAILY PRN (Reason: Laxative Effect) RF: 0 metronidazole 1 % cream 1 applictn TOP DAILY Qty: 60 RF: 0 ketoconazole 2 % cream 1 applictn TOP BID Qty: 30 RF: 0 mupirocin 2 % ointment 1 applictn TOP TID Qty: 30 RF: 0 cyclobenzaprine 5 mg tablet 5 mg PO BEDTIME PRN (Reason: muscle spasm) Qty: 10 RF: 0 sulfamethoxazole-trimethoprim [Bactrim DS] 800-160 mg tablet 1 tab PO BID Qty: 14 RF: 0 amoxicillin-pot clavulanate 875-125 mg tablet 1 tab PO BID RF: 0 diclofenac sodium 1 % gel 2 g topical QID RF: 0 prednisone 1 mg tablet 1 dose PO DAILY RF: 0 Toviaz 4 mg tablet extended release 24 hr 4 mg PO DAILY RF: 0 mycophenolate mofetil 500 mg Tablet 1,000 mg PO BID RF: 0 Align 4 mg Capsule 1 cap PO DAILY PRN (Reason: Diarrhea) RF: 0 Prolia 60 mg/mL Syringe 1 dose Sub-Q [id number] RF: 0 Referrals: Rosalina Hylton DO [Primary Care Provider] -
== END 2019-06-12 20:25 | disposition home or self-care (01) ==
PROVIDERS: Emergency Provider Emergency Medicine; Family Provider Student in an Organized Health Care Education/Training Program; PCP Family Medicine
DX: L03.116 Cellulitis of left lower limb (principal)
CPT/HCPCS: 87070; 87075; 87077; 87147; 87186; 87205; 99282; 99283

== ENCOUNTER → 2019-06-17 16:15 | Outpatient (CLI) | payer MEDICARE, OTHER, SELFPAY | LOC: LAB 06-18 04:47 → WC 10-22 10:45 | PROVIDERS: Family Provider Student in an Organized Health Care Education/Training Program; PCP Family Medicine; Visit Provider Podiatrist Primary Podiatric Medicine | DX: L08.9 Local infection of the skin and subcutaneous tissue, unspecified (principal); S81.802A Unspecified open wound, left lower leg, initial encounter; M79.662 Pain in left lower leg | CPT/HCPCS: 11042; 87070; 87075; 87077; 87147; 87186; 87205 ==

== ENCOUNTER → 2019-06-21 14:46 | Outpatient (CLI) | payer MEDICARE, OTHER, SELFPAY | PROVIDERS: Family Provider Student in an Organized Health Care Education/Training Program; PCP Family Medicine; Visit Provider Family Medicine | DX: S81.802A Unspecified open wound, left lower leg, initial encounter (principal); L03.116 Cellulitis of left lower limb; I87.2 Venous insufficiency (chronic) (peripheral); D89.89 Other specified disorders involving the immune mechanism, not elsewhere classified; Z79.52 Long term (current) use of systemic steroids; Z79.899 Other long term (current) drug therapy; R60.0 Localized edema | CPT/HCPCS: 11042; 87070; 87075; 87077; 87186; 87205; 99214 ==

== ENCOUNTER → 2019-06-28 12:00 | Outpatient (CLI) | payer MEDICARE, OTHER, SELFPAY | PROVIDERS: Family Provider Student in an Organized Health Care Education/Training Program; PCP Family Medicine; Visit Provider Family Medicine | DX: S81.802A Unspecified open wound, left lower leg, initial encounter (principal); L03.116 Cellulitis of left lower limb; I87.2 Venous insufficiency (chronic) (peripheral); D89.89 Other specified disorders involving the immune mechanism, not elsewhere classified; Z79.52 Long term (current) use of systemic steroids; Z79.899 Other long term (current) drug therapy | CPT/HCPCS: 11042; 97597 ==

== ENCOUNTER → 2019-07-03 13:57 | Outpatient (CLI) | payer MEDICARE, OTHER, SELFPAY ==
[2019-07-03 15:01] LABS: Add Manual Diff / Slide Review NO; Basophils Absolute Auto 0 /uL (0-100); Basophils Percent Auto 0.3 % (0-2); Eosinophils Absolute Auto 0 /uL (0-450); Eosinophils Percent Auto 0.6 % (2-4); Hematocrit 36.2 % (36-46); Hemoglobin 12.1 g/dL (12.0-16.0); Lymphocytes Absolute Auto 900 /uL (1100-4500); Lymphocytes Percent Auto 15.1 % (25-40); Mean Corpuscular HGB Conc 33.5 % (30-36); Mean Corpuscular Hemoglobin 30.4 PG (26-34); Mean Corpuscular Volume 90.6 fL (80-100); Monocytes Absolute Auto 400 /uL (0-900); Monocytes Percent Auto 6.7 % (3-14); Neutrophils Absolute Auto 4500 /uL (1500-7000); Neutrophils Percent Auto 77.3 % (50-75); Platelet Count 178 X10^3/uL (150-400); Red Cell Distribution Width 14.7 % (11.6-14.8); White Blood Cell Count 5.9 X10^3/uL (4.5-11.0)
[2019-07-03 16:44] LABS: Alanine Aminotransferase 18 IU/L (9-52); Albumin 3.5 g/dL (3.5-5.0); Albumin Globulin Ratio 0.9 (1.0-2.8); Alkaline Phosphatase 168 U/L (38-126); Aspartate Aminotransferase 41 IU/L (14-36); BUN Creatinine Ratio 15.7 (6-22); Bilirubin Total 0.3 mg/dL (0.2-1.3); Blood Urea Nitrogen 11 mg/dL (7-17); Calcium 9.2 mg/dL (8.4-10.2); Carbon Dioxide 30 mmol/L (22-32); Chloride 96 mmol/L (98-107); Estimated Glomerular Filt Rate > 60.0 mL/min (>60); Glucose 117 mg/dL (80-110); HEMOLYSIS < 15 (0-50); Potassium 4.3 mmol/L (3.4-5.1); Sodium 133 mmol/L (137-145); Total Protein 7.5 g/dL (6.3-8.2)
== END ==
PROVIDERS: Family Provider Student in an Organized Health Care Education/Training Program; PCP Family Medicine; Visit Provider Internal Medicine Rheumatology
DX: M32.19 Other organ or system involvement in systemic lupus erythematosus (principal); Z79.899 Other long term (current) drug therapy
CPT/HCPCS: 36415; 80053; 85025

== ENCOUNTER → 2019-07-05 10:00 | Outpatient (CLI) | payer MEDICARE, OTHER, SELFPAY | PROVIDERS: Family Provider Student in an Organized Health Care Education/Training Program; PCP Student in an Organized Health Care Education/Training Program; Visit Provider Family Medicine | DX: S81.802A Unspecified open wound, left lower leg, initial encounter (principal); I87.2 Venous insufficiency (chronic) (peripheral); D89.89 Other specified disorders involving the immune mechanism, not elsewhere classified; Z79.52 Long term (current) use of systemic steroids; Z79.899 Other long term (current) drug therapy | CPT/HCPCS: 97597 ==

== ENCOUNTER → 2019-07-12 10:13 | Outpatient (CLI) | payer MEDICARE, OTHER, SELFPAY | PROVIDERS: Family Provider Student in an Organized Health Care Education/Training Program; PCP Student in an Organized Health Care Education/Training Program; Visit Provider Family Medicine | DX: S81.802A Unspecified open wound, left lower leg, initial encounter (principal); I87.2 Venous insufficiency (chronic) (peripheral); D89.89 Other specified disorders involving the immune mechanism, not elsewhere classified; Z79.52 Long term (current) use of systemic steroids; Z79.899 Other long term (current) drug therapy; R19.7 Diarrhea, unspecified | CPT/HCPCS: 99213; 99214 ==

== ENCOUNTER → 2019-07-19 11:35 | Outpatient (CLI) | payer MEDICARE, OTHER, SELFPAY | PROVIDERS: Family Provider Student in an Organized Health Care Education/Training Program; PCP Student in an Organized Health Care Education/Training Program; Visit Provider Family Medicine | DX: S81.802A Unspecified open wound, left lower leg, initial encounter (principal); K75.4 Autoimmune hepatitis; M32.10 Systemic lupus erythematosus, organ or system involvement unspecified | CPT/HCPCS: 97597; 99213 ==

== ENCOUNTER → 2019-07-26 10:45 | Outpatient (CLI) | payer MEDICARE, OTHER, SELFPAY | PROVIDERS: Family Provider Student in an Organized Health Care Education/Training Program; PCP Student in an Organized Health Care Education/Training Program; Visit Provider Family Medicine | DX: I87.2 Venous insufficiency (chronic) (peripheral) (principal); S81.802A Unspecified open wound, left lower leg, initial encounter; D89.89 Other specified disorders involving the immune mechanism, not elsewhere classified; Z79.52 Long term (current) use of systemic steroids; Z79.899 Other long term (current) drug therapy | CPT/HCPCS: 97597 ==

== ENCOUNTER → 2019-07-29 11:19 | Outpatient (CLI) | payer MEDICARE, OTHER, SELFPAY ==
--- NOTE | 2019-07-29 | DI.CT.S_ITS ---
PROCEDURE: CT CHEST WO CON INDICATIONS: Pneumonia, unspecified organism TECHNIQUE: Noncontrast 5 mm thick sections acquired from the pulmonary apices to the posterior costophrenic angles. 1 mm lung window, 5 mm thick coronal and sagittal and 7 mm axial MIP reformats were then acquired. For radiation dose reduction, the following was used: automated exposure control, adjustment of mA and/or kV according to patient size. COMPARISON: [facility], CT, CT CHEST WITHOUT CONTRAST, 05/20/2019, 15:52. FINDINGS: Image quality: Excellent. Lungs and pleura: No definite consolidation pleural effusion or pneumothorax. Redemonstration of diffuse scattered bronchiectasis, subpleural reticular and ill-defined opacities with possible honeycombing appearance involving the lung bases, right greater left as well as the upper lobes bilaterally, also right greater left. Large masslike consolidation with internal lucencies and spiculated margins seen within the posterior right lower lobe measuring 3.5 x 3.8 cm. This appears increased in size since 05/20/19 (3.8 x 2.7 cm) although internal areas of cavitation appear less conspicuous. Mediastinum: Heart size is normal. Coronary artery calcifications are present. No pericardial effusion. No mediastinal adenopathy by size criteria. Thoracic aorta and central pulmonary arteries are normal in size. Esophagus is normal in caliber. No hiatal hernia. Bones and chest wall: No suspicious bony lesions. No vertebral body compression fractures. No axillary or supraclavicular adenopathy by size criteria. Thyroid gland unremarkable. Abdomen: Visualized upper abdominal solid organs and bowel loops appear normal in the absence of contrast. Nodular contour of the liver suggestive of cirrhosis. As IMPRESSION: Interval enlargement of large masslike consolidation involving the posterior right lower lobe. Internal cavitary appearance is less conspicuous since the prior study. Findings again concerning for malignant/metastatic possibilities. Further evaluation with percutaneous needle biopsy could be considered, and PET CT could be obtained to search for high yield targets. Scattered sub-pleural reticular and ill-defined opacities in both the upper and lower lobes raise the possibility of usual interstitial pneumonia, among other possibilities, although technically indeterminate and continued surveillance recommended. Coronary artery disease. Severe bronchiectasis. Splenomegaly as before Dictated by: Jonathan Tai M.D. on 07/29/2019 at 13:16 Approved by: Jonathan Tai M.D. on 07/29/2019 at 13:29
[2019-07-29 12:41] LABS: Add Manual Diff / Slide Review NO; Basophils Absolute Auto 0 /uL (0-100); Basophils Percent Auto 0.3 % (0-2); Eosinophils Absolute Auto 0 /uL (0-450); Eosinophils Percent Auto 0.4 % (2-4); Hematocrit 39.7 % (36-46); Hemoglobin 13.5 g/dL (12.0-16.0); Lymphocytes Absolute Auto 1000 /uL (1100-4500); Lymphocytes Percent Auto 11.2 % (25-40); Monocytes Absolute Auto 500 /uL (0-900); Monocytes Percent Auto 6.3 % (3-14); Neutrophils Absolute Auto 6900 /uL (1500-7000); Neutrophils Percent Auto 81.8 % (50-75); Platelet Count 227 X10^3/uL (150-400); Red Blood Cell Count 4.37 X10^6/uL (4.0-5.2); Red Cell Distribution Width 14.1 % (11.6-14.8); White Blood Cell Count 8.5 X10^3/uL (4.5-11.0)
[2019-07-29 12:55] LABS: Alanine Aminotransferase 29 IU/L (9-52); Albumin 4.1 g/dL (3.5-5.0); Albumin Globulin Ratio 0.9 (1.0-2.8); Alkaline Phosphatase 242 U/L (38-126); Aspartate Aminotransferase 48 IU/L (14-36); BUN Creatinine Ratio 18.6 (6-22); Bilirubin Total 0.7 mg/dL (0.2-1.3); Blood Urea Nitrogen 13 mg/dL (7-17); Calcium 9.5 mg/dL (8.4-10.2); Carbon Dioxide 29 mmol/L (22-32); Chloride 94 mmol/L (98-107); Estimated Glomerular Filt Rate > 60.0 mL/min (>60); Globulin 4.8 g/dL (1.7-4.1); Glucose 111 mg/dL (80-110); HEMOLYSIS < 15 (0-50); Potassium 4.4 mmol/L (3.4-5.1); Sodium 133 mmol/L (137-145); Total Protein 8.9 g/dL (6.3-8.2)
== END ==
PROVIDERS: Family Provider Student in an Organized Health Care Education/Training Program; PCP Student in an Organized Health Care Education/Training Program; Referring Provider Internal Medicine Critical Care Medicine; Visit Provider Internal Medicine Critical Care Medicine
DX: J18.9 Pneumonia, unspecified organism (principal); I25.10 Atherosclerotic heart disease of native coronary artery without angina pectoris; J47.9 Bronchiectasis, uncomplicated; R16.1 Splenomegaly, not elsewhere classified; M32.19 Other organ or system involvement in systemic lupus erythematosus; Z79.899 Other long term (current) drug therapy
CPT/HCPCS: 36415; 71250; 80053; 85025

== ENCOUNTER → 2019-08-02 13:13 | Outpatient (CLI) | payer MEDICARE, OTHER, SELFPAY | PROVIDERS: Family Provider Student in an Organized Health Care Education/Training Program; PCP Student in an Organized Health Care Education/Training Program; Visit Provider Family Medicine | DX: I87.2 Venous insufficiency (chronic) (peripheral) (principal); S81.802A Unspecified open wound, left lower leg, initial encounter; D89.89 Other specified disorders involving the immune mechanism, not elsewhere classified; Z79.52 Long term (current) use of systemic steroids; Z79.899 Other long term (current) drug therapy; R60.0 Localized edema | CPT/HCPCS: 97597 ==

== ENCOUNTER → 2019-08-13 14:02 | Outpatient (CLI) | payer MEDICARE, OTHER, SELFPAY ==
[2019-08-13 14:52] LABS: Add Manual Diff / Slide Review NO; Basophils Absolute Auto 0 /uL (0-100); Basophils Percent Auto 0.7 % (0-2); Eosinophils Absolute Auto 100 /uL (0-450); Eosinophils Percent Auto 0.9 % (2-4); Hematocrit 36.8 % (36-46); Hemoglobin 12.4 g/dL (12.0-16.0); Lymphocytes Absolute Auto 900 /uL (1100-4500); Lymphocytes Percent Auto 14.7 % (25-40); Mean Corpuscular HGB Conc 33.5 % (30-36); Mean Corpuscular Hemoglobin 30.3 PG (26-34); Mean Corpuscular Volume 90.5 fL (80-100); Monocytes Absolute Auto 400 /uL (0-900); Monocytes Percent Auto 6.2 % (3-14); Neutrophils Absolute Auto 4900 /uL (1500-7000); Neutrophils Percent Auto 77.5 % (50-75); Platelet Count 171 X10^3/uL (150-400); Red Blood Cell Count 4.07 X10^6/uL (4.0-5.2); Red Cell Distribution Width 13.7 % (11.6-14.8); White Blood Cell Count 6.4 X10^3/uL (4.5-11.0)
[2019-08-13 14:57] LABS: INR 1.1 (0.9-1.3); Prothrombin Time 12.5 SECONDS (10.1-12.7)
== END ==
PROVIDERS: PCP Student in an Organized Health Care Education/Training Program; Visit Provider Internal Medicine Critical Care Medicine
DX: R91.8 Other nonspecific abnormal finding of lung field (principal); K74.60 Unspecified cirrhosis of liver
CPT/HCPCS: 36415; 85025; 85610

== ENCOUNTER → 2019-08-15 13:18 | Outpatient (CLI) | payer MEDICARE, OTHER, SELFPAY | PROVIDERS: PCP Student in an Organized Health Care Education/Training Program; Visit Provider Family Medicine | DX: S81.802A Unspecified open wound, left lower leg, initial encounter (principal); D89.89 Other specified disorders involving the immune mechanism, not elsewhere classified; R60.0 Localized edema; Z79.52 Long term (current) use of systemic steroids; Z79.899 Other long term (current) drug therapy | CPT/HCPCS: 97597 ==

== ENCOUNTER → 2019-08-20 14:04 | Outpatient (CLI) | payer MEDICARE, OTHER, SELFPAY ==
--- NOTE | 2019-08-20 14:06 | DI.RAD.S_ITS ---
PROCEDURE: XR LUMBAR SPINE 2-3V INDICATIONS: Low back pain following fall TECHNIQUE: 3 views of the lumbar spine were acquired. COMPARISON: [facility], CR, XR LUMBAR SPINE MIN 4V, 05/02/2019, 14:31. FINDINGS: Bones: Redemonstration of L4 compression fracture without height loss since 05/02/19. Multilevel degenerative endplate sclerosis and spurring. Diffuse facet arthropathy. Grade 1 retrolisthesis of L1 on L2. Levoscoliosis as before Soft tissues: Overlying bowel gas pattern is normal. No suspicious soft tissue calcifications. Scattered vascular calcifications seen in the aorta. IMPRESSION: Redemonstration of L4 compression fracture, unchanged since 05/02/19. No new fracture identified. Lumbar spondylosis and facet disease. Dictated by: Jonathan Tai M.D. on 08/20/2019 at 17:13 Approved by: Jonathan Tai M.D. on 08/20/2019 at 17:14
== END ==
PROVIDERS: PCP Student in an Organized Health Care Education/Training Program; Visit Provider Student in an Organized Health Care Education/Training Program
DX: M54.5 Low back pain (principal); M47.816 Spondylosis without myelopathy or radiculopathy, lumbar region; M48.56XA Collapsed vertebra, not elsewhere classified, lumbar region, initial encounter for fracture
CPT/HCPCS: 72100

== ENCOUNTER → 2019-08-22 09:36 | Outpatient (CLI) | payer MEDICARE, OTHER, SELFPAY | PROVIDERS: PCP Student in an Organized Health Care Education/Training Program; Visit Provider Family Medicine | DX: I87.2 Venous insufficiency (chronic) (peripheral) (principal); S81.802D Unspecified open wound, left lower leg, subsequent encounter; D89.89 Other specified disorders involving the immune mechanism, not elsewhere classified; Z79.899 Other long term (current) drug therapy; Z79.52 Long term (current) use of systemic steroids | CPT/HCPCS: 99212; 99213 ==

== ENCOUNTER → 2019-08-31 12:17 | Outpatient (CLI) | payer MEDICARE, OTHER, SELFPAY ==
[2019-08-31 12:57] LABS: Add Manual Diff / Slide Review NO; Basophils Absolute Auto 100 /uL (0-100); Basophils Percent Auto 0.9 % (0-2); Eosinophils Absolute Auto 100 /uL (0-450); Eosinophils Percent Auto 0.7 % (2-4); Hematocrit 37.3 % (36-46); Hemoglobin 12.4 g/dL (12.0-16.0); Lymphocytes Absolute Auto 700 /uL (1100-4500); Lymphocytes Percent Auto 8.4 % (25-40); Mean Corpuscular HGB Conc 33.2 % (30-36); Mean Corpuscular Hemoglobin 30.2 PG (26-34); Mean Corpuscular Volume 91.2 fL (80-100); Monocytes Absolute Auto 400 /uL (0-900); Monocytes Percent Auto 4.7 % (3-14); Neutrophils Absolute Auto 6700 /uL (1500-7000); Neutrophils Percent Auto 85.3 % (50-75); Platelet Count 167 X10^3/uL (150-400); Red Blood Cell Count 4.09 X10^6/uL (4.0-5.2); Red Cell Distribution Width 14.1 % (11.6-14.8); White Blood Cell Count 7.9 X10^3/uL (4.5-11.0)
[2019-08-31 13:04] LABS: INR 1.1 (0.9-1.3); Prothrombin Time 12.9 SECONDS (10.1-12.7)
== END ==
PROVIDERS: PCP Student in an Organized Health Care Education/Training Program; Visit Provider Internal Medicine Critical Care Medicine
DX: R91.8 Other nonspecific abnormal finding of lung field (principal); K74.60 Unspecified cirrhosis of liver
CPT/HCPCS: 36415; 85025; 85610

== ENCOUNTER → 2019-09-02 15:09 | Outpatient (CLI) | payer MEDICARE, OTHER, SELFPAY ==
[2019-09-02 15:42] LABS: Add Manual Diff / Slide Review NO; Basophils Absolute Auto 0 /uL (0-100); Basophils Percent Auto 0.5 % (0-2); Eosinophils Absolute Auto 100 /uL (0-450); Hematocrit 36.6 % (36-46); Hemoglobin 12.3 g/dL (12.0-16.0); Lymphocytes Absolute Auto 1100 /uL (1100-4500); Lymphocytes Percent Auto 14.6 % (25-40); Mean Corpuscular HGB Conc 33.6 % (30-36); Mean Corpuscular Hemoglobin 30.7 PG (26-34); Mean Corpuscular Volume 91.1 fL (80-100); Monocytes Absolute Auto 500 /uL (0-900); Monocytes Percent Auto 7.2 % (3-14); Neutrophils Absolute Auto 5600 /uL (1500-7000); Neutrophils Percent Auto 76.7 % (50-75); Platelet Count 196 X10^3/uL (150-400); Red Blood Cell Count 4.01 X10^6/uL (4.0-5.2); Red Cell Distribution Width 14.4 % (11.6-14.8); White Blood Cell Count 7.3 X10^3/uL (4.5-11.0)
[2019-09-02 16:22] LABS: Alanine Aminotransferase 20 IU/L (<35); Albumin 3.6 g/dL (3.5-5.0); Albumin Globulin Ratio 0.8 (1.0-2.8); Alkaline Phosphatase 221 U/L (38-126); Aspartate Aminotransferase 41 IU/L (14-36); BUN Creatinine Ratio 17.1 (6-22); Bilirubin Total 0.5 mg/dL (0.2-1.3); Blood Urea Nitrogen 12 mg/dL (7-17); Calcium 8.9 mg/dL (8.4-10.2); Carbon Dioxide 29 mmol/L (22-32); Chloride 97 mmol/L (98-107); Estimated Glomerular Filt Rate > 60.0 mL/min (>60); Globulin 4.3 g/dL (1.7-4.1); Glucose 102 mg/dL (80-110); HEMOLYSIS < 15 (0-50); Potassium 4.4 mmol/L (3.4-5.1); Sodium 132 mmol/L (137-145); Total Protein 7.9 g/dL (6.3-8.2)
== END ==
PROVIDERS: PCP Student in an Organized Health Care Education/Training Program; Visit Provider Internal Medicine Rheumatology
DX: M32.19 Other organ or system involvement in systemic lupus erythematosus (principal); Z79.899 Other long term (current) drug therapy
CPT/HCPCS: 36415; 80053; 85025

== ENCOUNTER → 2019-09-10 16:38 | Outpatient (CLI) | payer MEDICARE, OTHER, SELFPAY ==
[2019-09-10 18:53] LABS: Appearance Urine UA CLEAR; Bilirubin Urine UA NEGATIVE (NEGATIVE); Color Urine UA YELLOW; Glucose Urine UA NEGATIVE (Negative); Ketones Urine UA NEGATIVE (NEGATIVE); Leukocyte Esterase Urine UA NEGATIVE (NEGATIVE); Nitrite Urine UA NEGATIVE (Negative); Occult Blood Urine UA TRACE-LYSED (Negative); Protein Urine UA NEGATIVE (Negative); Urobilinogen Urine UA 0.2 E.U./dL (0.2)
[2019-09-10 18:56] LABS: pH Urine UA 5.5 (4.5-8.0)
[2019-09-10 19:16] LABS: RBC Urine 0-1/HPF (0-5/HPF)
[2019-09-10 19:17] LABS: Bacteria Urine Occasional (0-1); Culture Indicated Urine Cult Not Indicated; Squamous Epithelial Cell Urine 5-10 /HPF (0-5/HPF); WBC Urine 0-1/HPF (0-5/HPF)
== END ==
PROVIDERS: PCP Student in an Organized Health Care Education/Training Program; Visit Provider Student in an Organized Health Care Education/Training Program
DX: R30.0 Dysuria (principal)
CPT/HCPCS: 81001

== ENCOUNTER → 2019-09-13 15:02 | Outpatient (CLI) | payer MEDICARE, OTHER, SELFPAY | PROVIDERS: PCP Student in an Organized Health Care Education/Training Program; Visit Provider Student in an Organized Health Care Education/Training Program | DX: J39.8 Other specified diseases of upper respiratory tract (principal) | CPT/HCPCS: 94667 ==

== ENCOUNTER 2019-09-23 10:30 | Outpatient (RCR) | payer MEDICARE, OTHER, SELFPAY ==
--- NOTE | 2019-08-27 16:11 | PT.OIE ---
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) Lupus (Chronic) Osteopenia (Chronic) Osteoporosis (Chronic) Sinusitis (Chronic) Stage 3 chronic kidney disease (Chronic 08/13/15) Systemic lupus erythematosus (Chronic 08/13/15) Underweight (Chronic) Past Surgical History (Last Reviewed 06/26/19 @ 15:59 by Preethi Pham MD) Fracture of pelvis (Resolved 2013) History of breast biopsy (Acute) History of cataract removal with insertion of prosthetic lens (Resolved 2005) History of esophagogastroduodenoscopy (EGD) (Acute ~02/2018) History of liver biopsy (Acute) Status post colonoscopy (Resolved 2008) Status post tubal ligation (Resolved) Visit Care Team Role Provider Type Migue Verma MD Attending Provider Physician Primary Care Provider Specialty: Internal Medicine Address: [address] [place] [address] Email: [email or web address] Physical Therapy Initial Evaluation PT-OP-A Visit Information Start: 08/27/19 10:16 Freq: Status: Active Protocol: Document 08/27/19 11:27 LRN (Rec: 08/27/19 12:36 LRN [id number]) Out-Patient Physical Therapy Visit Information Visit Information Visit Type Initial Evaluation Visit Start Time 11:27 Visit Stop Time 12:20 Total Visit Minutes 53 Visit Number 1 Number of HUC Visits 0 Evaluation Information Evaluation Date 08/27/19 Precautions Precautions PMH: LATEX ALLERGY, pt reported recent collapsed lung after biopsy - 2 weeks ago, compression fracture L4 - 2018, Osteoporosis, Polymyalgia rheumatica 06/01/11, cirrhosis of the liver not due to alcohol, hx of irregular heartbeat, IBS , autoimmune hepatitis 08/13, diverticulitis 06/01/11, systemic lupus 08/13/15, hypothyroidism, essential HTN, hx of neck and back pain, pelvic fx 2013, PT-OP-B Current Condition Start: 08/27/19 10:16 Freq: Status: Active Protocol: Document 08/27/19 11:27 LRN (Rec: 08/27/19 12:36 LRN [id number]) Current Condition History of Current Condition Onset Date Off/On since 12/2017 Current Complaints Severe pain in low back and up sides, constant. rated 6-7/10 History of Current Condition Pt reports having LBP off/on since 12/2017 after suffering an L4 compression fracture. She has had ongoing LBP that is progressively worsening in intensity and duration, now is constant. She states Dr. Verma thinks the L4 compression fracture has never healed. Recently pt had biopsy of a lung spot 2 weeks ago resulting in a collapsed lung with hospitalized at [facility] for 3 days. Out of hospital for 1-1/2 weeks and LBP has worsened. Prior Treatments and Tests X-rays indicate no new fractures, but redemonstration of L4 compression fracture. Future Testing and Treatments Planned Pulmonary CAT scan for ongoing scar tissue from pneumonia history. Treatment Goals Patient/Caregiver Goals Pt goal: 1) to resolve pain enough in order to sleep more 2) to be able to vacuum without pain, 3) to be able to bend over and pickle maker things without pain. 4) to be able to turning the bathtub faucet on without pain . Prior Functional Status Baseline Function- ADL's Needs Assist Baseline Function- Mobility Needs Assist Baseline Function- Gait Unsteady Baseline Function- Other Slept 4 hours at a time (uses bathroom a couple of times through the night) from 10pm to 8am. Occasionally tied own shoes. Needed help lifting objects. Painfree in low back sitting. Current Functional Impairments (Reported) Functional Limitations- ADL's Toss and turns all night. Can't tie own shoes due to back pain. Can't bend over to pick light objects off the floor due to back pain. Can't pick of objects due to back pain. Pain in LB sitting for coffee is 5/10 Functional Limitations- Mobility/Gait Baseline. Personal Factors Other Personal Factors That May Effect Co-morbidities (Latex allergy, Therapy/Recovery recent asymptomatic telangiectasis, L4 compression fracture, osteoporosis, Lupus, Arthritis, IBS, past pelvic fracture, [place]), Age ( over 65+), fragile skin, needs to be guided through activities, needs HEP with pictures and large print. PT-OP-C Subjective Start: 08/27/19 10:16 Freq: Status: Active Protocol: Document 08/27/19 11:27 LRN (Rec: 08/27/19 12:36 LRN [id number]) Patient Questionnaires Oswestry Low Back Index Oswestry Score 29 Oswestry Impairment 20 to 39% Impaired (Score 20- 39) OP-PT Pain Assessment Location Bilateral Lower Back Pain Location Details Bilateral lumbar paraspinals, QL Intensity 7 Scale Used Numeric (1 - 10) Description Aching Frequency Constant Radiating Location Up the back Pain Aggravating Factors Position,ADL's,Activity, Standing,Sitting,Walking, Bending,Lifting,Prolonged Bedrest Pain Alleviating Factors Changing Position Bilateral Upper Posterior Back Pain Location Details Bilateral Thoracic paraspinals (T3-T12) Intensity 7 Scale Used Numeric (1 - 10) Description Aching Frequency Constant Pain Aggravating Factors Position,Activity,Standing, Sitting,Walking,Bending, Lifting,Prolonged Bedrest Pain Alleviating Factors Changing Position PT-OP-J Posture/Palpation/Skin Start: 08/27/19 10:16 Freq: Status: Active Protocol: Document 08/27/19 11:27 LRN (Rec: 08/27/19 12:36 LRN [id number]) Posture Evaluation Position Standing Evaluation View All positions Head/C-Spine Posture Forward Head T-Spine Posture Increased Kyphosis L-Spine Posture Decreased Lordosis Shoulder Posture (L) Elevated Scapula Posture (L) Elevated Pelvis Posture Posterior Tilted,(L) Rotated Posterior,(L) Iliac Crest Inferior Knee Posture (L) Genu Recurvatum Ankle/Foot Posture (L) Calcaneal Eversion Comments Posture Comments Sway back posturing. Palpation Assessment Location Hips Palpation Location R Gluteals/Piriformis Palpation Findings Soft Tissue Tightness, Tenderness Thoracic back Palpation Location Thoracic paraspinals Palpation Findings Tenderness Palpation Details Tight R Low back Palpation Location Lumbar paraspinals and QL Palpation Findings Tenderness Palpation Details Tight R paraspinals Tension L paraspinals. PT-OP-K Range of Motion Start: 08/27/19 10:16 Freq: Status: Active Protocol: Document 08/27/19 11:27 LRN (Rec: 08/27/19 12:36 LRN [id number]) Lumbar Spine Range of Motion Lumbar Spine Active Flexion 60 Extension 10 Lateral Flexion Left 3 Lateral Flexion Right 5 ROM Limitations Pain Hip Goniometric Range of Motion Hip Right Passive Testing Position Supine Flexion w/Knee Flexed 95 Straight Leg Raise 60 Abduction 50 Internal Rotation 60 External Rotation 50 Left Passive Testing Position Supine Flexion w/Knee Flexed 105 Straight Leg Raise 50 Abduction 45 Internal Rotation 40 External Rotation 55 PT-OP-L Special Tests Start: 08/27/19 10:16 Freq: Status: Active Protocol: Document 08/27/19 11:27 LRN (Rec: 08/27/19 13:13 LRN [id number]) Special Tests Lumbar Spine Special Tests Straight Leg Raise Test Results + bilaterally Comments PSLR: 60 deg's right, 50 deg's left. PT-OP-Q Treatments Start: 08/27/19 10:16 Freq: Status: Active Protocol: Document 08/27/19 11:27 LRN (Rec: 08/27/19 12:36 LRN [id number]) Therapeutic Exercises Sitting Exercises 5 Sitting Exercise Name Active trunk ext Comments Hold 4 Sitting Exercise Name Active ankle PF/DF/EV/IV Comments No longer applicable 3 Sitting Exercise Name C. AROM stretches Comments No longer applicable Standing Exercises L Hip AB Standing Exercise Name L hip AB Side left Reps/Minutes 10x Comments Pt moves slowly and needed a rest after 4 reps. 6 Standing Exercise Name Sit to stands Comments Hold 5 Standing Exercise Name Stand trunk ext in upper thoracic with abdominal tightening Comments Hold 3 Standing Exercise Name Alternate arm lifts Comments Hold 2 Standing Exercise Name Reverse fly Comments Not applicable 1 Standing Exercise Name Standing trunk rotation Comments Hold Other Exercises L trunk SB Other Exercise Name Stretch to R paraspinals and QL Side right Therapeutic Activity Therapeutic Activity 1 Name Stand to sit Comments Hold Manual Therapy Treatment Soft Tissue Mobilization Paraspinals Body Location Lumbar & Thoracic, Left Mobilization Type Cross-Friction,Strumming Comments R to loosen tightness, L to relax. Nerve Glides 1 Nerve Sciatic Body Position Supine Comments Initiated gentle bilaterally Self-Care/Home Management Treatment Education Patient Education Home Exercise Program Activities Self-Care/Home Management Activities Pt Issued and reviewed HEP: L lateral trunk stretch & L lumbar paraspinal strengthening. PT-OP-T Assessment and Plan Start: 08/27/19 10:16 Freq: Status: Active Protocol: Document 08/27/19 11:27 LRN (Rec: 08/27/19 12:36 LRN [id number]) Physical Therapy Assessment Rehab Potential Rehabilitation Potential Good Evaluation Complexity Number of Personal Factors/Comorbidities 3 or More Number of Body Systems Impaired 4 or More Clinical Presentation at Evaluation Evolving Impairments Impairments Activity Tolerance,Functional Activities,Pain,Posture,ROM, Soft Tissue Mobility Other Impairments Positioning tolerance Other Concerns Age Related Concerns 75+ yrs old Memory limitations Co-morbidities Barriers to Rehabilitation Pt goal: 1) to resolve pain enough in order to sleep more 2) to be able to vacuum without pain, 3) to be able to bend over and pickle maker things without pain. 4) to be able to turning the bathtub faucet on without pain . Goals Five Impairment Decreased functional mobility due to pain per VISHNU score of 29 Sample Maker Hand Goal (LTG) Pt will demonstrate improved function per VISHNU score <29/50 and reports of improved tolerance to turning on the bathtub faucet and improved tolerance to vacuuming with proper body mechanics. LTG Duration 11/19/19 Four Impairment C-curve of the lumbar spine limiting function due to pain Short Term Goal (STG) Pt will be educated in lumbar ex's to improve C-curve of the lumbar spine. STG Duration 09/20/19 Half-Way Goal (LTG) Pt will demonstrate improved lumbar posture with minimal C- curve of the lumbar spine. LTG Duration 11/19/19 Three Impairment Decreased lumbar mobility limiting ability to bend over. Short Term Goal (STG) Pt will be educated in proper body mechanics for picking up objects at varying heights. STG Duration 09/06/19 Half-Way Goal (LTG) Pt will be able to tolerate bending over to pickle maker light objects off the floor with tolerable pain. LTG Duration 11/19/19 Two Impairment Upper back & Low back pain limiting ability to sleep Short Term Goal (STG) Pt will be able to report ability to sleep uninterrupted for at least 2 hrs intermittently. STG Duration 09/24/19 Half-Way Goal (LTG) Pt will be able to sleep at least 4 hr intermittently during the night. LTG Duration 11/19/19 One Impairment Pt lacks appropriate self care HEP Half-Way Goal (LTG) Pt will be independent in a self care HEP. LTG Duration 11/19/19 Progress Towards Goals Progress Towards Goals Slow Progress due to Medical Issues Progress Comments LE strength improved per pt. She feels more confident with her walking. No significant change with back pain. Endurance remains limited due to feet pain. Assessment Summary Assessment Pt presents with lumbar soft tissue and mechanical back pain and thoracic soft tissue pain as related to her lumbar C-curve, retrolisthesis of L1 on L2, and previous L4 compression fracture. It is expected that her rehabilitation will be prolonged due to involvement of her co-morbidities. The pt will benefit from skilled physical therapy to improve mobility, strength, and function. Physical Therapy Plan Frequency and Duration Frequency of Treatment 2x/Week Plan of Care Start Date 08/27/19 Plan of Care End Date 11/19/19 Therapeutic Interventions Therapeutic Interventions Balance Training,Home Exercise Program,Manual Therapy, Neuromuscular Re-education, Patient/Caregiver Education, Self-Care/Home Management,Soft Tissue Mobilization, Therapeutic Activities, Therapeutic Exercises Modalities Electric Stimulation,Hot Packs ,Ultrasound Next Visit Focus/Plan Next Note Type Treatment Note Next Visit Plan Review HEP previously issued, start L sidelie stretch to R paraspinals and progress L paraspinal strengthening with HEP issued. Initiate lumbar ext and improve lumbar posture . STM/manual therapy to decrease pain with modalities (MH/premod EStim) as needed for pain.
--- NOTE | 2019-08-29 15:31 | PT.OTN ---
Current Diagnoses Low back pain (08/29/19) Physical Therapy Treatment Note PT-OP-A Visit Information Start: 08/27/19 10:16 Freq: Status: Active Protocol: Document 08/29/19 14:19 LRN (Rec: 08/29/19 15:04 LRN [id number]) Out-Patient Physical Therapy Visit Information Visit Information Visit Type Initial Evaluation Visit Start Time 14:19 Visit Stop Time 15:03 Total Visit Minutes 44 Visit Number 2 Number of HOTEL SUPERINTENDENT Visits 0 Evaluation Information Evaluation Date 08/27/19 Precautions Precautions PMH: LATEX ALLERGY, pt reported recent collapsed lung after biopsy - 2 weeks ago, compression fracture L4 - 2018, Osteoporosis, Polymyalgia rheumatica 06/01/11, cirrhosis of the liver 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 rated 6-7/10 History of Current Condition Pt reports having LBP off/on since 12/2017 after suffering an L4 compression fracture. She has had ongoing LBP that is progressively worsening in intensity and duration, now is constant. She states Dr. Verma thinks the L4 compression fracture has never healed. Recently pt had biopsy of a lung spot 2 weeks ago resulting in a collapsed lung with hospitalized at [facility] for 3 days. Out of hospital for 1-1/2 weeks and LBP has worsened. Prior Treatments and Tests X-rays indicate no new fractures, but redemonstration of L4 compression fracture. Future Testing and Treatments Planned Pulmonary CAT scan for ongoing scar tissue from pneumonia history. Treatment Goals Patient/Caregiver Goals Pt goal: 1) to resolve pain enough in order to sleep more 2) to be able to vacuum without pain, 3) to be able to bend over and picker box operator things without pain. 4) to be able to turning the bathtub faucet on without pain . Prior Functional Status Baseline Function- ADL's Needs Assist Baseline Function- Mobility Needs Assist Baseline Function- Gait Unsteady Baseline Function- Other Slept 4 hours at a time (uses bathroom a couple of times through the night) from 10pm to 8am. Occasionally tied own shoes. Needed help lifting objects. Painfree in low back sitting. Current Functional Impairments (Reported) Functional Limitations- ADL's Toss and turns all night. Can't tie own shoes due to back pain. Can't bend over to pick light objects off the floor due to back pain. Can't pick of objects due to back pain. Pain in LB sitting for coffee is 5/10 Functional Limitations- Mobility/Gait Baseline. Personal Factors Other Personal Factors That May Effect Co-morbidities (Latex allergy, Therapy/Recovery recent asymptomatic telangiectasis, L4 compression fracture, osteoporosis, Lupus, Arthritis, IBS, past pelvic fracture, [place]), Age ( over 65+), fragile skin, needs to be guided through activities, needs HEP with pictures and large print. PT-OP-C Subjective Start: 08/27/19 10:16 Freq: Status: Active Protocol: Document 08/29/19 14:19 LRN (Rec: 08/29/19 15:16 LRN [id number]) OP-PT Subjective Patient Comments Patient Comments Pt complains of R upper back pain. States she was only able to do a couple leg lift ex's due to pain. States she is now coughing up phlegm. She did not bring the breathing apparatus home from hospital, so she has not been doing breathing exercises. PT-OP-J Posture/Palpation/Skin Start: 08/27/19 10:16 Freq: Status: Active Protocol: Document 08/27/19 11:27 LRN (Rec: 08/27/19 12:36 LRN [id number]) Posture Evaluation Position Standing Evaluation View All positions Head/C-Spine Posture Forward Head T-Spine Posture Increased Kyphosis L-Spine Posture Decreased Lordosis Shoulder Posture (L) Elevated Scapula Posture (L) Elevated Pelvis Posture Posterior Tilted,(L) Rotated Posterior,(L) Iliac Crest Inferior Knee Posture (L) Genu Recurvatum Ankle/Foot Posture (L) Calcaneal Eversion Comments Posture Comments Sway back posturing. Palpation Assessment Location Hips Palpation Location R Gluteals/Piriformis Palpation Findings Soft Tissue Tightness, Tenderness Thoracic back Palpation Location Thoracic paraspinals Palpation Findings Tenderness Palpation Details Tight R Low back Palpation Location Lumbar paraspinals and QL Palpation Findings Tenderness Palpation Details Tight R paraspinals Tension L paraspinals. PT-OP-K Range of Motion Start: 08/27/19 10:16 Freq: Status: Active Protocol: Document 08/27/19 11:27 LRN (Rec: 08/27/19 12:36 LRN [id number]) Lumbar Spine Range of Motion Lumbar Spine Active Flexion 60 Extension 10 Lateral Flexion Left 3 Lateral Flexion Right 5 ROM Limitations Pain Hip Goniometric Range of Motion Hip Right Passive Testing Position Supine Flexion w/Knee Flexed 95 Straight Leg Raise 60 Abduction 50 Internal Rotation 60 External Rotation 50 Left Passive Testing Position Supine Flexion w/Knee Flexed 105 Straight Leg Raise 50 Abduction 45 Internal Rotation 40 External Rotation 55 PT-OP-L Special Tests Start: 08/27/19 10:16 Freq: Status: Active Protocol: Document 08/27/19 11:27 LRN (Rec: 08/27/19 13:13 LRN [id number]) Special Tests Lumbar Spine Special Tests Straight Leg Raise Test Results + bilaterally Comments PSLR: 60 deg's right, 50 deg's left. PT-OP-Q Treatments Start: 08/27/19 10:16 Freq: Status: Active Protocol: Document 08/29/19 14:19 LRN (Rec: 08/29/19 15:04 LRN [id number]) Therapeutic Exercises Sidelying Exercises R sidelie Sidelying Exercise Name L Hip AB & BKFO leg lifts Side left Equipment Used Folded towel for 6 layers under L/S L sidelie with stretch to R paraspinals Sidelying Exercise Name Stretch to R paraspinals Side right Equipment Used Folded towel for 6 layers and folded hand towel for 6 layers under L/S Sitting Exercises 5 Sitting Exercise Name Active trunk ext 2 Sitting Exercise Name LE neural stretch with pelvis in anterior tilt 1 Sitting Exercise Name Anterior Pelvic Tilt with Hip flexors Standing Exercises L Arm lift/leg lift Standing Exercise Name L arm/leg lift Side left Reps/Minutes 5x L Hip AB Standing Exercise Name L hip AB Side left Reps/Minutes 10x Comments Pt moves slowly and needed a rest after 4 reps. Manual Therapy Treatment Soft Tissue Mobilization Paraspinals Body Location Thoracic > Lumbar Mobilization Type Cross-Friction,Strumming Intensity/Depth Moderate Body Position Sidelying Comments L sidelie with towel roll under small of back Self-Care/Home Management Treatment Education Patient Education Posture Activities Self-Care/Home Management Activities I/S pt in sidelie positioning with towels to maintain a neutral spine and pillow between legs, showed pt size of towel width to use. PT-OP-T Assessment and Plan Start: 08/27/19 10:16 Freq: Status: Active Protocol: Document 08/29/19 14:19 LRN (Rec: 08/29/19 15:04 LRN [id number]) Physical Therapy Assessment Assessment Summary Assessment Curvature of the L/S appears to be less. Pt having R mid thoracic pain possibly due to pulmonary problems or thoracic kyphosis positioning. Physical Therapy Plan Frequency and Duration Frequency of Treatment 2x/Week Plan of Care Start Date 08/27/19 Plan of Care End Date 11/19/19 Next Visit Focus/Plan Next Note Type Treatment Note Next Visit Plan Start with trunk ext (lumbar and thoracic spine) warm up, f /b L sidelie stretch to R paraspinals and progress L paraspinal strengthening. Issue HEP if recall is poor. Improve lumbar posture. STM/ manual therapy to decrease pain, modalities (MH/premod EStim) as needed for pain.
--- NOTE | 2019-09-02 17:11 | PT.OTN ---
Current Diagnoses Low back pain (09/02/19) Physical Therapy Treatment Note PT-OP-A Visit Information Start: 08/27/19 10:16 Freq: Status: Active Protocol: Document 09/02/19 11:19 LRN (Rec: 09/02/19 12:31 LRN [id number]) Out-Patient Physical Therapy Visit Information Visit Information Visit Type Initial Evaluation Visit Start Time 11:19 Visit Stop Time 12:17 Total Visit Minutes 58 Visit Number 3 Number of LIST OF FIRST JOB IDEAS Visits 0 Evaluation Information Evaluation Date 08/27/19 Precautions Precautions PMH: LATEX ALLERGY, pt reported recent collapsed lung after biopsy - 2 weeks ago, compression fracture L4 - 2018, Osteoporosis, Polymyalgia rheumatica 06/01/11, cirrhosis of the liver not due to alcohol, hx of irregular heartbeat, IBS , autoimmune hepatitis 08/13, diverticulitis 06/01/11, systemic lupus 08/13/15, hypothyroidism, essential HTN, hx of neck and back pain, pelvic fx 2013, PT-OP-B Current Condition Start: 08/27/19 10:16 Freq: Status: Active Protocol: Document 08/27/19 11:27 LRN (Rec: 08/27/19 12:36 LRN [id number]) Current Condition History of Current Condition Onset Date Off/On since 12/2017 Current Complaints Severe pain in low back and up sides, constant. rated 6-7/10 History of Current Condition Pt reports having LBP off/on since 12/2017 after suffering an L4 compression fracture. She has had ongoing LBP that is progressively worsening in intensity and duration, now is constant. She states Dr. Verma thinks the L4 compression fracture has never healed. Recently pt had biopsy of a lung spot 2 weeks ago resulting in a collapsed lung with hospitalized at [facility] for 3 days. Out of hospital for 1-1/2 weeks and LBP has worsened. Prior Treatments and Tests X-rays indicate no new fractures, but redemonstration of L4 compression fracture. Future Testing and Treatments Planned Pulmonary CAT scan for ongoing scar tissue from pneumonia history. 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 4) to be able to turning the bathtub faucet on without pain . Prior Functional Status Baseline Function- ADL's Needs Assist Baseline Function- Mobility Needs Assist Baseline Function- Gait Unsteady Baseline Function- Other Slept 4 hours at a time (uses bathroom a couple of times through the night) from 10pm to 8am. Occasionally tied own shoes. Needed help lifting objects. Painfree in low back sitting. Current Functional Impairments (Reported) Functional Limitations- ADL's Toss and turns all night. Can't tie own shoes due to back pain. Can't bend over to pick light objects off the floor due to back pain. Can't pick of objects due to back pain. Pain in LB sitting for coffee is 5/10 Functional Limitations- Mobility/Gait Baseline. Personal Factors Other Personal Factors That May Effect Co-morbidities (Latex allergy, Therapy/Recovery recent asymptomatic telangiectasis, L4 compression fracture, osteoporosis, Lupus, Arthritis, IBS, past pelvic fracture, NOORVIK), Age ( over 65+), fragile skin, needs to be guided through activities, needs HEP with pictures and large print. PT-OP-C Subjective Start: 08/27/19 10:16 Freq: Status: Active Protocol: Document 09/02/19 11:19 LRN (Rec: 09/02/19 12:31 LRN [id number]) OP-PT Subjective Patient Comments Patient Comments States her R upper back is more painful than the L. Pain is 7-8/10. More painful in supine and less painful in R sidelie. Seeing Dr Verma for upper back pain. Was not able to do HEP due to upper back pain. Low back is dull pain. PT-OP-J Posture/Palpation/Skin Start: 08/27/19 10:16 Freq: Status: Active Protocol: Document 08/27/19 11:27 LRN (Rec: 08/27/19 12:36 LRN [id number]) Posture Evaluation Position Standing Evaluation View All positions Head/C-Spine Posture Forward Head T-Spine Posture Increased Kyphosis L-Spine Posture Decreased Lordosis Shoulder Posture (L) Elevated Scapula Posture (L) Elevated Pelvis Posture Posterior Tilted,(L) Rotated Posterior,(L) Iliac Crest Inferior Knee Posture (L) Genu Recurvatum Ankle/Foot Posture (L) Calcaneal Eversion Comments Posture Comments Sway back posturing. Palpation Assessment Location Hips Palpation Location R Gluteals/Piriformis Palpation Findings Soft Tissue Tightness, Tenderness Thoracic back Palpation Location Thoracic paraspinals Palpation Findings Tenderness Palpation Details Tight R Low back Palpation Location Lumbar paraspinals and QL Palpation Findings Tenderness Palpation Details Tight R paraspinals Tension L paraspinals. PT-OP-K Range of Motion Start: 08/27/19 10:16 Freq: Status: Active Protocol: Document 08/27/19 11:27 LRN (Rec: 08/27/19 12:36 LRN [id number]) Lumbar Spine Range of Motion Lumbar Spine Active Flexion 60 Extension 10 Lateral Flexion Left 3 Lateral Flexion Right 5 ROM Limitations Pain Hip Goniometric Range of Motion Hip Right Passive Testing Position Supine Flexion w/Knee Flexed 95 Straight Leg Raise 60 Abduction 50 Internal Rotation 60 External Rotation 50 Left Passive Testing Position Supine Flexion w/Knee Flexed 105 Straight Leg Raise 50 Abduction 45 Internal Rotation 40 External Rotation 55 PT-OP-L Special Tests Start: 08/27/19 10:16 Freq: Status: Active Protocol: Document 08/27/19 11:27 LRN (Rec: 08/27/19 13:13 LRN [id number]) Special Tests Lumbar Spine Special Tests Straight Leg Raise Test Results + bilaterally Comments PSLR: 60 deg's right, 50 deg's left. PT-OP-Q Treatments Start: 08/27/19 10:16 Freq: Status: Active Protocol: Document 09/02/19 11:19 LRN (Rec: 09/02/19 12:31 LRN [id number]) Therapeutic Exercises Sidelying Exercises L sidelie with stretch to R paraspinals Sidelying Exercise Name Stretch to R paraspinals Side right Equipment Used Folded towel for 6 layers and folded hand towel for 6 layers under L/S Comments Extra time taken for positioning and transfers for positioning Standing Exercises Myke Arm lifts Standing Exercise Name Upper thoracic trunk ext Reps/Minutes 10 hold x 10 Comments Extra time taken for positioning L Arm lift/leg lift Standing Exercise Name L arm/leg lift Side left Reps/Minutes 5x L Hip AB Standing Exercise Name L hip AB Other Exercises Semi-reclined B Shldr Ext Other Exercise Name Upper back Ext - Digging elbows into table w/Scap retract Side bilateral Reps/Minutes 10 Hold x 10 Semi-reclined Trunk Ext Other Exercise Name Upper Thoracic Trunk Ext (arm lifts) Side bilateral Equipment Used Bolster under legs, MH to back , extra pillow under head Reps/Minutes 10 hold x 10 Self-Care/Home Management Treatment Education Patient Education Home Exercise Program Activities Self-Care/Home Management Activities Issued & reviewed HEP: R paraspinal stretch, L paraspinal strengthening in semi-reclined and standing. PT-OP-R Modalities Start: 08/27/19 10:16 Freq: Status: Active Protocol: Document 09/02/19 11:19 LRN (Rec: 09/02/19 12:31 LRN [id number]) Hot Pack/Cold Pack Treatment Hot Pack Location Back during upper back strengthening Treatment Duration (minutes) 10 Patient Tolerance Good Comments Semi-reclined Position w/ Bolster for legs. PT-OP-T Assessment and Plan Start: 08/27/19 10:16 Freq: Status: Active Protocol: Document 09/02/19 11:19 LRN (Rec: 09/02/19 12:31 LRN [id number]) Physical Therapy Assessment Goals Five Impairment Decreased functional mobility due to pain per VISHNU score of 29 Half-Way Goal (LTG) Pt will demonstrate improved function per VISHNU score <29/50 and reports of improved tolerance to turning on the bathtub faucet and improved tolerance to vacuuming with proper body mechanics. LTG Duration 11/19/19 Four Impairment C-curve of the lumbar spine limiting function due to pain Short Term Goal (STG) Pt will be educated in lumbar ex's to improve C-curve of the lumbar spine. STG Duration 09/20/19 Legal Consultant Goal (LTG) Pt will demonstrate improved lumbar posture with minimal C- curve of the lumbar spine. LTG Duration 11/19/19 Three Impairment Decreased lumbar mobility limiting ability to bend over. Short Term Goal (STG) Pt will be educated in proper body mechanics for picking up objects at varying heights. 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 LTG Duration 11/19/19 Two Impairment Upper back & Low back pain limiting ability to sleep Short Term Goal (STG) Pt will be able to report ability to sleep uninterrupted for at least 2 hrs intermittently. STG Duration 09/24/19 Half-Way Goal (LTG) Pt will be able to sleep at least 4 hr intermittently during the night. LTG Duration 11/19/19 One Impairment Pt lacks appropriate self care HEP Legal Consultant Goal (LTG) Pt will be independent in a self care HEP. LTG Duration 11/19/19 (09/02/19: Progressing) Assessment Summary Assessment Lessening of C-curve of lumbar spine noted. Pt not having LBP, primarily upper back pain . Lungs appear clear with deep breaths, but not able to hear sounds with regular breathing. Pt may benefit from bilateral thoracic percussion to help mobilize pulmonary phlegm if found. MD to advise. Physical Therapy Plan Frequency and Duration Frequency of Treatment 2x/Week Plan of Care Start Date 08/27/19 Plan of Care End Date 11/19/19 Next Visit Focus/Plan Next Note Type Treatment Note Next Visit Plan Assess for pulmonary percussion per MD recommendations following test results. Cont trunk ext ( lumbar and thoracic spine) warm up, f/b L sidelie stretch to R paraspinals and progress L paraspinal strengthening. Issue HEP as progressed. Improve lumbar posture. STM/ manual therapy prn to decrease pain, ?modalities.
--- NOTE | 2019-09-06 16:38 | PT.OTN ---
Current Diagnoses Low back pain (09/06/19) Physical Therapy Treatment Note PT-OP-A Visit Information Start: 08/27/19 10:16 Freq: Status: Active Protocol: Document 09/06/19 14:24 LRN (Rec: 09/06/19 15:09 LRN [id number]) Out-Patient Physical Therapy Visit Information Visit Information Visit Type Treatment Note Visit Start Time 14:24 Visit Stop Time 15:06 Total Visit Minutes 42 Visit Number 4 Number of IT SYSTEMS ADMINISTRATOR Visits 0 Evaluation Information Evaluation Date 08/27/19 Precautions Precautions PMH: LATEX ALLERGY, pt reported recent collapsed lung after biopsy - 2 weeks ago, compression fracture L4 - 2018, Osteoporosis, Polymyalgia rheumatica 06/01/11, cirrhosis of the liver not due to alcohol, hx of irregular heartbeat, IBS , autoimmune hepatitis 08/13, diverticulitis 06/01/11, systemic lupus 08/13/15, hypothyroidism, essential HTN, hx of neck and back pain, pelvic fx 2013, PT-OP-B Current Condition Start: 08/27/19 10:16 Freq: Status: Active Protocol: Document 08/27/19 11:27 LRN (Rec: 08/27/19 12:36 LRN [id number]) Current Condition History of Current Condition Onset Date Off/On since 12/2017 Current Complaints Severe pain in low back and up sides, constant. rated 6-7/10 History of Current Condition Pt reports having LBP off/on since 12/2017 after suffering an L4 compression fracture. She has had ongoing LBP that is progressively worsening in intensity and duration, now is constant. She states Dr. Verma thinks the L4 compression fracture has never healed. Recently pt had biopsy of a lung spot 2 weeks ago resulting in a collapsed lung with hospitalized at [facility] for 3 days. Out of hospital for 1-1/2 weeks and LBP has worsened. Prior Treatments and Tests X-rays indicate no new fractures, but redemonstration of L4 compression fracture. Future Testing and Treatments Planned Pulmonary CAT scan for ongoing scar tissue from pneumonia history. 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 4) to be able to turning the bathtub faucet on without pain . Prior Functional Status Baseline Function- ADL's Needs Assist Baseline Function- Mobility Needs Assist Baseline Function- Gait Unsteady Baseline Function- Other Slept 4 hours at a time (uses bathroom a couple of times through the night) from 10pm to 8am. Occasionally tied own shoes. Needed help lifting objects. Painfree in low back sitting. Current Functional Impairments (Reported) Functional Limitations- ADL's Toss and turns all night. Can't tie own shoes due to back pain. Can't bend over to pick light objects off the floor due to back pain. Can't pick of objects due to back pain. Pain in LB sitting for coffee is 5/10 Functional Limitations- Mobility/Gait Baseline. Personal Factors Other Personal Factors That May Effect Co-morbidities (Latex allergy, Therapy/Recovery recent asymptomatic telangiectasis, L4 compression fracture, osteoporosis, Lupus, Arthritis, IBS, past pelvic fracture, MODOC), Age ( over 65+), fragile skin, needs to be guided through activities, needs HEP with pictures and large print. PT-OP-C Subjective Start: 08/27/19 10:16 Freq: Status: Active Protocol: Document 09/06/19 14:24 LRN (Rec: 09/06/19 15:09 LRN [id number]) OP-PT Subjective Patient Comments Patient Comments Pain in L upper back > R upper back is 5/10 and pain across shoulders posteriorly with achy pain and sometimes sharp and tingling. Will be going to respiratory appt next week, but states no pulmonary infection. PT-OP-J Posture/Palpation/Skin Start: 08/27/19 10:16 Freq: Status: Active Protocol: Document 08/27/19 11:27 LRN (Rec: 08/27/19 12:36 LRN [id number]) Posture Evaluation Position Standing Evaluation View All positions Head/C-Spine Posture Forward Head T-Spine Posture Increased Kyphosis L-Spine Posture Decreased Lordosis Shoulder Posture (L) Elevated Scapula Posture (L) Elevated Pelvis Posture Posterior Tilted,(L) Rotated Posterior,(L) Iliac Crest Inferior Knee Posture (L) Genu Recurvatum Ankle/Foot Posture (L) Calcaneal Eversion Comments Posture Comments Sway back posturing. Palpation Assessment Location Hips Palpation Location R Gluteals/Piriformis Palpation Findings Soft Tissue Tightness, Tenderness Thoracic back Palpation Location Thoracic paraspinals Palpation Findings Tenderness Palpation Details Tight R Low back Palpation Location Lumbar paraspinals and QL Palpation Findings Tenderness Palpation Details Tight R paraspinals Tension L paraspinals. PT-OP-K Range of Motion Start: 08/27/19 10:16 Freq: Status: Active Protocol: Document 08/27/19 11:27 LRN (Rec: 08/27/19 12:36 LRN [id number]) Lumbar Spine Range of Motion Lumbar Spine Active Flexion 60 Extension 10 Lateral Flexion Left 3 Lateral Flexion Right 5 ROM Limitations Pain Hip Goniometric Range of Motion Hip Right Passive Testing Position Supine Flexion w/Knee Flexed 95 Straight Leg Raise 60 Abduction 50 Internal Rotation 60 External Rotation 50 Left Passive Testing Position Supine Flexion w/Knee Flexed 105 Straight Leg Raise 50 Abduction 45 Internal Rotation 40 External Rotation 55 PT-OP-L Special Tests Start: 08/27/19 10:16 Freq: Status: Active Protocol: Document 08/27/19 11:27 LRN (Rec: 08/27/19 13:13 LRN [id number]) Special Tests Lumbar Spine Special Tests Straight Leg Raise Test Results + bilaterally Comments PSLR: 60 deg's right, 50 deg's left. PT-OP-Q Treatments Start: 08/27/19 10:16 Freq: Status: Active Protocol: Document 09/06/19 14:24 LRN (Rec: 09/06/19 15:09 LRN [id number]) Therapeutic Exercises Sidelying Exercises R sidelie Sidelying Exercise Name Stretch to L Mid T/S Paraspinals Standing Exercises R arm lift Standing Exercise Name R arm lift Side right Reps/Minutes 10 x 4 Standing Exercise Name Trunk Wood chop 1 Standing Exercise Name Standing trunk rotation Other Exercises Semi reclined 60 deg's Other Exercise Name Full body stretch Reps/Minutes 10 x 6 Semi-reclined B Shldr Ext Other Exercise Name Upper back Ext - Digging elbows into table w/Scap retract Side bilateral Reps/Minutes 10 Hold x 10 Semi-reclined Trunk Ext Other Exercise Name Upper Thoracic Trunk Ext (arm lifts) Side bilateral Equipment Used Bolster under legs, MH to back , extra pillow under head Reps/Minutes 10 hold x 10 Manual Therapy Treatment Soft Tissue Mobilization Paraspinals Body Location L Thoracic paraspinal mid thoracic Mobilization Type Strumming,Sustained Pressure, Trigger Point Release Intensity/Depth Moderate Body Position Sidelying Comments R sidelie with towel roll under lateral side of ~T2-T4 Self-Care/Home Management Treatment Education Patient Education Home Exercise Program Activities Self-Care/Home Management Activities I/S pt to D/C L arm lifts and start R arm lifts unless pain increases in mid back. Pt to DC leg lifts. She is to work on Thoracic ext in semi- reclined or supine. PT-OP-R Modalities Start: 08/27/19 10:16 Freq: Status: Active Protocol: Document 09/06/19 14:24 LRN (Rec: 09/06/19 15:21 LRN [id number]) Hot Pack/Cold Pack Treatment Hot Pack Location Back during upper back strengthening Treatment Duration (minutes) 10 Patient Tolerance Good Comments Semi-reclined Position w/ Bolster for legs. PT-OP-T Assessment and Plan Start: 08/27/19 10:16 Freq: Status: Active Protocol: Document 09/06/19 14:24 LRN (Rec: 09/06/19 15:09 LRN [id number]) Physical Therapy Assessment Assessment Summary Assessment No significant C-curve of lumbar spine, but now a C- curve of mid thoracic with apex on R, possibly from overcompensation of L sided strengthening. Low tolerance to exercise and STM. Physical Therapy Plan Frequency and Duration Frequency of Treatment 2x/Week Plan of Care Start Date 08/27/19 Plan of Care End Date 11/19/19 Next Visit Focus/Plan Next Note Type Treatment Note Next Visit Plan Cont trunk ext (lumbar and thoracic spine) warm up, progress bilateral paraspinal strengthening with straightening of curvature. Issue HEP as progressed. Improve lumbar posture. STM/ manual therapy prn to decrease pain, ?modalities.
--- NOTE | 2019-09-10 17:00 | PT.OTN ---
Current Diagnoses Low back pain (09/10/19) Physical Therapy Treatment Note PT-OP-A Visit Information Start: 08/27/19 10:16 Freq: Status: Active Protocol: Document 09/10/19 13:33 LRN (Rec: 09/10/19 14:20 LRN [id number]) Out-Patient Physical Therapy Visit Information Visit Information Visit Type Treatment Note Visit Start Time 13:33 Visit Stop Time 14:20 Total Visit Minutes 47 Visit Number 5 Number of SPECIAL DAY CLASS TEACHER Visits 0 Evaluation Information Evaluation Date 08/27/19 Precautions Precautions PMH: LATEX ALLERGY, pt reported recent collapsed lung after biopsy - 2 weeks ago, compression fracture L4 - 2018, Osteoporosis, Polymyalgia rheumatica 06/01/11, cirrhosis of the liver not due to alcohol, hx of irregular heartbeat, IBS , autoimmune hepatitis 08/13, diverticulitis 06/01/11, systemic lupus 08/13/15, hypothyroidism, essential HTN, hx of neck and back pain, pelvic fx 2013, PT-OP-B Current Condition Start: 08/27/19 10:16 Freq: Status: Active Protocol: Document 08/27/19 11:27 LRN (Rec: 08/27/19 12:36 LRN [id number]) Current Condition History of Current Condition Onset Date Off/On since 12/2017 Current Complaints Severe pain in low back and up sides, constant. rated 6-7/10 History of Current Condition Pt reports having LBP off/on since 12/2017 after suffering an L4 compression fracture. She has had ongoing LBP that is progressively worsening in intensity and duration, now is constant. She states Dr. Verma thinks the L4 compression fracture has never healed. Recently pt had biopsy of a lung spot 2 weeks ago resulting in a collapsed lung with hospitalized at [facility] for 3 days. Out of hospital for 1-1/2 weeks and LBP has worsened. Prior Treatments and Tests X-rays indicate no new fractures, but redemonstration of L4 compression fracture. Future Testing and Treatments Planned Pulmonary CAT scan for ongoing scar tissue from pneumonia history. 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 4) to be able to turning the bathtub faucet on without pain . Prior Functional Status Baseline Function- ADL's Needs Assist Baseline Function- Mobility Needs Assist Baseline Function- Gait Unsteady Baseline Function- Other Slept 4 hours at a time (uses bathroom a couple of times through the night) from 10pm to 8am. Occasionally tied own shoes. Needed help lifting objects. Painfree in low back sitting. Current Functional Impairments (Reported) Functional Limitations- ADL's Toss and turns all night. Can't tie own shoes due to back pain. Can't bend over to pick light objects off the floor due to back pain. Can't pick of objects due to back pain. Pain in LB sitting for coffee is 5/10 Functional Limitations- Mobility/Gait Baseline. Personal Factors Other Personal Factors That May Effect Co-morbidities (Latex allergy, Therapy/Recovery recent asymptomatic telangiectasis, L4 compression fracture, osteoporosis, Lupus, Arthritis, IBS, past pelvic fracture, [place]), Age ( over 65+), fragile skin, needs to be guided through activities, needs HEP with pictures and large print. PT-OP-C Subjective Start: 08/27/19 10:16 Freq: Status: Active Protocol: Document 09/10/19 13:33 LRN (Rec: 09/10/19 14:20 LRN [id number]) OP-PT Subjective Patient Comments Patient Comments Pt states her back hurt all weekend with pain rated 6/10. Today (after driving self) 7/ 10. Having respiratory therapy after next PT session on Monday. PT-OP-J Posture/Palpation/Skin Start: 08/27/19 10:16 Freq: Status: Active Protocol: Document 08/27/19 11:27 LRN (Rec: 08/27/19 12:36 LRN [id number]) Posture Evaluation Position Standing Evaluation View All positions Head/C-Spine Posture Forward Head T-Spine Posture Increased Kyphosis L-Spine Posture Decreased Lordosis Shoulder Posture (L) Elevated Scapula Posture (L) Elevated Pelvis Posture Posterior Tilted,(L) Rotated Posterior,(L) Iliac Crest Inferior Knee Posture (L) Genu Recurvatum Ankle/Foot Posture (L) Calcaneal Eversion Comments Posture Comments Sway back posturing. Palpation Assessment Location Hips Palpation Location R Gluteals/Piriformis Palpation Findings Soft Tissue Tightness, Tenderness Thoracic back Palpation Location Thoracic paraspinals Palpation Findings Tenderness Palpation Details Tight R Low back Palpation Location Lumbar paraspinals and QL Palpation Findings Tenderness Palpation Details Tight R paraspinals Tension L paraspinals. PT-OP-K Range of Motion Start: 08/27/19 10:16 Freq: Status: Active Protocol: Document 08/27/19 11:27 LRN (Rec: 08/27/19 12:36 LRN [id number]) Lumbar Spine Range of Motion Lumbar Spine Active Flexion 60 Extension 10 Lateral Flexion Left 3 Lateral Flexion Right 5 ROM Limitations Pain Hip Goniometric Range of Motion Hip Right Passive Testing Position Supine Flexion w/Knee Flexed 95 Straight Leg Raise 60 Abduction 50 Internal Rotation 60 External Rotation 50 Left Passive Testing Position Supine Flexion w/Knee Flexed 105 Straight Leg Raise 50 Abduction 45 Internal Rotation 40 External Rotation 55 PT-OP-L Special Tests Start: 08/27/19 10:16 Freq: Status: Active Protocol: Document 08/27/19 11:27 LRN (Rec: 08/27/19 13:13 LRN [id number]) Special Tests Lumbar Spine Special Tests Straight Leg Raise Test Results + bilaterally Comments PSLR: 60 deg's right, 50 deg's left. PT-OP-Q Treatments Start: 08/27/19 10:16 Freq: Status: Active Protocol: Document 09/10/19 13:33 LRN (Rec: 09/10/19 14:20 LRN [id number]) Therapeutic Exercises Standing Exercises Myke Arm lifts Standing Exercise Name Bilateral Arm Lifts Reps/Minutes 10 x Comments Pt moves slowly and rests between reps. Other Exercises Semi reclined 60 deg's Other Exercise Name Full body stretch Reps/Minutes 10 x 6 Comments MH to back Semi-reclined B Shldr Ext Other Exercise Name Upper back Ext - Digging elbows into table w/Scap retract Side bilateral Reps/Minutes 10 Hold x 10 Comments Bolster under legs, MH to back Semi-reclined Trunk Ext Other Exercise Name Upper Thoracic Trunk Ext (arm lifts) Side bilateral Equipment Used Bolster under legs, MH to back , extra pillow under head Reps/Minutes 10 hold x 10 Manual Therapy Treatment Soft Tissue Mobilization Paraspinals Body Location L Thoracic paraspinal mid thoracic Mobilization Type Strumming,Sustained Pressure, Trigger Point Release Intensity/Depth Moderate Body Position Sitting Self-Care/Home Management Treatment Education Patient Education Home Exercise Program Activities Self-Care/Home Management Activities Pt to DC R arm lifts. Issued and reviewed HEP of written I/ S for bilateral arm lifts and supine elbow digs. PT-OP-R Modalities Start: 08/27/19 10:16 Freq: Status: Active Protocol: Document 09/10/19 13:33 LRN (Rec: 09/11/19 20:22 LRN [id number]) Hot Pack/Cold Pack Treatment Hot Pack Location Back during upper back strengthening Treatment Duration (minutes) 10 Patient Tolerance Good Comments Semi-reclined Position w/ Bolster for legs. PT-OP-T Assessment and Plan Start: 08/27/19 10:16 Freq: Status: Active Protocol: Document 09/10/19 13:33 LRN (Rec: 09/10/19 14:20 LRN [id number]) Physical Therapy Assessment Assessment Summary Assessment Poor tolerance to therapy; therefore very little improvement after therapy with pain decreased by 1 on a 0-10 scale. Physical Therapy Plan Frequency and Duration Frequency of Treatment 2x/Week Plan of Care Start Date 08/27/19 Plan of Care End Date 11/19/19 Next Visit Focus/Plan Next Note Type Treatment Note Next Visit Plan Cont as tolerated with trunk ext (lumbar and thoracic spine ) warm up, progress bilateral paraspinal strengthening with straightening of curvature. Issue HEP as progressed. Improve lumbar posture. STM/ manual therapy prn to decrease pain, ?modalities.
--- NOTE | 2019-09-13 17:14 | PT.OTN ---
Current Diagnoses Low back pain (09/13/19) Physical Therapy Treatment Note PT-OP-A Visit Information Start: 08/27/19 10:16 Freq: Status: Active Protocol: Document 09/13/19 14:22 LRN (Rec: 09/13/19 14:55 LRN [id number]) Out-Patient Physical Therapy Visit Information Visit Information Visit Type Treatment Note Visit Start Time 14:22 Visit Stop Time 14:50 Total Visit Minutes 28 Visit Number 6 Number of ONCOLOGY COORDINATOR Visits 0 Evaluation Information Evaluation Date 08/27/19 Precautions Precautions PMH: LATEX ALLERGY, pt reported recent collapsed lung after biopsy - 2 weeks ago, compression fracture L4 - 2018, Osteoporosis, Polymyalgia rheumatica 06/01/11, cirrhosis of the liver not due to alcohol, hx of irregular heartbeat, IBS , autoimmune hepatitis 08/13, diverticulitis 06/01/11, systemic lupus 08/13/15, hypothyroidism, essential HTN, hx of neck and back pain, pelvic fx 2013, PT-OP-B Current Condition Start: 08/27/19 10:16 Freq: Status: Active Protocol: Document 08/27/19 11:27 LRN (Rec: 08/27/19 12:36 LRN [id number]) Current Condition History of Current Condition Onset Date Off/On since 12/2017 Current Complaints Severe pain in low back and up sides, constant. rated 6-7/10 History of Current Condition Pt reports having LBP off/on since 12/2017 after suffering an L4 compression fracture. She has had ongoing LBP that is progressively worsening in intensity and duration, now is constant. She states Dr. Verma thinks the L4 compression fracture has never healed. Recently pt had biopsy of a lung spot 2 weeks ago resulting in a collapsed lung with hospitalized at [facility] for 3 days. Out of hospital for 1-1/2 weeks and LBP has worsened. Prior Treatments and Tests X-rays indicate no new fractures, but redemonstration of L4 compression fracture. Future Testing and Treatments Planned Pulmonary CAT scan for ongoing scar tissue from pneumonia history. 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 4) to be able to turning the bathtub faucet on without pain . Prior Functional Status Baseline Function- ADL's Needs Assist Baseline Function- Mobility Needs Assist Baseline Function- Gait Unsteady Baseline Function- Other Slept 4 hours at a time (uses bathroom a couple of times through the night) from 10pm to 8am. Occasionally tied own shoes. Needed help lifting objects. Painfree in low back sitting. Current Functional Impairments (Reported) Functional Limitations- ADL's Toss and turns all night. Can't tie own shoes due to back pain. Can't bend over to pick light objects off the floor due to back pain. Can't pick of objects due to back pain. Pain in LB sitting for coffee is 5/10 Functional Limitations- Mobility/Gait Baseline. Personal Factors Other Personal Factors That May Effect Co-morbidities (Latex allergy, Therapy/Recovery recent asymptomatic telangiectasis, L4 compression fracture, osteoporosis, Lupus, Arthritis, IBS, past pelvic fracture, [place] [employer] [employer]), Age ( over 65+), fragile skin, needs to be guided through activities, needs HEP with pictures and large print. PT-OP-C Subjective Start: 08/27/19 10:16 Freq: Status: Active Protocol: Document 09/13/19 14:22 LRN (Rec: 09/13/19 14:55 LRN [id number]) OP-PT Subjective Patient Comments Patient Comments States the back hurts the same . Is a little better after therapy, but pain returns, Having respiratory therapy after PT, requests early leave . PT-OP-J Posture/Palpation/Skin Start: 08/27/19 10:16 Freq: Status: Active Protocol: Document 08/27/19 11:27 LRN (Rec: 08/27/19 12:36 LRN [id number]) Posture Evaluation Position Standing Evaluation View All positions Head/C-Spine Posture Forward Head T-Spine Posture Increased Kyphosis L-Spine Posture Decreased Lordosis Shoulder Posture (L) Elevated Scapula Posture (L) Elevated Pelvis Posture Posterior Tilted,(L) Rotated Posterior,(L) Iliac Crest Inferior Knee Posture (L) Genu Recurvatum Ankle/Foot Posture (L) Calcaneal Eversion Comments Posture Comments Sway back posturing. Palpation Assessment Location Hips Palpation Location R Gluteals/Piriformis Palpation Findings Soft Tissue Tightness, Tenderness Thoracic back Palpation Location Thoracic paraspinals Palpation Findings Tenderness Palpation Details Tight R Low back Palpation Location Lumbar paraspinals and QL Palpation Findings Tenderness Palpation Details Tight R paraspinals Tension L paraspinals. PT-OP-K Range of Motion Start: 08/27/19 10:16 Freq: Status: Active Protocol: Document 08/27/19 11:27 LRN (Rec: 08/27/19 12:36 LRN [id number]) Lumbar Spine Range of Motion Lumbar Spine Active Flexion 60 Extension 10 Lateral Flexion Left 3 Lateral Flexion Right 5 ROM Limitations Pain Hip Goniometric Range of Motion Hip Right Passive Testing Position Supine Flexion w/Knee Flexed 95 Straight Leg Raise 60 Abduction 50 Internal Rotation 60 External Rotation 50 Left Passive Testing Position Supine Flexion w/Knee Flexed 105 Straight Leg Raise 50 Abduction 45 Internal Rotation 40 External Rotation 55 PT-OP-L Special Tests Start: 08/27/19 10:16 Freq: Status: Active Protocol: Document 08/27/19 11:27 LRN (Rec: 08/27/19 13:13 LRN [id number]) Special Tests Lumbar Spine Special Tests Straight Leg Raise Test Results + bilaterally Comments PSLR: 60 deg's right, 50 deg's left. PT-OP-Q Treatments Start: 08/27/19 10:16 Freq: Status: Active Protocol: Document 09/13/19 14:22 LRN (Rec: 09/13/19 14:55 LRN [id number]) Therapeutic Exercises Other Exercises Standing full body stretch Other Exercise Name Full body stretch with arms overhead Reps/Minutes 10x Semi-reclined B Shldr Ext Other Exercise Name Upper back Ext - Digging elbows into table w/Scap retract Side bilateral Reps/Minutes 10 Hold x 10 Comments Bolster under legs, MH to back Semi-reclined Trunk Ext Other Exercise Name Upper Thoracic Trunk Ext (arm lifts) Side bilateral Equipment Used Bolster under legs, MH to back , extra pillow under head Reps/Minutes 10 hold x 10 Manual Therapy Treatment Soft Tissue Mobilization Paraspinals Body Location L Thoracic paraspinal mid thoracic Mobilization Type Strumming,Sustained Pressure, Trigger Point Release Intensity/Depth Moderate Body Position Sitting PT-OP-R Modalities Start: 08/27/19 10:16 Freq: Status: Active Protocol: Document 09/13/19 14:22 LRN (Rec: 09/13/19 17:14 LRN [id number]) Hot Pack/Cold Pack Treatment Hot Pack Location Back during upper back strengthening Treatment Duration (minutes) 10 Patient Tolerance Good Comments Semi-reclined Position w/ Bolster for legs PT-OP-T Assessment and Plan Start: 08/27/19 10:16 Freq: Status: Active Protocol: Document 09/13/19 14:22 LRN (Rec: 09/13/19 17:14 LRN [id number]) Physical Therapy Assessment Assessment Summary Assessment Pt had pain relief after therapy with assist in coming to sit after being semi- reclined. Physical Therapy Plan Frequency and Duration Frequency of Treatment 2x/Week Plan of Care Start Date 08/27/19 Plan of Care End Date 11/19/19 Next Visit Focus/Plan Next Note Type Treatment Note Next Visit Plan Cont trunk ext strengthening with MH, try use of ES to low back during upper back strengthening. STM/manual therapy for soft tissue dysfunction pain relief, improve lumbar posture.
--- NOTE | 2019-09-17 16:29 | PT.OTN ---
Current Diagnoses Low back pain (09/17/19) Physical Therapy Treatment Note PT-OP-A Visit Information Start: 08/27/19 10:16 Freq: Status: Active Protocol: Document 09/17/19 11:19 LRN (Rec: 09/17/19 12:31 LRN [id number]) Out-Patient Physical Therapy Visit Information Visit Information Visit Type Treatment Note Visit Start Time 11: Visit Stop Time 12:10 Total Visit Minutes 51 Visit Number 7 Number of CYLINDER DYER Visits 0 Evaluation Information Evaluation Date 08/27/19 Precautions Precautions PMH: LATEX ALLERGY, pt reported recent collapsed lung after biopsy - 2 weeks ago, compression fracture L4 - 2018, Osteoporosis, Polymyalgia rheumatica 06/01/11, cirrhosis of the liver not due to alcohol, hx of irregular heartbeat, IBS , autoimmune hepatitis 08/13, diverticulitis 06/01/11, systemic lupus 08/13/15, hypothyroidism, essential HTN, hx of neck and back pain, pelvic fx 2013, PT-OP-B Current Condition Start: 08/27/19 10:16 Freq: Status: Active Protocol: Document 08/27/19 11:27 LRN (Rec: 08/27/19 12:36 LRN [id number]) Current Condition History of Current Condition Onset Date Off/On since 12/2017 Current Complaints Severe pain in low back and up sides, constant. rated 6-7/10 History of Current Condition Pt reports having LBP off/on since 12/2017 after suffering an L4 compression fracture. She has had ongoing LBP that is progressively worsening in intensity and duration, now is constant. She states Dr. Verma thinks the L4 compression fracture has never healed. Recently pt had biopsy of a lung spot 2 weeks ago resulting in a collapsed lung with hospitalized at [facility] for 3 days. Out of hospital for 1-1/2 weeks and LBP has worsened. Prior Treatments and Tests X-rays indicate no new fractures, but redemonstration of L4 compression fracture. Future Testing and Treatments Planned Pulmonary CAT scan for ongoing scar tissue from pneumonia history. 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 4) to be able to turning the bathtub faucet on without pain . Prior Functional Status Baseline Function- ADL's Needs Assist Baseline Function- Mobility Needs Assist Baseline Function- Gait Unsteady Baseline Function- Other Slept 4 hours at a time (uses bathroom a couple of times through the night) from 10pm to 8am. Occasionally tied own shoes. Needed help lifting objects. Painfree in low back sitting. Current Functional Impairments (Reported) Functional Limitations- ADL's Toss and turns all night. Can't tie own shoes due to back pain. Can't bend over to pick light objects off the floor due to back pain. Can't pick of objects due to back pain. Pain in LB sitting for coffee is 5/10 Functional Limitations- Mobility/Gait Baseline. Personal Factors Other Personal Factors That May Effect Co-morbidities (Latex allergy, Therapy/Recovery recent asymptomatic telangiectasis, L4 compression fracture, osteoporosis, Lupus, Arthritis, IBS, past pelvic fracture, [place]), Age ( over 65+), fragile skin, needs to be guided through activities, needs HEP with pictures and large print. PT-OP-C Subjective Start: 08/27/19 10:16 Freq: Status: Active Protocol: Document 09/17/19 11:19 LRN (Rec: 09/17/19 12:31 LRN [id number]) OP-PT Subjective Patient Comments Patient Comments Pain is 4-5/10. States she did not like the respiratory treatment and the back has been worse since the RT treatment. PT-OP-J Posture/Palpation/Skin Start: 08/27/19 10:16 Freq: Status: Active Protocol: Document 08/27/19 11:27 LRN (Rec: 08/27/19 12:36 LRN [id number]) Posture Evaluation Position Standing Evaluation View All positions Head/C-Spine Posture Forward Head T-Spine Posture Increased Kyphosis L-Spine Posture Decreased Lordosis Shoulder Posture (L) Elevated Scapula Posture (L) Elevated Pelvis Posture Posterior Tilted,(L) Rotated Posterior,(L) Iliac Crest Inferior Knee Posture (L) Genu Recurvatum Ankle/Foot Posture (L) Calcaneal Eversion Comments Posture Comments Sway back posturing. Palpation Assessment Location Hips Palpation Location R Gluteals/Piriformis Palpation Findings Soft Tissue Tightness, Tenderness Thoracic back Palpation Location Thoracic paraspinals Palpation Findings Tenderness Palpation Details Tight R Low back Palpation Location Lumbar paraspinals and QL Palpation Findings Tenderness Palpation Details Tight R paraspinals Tension L paraspinals. PT-OP-K Range of Motion Start: 08/27/19 10:16 Freq: Status: Active Protocol: Document 08/27/19 11:27 LRN (Rec: 08/27/19 12:36 LRN [id number]) Lumbar Spine Range of Motion Lumbar Spine Active Flexion 60 Extension 10 Lateral Flexion Left 3 Lateral Flexion Right 5 ROM Limitations Pain Hip Goniometric Range of Motion Hip Right Passive Testing Position Supine Flexion w/Knee Flexed 95 Straight Leg Raise 60 Abduction 50 Internal Rotation 60 External Rotation 50 Left Passive Testing Position Supine Flexion w/Knee Flexed 105 Straight Leg Raise 50 Abduction 45 Internal Rotation 40 External Rotation 55 PT-OP-L Special Tests Start: 08/27/19 10:16 Freq: Status: Active Protocol: Document 08/27/19 11:27 LRN (Rec: 08/27/19 13:13 LRN [id number]) Special Tests Lumbar Spine Special Tests Straight Leg Raise Test Results + bilaterally Comments PSLR: 60 deg's right, 50 deg's left. PT-OP-Q Treatments Start: 08/27/19 10:16 Freq: Status: Active Protocol: Document 09/17/19 11:19 LRN (Rec: 09/17/19 12:31 LRN [id number]) Therapeutic Exercises Supine Exercises [place] Shoulder Ext Supine Exercise Name Myke Shdr ext w/arms straight and bent Reps/Minutes 5S hold x 10 Postural positioning Supine Exercise Name Posturing: arms abd to side and LE in BKFO Reps/Minutes 2' Standing Exercises Myke Arm lifts Standing Exercise Name Bilateral Arm Lifts Reps/Minutes 10 x Comments Pt moves slowly and rests between reps. Other Exercises Standing full body stretch Other Exercise Name Full body stretch with arms overhead Reps/Minutes 10x Semi-reclined B Shldr Ext Other Exercise Name Upper back Ext - Digging elbows into table w/Scap retract Side bilateral Reps/Minutes 10 Hold x 10 Comments Bolster under legs, MH to back Semi-reclined Trunk Ext Other Exercise Name Upper Thoracic Trunk Ext (arm lifts) Side bilateral Equipment Used Bolster under legs, MH to back , extra pillow under head Reps/Minutes 10 hold x 10 Manual Therapy Treatment Soft Tissue Mobilization Paraspinals Body Location L Thoracic paraspinal mid thoracic Mobilization Type Strumming,Sustained Pressure, Trigger Point Release Intensity/Depth Moderate Body Position Sidelying Comments Sidelie on left Self-Care/Home Management Treatment Education Patient Education Home Exercise Program Activities Self-Care/Home Management Activities Issued and reviewed supine positioning for thoracic stretch. I/S pt in deep breathing in these positions. PT-OP-R Modalities Start: 08/27/19 10:16 Freq: Status: Active Protocol: Document 09/17/19 11:19 LRN (Rec: 09/17/19 12:31 LRN [id number]) Hot Pack/Cold Pack Treatment Hot Pack Location Back during upper back strengthening Treatment Duration (minutes) 10 Patient Tolerance Good Comments Semi-reclined Position w/ Bolster for legs PT-OP-T Assessment and Plan Start: 08/27/19 10:16 Freq: Status: Active Protocol: Document 09/17/19 11:19 LRN (Rec: 09/17/19 12:31 LRN [id number]) Physical Therapy Assessment Assessment Summary Assessment No change in pain rating, but decrease pain in areas of the back. Pt was able to tolerate supine positioning for thoracic ext ex's. Pt more sore with starting of Respiratory therapy; therefore hold on modalities except MH & cryotherapy. Physical Therapy Plan Frequency and Duration Frequency of Treatment 2x/Week Plan of Care Start Date 08/27/19 Plan of Care End Date 11/19/19 Next Visit Focus/Plan Next Note Type Treatment Note Next Visit Plan Cont trunk ext strengthening with MH. Add prone thoracic ext ex if tolerated. STM/ manual therapy for soft tissue dysfunction pain relief, improve thoracolumbar posture.
--- NOTE | 2019-09-17 16:30 | PT.OTN ---
Current Diagnoses Low back pain (09/17/19) Physical Therapy Treatment Note PT-OP-A Visit Information Start: 08/27/19 10:16 Freq: Status: Active Protocol: Document 09/17/19 11:19 LRN (Rec: 09/17/19 12:31 LRN [id number]) Out-Patient Physical Therapy Visit Information Visit Information Visit Type Treatment Note Visit Start Time 11: Visit Stop Time 12:10 Total Visit Minutes 51 Visit Number 7 Number of CHARTER PILOT Visits 0 Evaluation Information Evaluation Date 08/27/19 Precautions Precautions PMH: LATEX ALLERGY, pt reported recent collapsed lung after biopsy - 2 weeks ago, compression fracture L4 - 2018, Osteoporosis, Polymyalgia rheumatica 06/01/11, cirrhosis of the liver not due to alcohol, hx of irregular heartbeat, IBS , autoimmune hepatitis 08/13, diverticulitis 06/01/11, systemic lupus 08/13/15, hypothyroidism, essential HTN, hx of neck and back pain, pelvic fx 2013, PT-OP-B Current Condition Start: 08/27/19 10:16 Freq: Status: Active Protocol: Document 08/27/19 11:27 LRN (Rec: 08/27/19 12:36 LRN [id number]) Current Condition History of Current Condition Onset Date Off/On since 12/2017 Current Complaints Severe pain in low back and up sides, constant. rated 6-7/10 History of Current Condition Pt reports having LBP off/on since 12/2017 after suffering an L4 compression fracture. She has had ongoing LBP that is progressively worsening in intensity and duration, now is constant. She states Dr. Verma thinks the L4 compression fracture has never healed. Recently pt had biopsy of a lung spot 2 weeks ago resulting in a collapsed lung with hospitalized at [facility] for 3 days. Out of hospital for 1-1/2 weeks and LBP has worsened. Prior Treatments and Tests X-rays indicate no new fractures, but redemonstration of L4 compression fracture. Future Testing and Treatments Planned Pulmonary CAT scan for ongoing scar tissue from pneumonia history. 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 4) to be able to turning the bathtub faucet on without pain . Prior Functional Status Baseline Function- ADL's Needs Assist Baseline Function- Mobility Needs Assist Baseline Function- Gait Unsteady Baseline Function- Other Slept 4 hours at a time (uses bathroom a couple of times through the night) from 10pm to 8am. Occasionally tied own shoes. Needed help lifting objects. Painfree in low back sitting. Current Functional Impairments (Reported) Functional Limitations- ADL's Toss and turns all night. Can't tie own shoes due to back pain. Can't bend over to pick light objects off the floor due to back pain. Can't pick of objects due to back pain. Pain in LB sitting for coffee is 5/10 Functional Limitations- Mobility/Gait Baseline. Personal Factors Other Personal Factors That May Effect Co-morbidities (Latex allergy, Therapy/Recovery recent asymptomatic telangiectasis, L4 compression fracture, osteoporosis, Lupus, Arthritis, IBS, past pelvic fracture, [place]), Age ( over 65+), fragile skin, needs to be guided through activities, needs HEP with pictures and large print. PT-OP-C Subjective Start: 08/27/19 10:16 Freq: Status: Active Protocol: Document 09/17/19 11:19 LRN (Rec: 09/17/19 12:31 LRN [id number]) OP-PT Subjective Patient Comments Patient Comments Pain is 4-5/10. States she did not like the respiratory treatment and the back has been worse since the RT treatment. PT-OP-J Posture/Palpation/Skin Start: 08/27/19 10:16 Freq: Status: Active Protocol: Document 08/27/19 11:27 LRN (Rec: 08/27/19 12:36 LRN [id number]) Posture Evaluation Position Standing Evaluation View All positions Head/C-Spine Posture Forward Head T-Spine Posture Increased Kyphosis L-Spine Posture Decreased Lordosis Shoulder Posture (L) Elevated Scapula Posture (L) Elevated Pelvis Posture Posterior Tilted,(L) Rotated Posterior,(L) Iliac Crest Inferior Knee Posture (L) Genu Recurvatum Ankle/Foot Posture (L) Calcaneal Eversion Comments Posture Comments Sway back posturing. Palpation Assessment Location Hips Palpation Location R Gluteals/Piriformis Palpation Findings Soft Tissue Tightness, Tenderness Thoracic back Palpation Location Thoracic paraspinals Palpation Findings Tenderness Palpation Details Tight R Low back Palpation Location Lumbar paraspinals and QL Palpation Findings Tenderness Palpation Details Tight R paraspinals Tension L paraspinals. PT-OP-K Range of Motion Start: 08/27/19 10:16 Freq: Status: Active Protocol: Document 08/27/19 11:27 LRN (Rec: 08/27/19 12:36 LRN [id number]) Lumbar Spine Range of Motion Lumbar Spine Active Flexion 60 Extension 10 Lateral Flexion Left 3 Lateral Flexion Right 5 ROM Limitations Pain Hip Goniometric Range of Motion Hip Right Passive Testing Position Supine Flexion w/Knee Flexed 95 Straight Leg Raise 60 Abduction 50 Internal Rotation 60 External Rotation 50 Left Passive Testing Position Supine Flexion w/Knee Flexed 105 Straight Leg Raise 50 Abduction 45 Internal Rotation 40 External Rotation 55 PT-OP-L Special Tests Start: 08/27/19 10:16 Freq: Status: Active Protocol: Document 08/27/19 11:27 LRN (Rec: 08/27/19 13:13 LRN [id number]) Special Tests Lumbar Spine Special Tests Straight Leg Raise Test Results + bilaterally Comments PSLR: 60 deg's right, 50 deg's left. PT-OP-Q Treatments Start: 08/27/19 10:16 Freq: Status: Active Protocol: Document 09/17/19 11:19 LRN (Rec: 09/17/19 12:31 LRN [id number]) Therapeutic Exercises Supine Exercises Charisma Shoulder Ext Supine Exercise Name Myke Shdr ext w/arms straight and bent Reps/Minutes 5S hold x 10 Postural positioning Supine Exercise Name Posturing: arms abd to side and LE in BKFO Reps/Minutes 2' Standing Exercises Myke Arm lifts Standing Exercise Name Bilateral Arm Lifts Reps/Minutes 10 x Comments Pt moves slowly and rests between reps. Other Exercises Standing full body stretch Other Exercise Name Full body stretch with arms overhead Reps/Minutes 10x Semi-reclined B Shldr Ext Other Exercise Name Upper back Ext - Digging elbows into table w/Scap retract Side bilateral Reps/Minutes 10 Hold x 10 Comments Bolster under legs, MH to back Semi-reclined Trunk Ext Other Exercise Name Upper Thoracic Trunk Ext (arm lifts) Side bilateral Equipment Used Bolster under legs, MH to back , extra pillow under head Reps/Minutes 10 hold x 10 Manual Therapy Treatment Soft Tissue Mobilization Paraspinals Body Location L Thoracic paraspinal mid thoracic Mobilization Type Strumming,Sustained Pressure, Trigger Point Release Intensity/Depth Moderate Body Position Sidelying Comments Sidelie on left Self-Care/Home Management Treatment Education Patient Education Home Exercise Program Activities Self-Care/Home Management Activities Issued and reviewed HEP: supine positioning for thoracic stretch. I/S pt in deep breathing in these positions. PT-OP-R Modalities Start: 08/27/19 10:16 Freq: Status: Active Protocol: Document 09/17/19 11:19 LRN (Rec: 09/17/19 12:31 LRN [id number]) Hot Pack/Cold Pack Treatment Hot Pack Location Back during upper back strengthening Treatment Duration (minutes) 10 Patient Tolerance Good Comments Semi-reclined Position w/ Bolster for legs PT-OP-T Assessment and Plan Start: 08/27/19 10:16 Freq: Status: Active Protocol: Document 09/17/19 11:19 LRN (Rec: 09/17/19 12:31 LRN [id number]) Physical Therapy Assessment Assessment Summary Assessment No change in pain rating, but decrease pain in areas of the back. Pt was able to tolerate supine positioning for thoracic ext ex's. Pt more sore with starting of Respiratory therapy; therefore hold on modalities except MH & cryotherapy. Physical Therapy Plan Frequency and Duration Frequency of Treatment 2x/Week Plan of Care Start Date 08/27/19 Plan of Care End Date 11/19/19 Next Visit Focus/Plan Next Note Type Treatment Note Next Visit Plan Cont trunk ext strengthening with MH. Add prone thoracic ext ex if tolerated. STM/ manual therapy for soft tissue dysfunction pain relief, improve thoracolumbar posture.
--- NOTE | 2019-09-23 16:45 | PT.OTN ---
Current Diagnoses Low back pain (09/23/19) Physical Therapy Treatment Note PT-OP-A Visit Information Start: 08/27/19 10:16 Freq: Status: Active Protocol: Document 09/23/19 10:37 LRN (Rec: 09/23/19 11:19 LRN [id number]) Out-Patient Physical Therapy Visit Information Visit Information Visit Type Treatment Note Visit Start Time 10:38 Visit Stop Time 11:19 Total Visit Minutes 41 Visit Number 8 Number of STRATEGIC DEBRIEFING SPECIALIST Visits 0 Evaluation Information Evaluation Date 08/27/19 Precautions Precautions PMH: LATEX ALLERGY, pt reported recent collapsed lung after biopsy - 2 weeks ago, compression fracture L4 - 2018, Osteoporosis, Polymyalgia rheumatica 06/01/11, cirrhosis of the liver not due to alcohol, hx of irregular heartbeat, IBS , autoimmune hepatitis 08/13, diverticulitis 06/01/11, systemic lupus 08/13/15, hypothyroidism, essential HTN, hx of neck and back pain, pelvic fx 2013, PT-OP-B Current Condition Start: 08/27/19 10:16 Freq: Status: Active Protocol: Document 08/27/19 11:27 LRN (Rec: 08/27/19 12:36 LRN [id number]) Current Condition History of Current Condition Onset Date Off/On since 12/2017 Current Complaints Severe pain in low back and up sides, constant. rated 6-7/10 History of Current Condition Pt reports having LBP off/on since 12/2017 after suffering an L4 compression fracture. She has had ongoing LBP that is progressively worsening in intensity and duration, now is constant. She states Dr. Verma thinks the L4 compression fracture has never healed. Recently pt had biopsy of a lung spot 2 weeks ago resulting in a collapsed lung with hospitalized at [facility] for 3 days. Out of hospital for 1-1/2 weeks and LBP has worsened. Prior Treatments and Tests X-rays indicate no new fractures, but redemonstration of L4 compression fracture. Future Testing and Treatments Planned Pulmonary CAT scan for ongoing scar tissue from pneumonia history. 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 4) to be able to turning the bathtub faucet on without pain . Prior Functional Status Baseline Function- ADL's Needs Assist Baseline Function- Mobility Needs Assist Baseline Function- Gait Unsteady Baseline Function- Other Slept 4 hours at a time (uses bathroom a couple of times through the night) from 10pm to 8am. Occasionally tied own shoes. Needed help lifting objects. Painfree in low back sitting. Current Functional Impairments (Reported) Functional Limitations- ADL's Toss and turns all night. Can't tie own shoes due to back pain. Can't bend over to pick light objects off the floor due to back pain. Can't pick of objects due to back pain. Pain in LB sitting for coffee is 5/10 Functional Limitations- Mobility/Gait Baseline. Personal Factors Other Personal Factors That May Effect Co-morbidities (Latex allergy, Therapy/Recovery recent asymptomatic telangiectasis, L4 compression fracture, osteoporosis, Lupus, Arthritis, IBS, past pelvic fracture, [place]), Age ( over 65+), fragile skin, needs to be guided through activities, needs HEP with pictures and large print. PT-OP-C Subjective Start: 08/27/19 10:16 Freq: Status: Active Protocol: Document 09/23/19 10:37 LRN (Rec: 09/23/19 11:19 LRN [id number]) OP-PT Subjective Patient Comments Patient Comments States she is in pain today in UB. States one day woke without pain, but used a lidocaine patch and once up the pain began. PT-OP-J Posture/Palpation/Skin Start: 08/27/19 10:16 Freq: Status: Active Protocol: Document 08/27/19 11:27 LRN (Rec: 08/27/19 12:36 LRN [id number]) Posture Evaluation Position Standing Evaluation View All positions Head/C-Spine Posture Forward Head T-Spine Posture Increased Kyphosis L-Spine Posture Decreased Lordosis Shoulder Posture (L) Elevated Scapula Posture (L) Elevated Pelvis Posture Posterior Tilted,(L) Rotated Posterior,(L) Iliac Crest Inferior Knee Posture (L) Genu Recurvatum Ankle/Foot Posture (L) Calcaneal Eversion Comments Posture Comments Sway back posturing. Palpation Assessment Location Hips Palpation Location R Gluteals/Piriformis Palpation Findings Soft Tissue Tightness, Tenderness Thoracic back Palpation Location Thoracic paraspinals Palpation Findings Tenderness Palpation Details Tight R Low back Palpation Location Lumbar paraspinals and QL Palpation Findings Tenderness Palpation Details Tight R paraspinals Tension L paraspinals. PT-OP-K Range of Motion Start: 08/27/19 10:16 Freq: Status: Active Protocol: Document 08/27/19 11:27 LRN (Rec: 08/27/19 12:36 LRN [id number]) Lumbar Spine Range of Motion Lumbar Spine Active Flexion 60 Extension 10 Lateral Flexion Left 3 Lateral Flexion Right 5 ROM Limitations Pain Hip Goniometric Range of Motion Hip Right Passive Testing Position Supine Flexion w/Knee Flexed 95 Straight Leg Raise 60 Abduction 50 Internal Rotation 60 External Rotation 50 Left Passive Testing Position Supine Flexion w/Knee Flexed 105 Straight Leg Raise 50 Abduction 45 Internal Rotation 40 External Rotation 55 PT-OP-L Special Tests Start: 08/27/19 10:16 Freq: Status: Active Protocol: Document 08/27/19 11:27 LRN (Rec: 08/27/19 13:13 LRN [id number]) Special Tests Lumbar Spine Special Tests Straight Leg Raise Test Results + bilaterally Comments PSLR: 60 deg's right, 50 deg's left. PT-OP-Q Treatments Start: 08/27/19 10:16 Freq: Status: Active Protocol: Document 09/23/19 10:37 LRN (Rec: 09/23/19 11:19 LRN [id number]) Therapeutic Exercises Supine Exercises Full Body stretch Supine Exercise Name Full Body Stretch Reps/Minutes 10 sec x 3 Charisma Shoulder Ext Supine Exercise Name Myke Shdr ext w/arms straight and bent Reps/Minutes 5 sec hold x 20 Postural positioning Supine Exercise Name Posturing: arms abd to side and LE in BKFO Reps/Minutes 2' Standing Exercises Myke Arm lifts Standing Exercise Name Bilateral Arm Lifts Reps/Minutes 10x 2 Comments . Other Exercises Standing full body stretch Other Exercise Name Against wall Self-Care/Home Management Treatment Education Patient Education Home Exercise Program Activities Self-Care/Home Management Activities Reviewed HEP: pt in supine arms overhead reach stretch, and upper thoracic ext ex ( isometric elbow ext with thoracic ext), supine with BKFO and arms in ABD; & wall standing postural corrections. PT-OP-R Modalities Start: 08/27/19 10:16 Freq: Status: Active Protocol: Document 09/23/19 10:37 LRN (Rec: 09/23/19 16:38 LRN [id number]) Hot Pack/Cold Pack Treatment Hot Pack Location Back during upper back strengthening Patient Position Hooklying Patient Tolerance Fair Comments Extra padding needed for MHP PT-OP-T Assessment and Plan Start: 08/27/19 10:16 Freq: Status: Active Protocol: Document 09/23/19 10:37 LRN (Rec: 09/23/19 11:19 LRN [id number]) Physical Therapy Assessment Assessment Summary Assessment Pt LB is bothering her more than upper back. Pt was able to tolerate thoracic ext exercise in supine. Poor recall of HEP. Physical Therapy Plan Frequency and Duration Frequency of Treatment 2x/Week Plan of Care Start Date 08/27/19 Plan of Care End Date 11/19/19 Next Visit Focus/Plan Next Note Type Treatment Note Next Visit Plan Address postural dysfunction with UB ex's to limit LBP. Add sit or stand, and prone thoracic ext ex if tolerated. STM/manual therapy for soft tissue dysfunction pain relief , improve thoracolumbar posture.
--- NOTE | 2019-10-04 14:14 | PT-OP ANOTE ---
Pt called to cancel due to fractures found in back and having more testing.
--- NOTE | 2019-10-11 17:00 | PT.OPDS ---
Current Diagnoses Low back pain (09/23/19) Visit Care Team Role Provider Type Migue Verma MD Attending Provider Physician Primary Care Provider Specialty: Internal Medicine Address: [address] [place] [address], [address], [place], [address] Email: [email or web address] Visit Number Visit Number 8 Discharge Summary PT-OP-B Current Condition Start: 08/27/19 10:16 Freq: Status: Active Protocol: Document 08/27/19 11:27 LRN (Rec: 08/27/19 12:36 LRN [id number]) Current Condition History of Current Condition Onset Date Off/On since 12/2017 Current Complaints Severe pain in low back and up sides, constant. rated 6-7/10 History of Current Condition Pt reports having LBP off/on since 12/2017 after suffering an L4 compression fracture. She has had ongoing LBP that is progressively worsening in intensity and duration, now is constant. She states Dr. Verma thinks the L4 compression fracture has never healed. Recently pt had biopsy of a lung spot 2 weeks ago resulting in a collapsed lung with hospitalized at [facility] for 3 days. Out of hospital for 1-1/2 weeks and LBP has worsened. Prior Treatments and Tests X-rays indicate no new fractures, but redemonstration of L4 compression fracture. Future Testing and Treatments Planned Pulmonary CAT scan for ongoing scar tissue from pneumonia history. Treatment Goals Patient/Caregiver Goals Pt goal: 1) to resolve pain enough in order to sleep more 2) to be able to vacuum without pain, 3) to be able to bend over and picker and packer things without pain. 4) to be able to turning the bathtub faucet on without pain . Prior Functional Status Baseline Function- ADL's Needs Assist Baseline Function- Mobility Needs Assist Baseline Function- Gait Unsteady Baseline Function- Other Slept 4 hours at a time (uses bathroom a couple of times through the night) from 10pm to 8am. Occasionally tied own shoes. Needed help lifting objects. Painfree in low back sitting. Current Functional Impairments (Reported) Functional Limitations- ADL's Toss and turns all night. Can't tie own shoes due to back pain. Can't bend over to pick light objects off the floor due to back pain. Can't pick of objects due to back pain. Pain in LB sitting for coffee is 5/10 Functional Limitations- Mobility/Gait Baseline. Personal Factors Other Personal Factors That May Effect Co-morbidities (Latex allergy, Therapy/Recovery recent asymptomatic telangiectasis, L4 compression fracture, osteoporosis, Lupus, Arthritis, IBS, past pelvic fracture, [place]), Age ( over 65+), fragile skin, needs to be guided through activities, needs HEP with pictures and large print. PT-OP-C Subjective Start: 08/27/19 10:16 Freq: Status: Active Protocol: Document 09/23/19 10:37 LRN (Rec: 09/23/19 11:19 LRN [id number]) OP-PT Subjective Patient Comments Patient Comments States she is in pain today in UB. States one day woke without pain, but used a lidocaine patch and once up the pain began. PT-OP-J Posture/Palpation/Skin Start: 08/27/19 10:16 Freq: Status: Active Protocol: Document 08/27/19 11:27 LRN (Rec: 08/27/19 12:36 LRN [id number]) Posture Evaluation Position Standing Evaluation View All positions Head/C-Spine Posture Forward Head T-Spine Posture Increased Kyphosis L-Spine Posture Decreased Lordosis Shoulder Posture (L) Elevated Scapula Posture (L) Elevated Pelvis Posture Posterior Tilted,(L) Rotated Posterior,(L) Iliac Crest Inferior Knee Posture (L) Genu Recurvatum Ankle/Foot Posture (L) Calcaneal Eversion Comments Posture Comments Sway back posturing. Palpation Assessment Location Hips Palpation Location R Gluteals/Piriformis Palpation Findings Soft Tissue Tightness, Tenderness Thoracic back Palpation Location Thoracic paraspinals Palpation Findings Tenderness Palpation Details Tight R Low back Palpation Location Lumbar paraspinals and QL Palpation Findings Tenderness Palpation Details Tight R paraspinals Tension L paraspinals. PT-OP-K Range of Motion Start: 08/27/19 10:16 Freq: Status: Active Protocol: Document 08/27/19 11:27 LRN (Rec: 08/27/19 12:36 LRN [id number]) Lumbar Spine Range of Motion Lumbar Spine Active Flexion 60 Extension 10 Lateral Flexion Left 3 Lateral Flexion Right 5 ROM Limitations Pain Hip Goniometric Range of Motion Hip Right Passive Testing Position Supine Flexion w/Knee Flexed 95 Straight Leg Raise 60 Abduction 50 Internal Rotation 60 External Rotation 50 Left Passive Testing Position Supine Flexion w/Knee Flexed 105 Straight Leg Raise 50 Abduction 45 Internal Rotation 40 External Rotation 55 PT-OP-L Special Tests Start: 08/27/19 10:16 Freq: Status: Active Protocol: Document 08/27/19 11:27 LRN (Rec: 08/27/19 13:13 LRN [id number]) Special Tests Lumbar Spine Special Tests Straight Leg Raise Test Results + bilaterally Comments PSLR: 60 deg's right, 50 deg's left. PT-OP-T Assessment and Plan Start: 08/27/19 10:16 Freq: Status: Active Protocol: Document 10/11/19 17:00 LRN (Rec: 10/11/19 17:29 LRN [id number]) Physical Therapy Assessment Goals Five Impairment Decreased functional mobility due to pain per VISHNU score of 29 Penitentiary Goal (LTG) Pt will demonstrate improved function per VISHNU score <29/50 and reports of improved tolerance to turning on the bathtub faucet and improved tolerance to vacuuming with proper body mechanics. LTG Duration 11/19/19 Four Impairment C-curve of the lumbar spine limiting function due to pain Short Term Goal (STG) Pt will be educated in lumbar ex's to improve C-curve of the lumbar spine. STG Duration 09/20/19 Restaurant Cul[employer] Goal (LTG) Pt will demonstrate improved lumbar posture with minimal C- curve of the lumbar spine. LTG Duration 11/19/19 Three Impairment Decreased lumbar mobility limiting ability to bend over. Short Term Goal (STG) Pt will be educated in proper body mechanics for picking up objects at varying heights. STG Duration 09/06/19 Restaurant [employer] Goal (LTG) Pt will be able to tolerate bending over to picker and packer light objects off the floor with tolerable pain. LTG Duration 11/19/19 Two Impairment Upper back & Low back pain limiting ability to sleep Short Term Goal (STG) Pt will be able to report ability to sleep uninterrupted for at least 2 hrs intermittently. STG Duration 09/24/19 Restaurant Culinary Manager Goal (LTG) Pt will be able to sleep at least 4 hr intermittently during the night. LTG Duration 11/19/19 One Impairment Pt lacks appropriate self care HEP Penitentiary Goal (LTG) Pt will be independent in a self care HEP. LTG Duration 11/19/19 (09/02/19: Progressing) Assessment Summary Assessment Pt had variable response to therapy but not good resolution of her pain. Her progress was hindered by respiratory complications. The pt had a change in her health history with pt report of new fractures of the spine. The pt is being discharged due to change in health status and is not appropriate for therapy at this time. Physical Therapy Plan Discharge Physical Therapy Discharge Reasons Change in Medical Status Discharge Comments Pt is being discharged due to pt reported new fractures found. No further therapy is planned. Thank you for your referral.
== END 2019-09-23 11:30 ==
LOC: PHYS 10:30
PROVIDERS: PCP Student in an Organized Health Care Education/Training Program; Visit Provider Student in an Organized Health Care Education/Training Program
DX: M54.5 Low back pain (principal)
CPT/HCPCS: 97110; 97140; 97162; 97535

== ENCOUNTER → 2019-09-27 14:59 | Outpatient (CLI) | payer MEDICARE, OTHER, SELFPAY | PROVIDERS: Family Provider Student in an Organized Health Care Education/Training Program; PCP Student in an Organized Health Care Education/Training Program; Visit Provider Internal Medicine Critical Care Medicine | DX: R91.8 Other nonspecific abnormal finding of lung field (principal) ==

== ENCOUNTER → 2019-09-30 14:41 | Outpatient (CLI) | payer MEDICARE, OTHER, SELFPAY ==
--- NOTE | 2019-09-30 14:44 | DI.CT.S_ITS ---
PROCEDURE: CT LUMBAR SPINE WO CON INDICATIONS: compression fracture, neuropathy TECHNIQUE: Noncontrast 3 mm thick sections acquired from the T12 level to the sacrum. Sagittal and coronal reformats were constructed. For radiation dose reduction, the following was used: automated exposure control. COMPARISON: [facility], CR, XR CHEST 2 VIEWS, 08/23/2019, 14:27. [facility], CR, XR CHEST 1 VIEW, 08/18/2019, 5:27. [facility], CR, XR LUMBAR SPINE MIN 4V, 05/02/2019, 14:31. [facility], CR, XR LUMBAR SPINE 2-3V, 08/20/2019, 14:08. FINDINGS: Image quality: Excellent. Bones: There is normal bony alignment. No acute vertebral body compression fractures. No suspicious lytic or blastic bony lesions. Central spinal caliber is of normal overall caliber. No pars defects. T12-L1: Minimal degenerative disc height reduction. L1-L2: Mild degenerative disc height reduction, no spinal or foraminal stenosis. L2-L3: Minimal degenerative disc at reduction, no spinal or foraminal stenosis seen. L3-L4: Mild to moderate degenerative disc at reduction, slight posterior disc bulge. L4 superior endplate impaction fracture was previously documented in April of this year, and further documented 08/20/1990 stable over time. With reference to the prior plain film imaging this has not appreciably worsened. L4-L5: Moderate degenerative disc height reduction, no definite spinal or foraminal stenosis. L5-S1: Mild degenerative disc disease, very slight posterior subluxation of L5 on S1 but without spinal or foraminal stenosis Soft tissues: No retroperitoneal masses or hematomas. Visualized aorta is normal in caliber. IMPRESSION: 1. The lumbosacral spine compression fracture appears traumatic rather than infectious or neoplastic in origin and has not changed from April of this year. Metastatic disease is not found. No definite spinal or foraminal stenosis is identified to explain current reported neuropathy. 2. On review of comparison studies it is noted that a midthoracic potentially malignant compression fracture also is present, and that MR scanning with contrast or CT scanning through the area of the spine has not been performed. Given the absence of source of neuropathy and the presence of a midthoracic spine potentially malignant compression fracture and evidence of a cavitary mass superimposed on the right hilum followup by contrast-enhanced MR scanning likely is warranted through the thoracic spine. Dictated by: Jed Brandon M.D. on 09/30/2019 at 17:00 Approved by: Jed Brandon M.D. on 09/30/2019 at 17:09
== END ==
PROVIDERS: PCP Student in an Organized Health Care Education/Training Program; Visit Provider Student in an Organized Health Care Education/Training Program
DX: S32.040A Wedge compression fracture of fourth lumbar vertebra, initial encounter for closed fracture (principal); G62.9 Polyneuropathy, unspecified; M54.5 Low back pain
CPT/HCPCS: 72131

== ENCOUNTER → 2019-10-07 15:59 | Outpatient (CLI) | payer MEDICARE, OTHER, SELFPAY ==
[2019-10-07 17:16] LABS: Add Manual Diff / Slide Review NO; Basophils Absolute Auto 0 /uL (0-100); Basophils Percent Auto 0.2 % (0-2); Eosinophils Absolute Auto 0 /uL (0-450); Eosinophils Percent Auto 0.7 % (2-4); Hematocrit 36.8 % (36-46); Hemoglobin 12.3 g/dL (12.0-16.0); Lymphocytes Absolute Auto 800 /uL (1100-4500); Lymphocytes Percent Auto 14.6 % (25-40); Mean Corpuscular HGB Conc 33.3 % (30-36); Mean Corpuscular Hemoglobin 30.5 PG (26-34); Mean Corpuscular Volume 91.8 fL (80-100); Monocytes Absolute Auto 400 /uL (0-900); Monocytes Percent Auto 7.5 % (3-14); Neutrophils Absolute Auto 4400 /uL (1500-7000); Platelet Count 150 X10^3/uL (150-400); Red Blood Cell Count 4.01 X10^6/uL (4.0-5.2); Red Cell Distribution Width 14.3 % (11.6-14.8); White Blood Cell Count 5.7 X10^3/uL (4.5-11.0)
[2019-10-07 17:41] LABS: Alanine Aminotransferase 22 IU/L (<35); Albumin 3.7 g/dL (3.5-5.0); Albumin Globulin Ratio 0.9 (1.0-2.8); Alkaline Phosphatase 199 U/L (38-126); Aspartate Aminotransferase 45 IU/L (14-36); Bilirubin Total 0.4 mg/dL (0.2-1.3); Blood Urea Nitrogen 12 mg/dL (7-17); Calcium 9.1 mg/dL (8.4-10.2); Carbon Dioxide 29 mmol/L (22-32); Chloride 97 mmol/L (98-107); Estimated Glomerular Filt Rate > 60.0 mL/min (>60); Glucose 109 mg/dL (80-110); HEMOLYSIS < 15 (0-50); Potassium 4.7 mmol/L (3.4-5.1); Sodium 133 mmol/L (137-145); Total Protein 7.7 g/dL (6.3-8.2)
== END ==
PROVIDERS: Family Provider Student in an Organized Health Care Education/Training Program; PCP Student in an Organized Health Care Education/Training Program; Visit Provider Internal Medicine Rheumatology
DX: M32.19 Other organ or system involvement in systemic lupus erythematosus (principal); Z79.899 Other long term (current) drug therapy
CPT/HCPCS: 36415; 80053; 85025

== ENCOUNTER → 2019-10-14 14:03 | Outpatient (CLI) | payer MEDICARE, OTHER, SELFPAY ==
--- NOTE | 2019-10-14 14:19 | DI.CT.S_ITS ---
PROCEDURE: CT CHEST WO CON INDICATIONS: Other nonspecific abnormal finding of lung field TECHNIQUE: Noncontrast 5 mm thick sections acquired from the pulmonary apices to the posterior costophrenic angles. 1 mm lung window, 5 mm thick coronal and sagittal and 7 mm axial MIP reformats were then acquired. For radiation dose reduction, the following was used: automated exposure control, adjustment of mA and/or kV according to patient size. COMPARISON: [facility], CT, CT CHEST WO CON, 07/29/2019, 11:23. FINDINGS: Image quality: Excellent. Lungs and pleura: No acute air space opacities. Previously present centrilobular emphysema and right middle lobe medial segment bronchiectasis is again noted. A solid mass lesion present at the lower right paraspinous lung parenchyma has mildly enlarged in size and become centrally necrotic. This structure previously was measured at 3.5 x 3.8 cm and now is measured at 3.4 x 4.6 cm. A relatively thick rind of soft tissue is associated with a central cavitation, and there is mild irregularity at the bronchus margins tracking immediately against the anterior border of the mass. Spiculation of the mass is again noted, presumably malignant in origin. No pleural effusions or pneumothorax. Central and peripheral airways are patent and normal in caliber. Mediastinum: Heart size is normal. No pericardial effusion. No mediastinal adenopathy by size criteria. Thoracic aorta and central pulmonary arteries are normal in size. Esophagus is normal in caliber. No hiatal hernia. Bones and chest wall: No suspicious bony lesions. No vertebral body compression fractures. No axillary or supraclavicular adenopathy by size criteria. Thyroid gland is not well-seen by this noncontrast technique. Abdomen: Visualized upper abdominal solid organs and bowel loops appear normal in the absence of contrast. IMPRESSION: Chronic lung disease with centrilobular emphysema and chronic bronchiectasis medial segment right middle lobe. A previously present right paraspinous lung mass has become centrally necrotic, with cavitation. No new pulmonary mass lesion is found. Dictated by: Jed Brandon M.D. on 10/14/2019 at 14:24 Approved by: Jed Brandon M.D. on 10/14/2019 at 14:27
== END ==
PROVIDERS: Family Provider Student in an Organized Health Care Education/Training Program; PCP Student in an Organized Health Care Education/Training Program; Visit Provider Internal Medicine Critical Care Medicine
DX: R91.8 Other nonspecific abnormal finding of lung field (principal); J43.2 Centrilobular emphysema; J47.9 Bronchiectasis, uncomplicated
CPT/HCPCS: 71250

== ENCOUNTER → 2019-10-20 12:38 | Outpatient (CLI) | payer MEDICARE, OTHER, SELFPAY ==
--- NOTE | 2019-10-20 | DI.MRI.S_ITS ---
PROCEDURE: MR LUMBAR SPINE WO CON INDICATIONS: Other intervertebral disc degeneration TECHNIQUE: Noncontrast sagittal T1 spin echo and T2 fast echo, sagittal STIR, axial T1 and T2 fast spin echo through the lumbar spine. In cases with scoliosis, additional coronal T2 fast spin echo may be performed. COMPARISON: [facility], MR, L-SPINE WITHOUT CONTRAST, 09/22/2009, 9:44. [facility], CR, XR LUMBAR SPINE 2-3V, 08/20/2019, 14:08. FINDINGS: Image quality: Excellent. Alignment and Curvature: There is normal bony alignment. Bones: Large chronic appearing Schmorl's node noted in the superior endplate of the L4 vertebral body. Mild reactive endplate changes noted adjacent to the L. one half and L2, L2-L3, L3-L4 and L4-L5 discs. No acute vertebral body compression fractures. Spinal Cord: Conus medullaris terminates at the L1-2 disc level. Visualized cord demonstrates normal signal and size. Paraspinous Soft Tissues: No paravertebral masses. L1-L2: Loss of disc signal and slight loss of disc height. Mild, diffuse disc bulge. Mild narrowing of the central canal. No neural foraminal narrowing. L2-L3: Loss of disc signal. Mild, diffuse disc bulge. Mild bilateral facet hypertrophy. Mild narrowing of the central canal. Mild right neural foraminal narrowing. No neural compression. L3-L4: Loss of disc signal. Moderate, diffuse disc bulge. Mild bilateral facet hypertrophy. [id number] narrowing of the central canal. Mild bilateral neural foraminal narrowing. No neural compression. L4-L5: Loss of disc signal and height. Mild, diffuse disc bulge. Mild bilateral facet hypertrophy. No central stenosis. Mild right and moderate left neural foraminal narrowing. No neural compression. L5-S1: Loss of disc signal. Minimal, diffuse disc bulge with mild right and moderate left facet hypertrophy. No central stenosis. No neural foraminal narrowing. No neural compression. IMPRESSION: 1. Multilevel degenerative disc disease. 2. Multilevel facet arthropathy. 3. Mild to moderate L3-L4 central canal narrowing. Mild L1-L2 and L2-L3 central canal narrowing. 4. Mild right and moderate left L4-L5 neural foraminal narrowing. Mild bilateral L3-L4 neural foraminal narrowing. Mild right L2-L3 neural foraminal narrowing. 5. No neural compression. Dictated by: Lupe Melendez MD, PhD on 10/21/2019 at 11:00 Approved by: Lupe Melendez MD, PhD on 10/21/2019 at 11:17
--- NOTE | 2019-10-20 12:39 | DI.MRI.S_ITS ---
PROCEDURE: MR THORACIC SPINE WO CON INDICATIONS: F/u midback pain with abnl finding on lumbar spine CT TECHNIQUE: Noncontrast sagittal T1 spine echo and T2 fast spin echo, sagittal STIR, axial T1 and T2 fast spin echo through the thoracic spine. COMPARISON: [facility], MR, MR LUMBAR SPINE WO CON, 10/20/2019, 13:23. [facility], CT, CT CHEST WO CON, 10/14/2019, 14:05. [facility], CR, XR CHEST 2 VIEWS, 08/23/2019, 14:27. [facility], CT, CT LUMBAR SPINE WO CON, 09/30/2019, 14:43. FINDINGS: Image quality: Excellent. Alignment and Curvature: There is normal bony alignment. Bones: Reactive endplate change is noted adjacent to the T9-T10 and T11-T12 discs. There is mild anterior wedging of the T9, T10 and T11 vertebral bodies. Small, focal cortical defect is noted in the superior plate of the T10 vertebral body (series 4, images 7-8). Spinal Cord: Visualized spinal cord is normal in size and signal. Paraspinous Soft Tissues: A large cavitary mass is noted in the medial aspect of the right lower lobe which is stable compared to prior CT scan of the chest. Miscellaneous: Fluid signal noted in the T10-T11 intervertebral disc space. Mild T9-T10 and T10-T11 central canal narrowing. Mild bilateral T9-T10 and T10-T11 neural foraminal narrowing. No definite neural compression. IMPRESSION: 1. Nonspecific marrow edema involving the T9, T10 and T11 vertebral bodies with mild loss of vertebral body height. Finding could represent acute/subacute compression fractures versus early infectious process. 2. Fluid in the T10-T11 intervertebral disc space which could represent reactive change versus early discitis. Recommend correlation with clinical and laboratory data and followup MRI of the thoracic spine with and without gadolinium contrast in one week if there is clinical suspicion for discitis-osteomyelitis. Findings and recommendations discussed with Dr. Rafat Alvarez on 10/21/19 at 1052 hrs. Dictated by: Lupe Melendez MD, PhD on 10/21/2019 at 10:25 Approved by: Lupe Melendez MD, PhD on 10/21/2019 at 10:53
== END ==
PROVIDERS: Family Provider Student in an Organized Health Care Education/Training Program; PCP Student in an Organized Health Care Education/Training Program; Visit Provider Physical Medicine & Rehabilitation Pain Medicine
DX: M54.9 Dorsalgia, unspecified (principal); M51.36 Other intervertebral disc degeneration, lumbar region; M47.816 Spondylosis without myelopathy or radiculopathy, lumbar region; M47.817 Spondylosis without myelopathy or radiculopathy, lumbosacral region; M48.061 Spinal stenosis, lumbar region without neurogenic claudication; M51.46 Schmorl's nodes, lumbar region
CPT/HCPCS: 72146; 72148

== ENCOUNTER → 2019-10-21 12:16 | Outpatient (CLI) | payer MEDICARE, OTHER, SELFPAY ==
[2019-10-21 13:01] LABS: Erythrocyte Sedimentation Rate 17 MM/HR (0-20)
== END ==
PROVIDERS: PCP Student in an Organized Health Care Education/Training Program; Visit Provider Family Medicine
DX: R93.89 Abnormal findings on diagnostic imaging of other specified body structures (principal)
CPT/HCPCS: 36415; 85651; 86140

== ENCOUNTER → 2019-11-01 16:08 | Outpatient (CLI) | payer MEDICARE, OTHER, SELFPAY ==
[2019-11-01 16:35] LABS: Add Manual Diff / Slide Review NO; Basophils Absolute Auto 100 /uL (0-100); Basophils Percent Auto 1.1 % (0-2); Eosinophils Absolute Auto 100 /uL (0-450); Eosinophils Percent Auto 0.9 % (2-4); Hematocrit 37.9 % (36-46); Hemoglobin 12.5 g/dL (12.0-16.0); Lymphocytes Absolute Auto 900 /uL (1100-4500); Mean Corpuscular HGB Conc 33.1 % (30-36); Mean Corpuscular Hemoglobin 30.5 PG (26-34); Mean Corpuscular Volume 92.1 fL (80-100); Monocytes Absolute Auto 500 /uL (0-900); Neutrophils Absolute Auto 4200 /uL (1500-7000); Platelet Count 152 X10^3/uL (150-400); Red Blood Cell Count 4.11 X10^6/uL (4.0-5.2); White Blood Cell Count 5.8 X10^3/uL (4.5-11.0)
[2019-11-01 16:52] LABS: Erythrocyte Sedimentation Rate 43 MM/HR (0-20)
[2019-11-01 17:22] LABS: C-Reactive Protein Quant 1.3 mg/dL (<1.0)
== END ==
PROVIDERS: PCP Student in an Organized Health Care Education/Training Program; Visit Provider Physical Medicine & Rehabilitation Pain Medicine
DX: J06.9 Acute upper respiratory infection, unspecified (principal); M46.44 Discitis, unspecified, thoracic region
CPT/HCPCS: 36415; 85025; 85651; 86140

== ENCOUNTER → 2019-11-04 11:27 | Outpatient (CLI) | payer MEDICARE, OTHER, SELFPAY ==
[2019-11-04 12:45] LABS: Add Manual Diff / Slide Review NO; Basophils Absolute Auto 0 /uL (0-100); Basophils Percent Auto 0.4 % (0-2); Eosinophils Absolute Auto 100 /uL (0-450); Eosinophils Percent Auto 0.9 % (2-4); Hematocrit 38.4 % (36-46); Hemoglobin 13.2 g/dL (12.0-16.0); Lymphocytes Absolute Auto 900 /uL (1100-4500); Lymphocytes Percent Auto 11.3 % (25-40); Mean Corpuscular HGB Conc 34.4 % (30-36); Mean Corpuscular Hemoglobin 31.3 PG (26-34); Mean Corpuscular Volume 91.1 fL (80-100); Monocytes Absolute Auto 500 /uL (0-900); Monocytes Percent Auto 6.6 % (3-14); Neutrophils Absolute Auto 6400 /uL (1500-7000); Neutrophils Percent Auto 80.8 % (50-75); Platelet Count 173 X10^3/uL (150-400); Red Blood Cell Count 4.21 X10^6/uL (4.0-5.2); Red Cell Distribution Width 14.6 % (11.6-14.8); White Blood Cell Count 7.9 X10^3/uL (4.5-11.0)
[2019-11-04 13:31] LABS: Alanine Aminotransferase 25 IU/L (<35); Albumin 3.9 g/dL (3.5-5.0); Albumin Globulin Ratio 0.9 (1.0-2.8); Alkaline Phosphatase 238 U/L (38-126); Aspartate Aminotransferase 53 IU/L (14-36); BUN Creatinine Ratio 15.7 (6-22); Bilirubin Total 0.6 mg/dL (0.2-1.3); Blood Urea Nitrogen 11 mg/dL (7-17); Calcium 8.9 mg/dL (8.4-10.2); Carbon Dioxide 27 mmol/L (22-32); Chloride 97 mmol/L (98-107); Estimated Glomerular Filt Rate > 60.0 mL/min (>60); Globulin 4.2 g/dL (1.7-4.1); Glucose 92 mg/dL (80-110); HEMOLYSIS < 15 (0-50); Potassium 4.6 mmol/L (3.4-5.1); Sodium 132 mmol/L (137-145); Total Protein 8.1 g/dL (6.3-8.2)
== END ==
PROVIDERS: PCP Student in an Organized Health Care Education/Training Program; Visit Provider Internal Medicine Rheumatology
DX: M32.19 Other organ or system involvement in systemic lupus erythematosus (principal); Z79.899 Other long term (current) drug therapy
CPT/HCPCS: 36415; 80053; 85025

== ENCOUNTER → 2019-11-04 12:37 | Outpatient (CLI) | payer MEDICARE, OTHER, SELFPAY ==
--- NOTE | 2019-11-04 | DI.MRI.S_ITS ---
PROCEDURE: MR THORACIC SPINE WO/W CON INDICATIONS: Discitis, unspecified, thoracic region TECHNIQUE: Noncontrast sagittal T1 spin echo and T2 fast spin echo, sagittal STIR, axial T1 and T2 fast spin echo through the thoracic spine. After the administration of contrast, axial and sagittal T1 spin echo with fat saturation through the thoracic spine. COMPARISON: [facility], MR, MR LUMBAR SPINE WO CON, 10/20/2019, 13:23. [facility], MR, MR THORACIC SPINE WO CON, 10/20/2019, 12:45. FINDINGS: Image quality: Excellent. Alignment and curvature: There is normal bony alignment. Marrow: Marrow is of normal overall signal. No acute vertebral body compression fractures. Mild, stable anterior wedge deformities can be seen involving T9, T10, and T12. There is also mild anterior wedge deformity seen of L1, which is stable. Spinal cord: Visualized spinal cord is of normal signal and size, without abnormal enhancement. Paraspinous soft tissues: No paravertebral masses can be seen. There is a slight amount of increased enhancement seen within the soft tissues surrounding the T9-T10 and T10-T11 disc levels. Miscellaneous: At the T9-T10 level, there is moderate loss of disc height seen. Reactive marrow endplate changes are seen, which are hyperintense on T1-weighted and T2-weighted imaging and most consistent with fatty metaplasia (Modic type II changes). There is minimal increased abnormal signal seen within the anterior aspect of the disc at this level, as on series 11 image 7. There is moderate to prominent increased signal seen along the endplates. Mild disc bulge is seen. Mild bilateral neural foraminal narrowing is seen. Minimal central canal narrowing is seen at this level. At T10-T11, there is abnormal signal seen along the disc, with mild increased enhancement, as on series 11 image 6. The previously seen abnormal fluid signal along this disc has improved. At least moderate increased abnormal enhancement can be seen along the endplates. Mild disc bulge is seen at this level. Minimal bilateral neural foraminal narrowing can be seen. Minimal central canal narrowing is seen. Milder degenerative changes are seen elsewhere. IMPRESSION: Continued findings that are highly worrisome for discitis/osteomyelitis at T9-T10 and T10-T11. Please consider a short term followup contrast enhanced MRI examination in 4-6 weeks. Dictated by: Bennett Ferguson M.D. on 11/04/2019 at 13:30 Approved by: Bennett Ferguson M.D. on 11/04/2019 at 13:38
== END ==
PROVIDERS: Family Provider Student in an Organized Health Care Education/Training Program; PCP Student in an Organized Health Care Education/Training Program; Visit Provider Physical Medicine & Rehabilitation Pain Medicine
DX: M46.44 Discitis, unspecified, thoracic region (principal); M32.19 Other organ or system involvement in systemic lupus erythematosus; Z79.899 Other long term (current) drug therapy
CPT/HCPCS: 36415; 72157; 80053; 85025

== ENCOUNTER → 2019-11-27 15:43 | Outpatient (CLI) | payer MEDICARE, OTHER, SELFPAY ==
--- NOTE | 2019-11-27 15:46 | DI.RAD.S_ITS ---
PROCEDURE: XR CHEST 2V INDICATIONS: cough TECHNIQUE: 2 views of the chest were acquired. COMPARISON: [facility], CT, CT BIOPSY INTERVERTEBRAL/PARAVERTEBRAL DISC, 11/11/2019, 13:29. [facility], CT, CT CHEST WITH CONTRAST, 11/10/2019, 18:31. [facility], CT, CT CHEST WO CON, 10/14/2019, 14:05. [facility], MR, MR THORACIC SPINE WO CON, 10/20/2019, 12:45. [facility], CR, XR CHEST 2V, 05/03/2019, 16:05. [facility], CR, XR CHEST 2V, 03/19/2019, 13:25. FINDINGS: Surgical changes and devices: None. Lungs and pleura: Lungs are abnormal with a chronic interstitial prominence and superimposed mild alveolar edema with a right midlung paravertebral soft tissue prominence suspicious for representing mass lesion. This has been previously evaluated by CT scanning. No pleural effusions or pneumothorax. Mediastinum: Mediastinal contours are normal. Heart size is normal. Bones and chest wall: No suspicious bony abnormalities. Soft tissues appear unremarkable. IMPRESSION: Suspect chronic smoking history given the presence of what appears to be a mass and interstitial prominence previously documented best by recent CT scanning. A mass lesion is again noted superimposed on the expected position of the middle third of the right hilum. This is in the paravertebral soft tissues of the right lung on prior CT scanning. A definite pneumonia pattern is not found. Dictated by: Jed Brandon M.D. on 11/27/2019 at 16:55 Approved by: Jed Brandon M.D. on 11/27/2019 at 16:58
== END ==
PROVIDERS: Family Provider Student in an Organized Health Care Education/Training Program; PCP Student in an Organized Health Care Education/Training Program; Visit Provider Student in an Organized Health Care Education/Training Program
DX: R05 Cough (principal)
CPT/HCPCS: 71046

== ENCOUNTER 2019-12-03 11:38 | Emergency (ER) | payer MEDICARE, OTHER, SELFPAY ==
[2019-12-03 11:52] VITALS: BP 160/70; PULSE 85; RESP 14; TEMP 36.8; O2SAT 99
--- NOTE | 2019-12-03 12:00 | DI.RAD.S_ITS ---
PROCEDURE: XR CHEST 2V INDICATIONS: cough, sp abx, bilat rib pain, worse w/ cough. TECHNIQUE: 2 views of the chest were acquired. COMPARISON: [facility], CR, XR CHEST 2V, 11/27/2019, 16:03. [facility], CR, XR CHEST 2V, 05/03/2019, 16:05. FINDINGS: Surgical changes and devices: None. Lungs and pleura: Lungs are abnormal with mild interval increased in radiodensity at the parasternal right-sided mass lesion superimposed on the middle third of the right hilum.. No pleural effusions or pneumothorax. Mediastinum: Mediastinal contours are normal. Heart size is normal. Bones and chest wall: No suspicious bony abnormalities. Soft tissues appear unremarkable. IMPRESSION: The area of documented masslike structure with central cavitation superimposed on the middle third of the right hilum and superimposed on the spine on the lateral view is a worrisome finding for perhaps overlay of mild or early pneumonia in that area, versus increased radiodensity of the mass from interval growth. Dictated by: Jed Brandon M.D. on 12/03/2019 at 12:40 Approved by: Jed Brandon M.D. on 12/03/2019 at 12:42
--- NOTE | 2019-12-03 12:09 | ED.URI ---
HPI - URI/Sore Throat General Chief Complaint: Upper Respiratory Symptoms Stated Complaint: TROUBLE WITH SPINE,BRONCHITIS Time Seen by Provider: 12/03/19 12:02 Source: patient Mode of arrival: Ambulatory History of Present Illness HPI Narrative: Patient is a 79-year-old female who presents with cough and upper respiratory symptoms ongoing for 2 weeks. It she was placed on azithromycin 11/29/2019, she says she does her last pill today she overall does not feel any better. She also has bilateral lumbar pain which is worrisome to her because she has a history of thoracic diskitis. She however has no midline pain or tenderness. She does admit to having sweats at night but says yesterday she noticed that she was sweating during the daytime as well. She has no chest pain or palpitations. She does have a productive cough which has been ongoing and unchanged today. She denies any shortness of breath with exertion or at rest. MD Complaint: fever and cough Related Data Home Medications Medication Instructions Recorded Confirmed mycophenolate mofetil 1,000 mg PO BID 03/19/18 12/03/19 lactulose 10 gram/15 mL oral 10 gram PO DAILY PRN 04/25/18 12/03/19 solution Bifidobacterium infantis [Align] 1 cap PO DAILY PRN 06/11/18 11/29/19 diphenhydramine HCl 25 mg capsule 25 mg PO BEDTIME PRN 08/30/18 11/29/19 calcium carb 300 mg-D3 800 1 tab PO DAILY 06/26/19 11/29/19 unit-mag ox 25 mg-[employer]y helicopter [employer] 0.5 mg-warren-Zn tablet hard/soft/gas permeable prods #12 ml 06/26/19 12/03/19 saliva substitute combo no.9 15 ml MM BID-QID PRN 06/26/19 11/29/19 trazodone 50 mg tablet 25 mg PO BEDTIME PRN 06/26/19 11/29/19 potassium chloride 8 mEq 16 meq PO BID 11/25/19 12/03/19 capsule,extended release famotidine 40 mg PO BID 12/03/19 12/03/19 propranolol 10 mg PO BID 12/03/19 12/03/19 Previous Rx's Medication Instructions Recorded metronidazole 1 % topical cream 1 applictn TOP DAILY #60 gram 08/02/18 folic acid 1 mg tablet 1 mg PO BID #60 tab 10/31/18 ferrous sulfate 325 mg (65 mg 325 mg PO BID #60 tab 02/04/19 iron) tablet lidocaine 5 % topical patch 1 patch TOP DAILY #15 each 05/16/19 mupirocin 2 % topical ointment 1 applic TOP TID #30 gram 06/16/19 clotrimazole 2 % vaginal cream 1 applicator VAG BEDTIME 3 Days 06/26/19 #21 gram duloxetine 60 mg capsule,delayed 60 mg PO DAILY #90 cap 07/30/19 release levothyroxine 88 mcg tablet 88 mcg PO QAM #90 tab 07/30/19 prednisone 1 mg tablet 3 mg PO DAILY #90 tab 07/31/19 clonazepam 1 mg tablet 1 mg PO BID PRN #60 tab 08/29/19 fesoterodine 4 mg tablet,extended 4 mg PO DAILY #90 tab 09/03/19 release 24 hr estradiol See Rx Instructions .ROUTE 10/15/19 .COMPLEX #42.5 gram oxycodone 5 mg tablet 5 mg PO TID PRN #90 tab 10/16/19 diclofenac sodium 1 % topical gel 2 g TOPICAL QID #100 gram 11/19/19 clobetasol 0.05 % topical ointment 1 applictn TOP DAILY #30 gram 11/25/19 azithromycin 250 mg tablet See Rx Instructions PO .COMPLEX 5 11/29/19 Days #6 tab doxycycline hyclate 100 mg PO BID #14 cap 12/03/19 prednisone 10 mg PO DAILY #30 tab 12/03/19 Allergies Allergy/AdvReac Type Severity Reaction Status Date / Time codeine [CODEINE] Allergy Mild intolerant, Verified 12/03/19 12:03 headaches,n ightmares dicloxacillin [DICLOXACILLIN] Allergy Mild Verified 12/03/19 12:03 levofloxacin [LEVOFLOXACIN] Allergy Mild Verified 12/03/19 12:03 lorazepam [LORAZEPAM] Allergy Mild intolerant Verified 12/03/19 12:03 shaav hassan ciprofloxacin [CIPROFLOXACIN] Allergy Unknown Verified 12/03/19 12:03 hydroxychloroquine AdvReac Mild visual Verified 12/03/19 12:03 [From Plaquenil] disturbances Review of Systems Review of Systems ROS Unobtainable: All systems reviewed & are unremarkable except as noted in HPI and below Constitutional Constitutional: Reports body ache(s) and Reports fever(s) Eyes Eyes: Denies change in vision, Denies eye discharge, Denies irritation and Denies loss of vision ENT Ears, Nose, Mouth, and Throat: Denies change in voice, Denies neck pain and Denies sore throat Respiratory Respiratory: Reports as per HPI and Reports cough Gastrointestinal Gastrointestinal: Denies abdominal pain, Denies change in bowel habits, Denies diarrhea, Denies nausea and Denies vomiting Genitourinary Genitourinary: Denies hematuria, Denies flank pain, Denies urinary incontinence and Denies urinary urgency Musculoskeletal Musculoskeletal: Denies neck pain Integumentary/Breasts Skin/Breast: Denies pruritus, Denies erythema, Denies rash and Denies wounds Neurologic Neurologic: Denies loss of vision Patient History Medical History Acquired hypothyroidism (Chronic 08/13/15) Atrophic vaginitis (Chronic) Autoimmune hepatitis (Chronic 08/13/15) Autoimmune pancytopenia (Chronic) Compression fracture of L4 vertebra (Acute ~11/2018) Diverticulitis large intestine (Resolved 06/01/11) 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) Heart murmur (Chronic) Hematuria, unspecified (Acute 06/01/11) Hepatitis, autoimmune (Chronic 2001) Hypertension (Chronic) Hypothyroidism (Chronic) Irritable bowel syndrome (Acute 06/01/11) 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) Lupus (Chronic) Osteopenia (Chronic) Osteoporosis (Chronic) Sinusitis (Chronic) Stage 3 chronic kidney disease (Chronic 08/13/15) Systemic lupus erythematosus (Chronic 08/13/15) Underweight (Chronic) Surgical History Fracture of pelvis (Resolved 2013) History of breast biopsy (Acute) History of cataract removal with insertion of prosthetic lens (Resolved 2005) History of esophagogastroduodenoscopy (EGD) (Acute ~02/2018) History of liver biopsy (Acute) Status post colonoscopy (Resolved 2008) Status post tubal ligation (Resolved) Family History Mother Cancer Brother Stroke Social History marital status: Smoking Status: Former smoker alcohol intake: never substance use type: does not use Smoking Status: Former smoker alcohol intake frequency: 0-2 drinks per day Substance Use Type: does not use Exam Initial Vital Signs Initial Vital Signs: Vital Signs Temperature 98.2 F 12/03/19 11:52 Pulse Rate 85 12/03/19 11:52 Respiratory Rate 14 12/03/19 11:52 Blood Pressure 160/70 H 12/03/19 11:52 Pulse Oximetry 99 12/03/19 11:52 GENERAL: Alert female no acute distress HEENT: Head atraumatic,EOMI, pupils reactive CARDIOVASCULAR: Regular rate and rhythm without murmurs, rubs or gallops. RESPIRATORY: Breath sounds equal bilaterally, no wheezes rales or rhonchi. ABDOMEN: Soft, nontender. Normoactive bowel sounds all 4 quadrants. No guarding or rebound. EXTREMITIES: Normal range of motion, no clubbing or edema. Neurovascularly intact back: NO MIDLINE TENDERNESS mild bilateral lumbar flank pain NEUROLOGICAL: Alert and oriented x4.Normal gait and speech. SKIN: Warm, dry, no laceration, no petechiae, no rashes or lesions. Course Orders Ordered: ED Orders 12/03/19 11:50 Flu test [Influenza A & B (PCR)] Stat 12/03/19 12:00 Chest [XR chest 2V] Stat 12/03/19 12:31 Consult to Respiratory Therapy Evaluate & Treat EKG-12 Lead Stat 12/03/19 13:21 Complete Blood Count AUTO DIFF Stat Comprehensive Metabolic Panel Stat Lactate (Lactic Acid) Stat Magnesium Stat Troponin & CK Cardiac Panel Stat 12/03/19 13:32 Blood Culture Stat Procalcitonin Stat Sodium Chloride (Normal Saline 0.9%) 1,000 mls @ 150 mls/hr IV CONT CAMERON Last Admin: 12/03/19 13:16 Dose: 150 mls/hr Documented by: BTONER Discontinued Medications Albuterol/Ipratropium (Duoneb) 3 ml INH NOW ONE Stop: 12/03/19 12:32 Last Admin: 12/03/19 13:16 Dose: 3 ml Documented by: BTONER Methylprednisolone (Solu-Medrol 125 Mg Vial) 125 mg IV NOW ONE Stop: 12/03/19 12:32 Last Admin: 12/03/19 13:16 Dose: 125 mg Documented by: BTONER Vital Signs Vital signs: Vital Signs - 8 hr 12/03/19 11:52 12/03/19 13:20 12/03/19 13:29 Temperature 98.2 F Pulse Rate 85 87 75 Respiratory Rate 14 24 16 Blood Pressure 160/70 H Blood Pressure [Right Arm] 165/77 H Pulse Oximetry 99 98 95 12/03/19 14:20 Temperature Pulse Rate 72 Respiratory Rate 16 Blood Pressure Blood Pressure [Right Arm] 160/73 H Pulse Oximetry 97 MDM - URI/Sore Throat Lab Data Attestation: I reviewed the patient's lab results. Result diagrams: 12/03/19 13:21 12/03/19 13:21 Labs: Lab Results 12/03/19 12/03/19 12/03/19 Range/Units 11:50 13:21 13:21 WBC 7.4 (4.5-11.0) X10^3/uL RBC 3.93 L (4.0-5.2) X10^6/uL Hgb 11.9 L (12.0-16.0) g/dL Hct 35.3 L (36-46) % MCV 89.8 (80-100) fL MCH 30.2 (26-34) PG MCHC 33.6 (30-36) % RDW 14.1 (11.6-14.8) % Plt Count 192 (150-400) X10^3/uL Neut % (Auto) 79.6 H (50-75) % Lymph % (Auto) 11.4 L (25-40) % Rains % (Auto) 7.4 (3-14) % Eos % (Auto) 1.0 L (2-4) % Baso % (Auto) 0.6 (0-2) % Neut # (Auto) 5900 (7325-5903) /uL Lymph # (Auto) 800 L (1042-8069) /uL Rains # (Auto) 500 (0-900) /uL Eos # (Auto) 100 (0-450) /uL Baso # (Auto) 0 (0-100) /uL Sodium (137-145) mmol/L Potassium (3.4-5.1) mmol/L Chloride (98-107) mmol/L Carbon Dioxide (22-32) mmol/L BUN (7-17) mg/dL Creatinine (0.52-1.04) mg/dL Estimated GFR (>60) mL/min BUN/Creatinine Ratio (6-22) Glucose (80-110) mg/dL Lactate (0.7-2.1) mmol/L Calcium (8.4-10.2) mg/dL Magnesium 1.9 (1.6-2.3) mg/dL Total Bilirubin (0.2-1.3) mg/dL AST (14-36) IU/L ALT (<35) IU/L Alkaline Phosphatase (38-126) U/L Total Creatine Kinase 78 (30-135) U/L CK-MB (CK-2) TNP CK-MB (CK-2) Rel Index TNP Troponin I < 0.012 (0.01-0.034) ng/mL Total Protein (6.3-8.2) g/dL Albumin (3.5-5.0) g/dL Globulin (1.7-4.1) g/dL Albumin/Globulin Ratio (1.0-2.8) Procalcitonin (<0.5) ng/mL Influenza A (RT-PCR) Flu a negative (NEGATIVE) Influenza B (RT-PCR) Flu b negative (NEGATIVE) 12/03/19 12/03/19 12/03/19 Range/Units 13:21 13:21 13:32 WBC (4.5-11.0) X10^3/uL RBC (4.0-5.2) X10^6/uL Hgb (12.0-16.0) g/dL Hct (36-46) % MCV (80-100) fL MCH (26-34) PG MCHC (30-36) % RDW (11.6-14.8) % Plt Count (150-400) X10^3/uL Neut % (Auto) (50-75) % Lymph % (Auto) (25-40) % Rains % (Auto) (3-14) % Eos % (Auto) (2-4) % Baso % (Auto) (0-2) % Neut # (Auto) (1130-4730) /uL Lymph # (Auto) (0875-7762) /uL Rains # (Auto) (0-900) /uL Eos # (Auto) (0-450) /uL Baso # (Auto) (0-100) /uL Sodium 130 L (137-145) mmol/L Potassium 4.2 (3.4-5.1) mmol/L Chloride 95 L (98-107) mmol/L Carbon Dioxide 28 (22-32) mmol/L BUN 8 (7-17) mg/dL Creatinine 0.70 (0.52-1.04) mg/dL Estimated GFR > 60.0 (>60) mL/min BUN/Creatinine Ratio 11.4 (6-22) Glucose 101 (80-110) mg/dL Lactate 1.0 (0.7-2.1) mmol/L Calcium 8.8 (8.4-10.2) mg/dL Magnesium (1.6-2.3) mg/dL Total Bilirubin 0.6 (0.2-1.3) mg/dL AST 40 H (14-36) IU/L ALT 20 (<35) IU/L Alkaline Phosphatase 214 H (38-126) U/L Total Creatine Kinase (30-135) U/L CK-MB (CK-2) CK-MB (CK-2) Rel Index Troponin I (0.01-0.034) ng/mL Total Protein 7.7 (6.3-8.2) g/dL Albumin 3.4 L (3.5-5.0) g/dL Globulin 4.3 H (1.7-4.1) g/dL Albumin/Globulin Ratio 0.8 L (1.0-2.8) Procalcitonin < 0.05 (<0.5) ng/mL Influenza A (RT-PCR) (NEGATIVE) Influenza B (RT-PCR) (NEGATIVE) Imaging Data Chest x-ray: Radiologist's Impression: PROCEDURE: XR CHEST 2V INDICATIONS: cough TECHNIQUE: 2 views of the chest were acquired. COMPARISON: [facility], CT, CT BIOPSY INTERVERTEBRAL/PARAVERTEBRAL DISC, 11/11/2019, 13:29. [facility], CT, CT CHEST WITH CONTRAST, 11/10/2019, 18:31. [facility], CT, CT CHEST WO CON, 10/14/2019, 14:05. [facility], MR, MR THORACIC SPINE WO CON, 10/20/2019, 12:45. [facility], CR, XR CHEST 2V, 05/03/2019, 16:05. [facility], CR, XR CHEST 2V, 03/19/2019, 13:25. FINDINGS: Surgical changes and devices: None. Lungs and pleura: Lungs are abnormal with a chronic interstitial prominence and superimposed mild alveolar edema with a right midlung paravertebral soft tissue prominence suspicious for representing mass lesion. This has been previously evaluated by CT scanning. No pleural effusions or pneumothorax. Mediastinum: Mediastinal contours are normal. Heart size is normal. Bones and chest wall: No suspicious bony abnormalities. Soft tissues appear unremarkable. IMPRESSION: Suspect chronic smoking history given the presence of what appears to be a mass and interstitial prominence previously documented best by recent CT scanning. A mass lesion is again noted superimposed on the expected position of the middle third of the right hilum. This is in the paravertebral soft tissues of the right lung on prior CT scanning. A definite pneumonia pattern is not found. Dictated by: Jed Brandon M.D. on 11/27/2019 at 16:55 ECG Data Attestation: I personally reviewed and interpreted this ECG as follows: Prior ECG tracings: available for review Interpretation: Normal sinus rhythm rate 72, no ST elevations MDM Narrative Medical decision making narrative: Patient is noted to have a right-sided lung mass she has had CTs in the past this has been noted on previous chest x-rays as well. She says it has been biopsies as it is not cancer. I discussed with her that it does need to be followed and she probably needs a repeat outpatient CT. She has a history of thoracic diskitis she has no midline tenderness throughout her entire spine, do not suspect acute diskitis or osteomyelitis. She does have some bilateral lower lumbar pain but this is unlikely of related. She is afebrile no leukocytosis does not appear septic. Symptoms today consists of mostly upper respiratory like symptoms the already been on azithromycin and she takes prednisone 3 mg daily. Will increase her prednisone and taper it slowly and change antibiotic to doxycycline. Her mass is being followed. She says they tried to biopsy it but dropped from long she has been told but it is not cancer She is not complaining of shortness of breath or hypoxic. Symptoms are related to upper respiratory like symptoms with productive cough. Discharge Plan Departure Patient Disposition: Home Clinical Impression: Atypical pneumonia Instructions: DI for Atypical Pneumonia Activity Restrictions/Additional Instructions: *You have been diagnosed with atypical pneumonia *What to do: You are noted to have a mass on the right-sided lung which has been there previously. I strongly recommend that you have a repeat outpatient CT with your PCP. *Continue to take medications as directed-->SENT TO [facility] Prednisone 40 mg x 3 days, 30 mg x 3 days, 20 mg x 3 days then 10 mg x 3 days and resume your 3 mg take Doxycycline 100 mg twice a day *Follow up with your primary care provider in 2-3 days *Return to ER if you should have increasing cough chest pain shortness of breath or any new, worsening or concerning symptoms Prescriptions: New prednisone 10 mg tablet 10 mg PO DAILY Qty: 30 RF: 0 doxycycline hyclate 100 mg capsule 100 mg PO BID Qty: 14 RF: 0 No Action diphenhydramine HCl [Benadryl] 25 mg capsule 25 mg PO BEDTIME PRN (Reason: Insomnia) RF: 0 Caltrate + D3 Plus Minerals 300 mg-800 unit -25 mg-0.5 mg tablet 1 tab PO DAILY RF: 0 mupirocin 2 % ointment 1 applic TOP TID Qty: 30 RF: 0 folic acid 1 mg tablet 1 mg PO BID Qty: 60 RF: 4 ferrous sulfate [Iron (ferrous sulfate)] 325 mg (65 mg iron) tablet 325 mg PO BID Qty: 60 RF: 1 lidocaine 5 % adhesive patch,medicated 1 patch TOP DAILY Qty: 15 RF: 5 levothyroxine 88 mcg tablet 88 mcg PO QAM Qty: 90 RF: 1 prednisone 1 mg tablet 3 mg PO DAILY Qty: 90 RF: 2 clonazepam 1 mg tablet 1 mg PO BID PRN (Reason: anxiety) Qty: 60 RF: 2 estradiol 0.01 % (0.1 mg/gram) cream See Rx Instructions .ROUTE .COMPLEX Qty: 42.5 RF: 5 diclofenac sodium 1 % gel 2 g topical QID Qty: 100 RF: 1 Biotene Dry Mouth Oral Rinse mouthwash 15 ml MM BID-QID PRN (Reason: Dry Mouth) RF: 0 (DME) Systane Contacts drops See Rx Instructions .ROUTE .MEDSUPPLY Qty: 12 RF: 0 trazodone 50 mg tablet 25 mg PO BEDTIME PRN (Reason: Sleep) RF: 0 clotrimazole 2 % cream 1 applicator VAG BEDTIME 3 Days Qty: 21 RF: 1 fesoterodine 4 mg tablet extended release 24 hr 4 mg PO DAILY Qty: 90 RF: 1 oxycodone 5 mg tablet 5 mg PO TID PRN (Reason: Pain, Severe) Qty: 90 RF: 0 potassium chloride 8 mEq capsule, extended release 16 meq PO BID RF: 0 clobetasol 0.05 % ointment 1 applictn TOP DAILY Qty: 30 RF: 1 azithromycin 250 mg tablet See Rx Instructions PO .COMPLEX 5 Days Qty: 6 RF: 0 lactulose 10 gram/15 mL solution 10 gram PO DAILY PRN (Reason: Laxative Effect) RF: 0 metronidazole 1 % cream 1 applictn TOP DAILY Qty: 60 RF: 0 duloxetine 60 mg capsule,delayed release(DR/EC) 60 mg PO DAILY Qty: 90 RF: 3 mycophenolate mofetil 500 mg Tablet 1,000 mg PO BID RF: 0 Align 4 mg Capsule 1 cap PO DAILY PRN (Reason: Diarrhea) RF: 0 famotidine 40 mg tablet 40 mg PO BID RF: 0 propranolol 20 mg tablet 10 mg PO BID RF: 0 Referrals: Migue Verma MD [Primary Care Provider] -
[2019-12-03 12:35] LABS: Influenza A - CEPHEID Flu A NEGATIVE (NEGATIVE); Influenza B - CEPHEID Flu B NEGATIVE (NEGATIVE)
[2019-12-03] MEDS: methylPREDNISolone 125 MG/2 ML VIAL IV (13:16)
[2019-12-03] MEDS: SODIUM CHLORIDE 0.9% 1,000 ML 150 ML IV (13:16)
[2019-12-03] MEDS: ALBUTEROL/IPRATROPIUM 3 ML AMPUL INH (13:16)
[2019-12-03 13:20] VITALS: BP 165/77; PULSE 87; RESP 24; O2SAT 98
[2019-12-03 13:29] VITALS: PULSE 75; RESP 16; O2SAT 95
[2019-12-03 13:43] LABS: Add Manual Diff / Slide Review NO; Basophils Absolute Auto 0 /uL (0-100); Basophils Percent Auto 0.6 % (0-2); Eosinophils Absolute Auto 100 /uL (0-450); Hematocrit 35.3 % (36-46); Hemoglobin 11.9 g/dL (12.0-16.0); Lymphocytes Absolute Auto 800 /uL (1100-4500); Lymphocytes Percent Auto 11.4 % (25-40); Mean Corpuscular HGB Conc 33.6 % (30-36); Mean Corpuscular Hemoglobin 30.2 PG (26-34); Mean Corpuscular Volume 89.8 fL (80-100); Monocytes Absolute Auto 500 /uL (0-900); Monocytes Percent Auto 7.4 % (3-14); Neutrophils Absolute Auto 5900 /uL (1500-7000); Neutrophils Percent Auto 79.6 % (50-75); Platelet Count 192 X10^3/uL (150-400); Red Blood Cell Count 3.93 X10^6/uL (4.0-5.2); Red Cell Distribution Width 14.1 % (11.6-14.8); White Blood Cell Count 7.4 X10^3/uL (4.5-11.0)
[2019-12-03 13:58] LABS: Alanine Aminotransferase 20 IU/L (<35); Albumin 3.4 g/dL (3.5-5.0); Albumin Globulin Ratio 0.8 (1.0-2.8); Alkaline Phosphatase 214 U/L (38-126); Aspartate Aminotransferase 40 IU/L (14-36); BUN Creatinine Ratio 11.4 (6-22); Bilirubin Total 0.6 mg/dL (0.2-1.3); Blood Urea Nitrogen 8 mg/dL (7-17); Calcium 8.8 mg/dL (8.4-10.2); Carbon Dioxide 28 mmol/L (22-32); Chloride 95 mmol/L (98-107); Creatine Kinase 78 U/L (30-135); Estimated Glomerular Filt Rate > 60.0 mL/min (>60); Globulin 4.3 g/dL (1.7-4.1); Glucose 101 mg/dL (80-110); HEMOLYSIS < 15 (0-50); Magnesium 1.9 mg/dL (1.6-2.3); Potassium 4.2 mmol/L (3.4-5.1); Sodium 130 mmol/L (137-145); Total Protein 7.7 g/dL (6.3-8.2)
[2019-12-03 14:09] LABS: Troponin I < 0.012 ng/mL (0.01-0.034)
[2019-12-03 14:12] LABS: Procalcitonin < 0.05 ng/mL (<0.5)
[2019-12-03 14:20] VITALS: BP 160/73; PULSE 72; RESP 16; O2SAT 97
[2019-12-03 14:57] VITALS: BP 160/76; PULSE 77; O2SAT 98
== END 2019-12-03 14:59 | disposition home or self-care (01) ==
PROVIDERS: Emergency Provider Emergency Medicine; Family Provider Student in an Organized Health Care Education/Training Program; PCP Student in an Organized Health Care Education/Training Program
DX: J18.9 Pneumonia, unspecified organism (principal); R06.02 Shortness of breath; M54.5 Low back pain
CPT/HCPCS: 36415; 71046; 80053; 82550; 83605; 83735; 84145; 84484; 85025; 87040; 87502; 93005; 94640; 96361; 96374; 99284; 99285; J2930

== ENCOUNTER → 2019-12-17 14:06 | Outpatient (CLI) | payer MEDICARE, OTHER, SELFPAY ==
--- NOTE | 2019-12-17 | DI.MRI.S_ITS ---
PROCEDURE: MR THORACIC SPINE WO/W CON INDICATIONS: Osteomyelitis, unspecified TECHNIQUE: Noncontrast sagittal T1 spin echo and T2 fast spin echo, sagittal STIR, axial T1 and T2 fast spin echo through the thoracic spine. After the administration of contrast, axial and sagittal T1 spin echo with fat saturation through the thoracic spine. COMPARISON: [facility], CT, CT BIOPSY INTERVERTEBRAL/PARAVERTEBRAL DISC, 11/11/2019, 13:29. [facility], CT, CT CHEST WITH CONTRAST, 11/10/2019, 18:31. [facility], MR, MR THORACIC SPINE WO CON, 10/20/2019, 12:45. FINDINGS: Image quality: Excellent. Alignment and curvature: There is normal bony alignment. Bones: Loss of height involving the T9, T10 and T11 vertebral bodies is stable compared to 10/20/2019 zero increased T2 signal involving the marrow space of the T9, T10 and T11 vertebral body has decreased in size compared to 10/20/2019. There is a new focus of increased T2 signal and postcontrast enhancement involving the right T8 transverse process. Spinal cord: Visualized spinal cord is of normal signal and size, without abnormal enhancement. Paraspinous soft tissues: Cavitary mass in the medial aspect of the right lower lobe is stable compared to prior MRI and CT scan of the chest Miscellaneous: Fluid signal in the T10-T11 intervertebral disc space has resolved in interval since prior exam obtained 10/20/2019. While T9-T10 and T10-T11 central canal narrowing is stable compared to prior examination. Mild bilateral T9-T10 and T10-T11 neural foraminal narrowing is stable compared to prior examination. IMPRESSION: 1. Marrow edema involving the T9, T10 and T11 vertebral bodies has decreased in interval since prior exam obtained 10/20/2020 without complete resolution. Finding may represent evolving subacute compression fractures versus resolving osteomyelitis. 2. Complete resolution of fluid involving the T10-T11 intervertebral space. 3. Large right lower lobe cavitary mass unchanged compared to prior exams. 4. New small focus of increased T2 signal and postcontrast enhancement involving the right T8 which could represent new focus of infection or metastatic disease. Dictated by: Lupe Melendez MD, PhD on 12/17/2019 at 15:43 Approved by: Lupe Melendez MD, PhD on 12/17/2019 at 15:56
== END ==
PROVIDERS: Family Provider Student in an Organized Health Care Education/Training Program; PCP Student in an Organized Health Care Education/Training Program
DX: M86.9 Osteomyelitis, unspecified (principal); R91.8 Other nonspecific abnormal finding of lung field
CPT/HCPCS: 72157

== ENCOUNTER → 2019-12-23 14:33 | Outpatient (CLI) | payer MEDICARE, OTHER, SELFPAY ==
--- NOTE | 2019-12-23 | DI.US.S_ITS ---
PROCEDURE: US ABDOMEN COMPLETE INDICATIONS: AUTOIMMUNE HEPATITIS TECHNIQUE: Real-time scanning was performed of the abdominal and retroperitoneal organs, with image documentation. COMPARISON: [facility], US, ABDOMEN COMPLETE, 05/11/2017, 7:25. [facility], CT, ABDOMEN/PELVIS WITH CONTRAST, 04/16/2015, 10:17. FINDINGS: Liver: Liver is small in size and demonstrates a nodular surface. Gallbladder: No findings of gallstones or sludge are seen. The gallbladder wall is not thickened, measuring 3 mm or less. No specific pericholecystic fluid is seen. The sonographic Bland sign is negative. Biliary ducts: Intrahepatic bile ducts are non-dilated. Extrahepatic bile duct caliber measures 5 mm. Normal is 6-7 mm or less in diameter, or 10 mm or less post-cholecystectomy. Pancreas: Visualized portions of the pancreas are sonographically normal. Spleen: Spleen is normal in size and homogeneous in echotexture. Kidneys: Kidneys are normal in size and echotexture. Right kidney measures 9.6 cm long; left kidney measures 9 cm long. No hydronephrosis or nephrolithiasis. No solid masses. Aorta: Visualized aorta is normal in caliber at less than 3 cm. Iliacs: Proximal common iliac arteries are normal in caliber at less than 2.5 cm. IVC: Intrahepatic inferior vena cava is patent. Miscellaneous: No free abdominal fluid. IMPRESSION: Cirrhotic appearing liver. If clinically appropriate, please consider a dedicated liver protocol MRI (without and with contrast) for further evaluation (assuming that there is no contraindication). Dictated by: Bennett Ferguson M.D. on 12/23/2019 at 16:06 Approved by: Bennett Ferguson M.D. on 12/23/2019 at 16:08
== END ==
PROVIDERS: Family Provider Student in an Organized Health Care Education/Training Program; PCP Student in an Organized Health Care Education/Training Program; Referring Provider Internal Medicine Infectious Disease; Visit Provider Internal Medicine Infectious Disease
DX: K75.4 Autoimmune hepatitis (principal)
CPT/HCPCS: 76700

== ENCOUNTER → 2020-01-01 15:55 | Outpatient (CLI) | payer MEDICARE, OTHER, SELFPAY ==
[2020-01-01 16:47] LABS: Add Manual Diff / Slide Review NO; Basophils Absolute Auto 100 /uL (0-100); Basophils Percent Auto 0.9 % (0-2); Eosinophils Absolute Auto 100 /uL (0-450); Eosinophils Percent Auto 0.7 % (2-4); Hematocrit 37.1 % (36-46); Hemoglobin 12.3 g/dL (12.0-16.0); Lymphocytes Absolute Auto 1000 /uL (1100-4500); Lymphocytes Percent Auto 12.8 % (25-40); Mean Corpuscular HGB Conc 33.3 % (30-36); Mean Corpuscular Hemoglobin 30.6 PG (26-34); Monocytes Absolute Auto 800 /uL (0-900); Monocytes Percent Auto 10.4 % (3-14); Neutrophils Absolute Auto 5700 /uL (1500-7000); Neutrophils Percent Auto 75.2 % (50-75); Platelet Count 219 X10^3/uL (150-400); Red Blood Cell Count 4.03 X10^6/uL (4.0-5.2); Red Cell Distribution Width 14.8 % (11.6-14.8); White Blood Cell Count 7.6 X10^3/uL (4.5-11.0)
[2020-01-01 17:03] LABS: Alanine Aminotransferase 25 IU/L (<35); Albumin 3.7 g/dL (3.5-5.0); Albumin Globulin Ratio 0.8 (1.0-2.8); Alkaline Phosphatase 275 U/L (38-126); Aspartate Aminotransferase 52 IU/L (14-36); BUN Creatinine Ratio 12.5 (6-22); Bilirubin Total 0.5 mg/dL (0.2-1.3); Blood Urea Nitrogen 10 mg/dL (7-17); Calcium 9.1 mg/dL (8.4-10.2); Carbon Dioxide 26 mmol/L (22-32); Chloride 96 mmol/L (98-107); Estimated Glomerular Filt Rate > 60.0 mL/min (>60); Globulin 4.4 g/dL (1.7-4.1); Glucose 100 mg/dL (80-110); HEMOLYSIS < 15 (0-50); Potassium 4.5 mmol/L (3.4-5.1); Sodium 131 mmol/L (137-145); Total Protein 8.1 g/dL (6.3-8.2)
== END ==
PROVIDERS: Family Provider Student in an Organized Health Care Education/Training Program; PCP Student in an Organized Health Care Education/Training Program; Referring Provider Internal Medicine Rheumatology; Visit Provider Internal Medicine Rheumatology
DX: M32.19 Other organ or system involvement in systemic lupus erythematosus (principal); Z79.899 Other long term (current) drug therapy
CPT/HCPCS: 36415; 80053; 85025

== ENCOUNTER → 2020-01-15 18:38 | Outpatient (ROUT) | payer MEDICARE, OTHER, SELFPAY | PROVIDERS: Family Provider Student in an Organized Health Care Education/Training Program; PCP Student in an Organized Health Care Education/Training Program; Visit Provider Obstetrics & Gynecology | DX: Z11.3 Encounter for screening for infections with a predominantly sexual mode of transmission (principal) | CPT/HCPCS: 87255 ==

== ENCOUNTER → 2020-01-27 17:04 | Outpatient (CLI) | payer MEDICARE, OTHER, SELFPAY ==
[2020-01-27 17:54] LABS: Add Manual Diff / Slide Review NO; Basophils Absolute Auto 0 /uL (0-100); Basophils Percent Auto 0.6 % (0-2); Eosinophils Absolute Auto 100 /uL (0-450); Eosinophils Percent Auto 0.7 % (2-4); Hematocrit 36.8 % (36-46); Hemoglobin 12.2 g/dL (12.0-16.0); Lymphocytes Absolute Auto 1300 /uL (1100-4500); Lymphocytes Percent Auto 16.9 % (25-40); Mean Corpuscular HGB Conc 33.2 % (30-36); Mean Corpuscular Hemoglobin 30.6 PG (26-34); Mean Corpuscular Volume 92.2 fL (80-100); Monocytes Absolute Auto 700 /uL (0-900); Monocytes Percent Auto 9.3 % (3-14); Neutrophils Absolute Auto 5500 /uL (1500-7000); Neutrophils Percent Auto 72.5 % (50-75); Platelet Count 203 X10^3/uL (150-400); Red Blood Cell Count 3.99 X10^6/uL (4.0-5.2); Red Cell Distribution Width 14.6 % (11.6-14.8); White Blood Cell Count 7.7 X10^3/uL (4.5-11.0)
[2020-01-27 18:06] LABS: Alanine Aminotransferase 23 IU/L (<35); Albumin 3.6 g/dL (3.5-5.0); Albumin Globulin Ratio 0.8 (1.0-2.8); Alkaline Phosphatase 244 U/L (38-126); Aspartate Aminotransferase 50 IU/L (14-36); BUN Creatinine Ratio 16.7 (6-22); Bilirubin Total 0.4 mg/dL (0.2-1.3); Blood Urea Nitrogen 11 mg/dL (7-17); Carbon Dioxide 26 mmol/L (22-32); Chloride 99 mmol/L (98-107); Estimated Glomerular Filt Rate > 60.0 mL/min (>60); Globulin 4.7 g/dL (1.7-4.1); Glucose 105 mg/dL (80-110); HEMOLYSIS < 15 (0-50); Potassium 4.8 mmol/L (3.4-5.1); Sodium 132 mmol/L (137-145); Total Protein 8.3 g/dL (6.3-8.2)
== END ==
PROVIDERS: Family Provider Student in an Organized Health Care Education/Training Program; PCP Student in an Organized Health Care Education/Training Program; Referring Provider Internal Medicine Rheumatology; Visit Provider Internal Medicine Rheumatology
DX: M32.19 Other organ or system involvement in systemic lupus erythematosus (principal); Z79.899 Other long term (current) drug therapy
CPT/HCPCS: 36415; 80053; 85025

== ENCOUNTER → 2020-02-26 14:23 | Outpatient (CLI) | payer MEDICARE, OTHER, SELFPAY ==
[2020-02-26 15:16] LABS: Add Manual Diff / Slide Review NO; Basophils Absolute Auto 0 /uL (0-100); Basophils Percent Auto 0.2 % (0-2); Eosinophils Absolute Auto 0 /uL (0-450); Eosinophils Percent Auto 0.5 % (2-4); Hematocrit 35.5 % (36-46); Hemoglobin 11.5 g/dL (12.0-16.0); Lymphocytes Absolute Auto 1000 /uL (1100-4500); Lymphocytes Percent Auto 11.8 % (25-40); Mean Corpuscular HGB Conc 32.5 % (30-36); Mean Corpuscular Hemoglobin 29.6 PG (26-34); Mean Corpuscular Volume 90.9 fL (80-100); Monocytes Absolute Auto 600 /uL (0-900); Monocytes Percent Auto 6.9 % (3-14); Neutrophils Absolute Auto 6500 /uL (1500-7000); Neutrophils Percent Auto 80.6 % (50-75); Platelet Count 212 X10^3/uL (150-400); White Blood Cell Count 8.1 X10^3/uL (4.5-11.0)
[2020-02-26 15:22] LABS: Alanine Aminotransferase 21 IU/L (<35); Albumin 3.2 g/dL (3.5-5.0); Albumin Globulin Ratio 0.7 (1.0-2.8); Alkaline Phosphatase 219 U/L (38-126); Aspartate Aminotransferase 50 IU/L (14-36); BUN Creatinine Ratio 12.1 (6-22); Bilirubin Total 0.4 mg/dL (0.2-1.3); Blood Urea Nitrogen 8 mg/dL (7-17); Calcium 8.5 mg/dL (8.4-10.2); Carbon Dioxide 28 mmol/L (22-32); Chloride 97 mmol/L (98-107); Estimated Glomerular Filt Rate > 60.0 mL/min (>60); Globulin 4.6 g/dL (1.7-4.1); Glucose 105 mg/dL (80-110); HEMOLYSIS < 15 (0-50); Potassium 4.1 mmol/L (3.4-5.1); Sodium 131 mmol/L (137-145); Total Protein 7.8 g/dL (6.3-8.2)
== END ==
PROVIDERS: Family Provider Student in an Organized Health Care Education/Training Program; PCP Student in an Organized Health Care Education/Training Program; Referring Provider Internal Medicine Rheumatology; Visit Provider Internal Medicine Rheumatology
DX: M32.19 Other organ or system involvement in systemic lupus erythematosus (principal); Z79.899 Other long term (current) drug therapy
CPT/HCPCS: 36415; 80053; 85025

== ENCOUNTER → 2020-03-02 14:27 | Outpatient (CLI) | payer MEDICARE, OTHER, SELFPAY ==
--- NOTE | 2020-03-02 14:29 | DI.RAD.S_ITS ---
PROCEDURE: XR LUMBAR SPINE 2-3V INDICATIONS: Progressive lower back pain after fall TECHNIQUE: 3 views of the lumbar spine were acquired. COMPARISON: [facility], CR, XR LUMBAR SPINE 2-3V, 08/20/2019, 14:08. FINDINGS: Bones: 5 [id number] vertebrae are present. Mild multilevel endplate osteophyte formation and facet hypertrophy. Mild chronic wedging of L4 is unchanged. There is new mild wedging of L5 of uncertain acuity. There is normal bony alignment. No vertebral body compression fractures. No suspicious bony lesions. Soft tissues: Overlying bowel gas pattern is normal. No suspicious soft tissue calcifications. IMPRESSION: New mild L5 compression fracture of uncertain acuity. This could be further assessed with MRI, if clinically indicated. No change in mild L4 compression fracture. Multilevel degenerative disc and facet disease. Dictated by: Nani Rizzo M.D. on 03/02/2020 at 16:23 Approved by: Nani Rizzo M.D. on 03/02/2020 at 16:24
== END ==
PROVIDERS: Family Provider Student in an Organized Health Care Education/Training Program; PCP Student in an Organized Health Care Education/Training Program; Referring Provider Family Medicine; Visit Provider Family Medicine
DX: M54.5 Low back pain (principal); M48.56XA Collapsed vertebra, not elsewhere classified, lumbar region, initial encounter for fracture; M51.36 Other intervertebral disc degeneration, lumbar region
CPT/HCPCS: 72100

== ENCOUNTER → 2020-03-06 14:23 | Outpatient (CLI) | payer MEDICARE, OTHER, SELFPAY ==
[2020-03-07 16:07] LABS: Alpha Fetoprotein 2.1 ng/mL (0.0-8.3)
== END ==
PROVIDERS: Family Provider Student in an Organized Health Care Education/Training Program; PCP Student in an Organized Health Care Education/Training Program; Referring Provider Internal Medicine Gastroenterology; Visit Provider Internal Medicine Gastroenterology
DX: K70.30 Alcoholic cirrhosis of liver without ascites (principal)
CPT/HCPCS: 36415; 82105

== ENCOUNTER → 2020-03-26 11:43 | Outpatient (CLI) | payer MEDICARE, OTHER, SELFPAY ==
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
== END ==
PROVIDERS: Family Provider Student in an Organized Health Care Education/Training Program; PCP Student in an Organized Health Care Education/Training Program; Referring Provider Student in an Organized Health Care Education/Training Program; Visit Provider Family Medicine
DX: K74.60 Unspecified cirrhosis of liver (principal); R14.0 Abdominal distension (gaseous); R18.8 Other ascites
CPT/HCPCS: 76700

== ENCOUNTER → 2020-04-08 14:46 | Outpatient (CLI) | payer MEDICARE, OTHER, SELFPAY ==
[2020-04-08 16:04] LABS: Add Manual Diff / Slide Review NO; Basophils Absolute Auto 0 /uL (0-100); Basophils Percent Auto 0.2 % (0-2); Eosinophils Absolute Auto 0 /uL (0-450); Eosinophils Percent Auto 0.3 % (2-4); Hemoglobin 11.9 g/dL (12.0-16.0); Lymphocytes Absolute Auto 1000 /uL (1100-4500); Lymphocytes Percent Auto 11.9 % (25-40); Mean Corpuscular Hemoglobin 29.3 PG (26-34); Mean Corpuscular Volume 88.8 fL (80-100); Monocytes Absolute Auto 400 /uL (0-900); Neutrophils Absolute Auto 6900 /uL (1500-7000); Neutrophils Percent Auto 82.6 % (50-75); Platelet Count 226 X10^3/uL (150-400); Red Blood Cell Count 4.05 X10^6/uL (4.0-5.2); Red Cell Distribution Width 14.6 % (11.6-14.8); White Blood Cell Count 8.4 X10^3/uL (4.5-11.0)
[2020-04-08 16:26] LABS: Alanine Aminotransferase 21 IU/L (<35); Albumin 3.3 g/dL (3.5-5.0); Albumin Globulin Ratio 0.7 (1.0-2.8); Alkaline Phosphatase 262 U/L (38-126); Aspartate Aminotransferase 48 IU/L (14-36); BUN Creatinine Ratio 13.8 (6-22); Bilirubin Total 0.5 mg/dL (0.2-1.3); Blood Urea Nitrogen 9 mg/dL (7-17); Calcium 8.3 mg/dL (8.4-10.2); Carbon Dioxide 25 mmol/L (22-32); Chloride 98 mmol/L (98-107); Estimated Glomerular Filt Rate > 60.0 mL/min (>60); Globulin 4.5 g/dL (1.7-4.1); Glucose 126 mg/dL (80-110); HEMOLYSIS < 15 (0-50); Potassium 4.5 mmol/L (3.4-5.1); Sodium 129 mmol/L (137-145); Total Protein 7.8 g/dL (6.3-8.2)
== END ==
PROVIDERS: Family Provider Student in an Organized Health Care Education/Training Program; PCP Student in an Organized Health Care Education/Training Program; Referring Provider Internal Medicine Rheumatology; Visit Provider Internal Medicine Rheumatology
DX: M32.19 Other organ or system involvement in systemic lupus erythematosus (principal); Z79.899 Other long term (current) drug therapy
CPT/HCPCS: 36415; 80053; 85025

== ENCOUNTER → 2020-04-21 17:19 | Outpatient (CLI) | payer MEDICARE, OTHER, SELFPAY ==
--- NOTE | 2020-04-21 | DI.MRI.S_ITS ---
PROCEDURE: MR LUMBAR SPINE WO CON INDICATIONS: Spondylosis without myelopathy or radiculopathy, TECHNIQUE: Noncontrast sagittal T1 spin echo and T2 fast echo, sagittal STIR, axial T1 and T2 fast spin echo through the lumbar spine. In cases with scoliosis, additional coronal T2 fast spin echo may be performed. COMPARISON: [facility], MR, MR LUMBAR SPINE WO CON, 10/20/2019, 13:23. FINDINGS: Image quality: Excellent. Alignment and Curvature: There is normal bony alignment. Bone Marrow: Multilevel degenerative endplate sclerosis and spurring. Diffuse facet arthropathy. Large Schmorl's node involving the superior endplate of L4. L5 compression fracture, is again noted. There is unchanged height loss of L4 and L5 vertebral bodies Spinal Cord: Conus medullaris terminates at the L2 level. Visualized cord demonstrates normal signal and size. Paraspinous Soft Tissues: No paravertebral masses. L1-L2: Minimal canal narrowing. Mild right foraminal narrowing. No left foraminal stenosis. Unchanged appearance L2-L3: Mild canal narrowing. Partial effacement of both lateral recesses with bilaterally symmetric appearance. Mild right foraminal stenosis. No left foraminal stenosis. Unchanged appearance L3-L4: Small dorsal epidural lipomatosis. No canal stenosis. Lateral recesses appear patent. Mild bilateral foraminal narrowing grossly unchanged. L4-L5: No canal stenosis. Lateral recesses appear grossly patent. Moderate to severe left foraminal narrowing with nerve root compression. No right foraminal stenosis. No interval change L5-S1: No canal stenosis. Lateral recesses appear patent. Moderate right foraminal narrowing. Moderate left foraminal narrowing with slight nerve root compression. IMPRESSION: Overall, grossly unchanged examination since 10/20/19 Numerous bilateral foraminal stenoses, most pronounced on the left at L4-L5, however no interval change Dictated by: Jonathan Tai M.D. on 04/22/2020 at 9:02 Approved by: Jonathan Tai M.D. on 04/22/2020 at 9:17
== END ==
PROVIDERS: Family Provider Student in an Organized Health Care Education/Training Program; PCP Student in an Organized Health Care Education/Training Program; Referring Provider Physical Medicine & Rehabilitation Pain Medicine; Visit Provider Physical Medicine & Rehabilitation Pain Medicine
DX: M47.816 Spondylosis without myelopathy or radiculopathy, lumbar region (principal); M48.061 Spinal stenosis, lumbar region without neurogenic claudication; M48.07 Spinal stenosis, lumbosacral region
CPT/HCPCS: 72148

== ENCOUNTER → 2020-04-28 13:14 | Outpatient (CLI) | payer MEDICARE, OTHER, SELFPAY ==
--- NOTE | 2020-04-28 | DI.NM.S_ITS ---
PROCEDURE: NM HIDA NO EJECTION FRACTION RADIOPHARMACEUTICAL: 5.4 mCi Tc-99m mebrofenin IV. INDICATIONS: Right upper quadrant pain TECHNIQUE: Following intravenous administration of Tc-99m mebrofenin, sequential anterior abdominal images were obtained through at least 60 minutes. COMPARISON: None. FINDINGS: There is normal tracer uptake and excretion by the liver. There is normal visualization of intrahepatic ducts, common bile duct, and the gallbladder. There is normal tracer excretion into duodenum. IMPRESSION: No evidence of cholecystitis. Dictated by: Nani Rizzo M.D. on 04/28/2020 at 15:55 Approved by: Nani Rizzo M.D. on 04/28/2020 at 15:56
== END ==
PROVIDERS: Family Provider Student in an Organized Health Care Education/Training Program; PCP Student in an Organized Health Care Education/Training Program; Referring Provider Internal Medicine Gastroenterology; Visit Provider Internal Medicine Gastroenterology
DX: R10.11 Right upper quadrant pain (principal)
CPT/HCPCS: 78226; A9537

== ENCOUNTER → 2020-05-04 13:50 | Outpatient (CLI) | payer MEDICARE, OTHER, SELFPAY ==
[2020-05-04 14:19] LABS: Add Manual Diff / Slide Review NO; Basophils Absolute Auto 100 /uL (0-100); Basophils Percent Auto 0.7 % (0-2); Eosinophils Absolute Auto 0 /uL (0-450); Eosinophils Percent Auto 0.2 % (2-4); Hematocrit 37.5 % (36-46); Hemoglobin 12.1 g/dL (12.0-16.0); Lymphocytes Absolute Auto 900 /uL (1100-4500); Lymphocytes Percent Auto 9.3 % (25-40); Mean Corpuscular HGB Conc 32.3 % (30-36); Mean Corpuscular Hemoglobin 28.8 PG (26-34); Mean Corpuscular Volume 89.2 fL (80-100); Monocytes Absolute Auto 500 /uL (0-900); Monocytes Percent Auto 5.2 % (3-14); Neutrophils Absolute Auto 8200 /uL (1500-7000); Neutrophils Percent Auto 84.6 % (50-75); Platelet Count 219 X10^3/uL (150-400); Red Cell Distribution Width 15.1 % (11.6-14.8); White Blood Cell Count 9.7 X10^3/uL (4.5-11.0)
[2020-05-04 14:42] LABS: Alanine Aminotransferase 21 IU/L (<35); Albumin 3.5 g/dL (3.5-5.0); Albumin Globulin Ratio 0.8 (1.0-2.8); Alkaline Phosphatase 238 U/L (38-126); Aspartate Aminotransferase 50 IU/L (14-36); BUN Creatinine Ratio 17.2 (6-22); Bilirubin Total 0.6 mg/dL (0.2-1.3); Blood Urea Nitrogen 11 mg/dL (7-17); Calcium 8.7 mg/dL (8.4-10.2); Carbon Dioxide 28 mmol/L (22-32); Chloride 96 mmol/L (98-107); Estimated Glomerular Filt Rate > 60.0 mL/min (>60); Globulin 4.5 g/dL (1.7-4.1); Glucose 116 mg/dL (80-110); HEMOLYSIS < 15 (0-50); Potassium 4.3 mmol/L (3.4-5.1); Sodium 131 mmol/L (137-145)
== END ==
PROVIDERS: Family Provider Student in an Organized Health Care Education/Training Program; PCP Student in an Organized Health Care Education/Training Program; Referring Provider Student in an Organized Health Care Education/Training Program; Visit Provider Internal Medicine Rheumatology
DX: M32.19 Other organ or system involvement in systemic lupus erythematosus (principal)
CPT/HCPCS: 36415; 80053; 85025

== ENCOUNTER 2020-05-19 15:07 | Emergency (ER) | payer MEDICARE, OTHER, SELFPAY ==
[2020-05-19 15:24] VITALS: BP 165/70; PULSE 75; RESP 20; TEMP 36.7; O2SAT 100
[2020-05-19 15:46] LABS: Add Manual Diff / Slide Review NO; Basophils Absolute Auto 100 /uL (0-100); Basophils Percent Auto 1.1 % (0-2); Eosinophils Absolute Auto 0 /uL (0-450); Eosinophils Percent Auto 0.6 % (2-4); Hematocrit 36.1 % (36-46); Hemoglobin 11.8 g/dL (12.0-16.0); Lymphocytes Absolute Auto 1100 /uL (1100-4500); Mean Corpuscular HGB Conc 32.7 % (30-36); Mean Corpuscular Volume 88.7 fL (80-100); Monocytes Absolute Auto 600 /uL (0-900); Neutrophils Absolute Auto 5900 /uL (1500-7000); Neutrophils Percent Auto 76.3 % (50-75); Platelet Count 197 X10^3/uL (150-400); Red Blood Cell Count 4.06 X10^6/uL (4.0-5.2); Red Cell Distribution Width 15.5 % (11.6-14.8); White Blood Cell Count 7.7 X10^3/uL (4.5-11.0)
[2020-05-19 15:53] LABS: INR 1.2 (0.9-1.3); Prothrombin Time 13.7 SECONDS (10.1-12.7)
[2020-05-19 15:56] LABS: PTT Partial Thromboplastin Tim 30 SECONDS (26.4-36.2)
--- NOTE | 2020-05-19 16:04 | ED.ABDPAIN ---
HPI - Abdominal Pain General Chief Complaint: Abdominal Pain Stated Complaint: STOMACH AND BACK PAIN Time Seen by Provider: 05/19/20 15:48 Source: patient Mode of arrival: Ambulatory History of Present Illness HPI narrative: The patient presents with right mid back pain, she has chronic back pain. Pain is increased today. The pain is shooting from the lower thoracic region, into the left mid back. She has multiple prior studies on her spine, indicating thoracic DJD and suggestive compression fractures. Additionally she has lumbar DJD, with spinal stenosis. She has no bowel or bladder incontinence. She denies dysuria or hematuria. She has no lower extremity weakness or numbness. She also complains of right mid abdominal pain, not particularly increased today. Recent studies include ultrasound and MRI, there is no suggestion of acute cholecystitis. 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 With abdominal pain she has no nausea, vomiting diarrhea. She is eating and drinking regularly without discomfort. She has no known discomfort with urinary output. She has history of lupus. She denies chest pain, dyspnea, or hemoptysis. She was seen here November 2019, diagnosed with pneumonia. She denies acute illness. She has no fever chills. Related Data Home Medications Medication Instructions Recorded Confirmed mycophenolate mofetil 1,000 mg PO BID 03/19/18 05/14/20 lactulose 10 gram/15 mL oral 10 gram PO DAILY PRN 04/25/18 05/14/20 solution Bifidobacterium infantis [Align] 1 cap PO DAILY PRN 06/11/18 05/14/20 diphenhydramine HCl 25 mg capsule 25 mg PO BEDTIME PRN 08/30/18 05/14/20 calcium carb 300 mg-D3 800 1 tab PO DAILY 06/26/19 05/14/20 unit-mag ox 25 mg-copper plate printer 0.5 mg-warren-Zn tablet saliva substitute combo no.9 15 ml MM BID-QID PRN 06/26/19 05/14/20 trazodone 50 mg tablet 25 mg PO BEDTIME PRN 06/26/19 05/14/20 propranolol 10 mg PO BID 12/03/19 05/14/20 propylene glycol 0.6 % eye drops OPHTHALMIC (EYE) 03/02/20 05/14/20 Previous Rx's Medication Instructions Recorded ferrous sulfate 325 mg (65 mg 325 mg PO BID #60 tab 02/04/19 iron) tablet duloxetine 60 mg capsule,delayed 60 mg PO DAILY #90 cap 07/30/19 release estradiol See Rx Instructions .ROUTE 10/15/19 .COMPLEX #42.5 gram diclofenac sodium 1 % topical gel 2 g TOPICAL QID #100 gram 11/19/19 clobetasol 0.05 % topical ointment 1 applictn TOP DAILY #30 gram 11/25/19 folic acid 1 mg tablet 1 mg PO BID #60 tab 12/05/19 lidocaine 5 % topical patch 1 patch TOP DAILY #15 each 12/13/19 prednisone 1 mg tablet 3 mg PO DAILY #90 tab 12/30/19 clonazepam 1 mg tablet 1 mg PO BID PRN #60 tab 01/23/20 pantoprazole 40 mg tablet,delayed 40 mg PO DAILY #90 tab 01/28/20 release levothyroxine 88 mcg tablet 88 mcg PO QAM #90 tab 02/05/20 fesoterodine 4 mg tablet,extended 4 mg PO DAILY #90 tab 02/12/20 release 24 hr pregabalin 25 mg capsule 25 mg PO BEDTIME #30 cap 04/01/20 spironolactone 25 mg tablet 25 mg PO DAILY #30 tab 04/20/20 potassium chloride 8 mEq 16 meq PO BID #10 cap 05/01/20 capsule,extended release oxycodone 5 mg tablet 5 mg PO TID PRN #90 tab 05/08/20 prednisone 40 mg PO DAILY 5 Days #10 tab 05/19/20 Allergies Allergy/AdvReac Type Severity Reaction Status Date / Time codeine [CODEINE] Allergy Mild intolerant, Verified 05/14/20 14:51 headaches,n ightmares dicloxacillin [DICLOXACILLIN] Allergy Mild Verified 05/14/20 14:51 levofloxacin [LEVOFLOXACIN] Allergy Mild Verified 05/14/20 14:51 lorazepam [LORAZEPAM] Allergy Mild intolerant Verified 05/14/20 14:51 shaav hassan ciprofloxacin [CIPROFLOXACIN] Allergy Unknown Verified 05/14/20 14:51 hydroxychloroquine AdvReac Mild visual Verified 05/14/20 14:51 [From Plaquenil] disturbances Review of Systems Review of Systems ROS Unobtainable: All systems reviewed & are unremarkable except as noted in HPI and below Constitutional Constitutional: Denies chills, Reports fatigue, Denies fever(s), Denies headache(s) and Denies malaise Eyes Eyes: Denies change in vision ENT Ears, Nose, Mouth, and Throat: Denies vertigo, Denies dizziness and Denies headache(s) Cardiovascular Cardiovascular: Denies chest pain, Denies irregular heart rhythm, Denies lightheadedness and Denies dyspnea Respiratory Respiratory: Denies cough, Denies dyspnea and Denies wheezing Gastrointestinal Gastrointestinal: Reports as per HPI, Reports abdominal pain, Denies change in bowel habits, Denies diarrhea, Denies nausea and Denies vomiting Genitourinary Genitourinary: Denies dysuria Genitourinary: Denies dysuria Musculoskeletal Musculoskeletal: Denies abnormal gait, Reports back pain and Denies arthralgias Integumentary/Breasts Skin/Breast: Denies pruritus, Denies erythema, Denies rash and Denies wounds Neurologic Neurologic: Denies abnormal gait, Denies confusion, Denies vertigo, Denies dizziness and Denies headache(s) Psychiatric Psychiatric: Denies confusion and Denies depression Endocrine Endocrine: Reports fatigue Allergic/Immunologic Allergic/Immunologic: Denies wheezing Patient History Medical History Acquired hypothyroidism (Chronic 08/13/15) Atrophic vaginitis (Chronic) Autoimmune hepatitis (Chronic 08/13/15) Autoimmune pancytopenia (Chronic) Cavitary lesion of lung (Acute) Chest discomfort (Acute) Compression fracture of L4 vertebra (Chronic ~11/2018) Compression fracture of L5 vertebra (Chronic) Diverticulitis large intestine (Resolved 06/01/11) 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) Heart murmur (Chronic) Hematuria, unspecified (Acute 06/01/11) Hepatitis, autoimmune (Chronic 2001) Hypertension (Chronic) Hypothyroidism (Chronic) Irritable bowel syndrome (Acute 06/01/11) 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) Lupus (Chronic) Osteopenia (Chronic) Osteoporosis (Chronic) Pain (Chronic) Sinusitis (Chronic) Stage 3 chronic kidney disease (Chronic 08/13/15) Systemic lupus erythematosus (Chronic 08/13/15) Thickening of wall of gallbladder (Acute) Underweight (Chronic) Surgical History Fracture of pelvis (Resolved 2013) History of breast biopsy (Acute) History of cataract removal with insertion of prosthetic lens (Resolved 2005) History of esophagogastroduodenoscopy (EGD) (Acute ~02/2018) History of liver biopsy (Acute) Status post colonoscopy (Resolved 2008) Status post tubal ligation (Resolved) Family History Mother Cancer Brother Stroke Social History marital status: Smoking Status: Former smoker alcohol intake: never substance use type: does not use Smoking Status: Former smoker alcohol intake frequency: 0-2 drinks per day Substance Use Type: does not use Exam Initial Vital Signs Initial Vital Signs: Vital Signs Temperature 98.0 F 05/19/20 15:24 Pulse Rate 75 05/19/20 15:24 Respiratory Rate 20 05/19/20 15:24 Blood Pressure 165/70 H 05/19/20 15:24 Pulse Oximetry 100 05/19/20 15:24 Const General: cooperative and well developed Nutritional Appearance: well nourished [facility] Head: normocephalic and atraumatic Mouth: oral mucosae normal Teeth and gingiva: dentition normal Throat: tonsils normal and uvula midline Eyes Conjunctivae: conjunctivae normal Neck Neck: supple and No tender Chest Chest: normal inspection of the chest Resp Effort & Inspection: normal respiratory effort and able to speak in complete sentences Auscultation: clear to auscultation bilaterally, no rales, no rhonchi and no wheezes Cardio Rate: regular rate Rhythm: regular rhythm Heart Sounds: S1 normal, S2 normal, no click, no gallops, no murmurs and no rubs Pulses: normal peripheral pulses GI Inspection: non-distended Palpation: soft, no hepatosplenomegaly, No guarding, No pulsatile mass and No tender Auscultation: normal bowel sounds Back/Spine/Pelvis Other: Palpable tenderness in the right para thoracic area. No palpable defects. No inflammatory changes. Skin General: no rashes or lesions noted, No jaundice and No petechiae Neuro General: patient alert, patient oriented x3, gait normal and no focal motor deficits Speech: speech normal Extrem General: full ROM, no clubbing, cyanosis or edema, no pedal edema and no calf tenderness Psych Appearance: well kempt Mental Status: mental status grossly normal Attitude: cooperative Thought Content: normal and suicidality Judgment: judgment good Course Course Course Narrative: The patient takes diclofenac and oxycodone as needed for the pain. With the nature of her back pain, she may be having radiculopathy symptoms. I will give her a burst dose of steroids, she should recheck with her doctor next week. Orders Ordered: ED Orders 05/19/20 15:27 EKG-12 Lead Stat 05/19/20 15:35 Complete Blood Count AUTO DIFF Stat Comprehensive Metabolic Panel Stat Lipase Stat Partial Thromboplastin Time Stat Prothrombin Time INR Stat Discontinued Medications Ketorolac Tromethamine (Toradol) 15 mg IV NOW ONE Stop: 05/19/20 16:04 Last Admin: 05/19/20 16:18 Dose: 15 mg Documented by: KIAN Prednisone (Deltasone) 40 mg PO NOW ONE Stop: 05/19/20 18:29 Vital Signs Vital signs: Vital Signs - 8 hr 05/19/20 15:24 05/19/20 16:22 05/19/20 18:23 Temperature 98.0 F Pulse Rate 75 69 70 Respiratory Rate 20 18 18 Blood Pressure 165/70 H 159/73 H 160/76 H Pulse Oximetry 100 96 97 MDM - Abdominal Pain Lab Data Result diagrams: 05/19/20 15:35 05/19/20 15:35 Labs: Lab Results 05/19/20 05/19/20 05/19/20 Range/Units 15:35 15:35 15:35 WBC 7.7 (4.5-11.0) X10^3/uL RBC 4.06 (4.0-5.2) X10^6/uL Hgb 11.8 L (12.0-16.0) g/dL Hct 36.1 (36-46) % MCV 88.7 (80-100) fL MCH 29.0 (26-34) PG MCHC 32.7 (30-36) % RDW 15.5 H (11.6-14.8) % Plt Count 197 (150-400) X10^3/uL Neut % (Auto) 76.3 H (50-75) % Lymph % (Auto) 14.0 L (25-40) % Bulloch % (Auto) 8.0 (3-14) % Eos % (Auto) 0.6 L (2-4) % Baso % (Auto) 1.1 (0-2) % Neut # (Auto) 5900 (6835-3963) /uL Lymph # (Auto) 1100 (2457-0455) /uL Bulloch # (Auto) 600 (0-900) /uL Eos # (Auto) 0 (0-450) /uL Baso # (Auto) 100 (0-100) /uL PT 13.7 H (10.1-12.7) SECONDS INR 1.2 (0.9-1.3) APTT 30 (26.4-36.2) SECONDS Sodium 130 L (137-145) mmol/L Potassium 4.6 (3.4-5.1) mmol/L Chloride 97 L (98-107) mmol/L Carbon Dioxide 28 (22-32) mmol/L BUN 11 (7-17) mg/dL Creatinine 0.64 (0.52-1.04) mg/dL Estimated GFR > 60.0 (>60) mL/min BUN/Creatinine Ratio 17.2 (6-22) Glucose 94 (80-110) mg/dL Calcium 8.6 (8.4-10.2) mg/dL Total Bilirubin 0.6 (0.2-1.3) mg/dL AST 48 H (14-36) IU/L ALT 22 (<35) IU/L Alkaline Phosphatase 271 H (38-126) U/L Total Protein 7.8 (6.3-8.2) g/dL Albumin 3.4 L (3.5-5.0) g/dL Globulin 4.4 H (1.7-4.1) g/dL Albumin/Globulin Ratio 0.8 L (1.0-2.8) Lipase 71 (23-300) U/L ECG Data Attestation: I personally reviewed and interpreted this ECG as follows: (Normal sinus rhythm rate 60 beats per minute. Normal intervals. Old septal infarct. No acute ST T wave changes. No ectopy.) Discharge Plan Departure Patient Disposition: Home Clinical Impression: DJD (degenerative joint disease) of thoracic spine Qualifiers: Spinal osteoarthritis complication: with radiculopathy Qualified Code(s): M47.24 - Other spondylosis with radiculopathy, thoracic region Instructions: Osteoarthritis Activity Restrictions/Additional Instructions: Continue your current pain medications. Prednisone 40 mg daily for the next 5 days. The prescription was forwarded to [facility]. Follow-up with your doctor next week to re-evaluate her pain management. Return the ER as needed. Prescriptions: New prednisone 20 mg tablet 40 mg PO DAILY 5 Days Qty: 10 RF: 0 No Action diphenhydramine HCl [Benadryl] 25 mg capsule 25 mg PO BEDTIME PRN (Reason: Insomnia) RF: 0 Caltrate + D3 Plus Minerals 300 mg-800 unit -25 mg-0.5 mg tablet 1 tab PO DAILY RF: 0 ferrous sulfate [Iron (ferrous sulfate)] 325 mg (65 mg iron) tablet 325 mg PO BID Qty: 60 RF: 1 estradiol 0.01 % (0.1 mg/gram) cream See Rx Instructions .ROUTE .COMPLEX Qty: 42.5 RF: 5 diclofenac sodium 1 % gel 2 g topical QID Qty: 100 RF: 1 lidocaine 5 % adhesive patch,medicated 1 patch TOP DAILY Qty: 15 RF: 5 prednisone 1 mg tablet 3 mg PO DAILY Qty: 90 RF: 5 clonazepam 1 mg tablet 1 mg PO BID PRN (Reason: anxiety) Qty: 60 RF: 2 pantoprazole 40 mg tablet,delayed release (DR/EC) 40 mg PO DAILY Qty: 90 RF: 1 levothyroxine 88 mcg tablet 88 mcg PO QAM Qty: 90 RF: 3 fesoterodine 4 mg tablet extended release 24 hr 4 mg PO DAILY Qty: 90 RF: 1 spironolactone 25 mg tablet 25 mg PO DAILY Qty: 30 RF: 5 potassium chloride 8 mEq capsule, extended release 16 meq PO BID Qty: 10 RF: 0 oxycodone 5 mg tablet 5 mg PO TID PRN (Reason: Pain, Severe) Qty: 90 RF: 0 Biotene Dry Mouth Oral Rinse mouthwash 15 ml MM BID-QID PRN (Reason: Dry Mouth) RF: 0 trazodone 50 mg tablet 25 mg PO BEDTIME PRN (Reason: Sleep) RF: 0 clobetasol 0.05 % ointment 1 applictn TOP DAILY Qty: 30 RF: 1 folic acid 1 mg tablet 1 mg PO BID Qty: 60 RF: 11 Systane Balance 0.6 % drops ophthalmic (eye) RF: 0 lactulose 10 gram/15 mL solution 10 gram PO DAILY PRN (Reason: Laxative Effect) RF: 0 duloxetine 60 mg capsule,delayed release(DR/EC) 60 mg PO DAILY Qty: 90 RF: 3 pregabalin 25 mg capsule 25 mg PO BEDTIME Qty: 30 RF: 2 mycophenolate mofetil 500 mg Tablet 1,000 mg PO BID RF: 0 Align 4 mg Capsule 1 cap PO DAILY PRN (Reason: Diarrhea) RF: 0 propranolol 20 mg tablet 10 mg PO BID RF: 0 Referrals: Migue Verma MD [Primary Care Provider] -
[2020-05-19 16:13] LABS: Alanine Aminotransferase 22 IU/L (<35); Albumin 3.4 g/dL (3.5-5.0); Albumin Globulin Ratio 0.8 (1.0-2.8); Alkaline Phosphatase 271 U/L (38-126); Aspartate Aminotransferase 48 IU/L (14-36); BUN Creatinine Ratio 17.2 (6-22); Bilirubin Total 0.6 mg/dL (0.2-1.3); Blood Urea Nitrogen 11 mg/dL (7-17); Calcium 8.6 mg/dL (8.4-10.2); Carbon Dioxide 28 mmol/L (22-32); Chloride 97 mmol/L (98-107); Estimated Glomerular Filt Rate > 60.0 mL/min (>60); Globulin 4.4 g/dL (1.7-4.1); Glucose 94 mg/dL (80-110); HEMOLYSIS < 15 (0-50); Lipase 71 U/L (23-300); Potassium 4.6 mmol/L (3.4-5.1); Sodium 130 mmol/L (137-145); Total Protein 7.8 g/dL (6.3-8.2)
[2020-05-19] MEDS: KETOROLAC 60 MG/2 ML VIAL 15 MG IV (16:18)
[2020-05-19 16:22] VITALS: BP 159/73; PULSE 69; RESP 18; O2SAT 96
[2020-05-19 18:23] VITALS: BP 160/76; PULSE 70; RESP 18; O2SAT 97
[2020-05-19] MEDS: predniSONE 20 MG TABLET 40 MG PO (18:57)
== END 2020-05-19 19:17 | disposition home or self-care (01) ==
PROVIDERS: Nurse Practitioner; Emergency Provider Emergency Medicine; Family Provider Student in an Organized Health Care Education/Training Program; PCP Student in an Organized Health Care Education/Training Program
DX: M47.24 Other spondylosis with radiculopathy, thoracic region (principal); R07.89 Other chest pain
CPT/HCPCS: 36415; 80053; 83690; 85025; 85610; 85730; 93005; 96374; 99284; J1885

== ENCOUNTER → 2020-06-02 16:43 | Outpatient (CLI) | payer MEDICARE, OTHER, SELFPAY ==
[2020-06-02 18:02] LABS: Add Manual Diff / Slide Review NO; Basophils Absolute Auto 0 /uL (0-100); Basophils Percent Auto 0.3 % (0-2); Eosinophils Absolute Auto 100 /uL (0-450); Eosinophils Percent Auto 0.8 % (2-4); Hematocrit 33.7 % (36-46); Hemoglobin 11.3 g/dL (12.0-16.0); Lymphocytes Absolute Auto 900 /uL (1100-4500); Lymphocytes Percent Auto 9.4 % (25-40); Mean Corpuscular HGB Conc 33.5 % (30-36); Mean Corpuscular Hemoglobin 29.5 PG (26-34); Mean Corpuscular Volume 88.2 fL (80-100); Monocytes Absolute Auto 600 /uL (0-900); Monocytes Percent Auto 6.7 % (3-14); Neutrophils Absolute Auto 7600 /uL (1500-7000); Neutrophils Percent Auto 82.8 % (50-75); Platelet Count 194 X10^3/uL (150-400); Red Blood Cell Count 3.83 X10^6/uL (4.0-5.2); Red Cell Distribution Width 15.3 % (11.6-14.8); White Blood Cell Count 9.2 X10^3/uL (4.5-11.0)
[2020-06-02 19:50] LABS: Alanine Aminotransferase 23 IU/L (<35); Albumin Globulin Ratio 0.8 (1.0-2.8); Alkaline Phosphatase 261 U/L (38-126); Aspartate Aminotransferase 43 IU/L (14-36); BUN Creatinine Ratio 16.9 (6-22); Bilirubin Total 0.4 mg/dL (0.2-1.3); Blood Urea Nitrogen 10 mg/dL (7-17); Calcium 8.4 mg/dL (8.4-10.2); Carbon Dioxide 28 mmol/L (22-32); Chloride 96 mmol/L (98-107); Estimated Glomerular Filt Rate > 60.0 mL/min (>60); Globulin 3.9 g/dL (1.7-4.1); Glucose 97 mg/dL (80-110); HEMOLYSIS < 15 (0-50); Sodium 126 mmol/L (137-145); Total Protein 6.9 g/dL (6.3-8.2)
== END ==
PROVIDERS: Family Provider Student in an Organized Health Care Education/Training Program; PCP Student in an Organized Health Care Education/Training Program; Referring Provider Internal Medicine Rheumatology; Visit Provider Internal Medicine Rheumatology
DX: M32.19 Other organ or system involvement in systemic lupus erythematosus (principal); Z79.899 Other long term (current) drug therapy
CPT/HCPCS: 36415; 80053; 85025

== ENCOUNTER → 2020-06-18 13:44 | Outpatient (CLI) | payer MEDICARE, OTHER, SELFPAY ==
--- NOTE | 2020-06-18 13:46 | DI.RAD.S_ITS ---
PROCEDURE: XR LUMBAR SPINE 2-3V INDICATIONS: low back pain TECHNIQUE: 3 views of the lumbar spine were acquired. COMPARISON: [facility], , XR LUMBAR SPINE 2-3V, 03/02/2020, 14:23. FINDINGS: T11 compression fracture is unchanged. There is superior endplate fracture at L4 which is also unchanged. The L5 vertebral body height appears unchanged. Multilevel degenerative endplate sclerosis and spurring. Diffuse facet arthropathy. Diffuse moderate narrowing of the lumbar disc spaces. Scattered vascular calcifications seen in the aorta. Levoscoliosis. IMPRESSION: Overall, no interval change since 03/02/20. Specifically, L5 vertebral body height appears unchanged. Remaining vertebral body heights grossly unchanged. Dictated by: Jonathan Tai M.D. on 06/18/2020 at 14:07 Approved by: Jonathan Tai M.D. on 06/18/2020 at 14:16
== END ==
PROVIDERS: Family Provider Student in an Organized Health Care Education/Training Program; PCP Student in an Organized Health Care Education/Training Program; Referring Provider Nurse Practitioner Family; Visit Provider Nurse Practitioner Family
DX: M54.5 Low back pain (principal)
CPT/HCPCS: 72100

== ENCOUNTER → 2020-07-01 14:52 | Outpatient (CLI) | payer MEDICARE, OTHER, SELFPAY ==
[2020-07-01 16:30] LABS: Add Manual Diff / Slide Review NO; Basophils Absolute Auto 0 /uL (0-100); Basophils Percent Auto 0.3 % (0-2); Eosinophils Absolute Auto 100 /uL (0-450); Eosinophils Percent Auto 0.9 % (2-4); Hematocrit 36.9 % (36-46); Hemoglobin 12.1 g/dL (12.0-16.0); Lymphocytes Absolute Auto 900 /uL (1100-4500); Lymphocytes Percent Auto 10.4 % (25-40); Mean Corpuscular HGB Conc 32.9 % (30-36); Mean Corpuscular Hemoglobin 29.3 PG (26-34); Mean Corpuscular Volume 89.3 fL (80-100); Monocytes Absolute Auto 600 /uL (0-900); Monocytes Percent Auto 6.7 % (3-14); Neutrophils Absolute Auto 7200 /uL (1500-7000); Neutrophils Percent Auto 81.7 % (50-75); Platelet Count 222 X10^3/uL (150-400); Red Blood Cell Count 4.14 X10^6/uL (4.0-5.2); Red Cell Distribution Width 15.4 % (11.6-14.8); White Blood Cell Count 8.8 X10^3/uL (4.5-11.0)
[2020-07-01 16:45] LABS: Alanine Aminotransferase 23 IU/L (<35); Albumin 3.1 g/dL (3.5-5.0); Albumin Globulin Ratio 0.7 (1.0-2.8); Alkaline Phosphatase 294 U/L (38-126); Aspartate Aminotransferase 55 IU/L (14-36); BUN Creatinine Ratio 12.5 (6-22); Bilirubin Total 0.6 mg/dL (0.2-1.3); Blood Urea Nitrogen 8 mg/dL (7-17); Calcium 8.3 mg/dL (8.4-10.2); Carbon Dioxide 29 mmol/L (22-32); Chloride 97 mmol/L (98-107); Estimated Glomerular Filt Rate > 60.0 mL/min (>60); Globulin 4.4 g/dL (1.7-4.1); Glucose 85 mg/dL (80-110); HEMOLYSIS < 15 (0-50); Potassium 4.7 mmol/L (3.4-5.1); Sodium 131 mmol/L (137-145); Total Protein 7.5 g/dL (6.3-8.2)
== END ==
PROVIDERS: Family Provider Student in an Organized Health Care Education/Training Program; PCP Student in an Organized Health Care Education/Training Program; Referring Provider Internal Medicine Rheumatology; Visit Provider Internal Medicine Rheumatology
DX: M32.19 Other organ or system involvement in systemic lupus erythematosus (principal); Z79.899 Other long term (current) drug therapy
CPT/HCPCS: 36415; 80053; 85025

== ENCOUNTER → 2020-07-09 14:09 | Outpatient (CLI) | payer MEDICARE, OTHER, SELFPAY ==
[2020-07-09 15:45] LABS: BUN Creatinine Ratio 14.8 (6-22); Blood Urea Nitrogen 12 mg/dL (7-17); Calcium 8.3 mg/dL (8.4-10.2); Carbon Dioxide 30 mmol/L (22-32); Chloride 95 mmol/L (98-107); Estimated Glomerular Filt Rate > 60.0 mL/min (>60); Glucose 101 mg/dL (80-110); HEMOLYSIS < 15 (0-50); Potassium 4.5 mmol/L (3.4-5.1); Sodium 130 mmol/L (137-145)
== END ==
PROVIDERS: Family Provider Student in an Organized Health Care Education/Training Program; PCP Student in an Organized Health Care Education/Training Program; Referring Provider Internal Medicine; Visit Provider Internal Medicine
DX: K76.6 Portal hypertension (principal)
CPT/HCPCS: 36415; 80048

== ENCOUNTER → 2020-08-05 13:26 | Outpatient (CLI) | payer MEDICARE, OTHER, SELFPAY | PROVIDERS: Family Provider Student in an Organized Health Care Education/Training Program; PCP Student in an Organized Health Care Education/Training Program; Referring Provider Student in an Organized Health Care Education/Training Program; Visit Provider Family Medicine | DX: S81.802A Unspecified open wound, left lower leg, initial encounter (principal); S81.801A Unspecified open wound, right lower leg, initial encounter; I87.2 Venous insufficiency (chronic) (peripheral); D89.89 Other specified disorders involving the immune mechanism, not elsewhere classified; Z79.52 Long term (current) use of systemic steroids; Z79.899 Other long term (current) drug therapy | CPT/HCPCS: 11042; 11045; 99213 ==

== ENCOUNTER → 2020-08-06 11:50 | Outpatient (CLI) | payer MEDICARE, OTHER, SELFPAY ==
[2020-08-06 12:15] LABS: Add Manual Diff / Slide Review NO; Basophils Absolute Auto 100 /uL (0-100); Basophils Percent Auto 0.9 % (0-2); Eosinophils Absolute Auto 100 /uL (0-450); Eosinophils Percent Auto 0.9 % (2-4); Hematocrit 37.8 % (36-46); Hemoglobin 12.4 g/dL (12.0-16.0); Lymphocytes Absolute Auto 900 /uL (1100-4500); Lymphocytes Percent Auto 9.7 % (25-40); Mean Corpuscular HGB Conc 32.9 % (30-36); Mean Corpuscular Hemoglobin 29.5 PG (26-34); Mean Corpuscular Volume 89.8 fL (80-100); Monocytes Absolute Auto 600 /uL (0-900); Monocytes Percent Auto 6.2 % (3-14); Neutrophils Absolute Auto 7800 /uL (1500-7000); Neutrophils Percent Auto 82.3 % (50-75); Platelet Count 250 X10^3/uL (150-400); Red Blood Cell Count 4.21 X10^6/uL (4.0-5.2); Red Cell Distribution Width 15.2 % (11.6-14.8); White Blood Cell Count 9.5 X10^3/uL (4.5-11.0)
[2020-08-06 13:13] LABS: Alanine Aminotransferase 22 IU/L (<35); Albumin 3.2 g/dL (3.5-5.0); Albumin Globulin Ratio 0.7 (1.0-2.8); Alkaline Phosphatase 292 U/L (38-126); Aspartate Aminotransferase 50 IU/L (14-36); BUN Creatinine Ratio 16.2 (6-22); Bilirubin Total 0.7 mg/dL (0.2-1.3); Blood Urea Nitrogen 11 mg/dL (7-17); Calcium 8.2 mg/dL (8.4-10.2); Carbon Dioxide 35 mmol/L (22-32); Chloride 96 mmol/L (98-107); Estimated Glomerular Filt Rate > 60.0 mL/min (>60); Globulin 4.8 g/dL (1.7-4.1); Glucose 95 mg/dL (80-110); HEMOLYSIS < 15 (0-50); Potassium 4.1 mmol/L (3.4-5.1); Sodium 133 mmol/L (137-145)
== END ==
PROVIDERS: Family Provider Student in an Organized Health Care Education/Training Program; PCP Student in an Organized Health Care Education/Training Program; Referring Provider Internal Medicine Rheumatology; Visit Provider Internal Medicine Rheumatology
DX: M32.19 Other organ or system involvement in systemic lupus erythematosus (principal); Z79.899 Other long term (current) drug therapy
CPT/HCPCS: 36415; 80053; 85025

== ENCOUNTER → 2020-08-07 12:21 | Outpatient (CLI) | payer MEDICARE, OTHER, SELFPAY | PROVIDERS: Family Provider Student in an Organized Health Care Education/Training Program; PCP Student in an Organized Health Care Education/Training Program; Referring Provider Student in an Organized Health Care Education/Training Program; Visit Provider Family Medicine | DX: S81.802A Unspecified open wound, left lower leg, initial encounter (principal); S81.801A Unspecified open wound, right lower leg, initial encounter | CPT/HCPCS: 29581 ==

== ENCOUNTER → 2020-08-10 11:56 | Outpatient (CLI) | payer MEDICARE, OTHER, SELFPAY | PROVIDERS: Family Provider Student in an Organized Health Care Education/Training Program; PCP Student in an Organized Health Care Education/Training Program; Referring Provider Student in an Organized Health Care Education/Training Program; Visit Provider Family Medicine | DX: S81.802A Unspecified open wound, left lower leg, initial encounter (principal); S81.801A Unspecified open wound, right lower leg, initial encounter | CPT/HCPCS: 29581 ==

== ENCOUNTER → 2020-08-12 16:28 | Outpatient (CLI) | payer MEDICARE, OTHER, SELFPAY | PROVIDERS: Family Provider Student in an Organized Health Care Education/Training Program; PCP Student in an Organized Health Care Education/Training Program; Referring Provider Student in an Organized Health Care Education/Training Program; Visit Provider Family Medicine | DX: I87.2 Venous insufficiency (chronic) (peripheral) (principal); L97.825 Non-pressure chronic ulcer of other part of left lower leg with muscle involvement without evidence of necrosis; S81.801A Unspecified open wound, right lower leg, initial encounter; D89.89 Other specified disorders involving the immune mechanism, not elsewhere classified; Z79.52 Long term (current) use of systemic steroids; Z79.899 Other long term (current) drug therapy | CPT/HCPCS: 11042; 11045 ==

== ENCOUNTER 2020-08-13 18:47 | Emergency (ER) | payer MEDICARE, OTHER, SELFPAY ==
[2020-08-13] VITALS (7 sets, daily range): BP systolic 123–190; BP diastolic 58–81; PULSE 69–85; RESP 17–24; TEMP 36.5; O2SAT 93–97; BMI 18.4
--- NOTE | 2020-08-13 18:57 | ED.GENADULT ---
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 She had a palliative care consult in December with DNR/limited interventions agreed upon. She presents with an episode of hemoptysis. It was at 6:30 this evening, associated with coughing than bright red blood than a mucousy clot and she has been fine since then. She reports no recent fever, she does have chills and she reports that she has been losing weight. She is being seen by the wound clinic for a chronic wound on the left anterior oh that is healing well (no current signs of infection). No chest pain no change in her chronic cough or amount of sputum produced, no abdominal pain, no headaches no vomiting no diarrhea. Related Data Home Medications Medication Instructions Recorded Confirmed mycophenolate mofetil 1,000 mg PO BID 03/19/18 08/06/20 Bifidobacterium infantis [Align] 1 cap PO DAILY PRN 06/11/18 08/06/20 diphenhydramine HCl 25 mg capsule 25 mg PO BEDTIME PRN 08/30/18 08/06/20 calcium carb 300 mg-D3 800 1 tab PO DAILY 06/26/19 08/06/20 unit-mag ox 25 mg-paste up copy camera operator 0.5 mg-warren-Zn tablet saliva substitute combo no.9 15 ml MM BID-QID PRN 06/26/19 08/06/20 trazodone 50 mg tablet 25 mg PO BEDTIME PRN 06/26/19 08/06/20 propranolol 10 mg PO BID 12/03/19 08/06/20 propylene glycol 0.6 % eye drops OPHTHALMIC (EYE) 03/02/20 08/06/20 Previous Rx's Medication Instructions Recorded ferrous sulfate 325 mg (65 mg 325 mg PO BID #60 tab 02/04/19 iron) tablet estradiol See Rx Instructions .ROUTE 10/15/19 .COMPLEX #42.5 gram diclofenac sodium 1 % topical gel 2 g TOPICAL QID #100 gram 11/19/19 clobetasol 0.05 % topical ointment 1 applictn TOP DAILY #30 gram 11/25/19 folic acid 1 mg tablet 1 mg PO BID #60 tab 12/05/19 lidocaine 5 % topical patch 1 patch TOP DAILY #15 each 12/13/19 levothyroxine 88 mcg tablet 88 mcg PO QAM #90 tab 02/05/20 fesoterodine 4 mg tablet,extended 4 mg PO DAILY #90 tab 02/12/20 release 24 hr spironolactone 25 mg tablet 25 mg PO DAILY #30 tab 04/20/20 potassium chloride 8 mEq 16 meq PO BID #10 cap 05/01/20 capsule,extended release azelastine 137 mcg (0.1 %) nasal 1 spray NASAL BID #30 ml 05/28/20 spray aerosol duloxetine 60 mg capsule,delayed 60 mg PO DAILY #90 cap 06/16/20 release clonazepam 1 mg tablet 1 mg PO BID PRN #60 tab 06/30/20 prednisone 1 mg tablet 3 mg PO DAILY #90 tab 06/30/20 pantoprazole 40 mg tablet,delayed 40 mg PO DAILY #90 tab 07/17/20 release furosemide 40 mg tablet 40 mg PO DAILY PRN 30 Days #30 tab 07/23/20 methadone 5 mg tablet 5 mg PO DAILY #30 tab 07/23/20 lactulose 10 gram/15 mL oral 20 gram PO BID PRN #237 ml 07/27/20 solution oxycodone 5 mg tablet 5 mg PO TID PRN #90 tab 08/04/20 Allergies Allergy/AdvReac Type Severity Reaction Status Date / Time codeine [CODEINE] Allergy Mild intolerant, Verified 08/13/20 18:59 headaches,n ightmares dicloxacillin [DICLOXACILLIN] Allergy Mild Verified 08/13/20 18:59 levofloxacin [LEVOFLOXACIN] Allergy Mild Verified 08/13/20 18:59 lorazepam [LORAZEPAM] Allergy Mild intolerant Verified 08/13/20 18:59 shaav hassan ciprofloxacin [CIPROFLOXACIN] Allergy Unknown Verified 08/13/20 18:59 hydroxychloroquine AdvReac Mild visual Verified 08/13/20 18:59 [From Plaquenil] disturbances Review of Systems Review of Systems Narrative: Remainder of review of systems including constitutional, ENT, cardiovascular, respiratory, GI, , musculoskeletal, skin, neurologic and psychiatric systems reviewed and are unremarkable except as noted in HPI. Patient History Medical History Acquired hypothyroidism (Chronic 08/13/15) Atrophic vaginitis (Chronic) Autoimmune hepatitis (Chronic 08/13/15) Autoimmune pancytopenia (Chronic) Cavitary lesion of lung (Acute) Chest discomfort (Acute) Chronic venous stasis (Acute) Compression fracture of L4 vertebra (Chronic ~11/2018) Compression fracture of L5 vertebra (Chronic) Diverticulitis large intestine (Resolved 06/01/11) 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) Heart murmur (Chronic) Hematuria, unspecified (Acute 06/01/11) Hepatitis, autoimmune (Chronic 2001) Hypertension (Chronic) Hypothyroidism (Chronic) Irritable bowel syndrome (Acute 06/01/11) 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) Lupus (Chronic) Osteopenia (Chronic) Osteoporosis (Chronic) Pain (Chronic) Sinusitis (Chronic) Skin tear of left lower leg without complication (Acute) Stage 3 chronic kidney disease (Chronic 08/13/15) Systemic lupus erythematosus (Chronic 08/13/15) Thickening of wall of gallbladder (Acute) Underweight (Chronic) Surgical History Fracture of pelvis (Resolved 2013) History of breast biopsy (Acute) History of cataract removal with insertion of prosthetic lens (Resolved 2005) History of esophagogastroduodenoscopy (EGD) (Acute ~02/2018) History of liver biopsy (Acute) Status post colonoscopy (Resolved 2008) Status post tubal ligation (Resolved) Family History Mother Cancer Brother Stroke Social History marital status: Smoking Status: Former smoker alcohol intake: never substance use type: does not use Smoking Status: Former smoker alcohol intake frequency: 0-2 drinks per day Substance Use Type: does not use Exam Narrative Exam Narrative: General: Frail, cachectic in no acute distress. Able to speak in full sentences HEENT: Moist mucous membranes, normal sclera with reactive pupils, Neck: No JVD, supple Respiratory: By basilar crackles, diminished breath sounds in right lung base with increased rhonchi in right lung base, minimal wheeze Cardiac: Regular rate and rhythm no murmurs no bruits Abdomen: Soft nontender good bowel tones, no flank pain Skin: Warm and dry, very thin, multiple old bruises. Right oh has a 0.8 cm in diameter ulcer that is healing nicely, left oh with 1 cm x 10 cm area of ulceration without discharge or erythema with appropriate wound care dressings in place. Neurologic: Globally weak but Grossly neurologically intact with no obvious asymmetries or abnormalities Extremities: No trauma Psych: Cooperative, fluent speech and able to participate in discussion Initial Vital Signs Initial Vital Signs: Vital Signs Temperature 97.7 F 08/13/20 18:51 Pulse Rate 85 08/13/20 18:51 Respiratory Rate 18 08/13/20 18:51 Blood Pressure 178/81 H 08/13/20 18:51 Pulse Oximetry 94 08/13/20 18:51 Course Orders Ordered: ED Orders 08/13/20 18:57 Complete Blood Count AUTO DIFF Stat Comprehensive Metabolic Panel Stat Lactate (Lactic Acid) Stat 08/13/20 19:36 CT chest w con Stat 08/13/20 19:54 Blood Culture Stat Vital Signs Vital signs: Vital Signs - 8 hr 08/13/20 18:51 08/13/20 19:00 08/13/20 19:30 Temperature 97.7 F Pulse Rate 85 74 69 Respiratory Rate 18 24 20 Blood Pressure 178/81 H 123/58 L Pulse Oximetry 94 97 93 08/13/20 20:05 08/13/20 20:10 08/13/20 20:30 Temperature Pulse Rate 76 71 75 Respiratory Rate 24 24 19 Blood Pressure 159/71 H 180/77 H Pulse Oximetry 94 95 95 08/13/20 21:00 Temperature Pulse Rate 77 Respiratory Rate 17 Blood Pressure 190/79 H Pulse Oximetry 94 Medical Decision Making Medical Records Medical records reviewed: Yes I reviewed the patient's medical records. Lab Data Lab results reviewed: Yes I reviewed the patient's lab results. Result diagrams: 08/13/20 18:57 08/13/20 18:57 Labs: Lab Results 10/15/20 10/15/20 10/15/20 Range/Units 18:57 18:57 18:57 WBC 10.2 (4.5-11.0) X10^3/uL RBC 4.20 (4.0-5.2) X10^6/uL Hgb 12.5 (12.0-16.0) g/dL Hct 37.5 (36-46) % MCV 89.1 (80-100) fL MCH 29.8 (26-34) PG MCHC 33.4 (30-36) % RDW 15.6 H (11.6-14.8) % Plt Count 267 (150-400) X10^3/uL Neut % (Auto) 74.0 (50-75) % Lymph % (Auto) 15.8 L (25-40) % Lassen % (Auto) 8.1 (3-14) % Eos % (Auto) 1.0 L (2-4) % Baso % (Auto) 1.1 (0-2) % Neut # (Auto) 7600 H (0416-0045) /uL Lymph # (Auto) 1600 (9822-4012) /uL Lassen # (Auto) 800 (0-900) /uL Eos # (Auto) 100 (0-450) /uL Baso # (Auto) 100 (0-100) /uL Sodium 131 L (137-145) mmol/L Potassium 4.2 (3.4-5.1) mmol/L Chloride 99 (98-107) mmol/L Carbon Dioxide 29 (22-32) mmol/L BUN 11 (7-17) mg/dL Creatinine 0.57 (0.52-1.04) mg/dL Estimated GFR > 60.0 (>60) mL/min BUN/Creatinine Ratio 19.3 (6-22) Glucose 100 (80-110) mg/dL Lactate 1.1 (0.7-2.1) mmol/L Calcium 8.3 L (8.4-10.2) mg/dL Total Bilirubin 0.9 (0.2-1.3) mg/dL AST 57 H (14-36) IU/L ALT 21 (<35) IU/L Alkaline Phosphatase 298 H (38-126) U/L Total Protein 8.6 H (6.3-8.2) g/dL Albumin 3.4 L (3.5-5.0) g/dL Globulin 5.2 H (1.7-4.1) g/dL Albumin/Globulin Ratio 0.7 L (1.0-2.8) Imaging Data CT scan - chest: Radiologist's Impression: IMPRESSION: 1. Interval further increase in size of patient's known malignant mass in posterior medial right lower lobe now measures up to 4.9 x 5.4 x 5.1 cm in size. There is near complete loss of internal cavitation on the current study. 2. Chronic emphysematous changes are again seen with suggestion of interstitial pulmonary fibrosis. No pleural effusion or pneumothorax. 3. Suggestion of right hilar and subcarinal lymphadenopathy. Cardiomegaly, no pericardial effusion. 4. Stable anterior wedge compression deformities at lower thoracic spine and upper lumbar spine. 5. Marked splenomegaly. Ascites fluid surrounding liver with suggestion of cirrhosis. Dictated by: Luis Fernando Grace M.D. 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 She requires no further invasive testing for this and only needs to be addressed if symptomatic. Future CT would be reasonable to ensure the cavity wall is not changing even though it is unlikely to be malignant. She was reassured of this) MDM Narrative Medical decision making narrative: 80-year-old woman with single episode of hemoptysis now stable with no recurrent bleeding. CT scan does in fact suggest an increasing mass strongly suggestive of malignancy despite prior biopsies that suggest otherwise. Review with the patient. Will ask her follow-up with her pulmonary doctor to review CT scans clinical symptoms and decide on further treatment and referrals based on patient's wishes. Discharge Plan Departure Patient Disposition: Home Clinical Impression: Hemoptysis, Lung mass Instructions: DI for Hemoptysis Activity Restrictions/Additional Instructions: Thank you for coming in today There does not appear to be any evidence for infection, blood clots in your lungs, heart attack or heart failure at this time. A CT scan that we did today suggests that the mass in your lung has grown and there is no liquid or debris in the center of it as there had been previously. I have given you a printed copy of your CT scan results and suggest that you call to schedule an ER follow-up appointment in light of the changes that have been found. If you have worsening cough or discomfort please feel free to return to the emergency department I wish you the best Prescriptions: No Action diphenhydramine HCl [Benadryl] 25 mg capsule 25 mg PO BEDTIME PRN (Reason: Insomnia) RF: 0 Caltrate + D3 Plus Minerals 300 mg-800 unit -25 mg-0.5 mg tablet 1 tab PO DAILY RF: 0 ferrous sulfate [Iron (ferrous sulfate)] 325 mg (65 mg iron) tablet 325 mg PO BID Qty: 60 RF: 1 estradiol 0.01 % (0.1 mg/gram) cream See Rx Instructions .ROUTE .COMPLEX Qty: 42.5 RF: 5 diclofenac sodium 1 % gel 2 g topical QID Qty: 100 RF: 1 lidocaine 5 % adhesive patch,medicated 1 patch TOP DAILY Qty: 15 RF: 5 levothyroxine 88 mcg tablet 88 mcg PO QAM Qty: 90 RF: 3 fesoterodine 4 mg tablet extended release 24 hr 4 mg PO DAILY Qty: 90 RF: 1 spironolactone 25 mg tablet 25 mg PO DAILY Qty: 30 RF: 5 potassium chloride 8 mEq capsule, extended release 16 meq PO BID Qty: 10 RF: 0 azelastine 137 mcg (0.1 %) aerosol,spray 1 spray NASAL BID Qty: 30 RF: 0 duloxetine 60 mg capsule,delayed release(DR/EC) 60 mg PO DAILY Qty: 90 RF: 3 clonazepam 1 mg tablet 1 mg PO BID PRN (Reason: anxiety) Qty: 60 RF: 2 prednisone 1 mg tablet 3 mg PO DAILY Qty: 90 RF: 5 pantoprazole 40 mg tablet,delayed release (DR/EC) 40 mg PO DAILY Qty: 90 RF: 3 methadone 5 mg tablet 5 mg PO DAILY Qty: 30 RF: 0 furosemide 40 mg tablet 40 mg PO DAILY PRN (Reason: edema) 30 Days Qty: 30 RF: 0 lactulose 10 gram/15 mL solution 20 gram PO BID PRN (Reason: Laxative Effect) Qty: 237 RF: 1 oxycodone 5 mg tablet 5 mg PO TID PRN (Reason: Pain, Severe) Qty: 90 RF: 0 Biotene Dry Mouth Oral Rinse mouthwash 15 ml MM BID-QID PRN (Reason: Dry Mouth) RF: 0 trazodone 50 mg tablet 25 mg PO BEDTIME PRN (Reason: Sleep) RF: 0 clobetasol 0.05 % ointment 1 applictn TOP DAILY Qty: 30 RF: 1 folic acid 1 mg tablet 1 mg PO BID Qty: 60 RF: 11 Systane Balance 0.6 % drops ophthalmic (eye) RF: 0 mycophenolate mofetil 500 mg Tablet 1,000 mg PO BID RF: 0 Align 4 mg Capsule 1 cap PO DAILY PRN (Reason: Diarrhea) RF: 0 propranolol 20 mg tablet 10 mg PO BID RF: 0 Referrals: Migue Verma MD [Primary Care Provider] - Dallas Galindo [Non-Staff] -
--- NOTE | 2020-08-13 19:04 | PC.NURSE ---
Patient reports began coughing up bright red blood approximately 30 minutes prior to arrival. Affirms headache at same time. States headache now resolves. Patient states I have a history of lung issues. Lung sounds auscultated, expiratory wheeze noted in lower lobes. Patient O2 sat 96% on RA and breathing unlabored with 21 respirations/minute.
--- NOTE | 2020-08-13 19:36 | DI.CT.S_ITS ---
PROCEDURE: CT CHEST W CON INDICATIONS: hemoptosis TECHNIQUE: After the administration of intravenous contrast, 5 mm thick sections acquired from the pulmonary apices to the posterior costophrenic angles. 1 mm axial lung, 5 mm thick coronal and sagittal reformats and 7 mm axial MIP were acquired. For radiation dose reduction, the following was used: automated exposure control, adjustment of mA and/or kV according to patient size. COMPARISON: [facility], CT, CT CHEST WITH CONTRAST, 11/10/2019, 18:31. [facility], MR, MR THORACIC SPINE WO/W CON, 12/17/2019, 14:31. [facility], CT, CT CHEST WITHOUT CONTRAST, 05/20/2019, 15:52. [facility], CT, CT CHEST W CON, 03/28/2019, 10:39. FINDINGS: Image quality: Excellent. Lungs and pleura: Severe centrilobular emphysema is again seen. Extensive peripheral septal thickening throughout bilateral lung neri are seen suggestive of interstitial pulmonary fibrosis. There is masslike consolidation involving posterior medial aspect of right lower lobe extending to right hilar region measures in aggregate 4.9 x 5.4 x 5.1 cm in size series 3, image 137 and series 4, image 36. Mass is seen encasing right lower lobe bronchus and pulmonary artery. This mass has a more solid appearance on the current study compared to previously noted predominantly thick walled cavitary lesion measures 4.7 x 3 cm in size. Given patient's history of hemoptysis, this is concerning for malignant right lower lobe mass. Hazy ground-glass opacities scattered in posterior and medial right lower lobe with associated adjacent ill-defined airspace consolidation are seen suggestive of patchy pneumonitis and atelectasis. Underlying small pulmonary nodules cannot be entirely excluded. No pleural effusions or pneumothorax. Central and peripheral airways are patent and normal in caliber. Mediastinum: Heart size is enlarged. No pericardial effusion. No definite mediastinal lymphadenopathy although soft tissue prominence in subcarinal space and right hilar region are seen suggestive of lymphadenopathy in this region. Thoracic aorta and central pulmonary arteries are normal in size. Esophagus is normal in caliber. There is a moderate-sized hiatal hernia. Bones and chest wall: No definite suspicious bony lesion. Subacute appearing anterior wedge compression deformities involving T9, T10, T11 and L1 vertebral bodies are noted unchanged from recent MR of thoracic spine study. No new compression fracture is seen. No axillary or supraclavicular adenopathy by size criteria. Thyroid gland is within normal limits.. Abdomen: There is marked splenomegaly. Ascites fluid adjacent to liver with lobulated liver contour is seen concerning for cirrhosis. No gross abnormality is seen in visualized portion of pancreas and adrenal glands. IMPRESSION: 1. Interval further increase in size of patient's known malignant mass in posterior medial right lower lobe now measures up to 4.9 x 5.4 x 5.1 cm in size. There is near complete loss of internal cavitation on the current study. 2. Chronic emphysematous changes are again seen with suggestion of interstitial pulmonary fibrosis. No pleural effusion or pneumothorax. 3. Suggestion of right hilar and subcarinal lymphadenopathy. Cardiomegaly, no pericardial effusion. 4. Stable anterior wedge compression deformities at lower thoracic spine and upper lumbar spine. 5. Marked splenomegaly. Ascites fluid surrounding liver with suggestion of cirrhosis. Dictated by: Luis Fernando Grace M.D. on 08/13/2020 at 20:17 Approved by: Luis Fernando Grace M.D. on 08/13/2020 at 20:28
[2020-08-13 19:42] LABS: Add Manual Diff / Slide Review NO; Basophils Absolute Auto 100 /uL (0-100); Basophils Percent Auto 1.1 % (0-2); Eosinophils Absolute Auto 100 /uL (0-450); Hematocrit 37.5 % (36-46); Hemoglobin 12.5 g/dL (12.0-16.0); Lymphocytes Absolute Auto 1600 /uL (1100-4500); Lymphocytes Percent Auto 15.8 % (25-40); Mean Corpuscular HGB Conc 33.4 % (30-36); Mean Corpuscular Hemoglobin 29.8 PG (26-34); Mean Corpuscular Volume 89.1 fL (80-100); Monocytes Absolute Auto 800 /uL (0-900); Monocytes Percent Auto 8.1 % (3-14); Neutrophils Absolute Auto 7600 /uL (1500-7000); Platelet Count 267 X10^3/uL (150-400); Red Cell Distribution Width 15.6 % (11.6-14.8); White Blood Cell Count 10.2 X10^3/uL (4.5-11.0)
[2020-08-13 19:49] LABS: Alanine Aminotransferase 21 IU/L (<35); Albumin 3.4 g/dL (3.5-5.0); Albumin Globulin Ratio 0.7 (1.0-2.8); Alkaline Phosphatase 298 U/L (38-126); Aspartate Aminotransferase 57 IU/L (14-36); BUN Creatinine Ratio 19.3 (6-22); Bilirubin Total 0.9 mg/dL (0.2-1.3); Blood Urea Nitrogen 11 mg/dL (7-17); Calcium 8.3 mg/dL (8.4-10.2); Carbon Dioxide 29 mmol/L (22-32); Chloride 99 mmol/L (98-107); Estimated Glomerular Filt Rate > 60.0 mL/min (>60); Globulin 5.2 g/dL (1.7-4.1); Glucose 100 mg/dL (80-110); Potassium 4.2 mmol/L (3.4-5.1); Sodium 131 mmol/L (137-145); Total Protein 8.6 g/dL (6.3-8.2)
[2020-08-13 19:50] LABS: Lactate (Lactic Acid) 1.1 mmol/L (0.7-2.1)
[2020-08-13 19:55] LABS: HEMOLYSIS 55 (0-50)
== END 2020-08-13 21:27 | disposition home or self-care (01) ==
PROVIDERS: Emergency Provider Emergency Medicine; Family Provider Student in an Organized Health Care Education/Training Program; PCP Student in an Organized Health Care Education/Training Program
DX: R04.2 Hemoptysis (principal); R91.8 Other nonspecific abnormal finding of lung field; R63.4 Abnormal weight loss
CPT/HCPCS: 36415; 71260; 80053; 83605; 85025; 87040; 99284; Q9967

== ENCOUNTER 2020-08-14 14:18 | Emergency (ER) | payer MEDICARE, OTHER, SELFPAY ==
[2020-08-14] VITALS (34 sets, daily range): BP systolic 73–195; BP diastolic 42–85; PULSE 103–134; RESP 12–28; TEMP 36.9; O2SAT 82–100; BMI 15.5
--- NOTE | 2020-08-14 | DI.RAD.S_ITS ---
PROCEDURE: XR CHEST 1V INDICATIONS: CENTRAL LINE PLACEMENT TECHNIQUE: One view of the chest was acquired. COMPARISON: [facility], CR, XR CHEST 1V, 08/14/2020, 17:33. FINDINGS: Surgical changes and devices: ET tube remains near the shiva, and retraction is recommended. Left IJ line coils back on itself, possibly in the azygos arch. Lungs and pleura: Again noted is a large right lung mass and diffuse bilateral pulmonary infiltrates suggesting pulmonary edema. Mediastinum: Mediastinal contours appear normal. Heart size is normal. Bones and chest wall: No suspicious bony lesions. Overlying soft tissues appear unremarkable. IMPRESSION: Suggest retraction of ET tube and repositioning of central line. Large right lung mass. Congestive heart failure. Comment: Findings were discussed with Miranda, in the ED, at the time of study dictation. All Dictated by: Guillermo Bautista M.D. on 08/14/2020 at 18:26 Approved by: Guillermo Bautista M.D. on 08/14/2020 at 18:30
--- NOTE | 2020-08-14 | DI.RAD.S_ITS ---
PROCEDURE: XR CHEST 1V INDICATIONS: INTUBATION TECHNIQUE: One view of the chest was acquired. COMPARISON: [facility], CR, XR CHEST 2 VIEWS, 07/14/2020, 12:19. [facility], CT, CT CHEST W CON, 08/13/2020, 19:54. [facility], CR, XR CHEST 1V, 08/14/2020, 14:48. FINDINGS: Surgical changes and devices: ET tube points towards the right main bronchus approximately 1.5 cm above the shiva. Lungs and pleura: Known large medial right lung mass. Developing bilateral airspace consolidation, right greater than left. No pleural effusions or pneumothorax. Mediastinum: Mediastinal contours appear normal. Heart size is normal. Bones and chest wall: No suspicious bony lesions. Overlying soft tissues appear unremarkable. IMPRESSION: 1. ET tube approximately 1.5 cm above the shiva. Suggest retraction. 2. Known large right lung mass. 3. Development of bilateral pulmonary infiltrates, right greater than left. Comment: Findings were discussed with Lady the [employer] tech in the emergency department, at the time of study dictation. Dictated by: Guillermo Bautista M.D. on 08/14/2020 at 17:58 Approved by: Guillermo Bautista M.D. on 08/14/2020 at 18:01
--- NOTE | 2020-08-14 14:29 | ED_ITS ---
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 She has actually seen and evaluated yesterday for hemoptysis. A CT chest with contrast yesterday showed enlarging likely metastatic mass surrounding pulmonary artery. There was no further hemoptysis in the ED she was discharged with close follow-up with her addressing machine operator. Last evening and yesterday she has had multiple episodes of a persistent hemoptysis. She says it has been at least 3-4 and sometimes up to half a cup. She denies any fever or chills. Other history includes autoimmune hepatitis, cirrhosis with portal hypertension, lupus, 35 pack-year smoking history who quit 30 years ago, emphysema and bronchiectasis, chronic benzodiazepine use MD Complaint: other Related Data Home Medications Medication Instructions Recorded Confirmed mycophenolate mofetil 1,000 mg PO BID 03/19/18 08/06/20 Bifidobacterium infantis [Align] 1 cap PO DAILY PRN 06/11/18 08/06/20 diphenhydramine HCl 25 mg capsule 25 mg PO BEDTIME PRN 08/30/18 08/06/20 calcium carb 300 mg-D3 800 1 tab PO DAILY 06/26/19 08/06/20 unit-mag ox 25 mg-copy clerk 0.5 mg-warren-Zn tablet saliva substitute combo no.9 15 ml MM BID-QID PRN 06/26/19 08/06/20 trazodone 50 mg tablet 25 mg PO BEDTIME PRN 06/26/19 08/06/20 propranolol 10 mg PO BID 12/03/19 08/06/20 propylene glycol 0.6 % eye drops OPHTHALMIC (EYE) 03/02/20 08/06/20 Previous Rx's Medication Instructions Recorded ferrous sulfate 325 mg (65 mg 325 mg PO BID #60 tab 02/04/19 iron) tablet estradiol See Rx Instructions .ROUTE 10/15/19 .COMPLEX #42.5 gram diclofenac sodium 1 % topical gel 2 g TOPICAL QID #100 gram 11/19/19 clobetasol 0.05 % topical ointment 1 applictn TOP DAILY #30 gram 11/25/19 folic acid 1 mg tablet 1 mg PO BID #60 tab 12/05/19 lidocaine 5 % topical patch 1 patch TOP DAILY #15 each 12/13/19 levothyroxine 88 mcg tablet 88 mcg PO QAM #90 tab 02/05/20 fesoterodine 4 mg tablet,extended 4 mg PO DAILY #90 tab 02/12/20 release 24 hr spironolactone 25 mg tablet 25 mg PO DAILY #30 tab 04/20/20 potassium chloride 8 mEq 16 meq PO BID #10 cap 05/01/20 capsule,extended release azelastine 137 mcg (0.1 %) nasal 1 spray NASAL BID #30 ml 05/28/20 spray aerosol duloxetine 60 mg capsule,delayed 60 mg PO DAILY #90 cap 06/16/20 release clonazepam 1 mg tablet 1 mg PO BID PRN #60 tab 06/30/20 prednisone 1 mg tablet 3 mg PO DAILY #90 tab 06/30/20 pantoprazole 40 mg tablet,delayed 40 mg PO DAILY #90 tab 07/17/20 release furosemide 40 mg tablet 40 mg PO DAILY PRN 30 Days #30 tab 07/23/20 methadone 5 mg tablet 5 mg PO DAILY #30 tab 07/23/20 lactulose 10 gram/15 mL oral 20 gram PO BID PRN #237 ml 07/27/20 solution oxycodone 5 mg tablet 5 mg PO TID PRN #90 tab 08/04/20 Allergies Allergy/AdvReac Type Severity Reaction Status Date / Time codeine [CODEINE] Allergy Mild intolerant, Verified 08/14/20 14:25 headaches,n ightmares dicloxacillin [DICLOXACILLIN] Allergy Mild Verified 08/14/20 14:25 levofloxacin [LEVOFLOXACIN] Allergy Mild Verified 08/14/20 14:25 lorazepam [LORAZEPAM] Allergy Mild intolerant Verified 08/14/20 14:25 shaav hassan ciprofloxacin [CIPROFLOXACIN] Allergy Unknown Verified 08/14/20 14:25 hydroxychloroquine AdvReac Mild visual Verified 08/14/20 14:25 [From Plaquenil] disturbances Review of Systems Review of Systems ROS Unobtainable: All systems reviewed & are unremarkable except as noted in HPI and below Constitutional Constitutional: Denies chills, Denies fever(s), Denies lethargy and Denies weakness ENT Ears, Nose, Mouth, and Throat: Denies change in voice, Denies dizziness, Denies neck pain and Denies sore throat Cardiovascular Cardiovascular: Denies chest pain, Denies syncope, Denies irregular heart rhythm, Denies lightheadedness, Denies palpitations and Denies orthopnea Respiratory Respiratory: Reports as per HPI and Reports hemoptysis Gastrointestinal Gastrointestinal: Denies abdominal pain, Denies change in bowel habits, Denies diarrhea, Denies nausea and Denies vomiting Musculoskeletal Musculoskeletal: Denies back pain, Denies myalgias and Denies neck pain Integumentary/Breasts Skin/Breast: Denies pruritus, Denies erythema, Denies rash and Denies wounds Neurologic Neurologic: Denies dizziness, Denies syncope and Denies weakness Endocrine Endocrine: Denies palpitations Hematologic/Lymphatic Hematologic/Lymphatic: Reports as per HPI Patient History Medical History Acquired hypothyroidism (Chronic 08/13/15) Atrophic vaginitis (Chronic) Autoimmune hepatitis (Chronic 08/13/15) Autoimmune pancytopenia (Chronic) Cavitary lesion of lung (Acute) Chest discomfort (Acute) Chronic venous stasis (Acute) Compression fracture of L4 vertebra (Chronic ~11/2018) Compression fracture of L5 vertebra (Chronic) Diverticulitis large intestine (Resolved 06/01/11) 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) Heart murmur (Chronic) Hematuria, unspecified (Acute 06/01/11) Hepatitis, autoimmune (Chronic 2001) Hypertension (Chronic) Hypothyroidism (Chronic) Irritable bowel syndrome (Acute 06/01/11) 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) Lupus (Chronic) Osteopenia (Chronic) Osteoporosis (Chronic) Pain (Chronic) Sinusitis (Chronic) Skin tear of left lower leg without complication (Acute) Stage 3 chronic kidney disease (Chronic 08/13/15) Systemic lupus erythematosus (Chronic 08/13/15) Thickening of wall of gallbladder (Acute) Underweight (Chronic) Surgical History Fracture of pelvis (Resolved 2013) History of breast biopsy (Acute) History of cataract removal with insertion of prosthetic lens (Resolved 2005) History of esophagogastroduodenoscopy (EGD) (Acute ~02/2018) History of liver biopsy (Acute) Status post colonoscopy (Resolved 2008) Status post tubal ligation (Resolved) Family History Mother Cancer Brother Stroke Social History marital status: Smoking Status: Former smoker alcohol intake: never substance use type: does not use Smoking Status: Former smoker alcohol intake frequency: 0-2 drinks per day Substance Use Type: does not use Exam Initial Vital Signs Initial Vital Signs: Vital Signs Temperature 98.5 F 08/14/20 14:20 Pulse Rate 117 H 08/14/20 14:20 Respiratory Rate 15 08/14/20 14:20 Blood Pressure 145/67 H 08/14/20 14:20 Pulse Oximetry 95 08/14/20 14:20 GENERAL: Alert pleasant well-appearing elderly female and in no acute distress. HEENT: Head atraumatic,EOMI, pupils reactive, face symmetric, moist mucous membranes CARDIOVASCULAR: Regular rate and rhythm without murmurs, rubs or gallops. RESPIRATORY: Breath sounds equal bilaterally, no wheezes rales or rhonchi. Active hemoptysis at bedside about 1 tbsp ABDOMEN: Soft, nontender. Normoactive bowel sounds all 4 quadrants. No gua rding or rebound. EXTREMITIES: Normal range of motion, no clubbing or edema. Neurovascularly intact NEUROLOGICAL: Alert and oriented x4.Normal gait and speech. Cranial nerves II through XII grossly intact. SKIN: Warm, dry, no laceration, no petechiae, no rashes or lesions. Procedures Central Line Placement Left IJ: Time Out Performed: Yes Patient Placed on Monitor/Pulse Ox: Yes MD Prep: mask and gloves Central Line Prep: Chlorhexidine scrub Local Anesthetic: lidocaine 1% Amount of anesthesia used (mL): 2 Ultrasound Used for Placement: Yes Central Line Lumen Inserted: triple Post Procedure: sutured in place, good blood return, all ports aspirated, flushed, capped and sterile dressing applied Patient Tolerated Procedure: Well Complications: none Additional Comments: needs to be pulled back Intubation Time out performed: Yes sedative: none Laryngoscope: fiber optic video scope ET Tube Size: 7.5 Tube Secured Depth (cm): 25 Tube Secured Location: teeth Tube Placement Confirmation: Visualized tube passing through cords, Equal breath sounds bilaterally, No breath sounds over epigastrium, Confirmation by capnometry and Chest Xray Patient Tolerated Procedure: Well Intubation Complications: none Course Orders Ordered: ED Orders 08/14/20 14:38 Complete Blood Count AUTO DIFF Stat Comprehensive Metabolic Panel Stat Packed Cells Stat Partial Thromboplastin Time Stat Prothrombin Time INR Stat Type and Screen Stat 08/14/20 14:44 XR chest 1V Stat 08/14/20 15:10 COVID19 -ED/INPAT/OR/L&D Stat 08/14/20 18:10 Complete Blood Count AUTO DIFF Stat Comprehensive Metabolic Panel Stat Lactate (Lactic Acid) Stat 08/14/20 19:15 ABG [Arterial Blood Gas] Stat Sodium Chloride (Normal Saline 0.9%) 1,000 mls @ 150 mls/hr IV CONT CAMERON Last Admin: 08/14/20 15:28 Dose: 150 mls/hr Documented by: RMARTIN Fentanyl 1,000 mcg/ Dextrose 250 mls @ 8.811 mls/hr IV TITRATE CAMERON; Protocol Pantoprazole Sodium 80 mg/ (Sodium Chloride) 100 mls @ 10 mls/hr IV CONT CAMERON Octreotide Acetate 500 mcg/ (Sodium Chloride) 101 mls @ 10.1 mls/hr IV CONT CAMERON; Protocol Discontinued Medications Pantoprazole Sodium (Protonix) 40 mg IV NOW ONE Stop: 08/14/20 18:42 Consultations Consultation #1: Dr. Moreira, addressing machine operator at [facility] recommends patient be transferred to [facility] for possible intervention of hemoptysis Time: 15:02 Vital Signs Vital signs: Vital Signs - 8 hr 08/14/20 14:20 08/14/20 14:54 08/14/20 15:00 Temperature 98.5 F Pulse Rate 117 H 109 H 104 H Respiratory Rate 15 24 24 Blood Pressure 145/67 H 110/57 L Pulse Oximetry 95 96 96 08/14/20 15:19 08/14/20 15:30 08/14/20 16:00 Temperature Pulse Rate 110 H 103 H 105 H Respiratory Rate 24 27 H 28 H Blood Pressure 133/69 130/55 L 165/72 H Pulse Oximetry 95 98 94 08/14/20 17:00 08/14/20 17:35 08/14/20 17:40 Temperature Pulse Rate 114 H 122 H 134 H Respiratory Rate 28 H 22 19 Blood Pressure 157/74 H 195/85 H 189/79 H Pulse Oximetry 94 86 L 82 L 08/14/20 17:45 08/14/20 17:50 08/14/20 17:55 Temperature Pulse Rate 130 H 128 H 128 H Respiratory Rate 12 15 14 Blood Pressure 145/69 H 150/78 H 121/83 Pulse Oximetry 100 100 100 08/14/20 18:00 08/14/20 18:05 08/14/20 18:10 Temperature Pulse Rate 126 H 125 H 126 H Respiratory Rate 17 17 18 Blood Pressure 126/73 133/65 130/60 Pulse Oximetry 100 100 100 08/14/20 18:15 08/14/20 18:20 08/14/20 18:25 Temperature Pulse Rate 126 H 124 H 122 H Respiratory Rate 18 18 17 Blood Pressure 132/63 141/66 H 118/56 L Pulse Oximetry 100 100 100 08/14/20 18:30 08/14/20 18:35 08/14/20 18:40 Temperature Pulse Rate 122 H 120 H 118 H Respiratory Rate 16 16 15 Blood Pressure 108/53 L 99/52 L 91/55 L Pulse Oximetry 100 100 100 08/14/20 18:45 08/14/20 18:50 08/14/20 18:55 Temperature Pulse Rate 115 H 117 H 116 H Respiratory Rate 15 15 15 Blood Pressure 75/43 L 80/52 L 74/50 L Pulse Oximetry 100 100 100 08/14/20 19:00 08/14/20 19:05 08/14/20 19:10 Temperature Pulse Rate 117 H 111 H 112 H Respiratory Rate 15 14 14 Blood Pressure 80/51 L 79/53 L 73/52 L Pulse Oximetry 100 100 100 08/14/20 19:15 Temperature Pulse Rate 111 H Respiratory Rate 14 Blood Pressure 75/42 L Pulse Oximetry 100 MDM - URI/Sore Throat Lab Data Attestation: I reviewed the patient's lab results. Result diagrams: 08/14/20 18:10 08/14/20 18:10 Labs: Lab Results 08/14/20 08/14/20 08/14/20 Range/Units 14:38 14:38 14:38 WBC 20.8 H D (4.5-11.0) X10^3/uL RBC 3.68 L (4.0-5.2) X10^6/uL Hgb 10.8 L (12.0-16.0) g/dL Hct 32.9 L (36-46) % MCV 89.5 (80-100) fL MCH 29.3 (26-34) PG MCHC 32.8 (30-36) % RDW 15.5 H (11.6-14.8) % Plt Count 326 (150-400) X10^3/uL Neut % (Auto) 81.7 H (50-75) % Lymph % (Auto) 11.4 L (25-40) % [place] % (Auto) 6.0 (3-14) % Eos % (Auto) 0.1 L (2-4) % Baso % (Auto) 0.8 (0-2) % Neut # (Auto) 66197 H (2639-2964) /uL Lymph # (Auto) 2400 (4055-7796) /uL [place] # (Auto) 1300 H (0-900) /uL Eos # (Auto) 0 (0-450) /uL Baso # (Auto) 200 H (0-100) /uL PT 16.3 H (10.1-12.7) SECONDS INR 1.4 H (0.9-1.3) APTT 27 D (26.4-36.2) SECONDS ABG pH (7.35-7.45) ABG pCO2 (35-45) mmHg ABG pO2 (80-100) mmHg ABG HCO3 (22-26) mmol/L ABG Total CO2 (21-31) mmol/L ABG O2 Saturation (95-100) % ABG Base Excess (-2-2) mmol/L FiO2 Sodium 132 L (137-145) mmol/L Potassium 3.7 (3.4-5.1) mmol/L Chloride 99 (98-107) mmol/L Carbon Dioxide 28 (22-32) mmol/L BUN 17 (7-17) mg/dL Creatinine 0.56 (0.52-1.04) mg/dL Estimated GFR > 60.0 (>60) mL/min BUN/Creatinine Ratio 30.4 H (6-22) Glucose 106 (80-110) mg/dL Lactate (0.7-2.1) mmol/L Calcium 8.3 L (8.4-10.2) mg/dL Total Bilirubin 1.3 (0.2-1.3) mg/dL AST 45 H (14-36) IU/L ALT 21 (<35) IU/L Alkaline Phosphatase 242 H (38-126) U/L Total Protein 7.7 (6.3-8.2) g/dL Albumin 3.2 L (3.5-5.0) g/dL Globulin 4.5 H (1.7-4.1) g/dL Albumin/Globulin Ratio 0.7 L (1.0-2.8) COVID-19 PCR (Negative) Blood Type Antibody Screen Crossmatch 08/14/20 08/14/20 08/14/20 Range/Units 14:38 15:10 18:10 WBC 28.9 H (4.5-11.0) X10^3/uL RBC 2.64 L (4.0-5.2) X10^6/uL Hgb 7.9 L (12.0-16.0) g/dL Hct 24.4 L (36-46) % MCV 92.2 (80-100) fL MCH 30.1 (26-34) PG MCHC 32.6 (30-36) % RDW 15.3 H (11.6-14.8) % Plt Count 231 (150-400) X10^3/uL Neut % (Auto) 74.9 (50-75) % Lymph % (Auto) 16.9 L (25-40) % [place] % (Auto) 7.5 (3-14) % Eos % (Auto) 0.2 L (2-4) % Baso % (Auto) 0.5 (0-2) % Neut # (Auto) 46985 H (2952-6892) /uL Lymph # (Auto) 4900 H (6619-8035) /uL [place] # (Auto) 2200 H (0-900) /uL Eos # (Auto) 100 (0-450) /uL Baso # (Auto) 200 H (0-100) /uL PT (10.1-12.7) SECONDS INR (0.9-1.3) APTT (26.4-36.2) SECONDS ABG pH (7.35-7.45) ABG pCO2 (35-45) mmHg ABG pO2 (80-100) mmHg ABG HCO3 (22-26) mmol/L ABG Total CO2 (21-31) mmol/L ABG O2 Saturation (95-100) % ABG Base Excess (-2-2) mmol/L FiO2 Sodium (137-145) mmol/L Potassium (3.4-5.1) mmol/L Chloride (98-107) mmol/L Carbon Dioxide (22-32) mmol/L BUN (7-17) mg/dL Creatinine (0.52-1.04) mg/dL Estimated GFR (>60) mL/min BUN/Creatinine Ratio (6-22) Glucose (80-110) mg/dL Lactate (0.7-2.1) mmol/L Calcium (8.4-10.2) mg/dL Total Bilirubin (0.2-1.3) mg/dL AST (14-36) IU/L ALT (<35) IU/L Alkaline Phosphatase (38-126) U/L Total Protein (6.3-8.2) g/dL Albumin (3.5-5.0) g/dL Globulin (1.7-4.1) g/dL Albumin/Globulin Ratio (1.0-2.8) COVID-19 PCR Negative (Negative) Blood Type O Positive Antibody Screen Negative Crossmatch See Detail 08/14/20 08/14/20 08/14/20 Range/Units 18:10 18:10 19:15 WBC (4.5-11.0) X10^3/uL RBC (4.0-5.2) X10^6/uL Hgb (12.0-16.0) g/dL Hct (36-46) % MCV (80-100) fL MCH (26-34) PG MCHC (30-36) % RDW (11.6-14.8) % Plt Count (150-400) X10^3/uL Neut % (Auto) (50-75) % Lymph % (Auto) (25-40) % [place] % (Auto) (3-14) % Eos % (Auto) (2-4) % Baso % (Auto) (0-2) % Neut # (Auto) (4908-6108) /uL Lymph # (Auto) (4645-0350) /uL [place] # (Auto) (0-900) /uL Eos # (Auto) (0-450) /uL Baso # (Auto) (0-100) /uL PT (10.1-12.7) SECONDS INR (0.9-1.3) APTT (26.4-36.2) SECONDS ABG pH 7.22 L* (7.35-7.45) ABG pCO2 58.0 H (35-45) mmHg ABG pO2 133 H (80-100) mmHg ABG HCO3 24 (22-26) mmol/L ABG Total CO2 26 (21-31) mmol/L ABG O2 Saturation 98 (95-100) % ABG Base Excess -4.0 L (-2-2) mmol/L FiO2 0.50 Sodium 134 L (137-145) mmol/L Potassium 3.7 (3.4-5.1) mmol/L Chloride 107 (98-107) mmol/L Carbon Dioxide 20 L (22-32) mmol/L BUN 16 (7-17) mg/dL Creatinine 0.61 (0.52-1.04) mg/dL Estimated GFR > 60.0 (>60) mL/min BUN/Creatinine Ratio 26.2 H (6-22) Glucose 123 H (80-110) mg/dL Lactate 5.9 H* (0.7-2.1) mmol/L Calcium 6.7 L (8.4-10.2) mg/dL Total Bilirubin 0.9 (0.2-1.3) mg/dL AST 40 H (14-36) IU/L ALT 24 (<35) IU/L Alkaline Phosphatase 162 H (38-126) U/L Total Protein 5.2 L (6.3-8.2) g/dL Albumin 2.0 L (3.5-5.0) g/dL Globulin 3.2 (1.7-4.1) g/dL Albumin/Globulin Ratio 0.6 L (1.0-2.8) COVID-19 PCR (Negative) Blood Type Antibody Screen Crossmatch Imaging Data Chest x-ray: Radiologist's Impression: PROCEDURE: XR CHEST 1V INDICATIONS: Hemoptysis TECHNIQUE: One view of the chest was acquired. COMPARISON: [facility], CR, XR CHEST 2 VIEWS, 07/14/2020, 12:19. [facility], CR, XR CHEST 2V, 12/03/2019, 12:14. FINDINGS: Surgical changes and devices: None. Lungs and pleura: No change in moderate right perihilar density. No change in right greater than left mild diffuse interstitial pulmonary opacity, allowing for differences in technique. No pleural effusions or pneumothorax. Mediastinum: Mediastinal contours appear normal. Heart size is normal. Bones and chest wall: No suspicious bony lesions. Overlying soft tissues ap pear unremarkable. IMPRESSION: 1. No change in right perihilar density. 2. No change in interstitial lung disease. Dictated by: Nani Rizzo M.D. on 08/14/2020 at 14:57 Chest x-ray 2. : Radiologist's Impression: PROCEDURE: XR CHEST 1V INDICATIONS: CENTRAL LINE PLACEMENT TECHNIQUE: One view of the chest was acquired. COMPARISON: [facility], CR, XR CHEST 1V, 08/14/2020, 17:33. FINDINGS: Surgical changes and devices: ET tube remains near the shiva, and retraction is recommended. Left IJ line coils back on itself, possibly in the azygos arch. Lungs and pleura: Again noted is a large right lung mass and diffuse bilateral pulmonary infiltrates suggesting pulmonary edema. Mediastinum: Mediastinal contours appear normal. Heart size is normal. Bones and chest wall: No suspicious bony lesions. Overlying soft tissues appear unremarkable. IMPRESSION: Suggest retraction of ET tube and repositioning of central line. Large right lung mass. Congestive heart failure. Comment: Findings were discussed with Miranda in the ED, at the time of study dictation. All Dictated by: Guillermo Bautista M.D. on 08/14/2020 at 18:26 Chest x-ray 3. : Radiologist's Impression: PROCEDURE: XR CHEST 1V INDICATIONS: INTUBATION TECHNIQUE: One view of the chest was acquired. COMPARISON: [facility], CR, XR CHEST 2 VIEWS, 07/14/2020, 12:19. [facility], CT, CT CHEST W CON, 08/13/2020, 19:54. [facility], CR, XR CHEST 1V, 08/14/2020, 14:48. FINDINGS: Surgical changes and devices: ET tube points towards the right main bronchus approximately 1.5 cm above the shiva. Lungs and pleura: Known large medial right lung mass. Developing bilateral airspace consolidation, right greater than left. No pleural effusions or pneumothorax. Mediastinum: Mediastinal contours appear normal. Heart size is normal. Bones and chest wall: No suspicious bony lesions. Overlying soft tissues appear unremarkable. IMPRESSION: 1. ET tube approximately 1.5 cm above the shiva. Suggest retraction. 2. Known large right lung mass. 3. Development of bilateral pulmonary infiltrates, right greater than left. Comment: Findings were discussed with Lady, the DAVID tech in the emergency department, at the time of study dictation. Dictated by: Guillermo Bautista M.D. on 08/14/2020 at 17:58 Approved by: Guillermo Bautista M.D. on 08/14/2020 at 18:01 MDM Narrative Medical decision making narrative: Patient noted to be slightly tachycardic. She still have scant amount of hemoptysis in the ED of to tbsp at a time. Hemoglobin has decreased today is 10.8/32.9, last night at 7:00 p.m. hemoglobin was 12.5 with hematocrit of 37.5. She also is noted to have leukocytosis of 20. CT scan from yesterday is concerning for now a malignancy surrounding the pulmonary artery. I discussed case with pulmonology was reviewed her notes notes are also included in patient's chart, at this time with increased hemopt ysis she recommends that patient go to [place] [facility] for further evaluation. Patient remains slightly tachycardic with normal blood pressure and not requiring oxygen. She also is not on any anti-platelet or anti coagulation medication. The patient was loaded on him feel less ambulance gurney taken to the ambulance [facility] where she quickly became unresponsive and was brought back emergently. Patient appeared jaundiced she had blood in her mouth. She was found to be pulseless CPR started and 1 round of epinephrine given. She was emergently intubated and emergent central line placed. was called back. He agreed to have everything done for patient. TXA was given thought to initially have a massive hemoptysis. However patient also has cirrhosis with portal hypertension there is also possibility of GI bleeding. Patient's blood pressure actually has remained normal stable. Sedated on propofol and fentanyl. Hemoglobin hematocrit has decreased from 4 hours prior. Hemoglobin now 7.9/24.4, previously 10.8 and 32.9.. No negative blood is ordered and transfused for transport. Octreotide and Protonix drip also started for possible GI bleed and variceal bleeding. I have discussed with grave prognosis, continues to states the patient is full code. I have updated the [facility] and talked to digital marketing assistant to is familiar with patient, and happily accept. Critical Care Time Critical Care Time Critical Care Time: Yes Total Critical Care Time: 60 Attestation: The high probability of a clinically significant, sudden or life threatening deterioration of the [cardiovascular] system(s) required my full and direct attention, intervention and personal management. The aggregate critical care time was 60 minutes. This time is in addition to time spent performing reported procedures but includes the following: [x] Data Review and interpretation [x] Patient assessment and monitoring of vital signs [x] Documentation [x] Medication orders and management Discharge Plan Departure Patient Disposition: [facility] Clinical Impression: Hemoptysis, Acute GI bleeding, Respiratory failure Prescriptions: No Action diphenhydramine HCl [Benadryl] 25 mg capsule 25 mg PO BEDTIME PRN (Reason: Insomnia) RF: 0 Caltrate + D3 Plus Minerals 300 mg-800 unit -25 mg-0.5 mg tablet 1 tab PO DAILY RF: 0 ferrous sulfate [Iron (ferrous sulfate)] 325 mg (65 mg iron) tablet 325 mg PO BID Qty: 60 RF: 1 estradiol 0.01 % (0.1 mg/gram) cream See Rx Instructions .ROUTE .COMPLEX Qty: 42.5 RF: 5 diclofenac sodium 1 % gel 2 g topical QID Qty: 100 RF: 1 lidocaine 5 % adhesive patch,medicated 1 patch TOP DAILY Qty: 15 RF: 5 levothyroxine 88 mcg tablet 88 mcg PO QAM Qty: 90 RF: 3 fesoterodine 4 mg tablet extended release 24 hr 4 mg PO DAILY Qty: 90 RF: 1 spironolactone 25 mg tablet 25 mg PO DAILY Qty: 30 RF: 5 potassium chloride 8 mEq capsule, extended release 16 meq PO BID Qty: 10 RF: 0 azelastine 137 mcg (0.1 %) aerosol,spray 1 spray NASAL BID Qty: 30 RF: 0 duloxetine 60 mg capsule,delayed release(DR/EC) 60 mg PO DAILY Qty: 90 RF: 3 clonazepam 1 mg tablet 1 mg PO BID PRN (Reason: anxiety) Qty: 60 RF: 2 prednisone 1 mg tablet 3 mg PO DAILY Qty: 90 RF: 5 pantoprazole 40 mg tablet,delayed release (DR/EC) 40 mg PO DAILY Qty: 90 RF: 3 methadone 5 mg tablet 5 mg PO DAILY Qty: 30 RF: 0 furosemide 40 mg tablet 40 mg PO DAILY PRN (Reason: edema) 30 Days Qty: 30 RF: 0 lactulose 10 gram/15 mL solution 20 gram PO BID PRN (Reason: Laxative Effect) Qty: 237 RF: 1 oxycodone 5 mg tablet 5 mg PO TID PRN (Reason: Pain, Severe) Qty: 90 RF: 0 Biotene Dry Mouth Oral Rinse mouthwash 15 ml MM BID-QID PRN (Reason: Dry Mouth) RF: 0 trazodone 50 mg tablet 25 mg PO BEDTIME PRN (Reason: Sleep) RF: 0 clobetasol 0.05 % ointment 1 applictn TOP DAILY Qty: 30 RF: 1 folic acid 1 mg tablet 1 mg PO BID Qty: 60 RF: 11 Systane Balance 0.6 % drops ophthalmic (eye) RF: 0 mycophenolate mofetil 500 mg Tablet 1,000 mg PO BID RF: 0 Align 4 mg Capsule 1 cap PO DAILY PRN (Reason: Diarrhea) RF: 0 propranolol 20 mg tablet 10 mg PO BID RF: 0 Referrals: Migue Verma MD [Primary Care Provider] -
--- NOTE | 2020-08-14 14:44 | DI.RAD.S_ITS ---
PROCEDURE: XR CHEST 1V INDICATIONS: Hemoptysis TECHNIQUE: One view of the chest was acquired. COMPARISON: [facility], CR, XR CHEST 2 VIEWS, 07/14/2020, 12:19. [facility], CR, XR CHEST 2V, 12/03/2019, 12:14. FINDINGS: Surgical changes and devices: None. Lungs and pleura: No change in moderate right perihilar density. No change in right greater than left mild diffuse interstitial pulmonary opacity, allowing for differences in technique. No pleural effusions or pneumothorax. Mediastinum: Mediastinal contours appear normal. Heart size is normal. Bones and chest wall: No suspicious bony lesions. Overlying soft tissues appear unremarkable. IMPRESSION: 1. No change in right perihilar density. 2. No change in interstitial lung disease. Dictated by: Nani Rizzo M.D. on 08/14/2020 at 14:57 Approved by: Nani Rizzo M.D. on 08/14/2020 at 14:58
[2020-08-14 14:50] LABS: Add Manual Diff / Slide Review NO; Basophils Absolute Auto 200 /uL (0-100); Basophils Percent Auto 0.8 % (0-2); Eosinophils Absolute Auto 0 /uL (0-450); Eosinophils Percent Auto 0.1 % (2-4); Hematocrit 32.9 % (36-46); Hemoglobin 10.8 g/dL (12.0-16.0); Lymphocytes Absolute Auto 2400 /uL (1100-4500); Lymphocytes Percent Auto 11.4 % (25-40); Mean Corpuscular HGB Conc 32.8 % (30-36); Mean Corpuscular Hemoglobin 29.3 PG (26-34); Mean Corpuscular Volume 89.5 fL (80-100); Monocytes Absolute Auto 1300 /uL (0-900); Neutrophils Absolute Auto 17000 /uL (1500-7000); Neutrophils Percent Auto 81.7 % (50-75); Platelet Count 326 X10^3/uL (150-400); Red Blood Cell Count 3.68 X10^6/uL (4.0-5.2); Red Cell Distribution Width 15.5 % (11.6-14.8); White Blood Cell Count 20.8 X10^3/uL (4.5-11.0)
[2020-08-14 14:53] LABS: INR 1.4 (0.9-1.3); Prothrombin Time 16.3 SECONDS (10.1-12.7)
[2020-08-14 14:55] LABS: PTT Partial Thromboplastin Tim 27 SECONDS (26.4-36.2)
[2020-08-14 14:57] LABS: Alanine Aminotransferase 21 IU/L (<35); Albumin 3.2 g/dL (3.5-5.0); Albumin Globulin Ratio 0.7 (1.0-2.8); Alkaline Phosphatase 242 U/L (38-126); Aspartate Aminotransferase 45 IU/L (14-36); BUN Creatinine Ratio 30.4 (6-22); Bilirubin Total 1.3 mg/dL (0.2-1.3); Blood Urea Nitrogen 17 mg/dL (7-17); Calcium 8.3 mg/dL (8.4-10.2); Carbon Dioxide 28 mmol/L (22-32); Chloride 99 mmol/L (98-107); Estimated Glomerular Filt Rate > 60.0 mL/min (>60); Globulin 4.5 g/dL (1.7-4.1); Glucose 106 mg/dL (80-110); HEMOLYSIS < 15 (0-50); Potassium 3.7 mmol/L (3.4-5.1); Sodium 132 mmol/L (137-145); Total Protein 7.7 g/dL (6.3-8.2)
--- NOTE | 2020-08-14 15:00 | PC.NURSE ---
Provider notified and aware of increased pulse and WBC from visit yesterday.
--- NOTE | 2020-08-14 15:19 | PC.NURSE ---
Automatic BP cuff measured BP on right arm as 110/57. Replaced with small cuff and remeasured, BP 133/69.
[2020-08-14] MEDS: SODIUM CHLORIDE 0.9% 1,000 ML 150 ML IV (15:28)
[2020-08-14 15:29] LABS: COVID19 -Nasal RAPID Negative (Negative)
--- NOTE | 2020-08-14 17:20 | PC.NURSE ---
Patient in stable condition when paramedics arrived. Placed onto stretcher for transport with BLS crew. BLS crew was on their way out of ambulance bay when patient became unresponse. BLS crew brought patient back into department, code yasmine called, see code sheet for details.
--- NOTE | 2020-08-14 18:07 | RT ---
Responded to code blue in ER8, upon arrival cpr in progress and pt orally suctioned for copious amounts [place] blood. Bagged with 100% fio2 and orally intubated by MD without incident. ET tube secured and pos color change via etco2. Pulses returned and pt placed on Ventilator with current settings. Sao2 100%
[2020-08-14 18:25] LABS: Add Manual Diff / Slide Review NO; Basophils Absolute Auto 200 /uL (0-100); Basophils Percent Auto 0.5 % (0-2); Eosinophils Absolute Auto 100 /uL (0-450); Eosinophils Percent Auto 0.2 % (2-4); Hematocrit 24.4 % (36-46); Hemoglobin 7.9 g/dL (12.0-16.0); Lymphocytes Absolute Auto 4900 /uL (1100-4500); Lymphocytes Percent Auto 16.9 % (25-40); Mean Corpuscular HGB Conc 32.6 % (30-36); Mean Corpuscular Hemoglobin 30.1 PG (26-34); Mean Corpuscular Volume 92.2 fL (80-100); Monocytes Absolute Auto 2200 /uL (0-900); Monocytes Percent Auto 7.5 % (3-14); Neutrophils Absolute Auto 21600 /uL (1500-7000); Neutrophils Percent Auto 74.9 % (50-75); Platelet Count 231 X10^3/uL (150-400); Red Blood Cell Count 2.64 X10^6/uL (4.0-5.2); Red Cell Distribution Width 15.3 % (11.6-14.8); White Blood Cell Count 28.9 X10^3/uL (4.5-11.0)
[2020-08-14 18:33] LABS: Albumin Globulin Ratio 0.6 (1.0-2.8); Alkaline Phosphatase 162 U/L (38-126); Aspartate Aminotransferase 40 IU/L (14-36); BUN Creatinine Ratio 26.2 (6-22); Bilirubin Total 0.9 mg/dL (0.2-1.3); Blood Urea Nitrogen 16 mg/dL (7-17); Calcium 6.7 mg/dL (8.4-10.2); Carbon Dioxide 20 mmol/L (22-32); Chloride 107 mmol/L (98-107); Estimated Glomerular Filt Rate > 60.0 mL/min (>60); Globulin 3.2 g/dL (1.7-4.1); Glucose 123 mg/dL (80-110); HEMOLYSIS < 15 (0-50); Lactate (Lactic Acid) 5.9 mmol/L (0.7-2.1); Potassium 3.7 mmol/L (3.4-5.1); Sodium 134 mmol/L (137-145); Total Protein 5.2 g/dL (6.3-8.2)
[2020-08-14 18:40] LABS: Alanine Aminotransferase 24 IU/L (<35)
[2020-08-14 19:45] LABS: pH ABG 7.22 (7.35-7.45)
[2020-08-14 19:46] LABS: HCO3 ABG 24 mmol/L (22-26); Oxygen Saturation ABG 98 % (95-100); PO2 ABG 133 mmHg (80-100); TCO2 ABG 26 mmol/L (21-31)
[2020-08-14 20:15] LABS: Reflexed Lactate in 2 Hours Y
== END 2020-08-14 20:40 | disposition short-term general hospital (02) ==
PROVIDERS: Emergency Provider Emergency Medicine; Family Provider Student in an Organized Health Care Education/Training Program; PCP Student in an Organized Health Care Education/Training Program
DX: R04.2 Hemoptysis (principal); K92.2 Gastrointestinal hemorrhage, unspecified; J96.90 Respiratory failure, unspecified, unspecified whether with hypoxia or hypercapnia; R00.0 Tachycardia, unspecified; R79.89 Other specified abnormal findings of blood chemistry; I10 Essential (primary) hypertension; K74.60 Unspecified cirrhosis of liver; R91.1 Solitary pulmonary nodule
CPT/HCPCS: 31500; 36415; 36430; 36573; 36600; 71045; 80053; 82805; 83605; 85025; 85610; 85730; 86850; 86900; 86901; 87635; 92950; 94002; 94003; 94770; 94799; 99284; 99291; 99292; P9016